=== PATIENT | female | born 1950 | race Caucasian/White ===

== ENCOUNTER → 2017-04-01 10:43 | Outpatient (CLI) | payer MEDICARE, OTHER ==
[2016-01-02 17:36] VITALS: BMI 26.1
[~2017-04-01 10:43] MED LIST: ASPIRIN325 MG PO; BUSPAR 15 MG TA15 MG PO; CARDIZEM CD240 MG PO; COLACE100 MG PO; DESERYL100 MG PO; ELIQUIS2.5 MG PO; HUMALOG INSULIN PUMP; INDOCIN25 MG PO; ISOSORBIDE MONO60 M1 PO; LEVOXYL100 MCG PO; MOBIC7.5 MG PO; MS CONTIN30 MG PO; NEURONTIN 300300 MG PO; NEXIUM40 MG PO; OXYCONTIN10 MG PO; PERCOCET 10/3251 TA1 PO; PHENERGAN25 M1 PO; PRAVACHOL40 MG PO; PROTONIX40 MG PO; REGLAN10 MG PO; SOMA350 MG PO; TYLENOL #4 W/CO1 TAB PO; VALIUM 2 MG TAB2 MG PO; VALIUM10 MG PO; ZOLOFT100 MG PO; [UNRECOGNIZED DRUG - OTHER]
== END | disposition home or self-care (01) ==
LOC: D.US 10:43 → D.NM 12:30
DX: R11.0 Nausea (principal); K59.00 Constipation, unspecified

== ENCOUNTER → 2017-09-29 13:17 | Outpatient (CLI) | payer MEDICARE, OTHER ==
[2016-01-02 17:36] VITALS: BMI 26.1
== END | disposition home or self-care (01) ==
LOC: D.US 09-24 11:30
DX: E10.42 Type 1 diabetes mellitus with diabetic polyneuropathy (principal); E78.5 Hyperlipidemia, unspecified

== ENCOUNTER → 2017-12-02 10:39 | Outpatient (CLI) | payer MEDICARE, OTHER ==
[2016-01-02 17:36] VITALS: BMI 26.1
[2017-12-02 11:16] LABS: BASOPHILS 0.6 % (0-2); EOSINOPHILS 2.5 % (0-7); HEMATOCRIT 34.9 % (36.0-48.0); HEMOGLOBIN 11.6 g/dL (12-16); IMMATURE GRANULOCYTES 0.1 % (0-5); LYMPHOCYTES 17.5 % (15-50); MCH 30.1 pg (26.0-34.0); MCHC 33.2 g/dL (31.0-37.0); MCV 90.6 fL (80.0-100.0); MEAN PLATELET VOLUME 8.8 fL (7.4-10.4); NEUTROPHILS 68.3 % (40-80); PLATELET COUNT 256 10x3/uL (130-400); RBC 3.85 10x6/uL (4.00-5.40); RDW 16.5 % (11.5-14.5); WBC 7.2 10x3/uL (4.8-10.8)
[2017-12-02 11:43] LABS: ALBUMIN 3.6 g/dL (3.4-5.0); ALKALINE PHOSPHATASE 111 U/L (46-116); ALT (SGPT) 15 U/L (10-68); CALC OSMOLALITY 261 mosm/kg (275-300); CALCIUM 8.5 mg/dL (8.5-10.1); CARBON DIOXIDE 27.4 mmol/L (21.0-32.0); CHLORIDE - SERUM 91 mmol/L (98-107); CREATININE - SERUM 0.8 mg/dL (0.6-1.3); GLUCOSE 201 mg/dL (74-106); POTASSIUM - SERUM 4.8 mmol/L (3.5-5.1); PROTEIN - SERUM 7.4 g/dL (6.4-8.2); SODIUM 128 mmol/L (136-145); UREA NITROGEN 11 mg/dL (7-18); eGFR NON AFRICAN AMERICAN 76 mL/min (90-120)
[2017-12-02 12:15] LABS: APPEARANCE CLEAR (CLEAR); BACTERIA MODERATE /hpf (NONE SEEN); BILIRUBIN NEGATIVE (NEGATIVE); COLOR YELLOW (YELLOW); EPITHELIAL CELLS 0-5 /hpf (0-5); GLUCOSE NEGATIVE (NEGATIVE); KETONE NEGATIVE (NEGATIVE); MUCUS <1+ /lpf (NONE SEEN); NITRITE NEGATIVE (NEGATIVE); PROTEIN NEGATIVE (NEGATIVE); RED CELLS - URINE 0-5 /hpf (0-5); SPECIFIC GRAVITY 1.015 (1.005-1.020); UROBILINOGEN NORMAL (NORMAL); WHITE CELLS - URINE 0-5 /hpf (0-5)
== END | disposition home or self-care (01) ==
LOC: D.LAB 10:39
PROVIDERS: Orthopaedic Surgery Sports Medicine
DX: I10 Essential (primary) hypertension (principal); Z01.812 Encounter for preprocedural laboratory examination; E11.9 Type 2 diabetes mellitus without complications

== ENCOUNTER → 2017-12-22 16:15 | Outpatient (CLI) | payer MEDICARE, OTHER ==
[2016-01-02 17:36] VITALS: BMI 26.1
[2017-12-22 17:14] LABS: CALC OSMOLALITY 254 mosm/kg (275-300); CALCIUM 7.9 mg/dL (8.5-10.1); CHLORIDE - SERUM 92 mmol/L (98-107); CREATININE - SERUM 0.8 mg/dL (0.6-1.3); GLUCOSE 174 mg/dL (74-106); POTASSIUM - SERUM 4.8 mmol/L (3.5-5.1); SODIUM 126 mmol/L (136-145); UREA NITROGEN 7 mg/dL (7-18); VANCOMYCIN - TROUGH 15.5 ug/mL (10.0-20.0); eGFR NON AFRICAN AMERICAN 76 mL/min (90-120)
== END | disposition home or self-care (01) ==
LOC: D.LABREF 16:15
PROVIDERS: Orthopaedic Surgery Sports Medicine
DX: M97.12XA Periprosthetic fracture around internal prosthetic left knee joint, initial encounter (principal); X58.XXXA Exposure to other specified factors, initial encounter

== ENCOUNTER → 2017-12-29 12:30 | Outpatient (CLI) | payer MEDICARE, OTHER ==
[2016-01-02 17:36] VITALS: BMI 26.1
[2017-12-29 14:20] LABS: CALC OSMOLALITY 265 mosm/kg (275-300); CALCIUM 8.5 mg/dL (8.5-10.1); CARBON DIOXIDE 27.9 mmol/L (21.0-32.0); CHLORIDE - SERUM 96 mmol/L (98-107); CREATININE - SERUM 0.8 mg/dL (0.6-1.3); GLUCOSE 173 mg/dL (74-106); POTASSIUM - SERUM 5.1 mmol/L (3.5-5.1); SODIUM 131 mmol/L (136-145); UREA NITROGEN 9 mg/dL (7-18); VANCOMYCIN - TROUGH 19.4 ug/mL (10.0-20.0); eGFR NON AFRICAN AMERICAN 76 mL/min (90-120)
== END | disposition home or self-care (01) ==
LOC: D.LABREF 12:30
PROVIDERS: Orthopaedic Surgery Sports Medicine
DX: M97.12XD Periprosthetic fracture around internal prosthetic left knee joint, subsequent encounter (principal); X58.XXXA Exposure to other specified factors, initial encounter

== ENCOUNTER → 2018-01-05 21:23 | Outpatient (CLI) | payer MEDICARE, OTHER ==
[2016-01-02 17:36] VITALS: BMI 26.1
[2018-01-05 21:38] LABS: VANCOMYCIN - TROUGH 28.1 ug/mL (10.0-20.0)
[2018-01-07 13:06] LABS: ANION GAP 13.7 mmol/L (8-16); CALCIUM 8.1 mg/dL (8.5-10.1); CARBON DIOXIDE 28.8 mmol/L (21.0-32.0); POTASSIUM - SERUM 4.5 mmol/L (3.5-5.1)
== END | disposition home or self-care (01) ==
LOC: D.LABREF 21:23
PROVIDERS: Orthopaedic Surgery Sports Medicine
DX: M97.12XA Periprosthetic fracture around internal prosthetic left knee joint, initial encounter (principal)

== ENCOUNTER → 2018-01-07 13:20 | Outpatient (CLI) | payer MEDICARE, OTHER ==
[2016-01-02 17:36] VITALS: BMI 26.1
[2018-01-07 14:43] LABS: ANION GAP 8.9 mmol/L (8-16); CALCIUM 8.5 mg/dL (8.5-10.1); CARBON DIOXIDE 31.6 mmol/L (21.0-32.0)
[2018-01-07 14:53] LABS: POTASSIUM - SERUM 5.5 mmol/L (3.5-5.1)
== END | disposition home or self-care (01) ==
LOC: D.LABREF 13:20
PROVIDERS: Student in an Organized Health Care Education/Training Program
DX: R60.0 Localized edema (principal)

== ENCOUNTER → 2018-01-13 14:12 | Outpatient (CLI) | payer MEDICARE, OTHER ==
[2016-01-02 17:36] VITALS: BMI 26.1
== END | disposition home or self-care (01) ==
LOC: D.US 13:30
DX: R60.0 Localized edema (principal)

== ENCOUNTER 2018-01-21 17:33 | Inpatient (IN) | payer MEDICARE, OTHER ==
[2018-01-21 18:53] LABS: BASOPHILS 0.4 % (0-2); EOSINOPHILS 3.5 % (0-7); HEMATOCRIT 25.4 % (36.0-48.0); IMMATURE GRANULOCYTES 0.3 % (0-5); LYMPHOCYTES 22.9 % (15-50); MCHC 31.5 g/dL (31.0-37.0); MCV 88.8 fL (80.0-100.0); MEAN PLATELET VOLUME 8.7 fL (7.4-10.4); MONOCYTES 12.7 % (2-11); NEUTROPHILS 60.2 % (40-80); RBC 2.86 10x6/uL (4.00-5.40); RDW 16.6 % (11.5-14.5); WBC 6.9 10x3/uL (4.8-10.8)
[2018-01-21 19:00] LABS: PLATELET COUNT 309 10x3/uL (130-400)
[2018-01-21 19:12] LABS: ANION GAP 12.2 mmol/L (8-16); CALCIUM 8.2 mg/dL (8.5-10.1); CREATININE - SERUM 1.1 mg/dL (0.6-1.3); POTASSIUM - SERUM 4.2 mmol/L (3.5-5.1)
[2018-01-22 05:56] LABS: BASOPHILS 0.1 % (0-2); EOSINOPHILS 0.3 % (0-7); HEMATOCRIT 26.6 % (36.0-48.0); HEMOGLOBIN 8.5 g/dL (12-16); IMMATURE GRANULOCYTES 0.3 % (0-5); LYMPHOCYTES 6.8 % (15-50); MCH 27.9 pg (26.0-34.0); MCV 87.2 fL (80.0-100.0); MEAN PLATELET VOLUME 9.5 fL (7.4-10.4); MONOCYTES 3.2 % (2-11); NEUTROPHILS 89.3 % (40-80); PLATELET COUNT 367 10x3/uL (130-400); RBC 3.05 10x6/uL (4.00-5.40); RDW 16.8 % (11.5-14.5); WBC 6.8 10x3/uL (4.8-10.8)
[2018-01-22 06:16] LABS: ALBUMIN 3.1 g/dL (3.4-5.0); ALKALINE PHOSPHATASE 144 U/L (46-116); ALT (SGPT) 18 U/L (10-68); BILIRUBIN - TOTAL 0.19 mg/dL (0.2-1.3); CALCIUM 8.6 mg/dL (8.5-10.1); CARBON DIOXIDE 24.2 mmol/L (21.0-32.0); CHLORIDE - SERUM 90 mmol/L (98-107); MAGNESIUM - SERUM 1.7 mg/dL (1.8-2.4); PHOSPHOROUS 3.2 mg/dL (2.5-4.9); PROTEIN - SERUM 7.5 g/dL (6.4-8.2); SODIUM 123 mmol/L (136-145); UREA NITROGEN 13 mg/dL (7-18)
[2018-01-22 06:19] LABS: CALC OSMOLALITY 258 mosm/kg (275-300); CREATININE - SERUM 0.7 mg/dL (0.6-1.3); GLUCOSE 290 mg/dL (74-106); POTASSIUM - SERUM 5.1 mmol/L (3.5-5.1); eGFR NON AFRICAN AMERICAN 89 mL/min (90-120)
[2018-01-22 12:43] LABS: % SATURATION 6 % (15-55); IRON 19 ug/dl (35-150); TOTAL IRON BIND CAPACITY 313 ug/dl (260-445); UNSAT IRON BIND CAPACITY 294 ug/dl (150-375)
[2018-01-22 12:59] LABS: FERRITIN 69 ng/mL (3-244); PRO BNP 895 pg/mL (0-125)
[2018-01-23 06:58] LABS: BASOPHILS 0.3 % (0-2); EOSINOPHILS 0.8 % (0-7); HEMATOCRIT 25.9 % (36.0-48.0); HEMOGLOBIN 8.2 g/dL (12-16); IMMATURE GRANULOCYTES 0.4 % (0-5); LYMPHOCYTES 18.6 % (15-50); MCH 27.9 pg (26.0-34.0); MCHC 31.7 g/dL (31.0-37.0); MCV 88.1 fL (80.0-100.0); MONOCYTES 10.1 % (2-11); NEUTROPHILS 69.8 % (40-80); PLATELET COUNT 364 10x3/uL (130-400); RBC 2.94 10x6/uL (4.00-5.40); RDW 16.9 % (11.5-14.5)
[2018-01-23 07:11] LABS: ANION GAP 13.8 mmol/L (8-16); CALCIUM 8.3 mg/dL (8.5-10.1); POTASSIUM - SERUM 4.8 mmol/L (3.5-5.1)
[2018-01-23 08:21] LABS: FOLATE (FOLIC ACID) - SERUM 17.5 ng/mL (>3.0)
[2018-01-23 16:14] LABS: ANA REFLEX - DIRECT Negative (Negative)
[2018-01-23 17:03] LABS: APPEARANCE CLEAR (CLEAR); BILIRUBIN NEGATIVE (NEGATIVE); COLOR YELLOW (YELLOW); GLUCOSE 100 mg/dL (NEGATIVE); KETONE NEGATIVE (NEGATIVE); NITRITE NEGATIVE (NEGATIVE); PROTEIN NEGATIVE (NEGATIVE); UROBILINOGEN NORMAL (NORMAL)
[2018-01-24 05:26] LABS: BASOPHILS 0.4 % (0-2); EOSINOPHILS 2.3 % (0-7); HEMATOCRIT 26.3 % (36.0-48.0); HEMOGLOBIN 8.4 g/dL (12-16); IMMATURE GRANULOCYTES 0.4 % (0-5); LYMPHOCYTES 26.7 % (15-50); MCH 27.7 pg (26.0-34.0); MCHC 31.9 g/dL (31.0-37.0); MCV 86.8 fL (80.0-100.0); MEAN PLATELET VOLUME 8.1 fL (7.4-10.4); MONOCYTES 10.5 % (2-11); NEUTROPHILS 59.7 % (40-80); PLATELET COUNT 317 10x3/uL (130-400); RBC 3.03 10x6/uL (4.00-5.40); RDW 16.9 % (11.5-14.5); WBC 9.9 10x3/uL (4.8-10.8)
[2018-01-24 05:56] LABS: CALCIUM 8.3 mg/dL (8.5-10.1); CHLORIDE - SERUM 94 mmol/L (98-107); POTASSIUM - SERUM 4.5 mmol/L (3.5-5.1); SODIUM 128 mmol/L (136-145); THYROID STIMULATING HORMONE 1.62 uIU/mL (0.36-3.74); UREA NITROGEN 14 mg/dL (7-18); eGFR NON AFRICAN AMERICAN 89 mL/min (90-120)
[2018-01-24 06:02] LABS: CALC OSMOLALITY 258 mosm/kg (275-300); CREATININE - SERUM 0.7 mg/dL (0.6-1.3); GLUCOSE 111 mg/dL (74-106)
[2018-01-25 05:40] LABS: IMMUNOGLOBULIN E 28 IU/mL (0-100)
[2018-01-26 05:38] LABS: BASOPHILS 0.7 % (0-2); EOSINOPHILS 3.1 % (0-7); HEMATOCRIT 27.5 % (36.0-48.0); HEMOGLOBIN 8.8 g/dL (12-16); IMMATURE GRANULOCYTES 0.6 % (0-5); LYMPHOCYTES 19.5 % (15-50); MCH 27.7 pg (26.0-34.0); MCV 86.5 fL (80.0-100.0); MEAN PLATELET VOLUME 8.9 fL (7.4-10.4); MONOCYTES 11.5 % (2-11); NEUTROPHILS 64.6 % (40-80); PLATELET COUNT 364 10x3/uL (130-400); RBC 3.18 10x6/uL (4.00-5.40); RDW 16.9 % (11.5-14.5); WBC 9.8 10x3/uL (4.8-10.8)
[2018-01-26 06:07] LABS: ANION GAP 11.2 mmol/L (8-16); CALCIUM 7.8 mg/dL (8.5-10.1); CARBON DIOXIDE 27.5 mmol/L (21.0-32.0); CREATININE - SERUM 1.1 mg/dL (0.6-1.3); POTASSIUM - SERUM 4.7 mmol/L (3.5-5.1)
[2018-01-27 05:52] LABS: BASOPHILS 0.6 % (0-2); HEMATOCRIT 27.4 % (36.0-48.0); HEMOGLOBIN 8.8 g/dL (12-16); IMMATURE GRANULOCYTES 0.6 % (0-5); LYMPHOCYTES 21.3 % (15-50); MCH 27.7 pg (26.0-34.0); MCHC 32.1 g/dL (31.0-37.0); MCV 86.2 fL (80.0-100.0); MEAN PLATELET VOLUME 9.4 fL (7.4-10.4); MONOCYTES 11.8 % (2-11); NEUTROPHILS 62.7 % (40-80); PLATELET COUNT 379 10x3/uL (130-400); RBC 3.18 10x6/uL (4.00-5.40); RDW 16.8 % (11.5-14.5); WBC 9.7 10x3/uL (4.8-10.8)
[2018-01-27 06:09] LABS: ANION GAP 10.7 mmol/L (8-16); CALCIUM 7.7 mg/dL (8.5-10.1); CARBON DIOXIDE 27.8 mmol/L (21.0-32.0); CREATININE - SERUM 0.9 mg/dL (0.6-1.3); POTASSIUM - SERUM 4.5 mmol/L (3.5-5.1)
== END 2018-01-27 15:45 | disposition home health service (06) | DRG 981 ==
LOC: D.M2 17:33
PROVIDERS: Emergency Medicine; Internal Medicine Nephrology; Internal Medicine Pulmonary Disease
PROC: 02703DZ Dilation of Coronary Artery, One Artery with Intraluminal Device, Percutaneous Approach (ICD-10-PCS; principal; 2018-01-27)
PROC: 4A023N7 Measurement of Cardiac Sampling and Pressure, Left Heart, Percutaneous Approach (ICD-10-PCS; 2018-01-27)
PROC: B2111ZZ Fluoroscopy of Multiple Coronary Arteries using Low Osmolar Contrast (ICD-10-PCS; 2018-01-27)
PROC: B2151ZZ Fluoroscopy of Left Heart using Low Osmolar Contrast (ICD-10-PCS; 2018-01-27)
PROC: B240ZZ3 Ultrasonography of Single Coronary Artery, Intravascular (ICD-10-PCS; 2018-01-27)
DX: J44.0 Chronic obstructive pulmonary disease with (acute) lower respiratory infection (principal); J15.6 Pneumonia due to other Gram-negative bacteria; J13 Pneumonia due to Streptococcus pneumoniae; J98.11 Atelectasis; E87.1 Hypo-osmolality and hyponatremia; I25.119 Atherosclerotic heart disease of native coronary artery with unspecified angina pectoris; J44.1 Chronic obstructive pulmonary disease with (acute) exacerbation; E78.5 Hyperlipidemia, unspecified; I10 Essential (primary) hypertension; D64.9 Anemia, unspecified; K21.9 Gastro-esophageal reflux disease without esophagitis; E11.43 Type 2 diabetes mellitus with diabetic autonomic (poly)neuropathy; K31.84 Gastroparesis; E11.51 Type 2 diabetes mellitus with diabetic peripheral angiopathy without gangrene; E03.9 Hypothyroidism, unspecified; F32.9 Major depressive disorder, single episode, unspecified; F41.9 Anxiety disorder, unspecified; Z79.4 Long term (current) use of insulin; I48.91 Unspecified atrial fibrillation; R94.31 Abnormal electrocardiogram [ECG] [EKG]; I95.9 Hypotension, unspecified; Z87.891 Personal history of nicotine dependence

== ENCOUNTER → 2018-03-12 17:06 | Outpatient (CLI) | payer MEDICARE, OTHER ==
[2018-01-22 14:29] VITALS: BMI 25.2
[~2018-03-12 17:06] MED LIST changes: +BETAPACE 80 MG80 MG PO; +DOXYCYCLINE HY100 M2 PO; +FLORAJEN3 CAPS460 MG PO; +HUMALOG INSULIN; +KEFLEX500 MG PO; +PLAQUENIL 200200 MG PO; +PLAQUENIL PO; +PLAVIX75 MG PO; -[UNRECOGNIZED DRUG - OTHER]
== END | disposition home or self-care (01) ==
LOC: D.CT 17:06
DX: R09.02 Hypoxemia (principal)

== ENCOUNTER → 2018-04-06 09:52 | Outpatient (CLI) | payer MEDICARE, OTHER ==
[2018-01-22 14:29] VITALS: BMI 25.2
== END | disposition home or self-care (01) ==
LOC: D.US 09:52
DX: M25.561 Pain in right knee (principal)

== ENCOUNTER 2018-04-07 21:11 | Inpatient (IN) | payer MEDICARE, OTHER ==
[~2018-04-07] VITALS: Ht 157.5 cm; Wt 74.1 kg
--- NOTE | ~2018-04-07 | HEMODYNAMI ---
PATIENT:SCARLETT MOODY MEDICAL RECORD: [id number] : 54 [id number] ADMISSION DATE: 04/07/18 Generatedon:04/20/201817:04 Patient name: SCARLETT MOODY Patient #: [id number] SSN: : 1950 Date of study: 04/20/2018 Page: Of Hemodynamic Procedure Report Patient Data Patient Demographics Procedure consent was obtained First Name: SCARLETT Gender: Female Last Name: HEIDY : 1950 [facility] Initial: JERRY Age: 68 year(s) Patient #: [id number] Race: Unknown Additional ID: [id number] Contact details Address: [facility] NOEL ALMARAZ State: [facility] Zip code: [address] Past Medical History Allergies Allergen Reaction Date Comments Reported Other allergy 01/27/2018 BACITRACIN ZINC, ADHESIVE, CYCLOBENAZPRINE, HYRDOCODONE BIT ,LIDOCAINE, METHOCARBAMOL, METOPROLOL Admission Admission Data Admission Date: 04/07/2018 Admission Time: 23:57 Room #: D.2316 Procedure Procedure Types Cath Procedure Diagnostic Procedure [facility] w/Coronaries FFR/IVUS Intra-Coronary IVUS Initial Intra-Coronary IVUS Additional Sedation Charges PCI Procedure Coronary Stent Coronary Stent Initial x2 Procedure Description Procedure Date Procedure Date: 04/20/2018 Procedure Start Time: 16:30 Procedure End Time: 16:57 Procedure Staff Name Function Cristela Landry RT Scrub Be Keane RT Fiberglass Quality Technician Luisa Garcia RT Monitor Yovanny Kelley MD Performing Physician Alexei Watson RT Monitor Betty Moody RN Fiberglass Quality Technician Procedure Data Cath Procedure Fluoroscopy Diagnostic fluoroscopy Total fluoroscopy Time: 7.6 time: 7.6 min min Diagnostic fluoroscopy Total fluoroscopy dose: 403 dose: 403 mGy mGy Contrast Material Contrast Material Type Amount (ml) Isovue 300 123 Entry Location Entry Primary Successful Side Size Upsize Upsize Entry Closure Succes sful Closure Location (Fr) 1 (Fr) 2 (Fr) Remarks Device Remarks Femoral Right 5 Fr 6 Fr Exoseal artery Short Estimated blood loss: 10 ml Diagnostic catheters Device Type Used For End Catheter Placement MULTIPACK Pigtail 5 Fr Multi-vessel catheter Angiography MULTIPACK JL 4.0 5Fr Left Coronary catheter Angiography MULTIPACK 3DRC 5Fr Right Coronary catheter Angiography Procedure Complications No complications Procedure Medications Medication Administration Route Dosage 0.9% NaCl I.V. 100 ml/hr Oxygen 100 Bupivacaine 0.5% added to field 10 ml Heparin Flush Bag added to field 2 bags (1000units/500ml NS) Diprivan 1% 50 mcg/kg/min (Propofol) Fentanyl 200 mcg/hr Heparin Bolus I.V. 4000 units Integrilin (Bolus I.V. 6.8 ml 2mg/ml) Plavix 600 mg Hemodynamics Rest Heart Rate: 75 (bpm) Pressure Samples Time Site Value (mmHg) Purpose Heart Use Rate(bpm) 16:32 LV 159/95,26 Snapshot 96 Snapshots Pre Cath Intra NCS Post Cath Vital Signs Time Heart Resp SPO2 etCO2 NIBP (mmHg) Rhythm Pain Sedation Rate (ipm) (%) (mmHg) Status Level (bpm) 16:18:58 73 14 100 0 184/82(141) Paced 0 (11) 5(A) , No pain 16:23:18 72 14 100 0 187/85(147) Paced 0 (11) 5(A) , No pain 16:27:40 72 14 100 0 191/84(143) Paced 0 (11) 5(A) , No pain 16:32:08 78 14 100 0 189/70(139) Paced 0 (11) 5(A) , No pain 16:36:28 60 14 100 0 199/89(149) Paced 0 (11) 5(A) , No pain 16:40:59 62 14 100 0 194/73(141) Paced 0 (11) 5(A) , No pain 16:45:21 69 14 100 0 202/90(138) Paced 0 (11) 5(A) , No pain 16:49:53 58 14 100 0 192/67(127) Paced 0 (11) 5(A) , No pain 16:54:13 57 14 100 0 205/93(151) Paced 0 (11) 5(A) , No pain Medications Time Medication Route Dose Verified Delivered Reason N otes Effectiveness by by 16:27:48 0.9% NaCl I.V. 100 ml/hr Yovanny Yodera used for Warren Moody elevator erector helper 16:28:11 Oxygen vent 100% FiO2 Yovanny Yodera used for Warren Moody elevator erector helper 16:28:54 Bupivacaine 0.5% added 10 ml Yovanny Yovanny for local to Warren Kelley MD anesthetic field 16:29:02 Heparin Flush added 2 bags Yovanny Hairston used for Bag to Warren Kelley MD procedure (1000units/500ml field NS) 16:29:29 Diprivan 1% cont. 50 Yovanny Betty for sedation (Propofol) IV mcg/kg/min Warren brewer RN 16:29:51 Fentanyl cont. 200 mcg/hr Yovanny Yodera for sedation IV Warren brewer RN 16:39:05 Integrilin I.V. 6.8 ml Yovanny Castilloyla for w asted (Bolus 2mg/ml) Warren Moody anticoagulation 3.2mL RN 16:39:24 Heparin Bolus I.V. 4000 units Yovanny Hernández for v erified Warren Moody anticoagulation with Dr. CROWLEY [facility] 16:42:36 Plavix NGT 600 mg Yovanny Yodera for Warren Moody antiplatelet RN therapy Procedure Log Time Note 15:56:36 Time tracking: Regular hours (M-F 7:00 - 5:00) 15:56:40 Plan of Care:Hemodynamics will remain stable., Cardiac rhythm will remain stable., Comfort level will be maintained., Respiratory function will remain adequate., Patient/ family verbilizes understanding of procedure., Procedure tolerated without complication., Recovers from procedure without complications.. 15:56:42 Be Keane RT(R) sent for patient. Start room use. 16:11:07 Patient received from ICU to CCL 2 Alert and oriented. Tansferred to table in Supine position. 16:11:08 Correct patient and procedure confirmed by team. 16:11:08 Warm blankets applied, and yariel hugger turned on for patient comfort. 16:11:10 ECG and BP/O2 sat monitors applied to patient. 16:11:10 Signed procedure consent form obtained from patient. 16:11:11 Full Disclosure recording started 16:16:43 Vital chart was started 16:17:57 Baseline sample Acquired. 16:18:03 Rhythm: paced 16:18:09 H&P Date Dictated: 04/20/2018 New H&P dictated by physician.. 16:18:10 Pre-procedure instructions explained to patient. 16:18:11 Pre-op teaching completed and patient verbalized understanding. 16:18:12 Family in waiting room. 16:18:14 Patient NPO since Midnight. 16:18:20 Is the patient allergic to Iodine/contrast media? No. 16:18:22 Was the patient premedicated? No 16:18:51 Is patient on blood thinner?No 16:18:53 Patient diabetic? Yes. 16:18:54 If diabetic: On Metformin? No 16:18:57 Previous problem with sedation/anesthesia? No ? 16:19:03 Snore? Yes 16:19:04 Sleep apnea? No 16:19:05 Deviated septum? No 16:19:06 Opens mouth fully? Yes 16:19:07 Sticks out tongue? Yes 16:19:11 Airway obstruction? Yes copd 16:19:16 Dentures? Yes out 16:19:50 Pre procedure: right dorsailis pedis pulse 1+ Palpable, but thready & weak; easily obliterated 16:19:54 Patient pain scale 0/10 ?. 16:20:03 IV patent on arrival in right forearm with 0.9% NaCl at [facility]. 16:20:05 Lab results completed and on chart. 16:20:10 Right groin area was prepped with chlora-prep and draped in sterile fashion 16:20:11 Sharps counted by scrub and verified by R.N. 16:20:11 Alarms reviewed by R. N. 16:20:13 --------ALL STOP TIME OUT------ 16:20:13 Physician arrived 16:20:14 Final Timeout: patient, procedure, and site verified with staff and physician. All members of the team are in agreement. 16:20:15 Right groin site verified by team. 16:20:19 Fire Safety Assessment: A--An alcohol-based skin anteseptic being used preoperatively., C--Open oxygen or nitrous oxide is being used., D--An ESU, laser, or fiber-optic light is being used. 16:20:23 Physical assessment completed. ASA score P 3 - A patient with severe systemic disease as per Yovanny Kelley MD. 16:20:26 Sedation plan: IV Moderate Sedation Medication:Versed, Fentanyl 16:20:47 Use device set Femoral Dx 16:20:48 Bag Decanter (2002S) opened to sterile field. 16:20:48 ACIST Syringe (46207) opened to sterile field. 16:20:49 DIAGNOSTIC WIRE .035 260cm J wire (202816) opened to sterile field. 16:20:49 Medline Cath Pack ([id number]) opened to sterile field. 16:20:50 ACIST Hand Control (02842) opened to sterile field. 16:20:51 DIAGNOSTIC Multipack 5Fr catheter set (RT7206) opened to sterile field. 16:20:51 ACIST Manifold (92473) opened to sterile field. 16:20:52 Tegaderm 4 x 4 (1626W) opened to sterile field. 16:20:53 SHEATH 5FR [place] (TKR871) opened to sterile field. 16:27:48 0.9% NaCl 100 ml/hr I.V. was administered by Betty Moody RN; used for procedure; 16:28:11 Oxygen 100% FiO2 vent was administered by Betty Moody RN; used for procedure; 16::54 Bupivacaine 0.5% 10 ml added to field was administered by Yovanny Kelley MD; for local anesthetic; 16:29:02 Heparin Flush Bag (1000units/500ml NS) 2 bags added to field was administered by Yovanny Kelley MD; used for procedure; 16:29:29 Diprivan 1% (Propofol) 50 mcg/kg/min cont. IV drip was administered by Betty Moody RN; for sedation; 16:29:38 Procedure started. 16:29:51 Fentanyl 200 mcg/hr cont. IV drip was administered by Betty Moody RN; for sedation; 16:30:52 Local anesthetic to right femoral artery with Lidocaine 2% by Yovanny Kelley MD.INITIAL ACCESS ONLY 16:31:01 Pt arrived to ventilated and sedated. No response to verbal or painful stimuli. Propofol and Fentanyl continuous IV drips infusing upon arrival from ICU. No moderate sedation to be given at this time. 16:31:54 A 5 Fr sheath was inserted into the Right Femoral artery 16:32:02 A MULTIPACK Pigtail 5 Fr catheter was advanced over the wire and used for Multi-vessel Angiography. 16:32:06 LV hemodynamics recorded. 16:32:07 LV gram done using MUNGUIA 16:32:09 Injector settings: Ml/sec: 5, Volume: 15, 16:32:18 EF : 50 % 16:32:21 Catheter removed. 16:32:26 A MULTIPACK JL 4.0 5Fr catheter was advanced over the wire and used for Left Coronary Angiography. 16:33:07 LCA angiography performed. 16:33:10 Injector settings: Ml/sec: 3, Volume: 6, 16:33:59 Catheter removed. 16:34:05 A MULTIPACK 3DRC 5Fr catheter was advanced over the wire and used for Right Coronary Angiography. 16:34:36 RCA angiography performed. 16:36:26 Injector settings: Ml/sec: 3, Volume: 6, 16:36:28 Catheter removed. 16:36:29 Proceeding to intervention. 16:36:50 SHEATH 6FR [place] (SLI682) opened to sterile field. 16:36:51 CHOICE PT Extra Support 182cm wire ([id number]) opened to sterile field. 16:36:51 INFLATOR Merit BasixCompak (MN4616) opened to sterile field. 16:36:52 [place] IVUS Catheter (62308W) opened to sterile field. 16:37:01 GUIDE 6FR XB 3.5 catheter ([id number]) opened to sterile field. 16:37:07 CHOICE PT Extra Support 182cm wire ([id number]) opened to sterile field. 16:37:17 Sheath upsized to a 6 Fr Short. 16:37:23 6 Fr xb 3.5 guide catheter was inserted over the wire 16:38:47 wire directed across LCX; second choice pt wire advanced across LAD 16:39:05 Integrilin (Bolus 2mg/ml) 6.8 ml I.V. was administered by Betty Moody RN; for anticoagulation; wasted 3.2mL 16:39:13 IVUS catheter advanced over wire. 16:39:24 Heparin Bolus 4000 units I.V. was administered by Betty Moody RN; for anticoagulation; verified with Dr. Kelley 16:41:25 IVUS pass to LAD lesion performed. 16:41:27 IVUS catheter removed over wire. 16:41:54 both wires removed; exchanging guide 16:42:06 GUIDE 6FR EBU 3.0 SH catheter ([id number]) opened to sterile field. 16:42:36 Plavix 600 mg NGT was administered by Betty Moody RN; for antiplatelet therapy; 16:42:55 6 Fr ebu 3.0 sh guide catheter was inserted over the wire 16:43:19 choice pt wire advanced 16:44:00 IVUS catheter advanced over wire. 16:44:48 IVUS pass to LAD lesion performed. 16:44:49 IVUS catheter removed over wire. 16:45:46 second choice pt wire advanced across LCX 16:48:38 Place stent Inflation Number: 1 A CHARLY RX 3.5 x 08 stent ([id number]) was prepped and advanced across the Prox CX. The stent was deployed at 15 MELISSA for 0:10 (min:sec). 16:48:43 Stent catheter was removed intact over wire. 16:48:45 Wire removed. 16:49:59 Inflation number: 1 The stent balloon was then re-inflated across the Prox LAD to 15 MELISSA for 0:10 (min:sec). 16:50:03 Inflation number: 2 The stent balloon was then re-inflated across the Prox LAD to 15 MELISSA for 0:10 (min:sec). 16:50:19 Stent catheter was removed intact over wire. 16:51:26 Place stent Inflation Number: 3 A CHARLY RX 3.5 x 12 stent ([id number]) was prepped and advanced across the Prox LAD. The stent was deployed at 15 MELISSA for 0:10 (min:sec). 16:51:50 Inflation number: 4 The stent balloon was then re-inflated across the Prox LAD to 13 MELISSA for 0:10 (min:sec). 16:52:29 Stent catheter was removed intact over wire. 16:52:30 Guide catheter removed. 16:52:30 Wire removed. 16:52:37 EXOSEAL 6Fr (EX600) opened to sterile field. 16:52:48 Sheath removed intact; hemostasis achieved with Exoseal to the Right Femoral artery. 16:52:50 Procedure ended.(Physican Out) 16:53:08 Fluoroscopy time 07.60 minutes. 16:53:24 Fluoroscopy dose: 403 mGy 16:53:24 Flurop Dose total: 403 16:53:31 Contrast amount:Isovue 300 123ml. 16:53:33 Sharps counted by scrub and verified by R.N. 16:53:59 Insertion/operative site no bleeding no hematoma. 16:54:02 Post-op/insertion site Right Femoral artery dressed using a 4 x 4 and Tegaderm. 16:54:06 Post right femoral artery:stable, soft, clean and dry 16:54:08 Post Procedure Pulses reassessed and unchanged 16:54:10 Post-procedure physical assessment completed. ASA score P 2 - A patient with mild systemic disease as per Yovanny Kelley MD. 16:54:13 Post procedure rhythm: unchanged. 16:54:17 Estimated blood loss: 10 ml 16:54:18 Post procedure instruction explained to patient.Patient verbalizes understanding. 16:54:19 Patient needs reinforcement of post procedure teaching. 16:55:17 Procedure type changed to Cath procedure, Diagnostic procedure, LHC, LHC w/Coronaries, FFR/IVUS, Intra-Coronary IVUS Initial, Intra-Coronary IVUS Additional, Sedation Charges, PCI procedure, Coronary Stent, Coronary Stent Initial x2 16:57:10 Procedure and supply charges have been captured, reviewed, submitted and are correct. 16:57:12 Procedure Complication : No complications 16:57:14 Vital chart was stopped 16:57:15 See physician's report for complete and final results. 16:57:17 Report given to ICU. 16:57:19 Patient transfered to ICU with Stretcher. 16:57:21 Full Disclosure recording stopped 16:57:21 Procedure ended. 16:57:25 End room use (Document Last) Intervention Summary Intervention Notes Time ActionType Lesion and Equipment Used Action# Pressure Duration Attributes 16:48:38 Place stent Prox CX CHARLY RX 3.5 x 1 15 00:10 08 stent ([id number]) 16:49:59 Reinflate Prox LAD CHARLY RX 3.5 x 1 15 00:10 stent 08 stent balloon ([id number]) 16:50:03 Reinflate Prox LAD CHARLY RX 3.5 x 2 15 00:10 stent 08 stent balloon ([id number]) 16:51:26 Place stent Prox LAD CHARLY RX 3.5 x 3 15 00:10 12 stent ([id number]) 16:51:50 Reinflate Prox LAD CHARLY RX 3.5 x 4 13 00:10 stent 12 stent balloon ([id number]) Device Usage Item Name Manufacture Quantity Catalog Number Hospital Part Current M inimal Lot# / Charge Number Stock Stock Serial# Code ACIST Syringe Acist 1 88046 701204 567139 191269 2 0 (71274) Medical Systems Inc Bag Decanter Microtek 1 219289 10130 694024 5 () Medical Inc. Medline Cath Medline 1 [id number] 053651 39673 650819 5 Pack ([id number]) DIAGNOSTIC St [place] 1 949002 829626 631329 413276 3 0 WIRE .035 260cm J wire (408085) ACIST Hand Acist 1 77964 061674 251776 061636 5 Control Medical (88269) Systems Inc ACIST Manifold Acist 1 70664 627065 205845 325509 5 (88315) Medical Systems Inc DIAGNOSTIC Cardinal 1 RT4215 681340 55851 753670 3 0 Multipack 5Fr Health catheter set (UW3152) Tegaderm 4 x 4 3M 1 1626W 079259 167145 135152 5 (1626W) SHEATH 5FR Terumo 1 ZAC014 688884 889510 488096 5 [place] (FFN444) MULTIPACK Cardinal 1 857697 5 Pigtail 5 Fr Health catheter MULTIPACK JL Cardinal 1 626639 5 4.0 5Fr Health catheter MULTIPACK 3DRC Cardinal 1 060462 5 5Fr catheter Health SHEATH 6FR Terumo 1 NCM875 691428 624852 816660 4 0 [place] (MMR804) INFLATOR Merit Merit 1 UP1270 592265 183501 191002 1 5 ZeroFOX (OD0959) CHOICE PT [place] 2 [id number] 709576 414894 600123 5 Extra Support Scientific 182cm wire ([id number]) [place] 1 64073M 677698 525581 119449 8 [place] IVUS Catheter (60213X) GUIDE 6FR XB Cardinal 1 [id number] 506223 635740 098507 2 3.5 catheter Method (09119276) GUIDE 6FR EBU Medtronic 1 [id number] 168794 95695 801898 0 3.0 SH catheter ([id number]) CHARLY RX 3.5 x Medtronic 1 [id number] 766210 7080549 158064 5 [id number] 08 stent ([id number]) CHARLY RX 3.5 x Medtronic 1 [id number] 604828 6243890 441798 5 [id number] 12 stent ([id number]) EXOSEAL 6Fr Cardinal 1 EX600 636932 004627 843514 1 0 (EX600) Health Signature Audit [place] Stage Time Signature Unsigned Intra-Procedure 04/20/2018 Alexei Watson 4:59:18 PM RT(R) Signatures Monitor : Luisa Garcia RT Signature : Date : Time : Monitor : Alexei Watson RT Signature : Date : Time : [address] [place] [address]
[2018-04-07 21:30] VITALS: BP 184/126
[2018-04-07 21:45] VITALS: BP 153/99
[2018-04-07 21:59] LABS: BASOPHILS 0.2 % (0-2); EOSINOPHILS 0.1 % (0-7); HEMATOCRIT 30.6 % (36.0-48.0); HEMOGLOBIN 9.4 g/dL (12-16); IMMATURE GRANULOCYTES 0.4 % (0-5); LYMPHOCYTES 14.3 % (15-50); MCH 25.9 pg (26.0-34.0); MCHC 30.7 g/dL (31.0-37.0); MCV 84.3 fL (80.0-100.0); MEAN PLATELET VOLUME 8.8 fL (7.4-10.4); MONOCYTES 3.5 % (2-11); NEUTROPHILS 81.5 % (40-80); RBC 3.63 10x6/uL (4.00-5.40); RDW 19.7 % (11.5-14.5)
[2018-04-07 22:00] VITALS: BP 139/79
[2018-04-07 22:04] LABS: APTT 28.1 SECONDS (22.8-39.4); INR 1.09 (0.85-1.17); PROTIME 13.6 SECONDS (11.6-15.0)
[2018-04-07 22:05] LABS: D-DIMER-QUANTITATIVE 2.15 ug/mLFEU (0.20-0.54)
[2018-04-07 22:13] LABS: APPEARANCE CLEAR (CLEAR); COLOR YELLOW (YELLOW)
[2018-04-07 22:14] LABS: BILIRUBIN NEGATIVE (NEGATIVE); GLUCOSE 1000 mg/dL (NEGATIVE); KETONE NEGATIVE (NEGATIVE); NITRITE NEGATIVE (NEGATIVE); PROTEIN 1+ mg/dL (NEGATIVE); SPECIFIC GRAVITY 1.015 (1.005-1.020); UROBILINOGEN NORMAL (NORMAL)
[2018-04-07 22:21] LABS: PLATELET COUNT 611 10x3/uL (130-400)
[2018-04-07 22:22] LABS: ALKALINE PHOSPHATASE 387 U/L (46-116); ALT (SGPT) 16 U/L (10-68); BILIRUBIN - TOTAL 0.25 mg/dL (0.2-1.3); CALCIUM 8.4 mg/dL (8.5-10.1); CARBON DIOXIDE 21.9 mmol/L (21.0-32.0); CHLORIDE - SERUM 90 mmol/L (98-107); CKMB 1.6 U/L (0.0-3.6); CREATINE KINASE 136 UL (21-215); MAGNESIUM - SERUM 1.6 mg/dL (1.8-2.4); POTASSIUM - SERUM 4.9 mmol/L (3.5-5.1); PRO BNP 3279 pg/mL (0-125); SODIUM 125 mmol/L (136-145); UREA NITROGEN 13 mg/dL (7-18); eGFR NON AFRICAN AMERICAN 59 mL/min (90-120)
[2018-04-07 22:26] LABS: CALC OSMOLALITY 275 mosm/kg (275-300); GLUCOSE 532 mg/dL (74-106); TROPONIN-I < 0.017 ng/mL (0.000-0.060)
[2018-04-07 23:11] VITALS: BP 185/74
[2018-04-07 23:45] VITALS: BP 165/72
[2018-04-08] VITALS (41 sets, daily range): BP systolic 89–146; BP diastolic 42–85; BMI 25.6
--- NOTE | 2018-04-08 00:37 | NUR ---
REPROT GIVEN TO KEO MAYA IN CV ICU
--- NOTE | 2018-04-08 01:20 | NUR ---
REC'D TO CV 02 VIA STRETCHER FROM ER. PT INTUBATED AND PLACED ON VENT PER R.T. ICU MONITORS ESTAB. PIV X 3 NOTED, SEE IV GTT SHEET. CM - UCAF. R NARE NGT TO LIWS. DELGADO CATH PATENT AND DRAINING CLEAR, YELLOW URINE. SEE ADMISSION ASSESSMENT AND HX. ALARMS ON. B/L SOFT WRIST RESTRAINTS ON PER MD ORDER.
--- NOTE | 2018-04-08 01:43 | NUR ---
CARDIZEM, NS AND PROPOFOL DRIPS STOPPED WHEN TRASFERED TO CV2 AT 0110.
--- NOTE | 2018-04-08 01:45 | NUR ---
NS BOLUS STOPPED AT 0030
--- NOTE | 2018-04-08 02:34 | NUR ---
DR. MILLER HERE TO SEE PT AND SPOKE WITH PTS DAUGHTER.
--- NOTE | 2018-04-08 04:05 | NUR ---
FSBS 236, IVF CHANGED TO D5NS PER MD ORDERS.
[2018-04-08 04:47] LABS: BASOPHILS 0 % (0-2); EOSINOPHILS 0 % (0-7); HEMATOCRIT 27.3 % (36.0-48.0); HEMOGLOBIN 8.4 g/dL (12-16); IMMATURE GRANULOCYTES 0.3 % (0-5); LYMPHOCYTES 8.3 % (15-50); MCH 25.7 pg (26.0-34.0); MCHC 30.8 g/dL (31.0-37.0); MCV 83.5 fL (80.0-100.0); MEAN PLATELET VOLUME 8.7 fL (7.4-10.4); MONOCYTES 4.1 % (2-11); NEUTROPHILS 87.3 % (40-80); RBC 3.27 10x6/uL (4.00-5.40); RDW 19.8 % (11.5-14.5); WBC 7.8 10x3/uL (4.8-10.8)
[2018-04-08 04:57] LABS: PLATELET COUNT 366 10x3/uL (130-400)
[2018-04-08 05:16] LABS: ALBUMIN 2.3 g/dL (3.4-5.0); ALKALINE PHOSPHATASE 308 U/L (46-116); ALT (SGPT) 13 U/L (10-68); BILIRUBIN - TOTAL 0.15 mg/dL (0.2-1.3); CALCIUM 7.9 mg/dL (8.5-10.1); CARBON DIOXIDE 25.2 mmol/L (21.0-32.0); CHLORIDE - SERUM 94 mmol/L (98-107); CKMB 4.3 U/L (0.0-3.6); CREATINE KINASE 125 UL (21-215); CREATININE - SERUM 0.8 mg/dL (0.6-1.3); MAGNESIUM - SERUM 1.5 mg/dL (1.8-2.4); PROTEIN - SERUM 6.4 g/dL (6.4-8.2); SODIUM 131 mmol/L (136-145); UREA NITROGEN 14 mg/dL (7-18); eGFR NON AFRICAN AMERICAN 76 mL/min (90-120)
[2018-04-08 05:18] LABS: CALC OSMOLALITY 270 mosm/kg (275-300); GLUCOSE 233 mg/dL (74-106); POTASSIUM - SERUM 3.8 mmol/L (3.5-5.1)
[2018-04-08 05:19] LABS: TROPONIN-I 3.092 ng/mL (0.000-0.060)
--- NOTE | 2018-04-08 07:15 | NUR ---
REPORT RECEIVED. PT ON VENT IN ASSIST MODE, SEDATED. NG TUBE TO RIGHT NARE ON LIS. 3 PERIPHERAL IVS. LEFT FOREARM, LEFT WRIST, AND RIGHT AC. SEE IV FLOWSHEET. PT IS IN AFIB. PT HAS DELGADO. ORAL CARE PERFORMED. PT REPOSITIONED. DAUGHTER AT BEDSIDE. SIDE RAILS UP X2. BED IN LOWEST POSITION. WILL CONTINUE TO MONITOR.
--- NOTE | 2018-04-08 09:06 | NUR ---
ORAL CARE DONE. AM MEDICATIONS GIVEN. 2ND BAG OF MAGNESIUM INFUSING. PT REPOSITIONED.
[2018-04-08 10:07] LABS: CALC OSMOLALITY 268 mosm/kg (275-300); CALCIUM 7.8 mg/dL (8.5-10.1); CHLORIDE - SERUM 98 mmol/L (98-107); CREATININE - SERUM 0.7 mg/dL (0.6-1.3); GLUCOSE 201 mg/dL (74-106); SODIUM 131 mmol/L (136-145); UREA NITROGEN 13 mg/dL (7-18); eGFR NON AFRICAN AMERICAN 89 mL/min (90-120)
[2018-04-08 10:08] LABS: MAGNESIUM - SERUM 2.2 mg/dL (1.8-2.4); POTASSIUM - SERUM 4.6 mmol/L (3.5-5.1)
--- NOTE | 2018-04-08 11:23 | NUR ---
DR MILLER IN UNIT, ORDERS TO CHANGE IVF TO NS, START HUMALOG S/S Q6 AND STOP INSULIN IV, RT AWARE OF ABG ORDER
--- NOTE | 2018-04-08 13:15 | NUR ---
ORAL CARE PERFORMED. PT REPOSITIONED. IV FLUID CHANGED TO NS @ 100ML/HR. TUBING ON PROPOFAL CHANGED. INSULIN DRIP D/C. BLOOD SUGAR CHECKS CHANGED TO Q6H. DR. RUSS UPDATED FAMILY.
--- NOTE | 2018-04-08 14:16 | NUR ---
PT GESTURING TO HEAD AND NODS YES WHEN ASKED IF IN PAIN, PER DR RUSS PRN PERCOCET (HOME MED) GIVEN AND DECREASING PROPOFOL TOLERATED
[2018-04-08 14:19] LABS: CALC OSMOLALITY 266 mosm/kg (275-300); CALCIUM 7.9 mg/dL (8.5-10.1); CHLORIDE - SERUM 98 mmol/L (98-107); CREATININE - SERUM 0.7 mg/dL (0.6-1.3); GLUCOSE 164 mg/dL (74-106); MAGNESIUM - SERUM 1.9 mg/dL (1.8-2.4); POTASSIUM - SERUM 4.5 mmol/L (3.5-5.1); SODIUM 131 mmol/L (136-145); UREA NITROGEN 12 mg/dL (7-18); eGFR NON AFRICAN AMERICAN 89 mL/min (90-120)
--- NOTE | 2018-04-08 16:38 | NUR ---
CALLED OFFICE FOR MACHINE FILLER SERVICER MD, MACHINE FILLER SERVICER MD KEENAN NOTIFIED, PAGED SHLOMO AND NOTIFIED OF HR CONTINUEING IN AFIB, WHILE RESTINGHR IN 120S BUT OFTEN ELEVATING TO 160, ORDERS TO TURN CORDARONE TO 1MG/MIN THROUGOUT NIGHT
--- NOTE | 2018-04-08 17:17 | NUR ---
SPOKE WITH DR RUSS ABOUT PT SEDATION HE HAD PREVIOUSLY REQUESTED LOWERING THE DOSE OF PROPOFOL BUT DUE TO AGITATION PT IS ON 50MCG AND STILL AWAKE AND AGITATED, ORDERS FOR 2 MG VERSED NOW AND Q4 HOURS PRN, VERIFIED AND READ BACK ORDER. FAMILY ALSO ASKED TO MINIMIZE STIMULATION OF PT THEY HAVE BEEN AT BEDSIDE TRYING TO TALK WITH PT.
--- NOTE | 2018-04-08 18:51 | NUR ---
SPOKE WITH DR RUSS AND UPDATED ON GTTS, VS, AND THAT CARDIOLOGY INCREASED AMIO TO 1MG THROUGHOUT NIGHT
--- NOTE | 2018-04-08 19:30 | NUR ---
PT INTUBATED AND SEDATED, OPENS EYES, FOLLOWS COMMANDS, AND SHAKES HEAD TO YES/NO QUESTIONS. ASSEMBLY OPERATOR EQUAL, MOVES EXTREMITIES X4 AGAINST GRAVITY. LUNG SOUNDS CRACKLES/DIMINISHED. ORAL CARE PROVIDED AT THIS TIME. HR IRREGULAR, UNCONTROLLED AFIB, RATE 130. CARDIZEM AND AMIODARONE GTT INFUSING PER ORDERS. BOWEL SOUNDS ACTIVE IN ALL QUADRANTS, ABD SOFT, NON-TENDER. NGT TO LIWS. LEFT LEG WITH SCARS PRESENT. DELGADO CATH INTACT WITH YELLOW URINE TO BEDSIDE DRAINAGE. PT FAMILY AT BEDSIDE. DENIES NEEDS AT THIS TIME. ROOM VISIBLE FROM NURSES STATION, BILATERAL WRIST RESTAINTS IN USE. CPOC.
--- NOTE | 2018-04-08 21:00 | NUR ---
PRN VERSED GIVEN PER ORDER FOR SEDATION, PT PULLING AGAINST RESTRAINTS, ATTEMPTING TO SIT UP, AND COUGHING FREQUENTLY. REMAINS IN AFIB ON MONITOR WITH HR TRENDING UP COUGHING CONTINUES, RATE 140-150.
--- NOTE | 2018-04-08 21:45 | NUR ---
PT CALM AND RESTING AT THIS TIME, NO S/S OF ANXIETY OR DISCOMFORT. FAMILY STATES THAT VERSED HAS "SEEMED TO HELP SETTLE HER". ORAL CARE PROVIDED. ROOM VISIBLE FROM NURSES STATION, WRIST RESTRAINTS IN USE. CPOC.
--- NOTE | 2018-04-08 23:30 | NUR ---
REASSESSMENT COMPLETE, SEE FLOWSHEET FOR ALL CHANGES. HR TRENDING DOWN INTO 110-120'S, AFIB. PT CALM AND RELAXED, RESTING AT THIS TIME. PT REPOSITIONED, PROMINENCES BRIDGED. ORAL CARE PROVIDED. ROOM VISIBLE FROM NURSES STATION, BILATERAL WRIST RESTRAINTS IN USE. CPOC.
[2018-04-09] VITALS (24 sets, daily range): BP systolic 106–193; BP diastolic 50–93
--- NOTE | 2018-04-09 01:29 | NUR ---
PT REMAINS CALM, RESTING WITH NO S/S OF DISCOMFORT. UCAF, RATE 108. PT REPOSITIONED, PROMINENCES BRIDGED. ORAL CARE PROVIDED. ROOM VISIBLE FROM NURSES STATION, WRIST RESTRAINTS IN USE. CPOC.
--- NOTE | 2018-04-09 03:30 | NUR ---
REASSESSMENT COMPLETE, NO NEW CHANGES AT THIS TIME. PT REPOSITIONED WITH PROMINENCES BRIDGED. ORAL CARE PROVIDED. ROOM VISIBLE FROM NURSES STATION. CPOC.
[2018-04-09 05:18] LABS: BASOPHILS 0.3 % (0-2); EOSINOPHILS 0.2 % (0-7); HEMATOCRIT 27.7 % (36.0-48.0); HEMOGLOBIN 8.7 g/dL (12-16); IMMATURE GRANULOCYTES 0.3 % (0-5); LYMPHOCYTES 18.2 % (15-50); MCHC 31.4 g/dL (31.0-37.0); MCV 82.7 fL (80.0-100.0); MEAN PLATELET VOLUME 8.9 fL (7.4-10.4); MONOCYTES 4.6 % (2-11); NEUTROPHILS 76.4 % (40-80); PLATELET COUNT 319 10x3/uL (130-400); RBC 3.35 10x6/uL (4.00-5.40); RDW 20.6 % (11.5-14.5)
--- NOTE | 2018-04-09 05:30 | NUR ---
UP TO CHAIR, MINIMAL ASSISTANCE. VSS, NO S/S OF DISTRESS. COMPLETE LINEN CHANGE PROVIDED. FRESH WATER TO BEDSIDE. DENIES FURTHER NEEDS AT THIS TIME. CALL LIGHT WITHIN PT REACH. CPOC.
[2018-04-09 05:45] LABS: ALBUMIN 2.3 g/dL (3.4-5.0); ALKALINE PHOSPHATASE 288 U/L (46-116); ALT (SGPT) 16 U/L (10-68); BILIRUBIN - TOTAL 0.15 mg/dL (0.2-1.3); CALC OSMOLALITY 266 mosm/kg (275-300); CARBON DIOXIDE 20.5 mmol/L (21.0-32.0); CHLORIDE - SERUM 98 mmol/L (98-107); CREATININE - SERUM 0.8 mg/dL (0.6-1.3); GLUCOSE 137 mg/dL (74-106); POTASSIUM - SERUM 4.4 mmol/L (3.5-5.1); SODIUM 132 mmol/L (136-145); UREA NITROGEN 12 mg/dL (7-18); eGFR NON AFRICAN AMERICAN 76 mL/min (90-120)
--- NOTE | 2018-04-09 07:15 | NUR ---
REPORT RECEIVED. PT SEDATED AND ON VENT. PROPOFAL, CARDIZEM, CORDORONE, AND NS INFUSING. SHE HAS 3 PERIPHERAL IVS IN L WRIST, L FOREARM, AND R AC. DANNY IN PLACE. SOFT WRIST RESTRAINTS ON. RESP JUST IN FOR BREATHING TX AND SUCTION. PT REPOSITIONED. SIDE RAILS UP X2. WILL MONITOR.
--- NOTE | 2018-04-09 08:43 | NUR ---
DR RUSS IN UNIT AND ORDERED BMP AND ONE TIME DOSE OF LANTUS 10 UNITS AND REQUESTED CALL TO DR JAFFE FOR BETA JARET. PAGED DR JAFFE. SPOKE TO PAMELA IN DIVISION TRAFFIC SUPERINTENDENT WHO RELAYED MESSAGE. NO NEW ORDERS AT THIS TIME.
--- NOTE | 2018-04-09 09:18 | NUR ---
CALLED PHARMACY FOR LANTUS. CALLED DAUGHTER FOR CONSENT FOR CARDIOVERSION. LEFT MESSAGE.
--- NOTE | 2018-04-09 11:08 | NUR ---
CONSENTS FRO CARDIOVERSION RECEIVED FROM DAUGHTER. PT REPOSITIONED. WILL CONTINUE TO MONITOR.
--- NOTE | 2018-04-09 12:29 | NUR ---
1210 DR JAFFE IN ROOM ORDERS FOR 2 VERSED FOR SEDATION FOR CARIOVERSION, 1214 275 JOULES X1 SHOCK AND PT CONVERTED TO NSR 60-70S, DR JAFFE GAVE VERBAL ORDERRS FOR AMIODARONE PO AND TO STOP AMIODARONE AND DILTIAZEM IV IN 1 HOUR. PT THEN BEGAN TO BRODERICK WITH HR IN 30S, IV AMIO AND DILTIAZEM TURNED OFF AND DR JAFFE PAGED AND NOTIFIED OF HR DOWN TO 30S BUT IRREGULAR SINUS 30-60S, NO NEW ORDERS OTHER THAN TO DC IV AMIO AND DILTIAZEM, ALANNAH RETURNED TO UNIT AND VERIFIED NO NEW ORDERS, FAMILY UPDATED AND AT BEDSIDE
--- NOTE | 2018-04-09 14:00 | NUR ---
PT RESTING COMFORTABLY. HEART RATE CONTINUING TO FLUCTUATE FROMS 30S TO 60S. DR JAFFE AWARE. DAUGHTER AT BEDSIDE. NO NEEDS AT THIS TIME. WILL CONTINUE TO MONITOR.
[2018-04-09 14:54] LABS: CALC OSMOLALITY 268 mosm/kg (275-300); CALCIUM 7.7 mg/dL (8.5-10.1); CARBON DIOXIDE 23.4 mmol/L (21.0-32.0); CHLORIDE - SERUM 100 mmol/L (98-107); CREATININE - SERUM 0.8 mg/dL (0.6-1.3); SODIUM 135 mmol/L (136-145); UREA NITROGEN 13 mg/dL (7-18); eGFR NON AFRICAN AMERICAN 76 mL/min (90-120)
[2018-04-09 14:56] LABS: GLUCOSE 73 mg/dL (74-106)
--- NOTE | 2018-04-09 15:48 | NUR ---
SWITCHED TO CPAP BY RT. DR RUSS UPDATED FAMILY. SEDATION TURNED OFF. WILL CONTINUE TO MONITOR. SPOKE WITH DR JAFFE REGARDING HEART RATE FLUCTUATING BETWEEN 30S-70S. SAID TO HOLD THE 1ST DOSE OF CORDORONE AND TO START WITH THE NIGHT DOSE.
--- NOTE | 2018-04-09 16:33 | NUR ---
PT EXTUBATED BY RT. NG TUBE REMOVED. PT IS WEARING O2 VIA NC AT 4L. PT SATTING AT 96%. RESTRAINTS RELEASED 1615. PT DEMONSTRATED USING SUCTION TO REMOVE SALIVA FROM MOUTH. LEFT WRIST IV D/CD. BLOOD SUGAR 58. PT/FAMILY STATED D50 MAKES PT SICK. GAVE INSTAGLUC GEL INSTEAD REQUESTED.
--- NOTE | 2018-04-09 17:54 | NUR ---
NOTIFIED DR JAFFE OF BP IN 160S, NEW ORDERS FOR [id number] DOSE
--- NOTE | 2018-04-09 21:00 | NUR ---
PT B/P ELEVATED PROCARDIAXL GIVEN PER ORDERS.
[2018-04-10] VITALS (24 sets, daily range): BP systolic 83–178; BP diastolic 42–95
--- NOTE | 2018-04-10 | NUR ---
PT REPORTS INCREASED ANXIETY. HR INCREASED. PT WENT INTO UNCONTROLLED A FIB BRIEFLY BEFORE CALMING DOWN. DR RSUS CONTACTED ORDER RECEIVED FOR XANAX 0.25 PO. WILL MONITOR
[2018-04-10 00:11] LABS: BASOPHILS 0.2 % (0-2); EOSINOPHILS 0.2 % (0-7); HEMOGLOBIN 10.4 g/dL (12-16); IMMATURE GRANULOCYTES 0.2 % (0-5); LYMPHOCYTES 13.4 % (15-50); MCH 26.1 pg (26.0-34.0); MCHC 31.5 g/dL (31.0-37.0); MCV 82.9 fL (80.0-100.0); MEAN PLATELET VOLUME 8.7 fL (7.4-10.4); PLATELET COUNT 521 10x3/uL (130-400); RBC 3.98 10x6/uL (4.00-5.40); RDW 20.6 % (11.5-14.5); WBC 12.2 10x3/uL (4.8-10.8)
[2018-04-10 00:18] LABS: ALBUMIN 2.8 g/dL (3.4-5.0); ALKALINE PHOSPHATASE 325 U/L (46-116); ALT (SGPT) 20 U/L (10-68); BILIRUBIN - TOTAL 0.31 mg/dL (0.2-1.3); CALCIUM 8.5 mg/dL (8.5-10.1); CARBON DIOXIDE 21.8 mmol/L (21.0-32.0); CHLORIDE - SERUM 97 mmol/L (98-107); CREATININE - SERUM 0.8 mg/dL (0.6-1.3); POTASSIUM - SERUM 4.1 mmol/L (3.5-5.1); SODIUM 132 mmol/L (136-145); UREA NITROGEN 10 mg/dL (7-18); eGFR NON AFRICAN AMERICAN 76 mL/min (90-120)
[2018-04-10 00:19] LABS: CALC OSMOLALITY 271 mosm/kg (275-300); GLUCOSE 246 mg/dL (74-106); PROTEIN - SERUM 7.9 g/dL (6.4-8.2)
--- NOTE | 2018-04-10 00:38 | NUR ---
PT CONTINUES TO HAVE ANXIETY ISSUES AND RESPIRATORY ISSUES. RT IN ROOM. PLACED ON VAPOTHERM BY RT. BIPAP WAS INCREASED TO 70% WITH LITTLE IMPROVEMENT. PT HAS WHEEZE. PRN BREATHING TREATMENT PROVIDED. WILL MONITOR FOR IMPROVEMENT. IF NO IMPROVEMENT, WILL CONTACT
--- NOTE | 2018-04-10 01:24 | NUR ---
AT THIS TIME, PT IS ON VAPOTHERM AT 90%. RR HAS DECREASED. SAT ABOVE 92% AND HOLDING HR HAS DECREASED TO LOW 100'S AT THIS TIME. WILL CONTINUE TO MOITOR CLOSELY FOR SIGNS OF DISTRESS.
--- NOTE | 2018-04-10 05:24 | NUR ---
PT REMAINED IN DESTRESS. ABG DRAWN MD CONTACTED. ORDERS TO REINTUBATE OBTAINED. INTUBATED AT 0323. PT WAS VERY RESISTANT TO PROPOFOL. ORDERS RECEIVED FOR FENTANYL GTT, AND 2MG IV VERSED X1. FAMILY AT BEDSIDE AWARE OF PT CONDITION. VSS WILL CONTINUE TO MONITOR THROUGHOUT SHIFT.
[2018-04-10 08:40] LABS: ALBUMIN 2.1 g/dL (3.4-5.0); ALKALINE PHOSPHATASE 233 U/L (46-116); ALT (SGPT) 16 U/L (10-68); BILIRUBIN - TOTAL 0.19 mg/dL (0.2-1.3); CALC OSMOLALITY 270 mosm/kg (275-300); CARBON DIOXIDE 25.2 mmol/L (21.0-32.0); CHLORIDE - SERUM 102 mmol/L (98-107); CREATININE - SERUM 0.7 mg/dL (0.6-1.3); GLUCOSE 74 mg/dL (74-106); POTASSIUM - SERUM 3.5 mmol/L (3.5-5.1); SODIUM 136 mmol/L (136-145); UREA NITROGEN 13 mg/dL (7-18); eGFR NON AFRICAN AMERICAN 89 mL/min (90-120)
[2018-04-10 08:41] LABS: BASOPHILS 0.2 % (0-2); EOSINOPHILS 0 % (0-7); IMMATURE GRANULOCYTES 0.2 % (0-5); MCH 25.8 pg (26.0-34.0); MCHC 31.3 g/dL (31.0-37.0); MCV 82.5 fL (80.0-100.0); MEAN PLATELET VOLUME 8.6 fL (7.4-10.4); MONOCYTES 6.2 % (2-11); NEUTROPHILS 81.4 % (40-80); RDW 20.1 % (11.5-14.5)
[2018-04-10 08:48] LABS: HEMATOCRIT 24.9 % (36.0-48.0); HEMOGLOBIN 7.8 g/dL (12-16); PLATELET COUNT 304 10x3/uL (130-400); RBC 3.02 10x6/uL (4.00-5.40); WBC 6.6 10x3/uL (4.8-10.8)
--- NOTE | 2018-04-10 10:53 | NUR ---
Nutrition Follow Up: Chart reviewed; spoke with nursing. Pt is intubated at this time. Per TF to possibly start tomorrow. No BM since admit I>O Labs reviewed Meds noted including Fentanyl If pt unable to extubate within the next 24 hours rec: Start Pulmocare @ 20 ml/hr. Advance 10 ml every 6-8 hours as tolerated to goal rate of 40 ml/hr. Water flushes 30 ml/hr. RD following.
--- NOTE | 2018-04-10 14:58 | NUR ---
0715-RECIEVED PER FLOW SHEET-AWAKE AND RESTLESS-FAMILY AT BEDSIDE-ET TUBE IN PLACE TO VENT-SOFT WRIST RESTRAINTS IN PLACE- 0750-DR RUSS AT BEDSIDE AND SPOKE WITH FAMILY ADN PT REGARDING FINDINGS/AND EVENTS FROM OVERNIGHT-AND COURSE OF PLANNED TREATMENT-ABG AND CXR DONE ORDERED. 14FR OGT PLACED PRIOR TO CXR -CONFIRMED WITH GASTRIC CONTENT AND CXR FILM-PLACED TO LOW INTER WALL SUCTION 0815-HOME MEDS NOT RESTARTED AND DR RUSS MADE AWARE 1000-DR CASILLAS AT BEDSIDE AND EVENTS REVIEWED WITH SAME 1230-DR RUSS CALLED WITH UPDATE-PRIMARY CONCERN POORT U/O-ALL VITALS GIVEN 1330-DR RUSS CALLED UNIT AND REQUESTED PT BE TRANSFERED TO MEDICAL ICU-OUT OF CVICU 1500PT TRANSPORTED WITH RN AND RT-BAGGED 100%-PLACED TO MONITOR/VENTILATOR-AIROVERLAY REINFLATED-FAMILY BROUGHT TO [id number] GIVEN TO DEO JOHNSON RN
--- NOTE | 2018-04-10 16:28 | MORECARE ---
CASE MANAGEMENT DISCHARGE SUMMARY PATIENT: SCARLETT MOODY UNIT: [id number] ADM DATE: 04/07/18 AGE: 68 : 52 SEX: F ROOM/BED: D.[facility]6 AUTHOR: MARIBETH HURLEY PHYSICIAN: REFERRING PHYSICIAN: DEB MILLER MD DATE OF SERVICE: 04/10/18 Discharge Plan Patient Name: SCARLETT MOODY [facility] [facility] 1950 Planned Disposition: Home Anticipated Discharge Date: Discharge Date: Expected LOS: Initial Reviewer: [email or web address] Initial Review Date: 04/08/2018 Generated: 04/10/18 5:28 pm Patient Name: SCARLETT MOODY Page 38713 at 1628 All edits/amendments must be made on the electronic document DICTATION DATE: 04/10/181626 WEB SERVICES MANAGER: DAVID 04/10/181626 RPT#: [id number] DC DATE: STATUS: ADM IN [facility] [address] [place] [address] END OF REPORT
--- NOTE | 2018-04-10 16:37 | MORECARE ---
CASE MANAGEMENT DISCHARGE SUMMARY PATIENT: SCARLETT MOODY UNIT: [id number] ADM DATE: 04/07/18 AGE: 68 : 52 SEX: F ROOM/BED: D.2316 AUTHOR: MARIBETH HURLEY PHYSICIAN: REFERRING PHYSICIAN: DEB MILLER MD DATE OF SERVICE: 04/10/18 Discharge Plan Patient Name: SCARLETT MOODY [facility] : 1950 Planned Disposition: Home Anticipated Discharge Date: Discharge Date: Expected LOS: Initial Reviewer: [email or web address] Initial Review Date: 04/08/2018 Generated: 04/10/18 5:36 pm DCPIA - Discharge Planning Initial Assessment Updated by [email or web address]: Anjali Yi on 04/10/18 4:29 pm * Is the patient Alert and Oriented? No * How many steps to enter\exit or inside your home? ramp * PCP Liusa Phillips * Pharmacy [facility] * Preadmission Environment Home with Family * ADLs Independent * Other Equipment WALKER, BSC, SHOWER CHAIR, INSULIN PUMP, GLUCOMETER * List name and contact numbers for known caregivers / representatives who currently or will assist patient after discharge: CINTHIA ENGLE, DTR, ROSALVA ORNELAS, BROTHER, * Verbal permission to speak to the caregivers and representatives has been obtained from the patient. Yes * Community resources currently utilized Home Health * Please name any agencies selected above. [facility] * Additional services required to return to the preadmission environment? No * Can the patient safely return to the preadmission environment? Yes * Has this patient been hospitalized within the prior 30 days at any hospital? No Last DP export: 04/10/18 3:28 p Patient Name: SCARLETT MOODY Page [id number] at 1637 All edits/amendments must be made on the electronic document DICTATION DATE: 04/10/18 1636 BRAZING MACHINE TENDER: DAVID 04/10/18 163 RPT#: [id number] DC DATE: STATUS: ADM IN [facility] [address] [facility] [place] [address] END OF REPORT
[2018-04-11] VITALS (24 sets, daily range): BP systolic 99–153; BP diastolic 44–74
[2018-04-11 04:28] LABS: BASOPHILS 0.4 % (0-2); EOSINOPHILS 0.4 % (0-7); HEMATOCRIT 24.7 % (36.0-48.0); HEMOGLOBIN 7.8 g/dL (12-16); IMMATURE GRANULOCYTES 0.2 % (0-5); LYMPHOCYTES 25.4 % (15-50); MCHC 31.6 g/dL (31.0-37.0); MCV 82.3 fL (80.0-100.0); MEAN PLATELET VOLUME 8.5 fL (7.4-10.4); MONOCYTES 9.9 % (2-11); NEUTROPHILS 63.7 % (40-80); PLATELET COUNT 267 10x3/uL (130-400); RDW 20.5 % (11.5-14.5)
[2018-04-11 04:35] LABS: WBC 4.7 10x3/uL (4.8-10.8)
[2018-04-11 04:58] LABS: ALBUMIN 2.1 g/dL (3.4-5.0); ALKALINE PHOSPHATASE 227 U/L (46-116); ALT (SGPT) 14 U/L (10-68); BILIRUBIN - TOTAL 0.17 mg/dL (0.2-1.3); CALC OSMOLALITY 269 mosm/kg (275-300); CALCIUM 7.8 mg/dL (8.5-10.1); CARBON DIOXIDE 19.5 mmol/L (21.0-32.0); CHLORIDE - SERUM 102 mmol/L (98-107); CREATININE - SERUM 0.7 mg/dL (0.6-1.3); POTASSIUM - SERUM 3.7 mmol/L (3.5-5.1); PROTEIN - SERUM 5.6 g/dL (6.4-8.2); SODIUM 136 mmol/L (136-145); UREA NITROGEN 13 mg/dL (7-18); eGFR NON AFRICAN AMERICAN 89 mL/min (90-120)
[2018-04-11 05:00] LABS: GLUCOSE 59 mg/dL (74-106)
--- NOTE | 2018-04-11 07:00 | NUR ---
REC'D CARE OF PT. SEDATED ON VENT. FOLLOWS COMMANDS WHEN DIPRIVAN IS PAUSED.
--- NOTE | 2018-04-11 08:30 | NUR ---
MIN ENGLE, DAUGHTER AT BEDSIDE.
--- NOTE | 2018-04-11 09:09 | NUR ---
DR. RUSS HERE IN ICU.
--- NOTE | 2018-04-11 09:26 | NUR ---
FSBS 237. ARNULFO ENGLE RN AT BEDSIDE, DAUGHTER. SAID TO GIVE HER 4 UNITS NOT 8 UNITS OF INSULIN.
--- NOTE | 2018-04-11 09:30 | NUR ---
PLACED ON CPAP BY RES THERAPIST.
--- NOTE | 2018-04-11 11:00 | NUR ---
REASSESSMENT COMPLETED PER FLOW SHEET. NO ACUTE CHANGES .
--- NOTE | 2018-04-11 11:30 | NUR ---
PLACED BACK ON RATE BY RT.
--- NOTE | 2018-04-11 12:06 | NUR ---
DEE DEE ENGLE RN, DAUGHTER SAID TO GIVE 2 UNITS OF HUMALOG FOR FSBS 160.
--- NOTE | 2018-04-11 13:30 | NUR ---
RESPONSE TO VERBAL STIMULI. ANSERS QUESTIONS WITH HEAD NODS.
--- NOTE | 2018-04-11 15:01 | NUR ---
REASSESSMENT COMPLETED PER FLOW SHEET. NO ACUTE CHANGES.
--- NOTE | 2018-04-11 16:00 | NUR ---
SPOKE WITH MIN. DENIES NEEDS.
[2018-04-11 16:11] LABS: CALCIUM 7.8 mg/dL (8.5-10.1); CARBON DIOXIDE 18.8 mmol/L (21.0-32.0); POTASSIUM - SERUM 3.8 mmol/L (3.5-5.1)
[2018-04-11 16:12] LABS: CREATININE - SERUM 0.9 mg/dL (0.6-1.3)
--- NOTE | 2018-04-11 17:43 | NUR ---
FSBS 245. USE INTERMEDIATE INSULIN SS PER ARNULFO ENGLE RN DAUGHTER.
--- NOTE | 2018-04-11 19:45 | NUR ---
ASSESSMENT COMPLETE PER FLOW SHEET, PT ON VENT WITH SEDATION PER MAR/ORDERS, OGT TO LIS, INFUSING MEDS PER RIGHT AC PIV, DELGADO TO GRAVITY, SCD'S BILAT, HOB ELEVATED, MONITORS ON AND WORKING PROPERLY, NO ACUTE S/S OF DISTRESS, REPOSITIONED FOR COMFORT, ORAL AND ETT SUCTIONED, WILL CONTINUE TO ASSESS
--- NOTE | 2018-04-11 23:00 | NUR ---
REASSESSMENT COPMPLETE PER FLOW SHEET, NO ACUTE CHANGES OR DISTRESS NOTED, REPOSITIONED FOR COMFORT, SUCTIONING AND ORAL CARE COMPLETED, VSS, WILL CONTINUE TO ASSESS
[2018-04-12] VITALS (25 sets, daily range): BP systolic 83–136; BP diastolic 42–61
[2018-04-12 02:58] LABS: BASOPHILS 0.4 % (0-2); EOSINOPHILS 1.2 % (0-7); HEMATOCRIT 24.6 % (36.0-48.0); HEMOGLOBIN 7.7 g/dL (12-16); IMMATURE GRANULOCYTES 0.4 % (0-5); LYMPHOCYTES 20.8 % (15-50); MCHC 31.3 g/dL (31.0-37.0); MCV 83.1 fL (80.0-100.0); MEAN PLATELET VOLUME 8.8 fL (7.4-10.4); NEUTROPHILS 67.2 % (40-80); PLATELET COUNT 266 10x3/uL (130-400); RBC 2.96 10x6/uL (4.00-5.40); RDW 20.9 % (11.5-14.5); WBC 5.1 10x3/uL (4.8-10.8)
--- NOTE | 2018-04-12 03:00 | NUR ---
REASSESSMENT COMPLETE PER FLOW SHEET, NO ACUTE S/S OF DISTRESS, PERIODIC BRADICARDIA NOTED ON CM, PT RETURNS TO NSR, OTHER VSS, REPOSITIONED FOR COMFORT, WILL CONTINUE TO MONITOR
[2018-04-12 03:26] LABS: ALBUMIN 1.9 g/dL (3.4-5.0); BILIRUBIN - TOTAL 0.3 mg/dL (0.2-1.3); CALCIUM 7.8 mg/dL (8.5-10.1); CARBON DIOXIDE 17.3 mmol/L (21.0-32.0); CREATININE - SERUM 0.9 mg/dL (0.6-1.3); MAGNESIUM - SERUM 1.6 mg/dL (1.8-2.4); PHOSPHOROUS 4.2 mg/dL (2.5-4.9); PROTEIN - SERUM 5.6 g/dL (6.4-8.2)
[2018-04-12 03:27] LABS: ANION GAP 18.8 mmol/L (8-16); POTASSIUM - SERUM 3.1 mmol/L (3.5-5.1)
--- NOTE | 2018-04-12 05:00 | NUR ---
MEDS GIVEN PER MAR/ORDERS, PT REPOSITIONED IN BED, ELEVATED ARMS AND LEGS, HEELS FLOATED, SCD'S IN PLACE, NO S/S OF ACUTE DISTRESS, VSS, PT OPENS EYES TO VERBAL STEMULI, WILL CONTINUE TO MONITOR
--- NOTE | 2018-04-12 07:00 | NUR ---
REC'D CARE OF PT. SEDATED ON VENT.
--- NOTE | 2018-04-12 08:17 | NUR ---
GLUCERNA TF STARTED AT 10 CC PER HOUR.
--- NOTE | 2018-04-12 08:36 | NUR ---
FENTANYL DECREASED TO 100 MCG. DIPTIVAN DECREASED TO 25 MCG. BOTH INFUSIONS WERE CUT IN HALF PER DR. RUSS.
--- NOTE | 2018-04-12 10:02 | NUR ---
PLaced ON CPAP BY HILDA ROSAS
--- NOTE | 2018-04-12 11:30 | NUR ---
CHANGED BACK TO RATE ON VENT BY HILDA KELLY.
--- NOTE | 2018-04-12 14:58 | NUR ---
MIN ENGLE AT BEDSIDE. DISCUSSED CTA WITH HER. SHE DOESNT WANT PT. TO GO THRU PROCEDURE. PT. ALREADY ON LOVENOX.
--- NOTE | 2018-04-12 15:20 | NUR ---
REASSESSMENT COMPLETED PER FLOW SHEET. NO ACUTE CHANGES.
--- NOTE | 2018-04-12 16:45 | NUR ---
PLACED BACK ON CPAP BY FREDY ROSAS
--- NOTE | 2018-04-12 17:33 | NUR ---
REMAINS ON CPAP. NO DISTRESS.
--- NOTE | 2018-04-12 18:19 | NUR ---
PUT BACK ON RATE AND INCREASE SEDATION PER DR. RUSS.
--- NOTE | 2018-04-12 19:30 | NUR ---
ASSESSMENT COMPLETE PER FLOW SHEET, PT RESTING WITH EYES CLOSED, SEDATION WITH VENT PER ORDERS, OGT WITH TF, RT AC 20G PIV INFUSING MEDS PER MAR/ORDERS, NO ACUTE S/S OF DISTRESS NOTED, VSS ON CM, SCD'S IN PLACE, HEELS BRIDGED, RESTRAINTS BILAT WRISTS, REMOVED AND SKIN ASSESSED SMC'S INTACT, FAMILY AT BEDSIDE, UPDATED AND INVOLVED IN PT CARE, RT AT BEDSIDE, NO FURTHER NEEDS AT THIS TIME, WILL CONTINUE TO MONITOR
--- NOTE | 2018-04-12 21:00 | NUR ---
20g SALINE LOCKED PIV PLACED IN LEFT WRIST, FLUSHED WITH 10ML NS TO CONFIRM PLACEMENT, DRSG C/D/I, DATE AND INITIALED DRSG, SWAB CAP PLACED ON PORT, PT TOLLERATED PROCEDURE WITH NO S/S OF DISTRESS, FAMILY AT BEDSIDE, VSS
--- NOTE | 2018-04-12 22:00 | NUR ---
PT SINUS BRODERICK LOW 50'S BPM ON CM, RECHECKING LABS, CHARGE NURSE AND FAMILY AWARE AND AGREE WITH RECHECK, FAMILY AT BEDSIDE. WILL CONTINUE TO MONITOR
--- NOTE | 2018-04-12 23:00 | NUR ---
REASSESSMENT COMPLETE PER FLOW SHEET, SINUS BRODERICK ON CM, OTHER VSS, REPOSITIONED FOR COMFORT, WILL CONTINUE TO ASSESS
[2018-04-12 23:53] LABS: BASOPHILS 0.4 % (0-2); EOSINOPHILS 0.6 % (0-7); HEMATOCRIT 24.3 % (36.0-48.0); HEMOGLOBIN 7.7 g/dL (12-16); IMMATURE GRANULOCYTES 0.4 % (0-5); LYMPHOCYTES 24.1 % (15-50); MCH 26.7 pg (26.0-34.0); MCHC 31.7 g/dL (31.0-37.0); MCV 84.4 fL (80.0-100.0); MEAN PLATELET VOLUME 8.7 fL (7.4-10.4); MONOCYTES 13.7 % (2-11); NEUTROPHILS 60.8 % (40-80); PLATELET COUNT 252 10x3/uL (130-400); RBC 2.88 10x6/uL (4.00-5.40); RDW 21.4 % (11.5-14.5)
[2018-04-13] VITALS (24 sets, daily range): BP systolic 96–186; BP diastolic 46–76
[2018-04-13 00:32] LABS: ALBUMIN 1.9 g/dL (3.4-5.0); BILIRUBIN - TOTAL 0.25 mg/dL (0.2-1.3); CARBON DIOXIDE 20.4 mmol/L (21.0-32.0); MAGNESIUM - SERUM 1.9 mg/dL (1.8-2.4); PROTEIN - SERUM 5.8 g/dL (6.4-8.2)
[2018-04-13 00:33] LABS: ANION GAP 17.2 mmol/L (8-16); POTASSIUM - SERUM 3.6 mmol/L (3.5-5.1)
--- NOTE | 2018-04-13 03:00 | NUR ---
REASSESSMENT COMPLETE PER FLOW SHEET, NO S/S OF ACUTE CHANGES OR DISTRESS, CONTINUES TO BE SINUS BRODERICK ON CM, ALL OTHER VSS, REPOSITIONED IN BED, ELEVATED ARMS AND LEGS WITH PILLOWS, SUCTIONING COMPLETE, WILL CONTINUE TO ASSESS
--- NOTE | 2018-04-13 05:00 | NUR ---
RT AT BEDSIDE TO CHANGE VENT FIO2 TO 30% PER ABG'S,
[2018-04-13 06:31] LABS: BASOPHILS 0.4 % (0-2); EOSINOPHILS 1.2 % (0-7); HEMATOCRIT 24.9 % (36.0-48.0); HEMOGLOBIN 7.8 g/dL (12-16); IMMATURE GRANULOCYTES 0.4 % (0-5); LYMPHOCYTES 20.5 % (15-50); MCH 26.4 pg (26.0-34.0); MCHC 31.3 g/dL (31.0-37.0); MCV 84.4 fL (80.0-100.0); MEAN PLATELET VOLUME 8.8 fL (7.4-10.4); MONOCYTES 9.9 % (2-11); NEUTROPHILS 67.6 % (40-80); PLATELET COUNT 268 10x3/uL (130-400); RBC 2.95 10x6/uL (4.00-5.40); RDW 21.6 % (11.5-14.5); WBC 5.2 10x3/uL (4.8-10.8)
[2018-04-13 06:37] LABS: MAGNESIUM - SERUM 1.9 mg/dL (1.8-2.4); PHOSPHOROUS 4.6 mg/dL (2.5-4.9)
--- NOTE | 2018-04-13 14:28 | NUR ---
HR 53, BP 97/39. FREQUENT PAC'S NOTICED. CALLED AND SPOKE TO CARDIOLOGY. REC'D ORDERS TO DO EKG AND TO CONTINUE CORDARONE ORDERED.
[2018-04-13 16:18] LABS: ALBUMIN 2.2 g/dL (3.4-5.0); ANION GAP 23.7 mmol/L (8-16); BILIRUBIN - TOTAL 0.33 mg/dL (0.2-1.3); CALCIUM 7.7 mg/dL (8.5-10.1); CREATININE - SERUM 1.2 mg/dL (0.6-1.3); POTASSIUM - SERUM 3.8 mmol/L (3.5-5.1); PROTEIN - SERUM 5.4 g/dL (6.4-8.2)
[2018-04-13 16:21] LABS: CARBON DIOXIDE 15.1 mmol/L (21.0-32.0)
--- NOTE | 2018-04-13 19:10 | NUR ---
HR 20. ATROPINE GIVEN. DR BERMAN AT BS. DR KEENAN CALLED AND REC'D CALL BACK. HR AFTER ATROPINE 68, BP 112/60. FAMILY AT BS.
--- NOTE | 2018-04-13 19:15 | NUR ---
Shift assessment complete. Pt's HR 20-29, sinus karuna with bigeminal PACs noted. 1 mg Atropine administered, HR back to NSR. Dr. Mello at bedside. ABG and EKG ordered. RT at bedside now. Cardiology paged, Dr. Mello now speaking with Dr. Danielson. Dopamine ordered, 5 mcg/kg/min, set rate. Dopamine initiated. Pt opens eyes to speech and is able to follow commands, PERRLA 3 mm, brisk reaction to light. ETT/OGT secured. ETT size 7.5, 23 cm lip midline. Vent settings: A/C rate of 15, tidal volume 500, FiO2 30%, peep 5.0, O2 sat 94%. Suctioned via inline and oral, clear/green secretions noted. S1S2 audible. Clear lung sounds heard bilat throughout all lobes. B/L mastectomy noted. ABD soft and round, BS active x4. OGT placement checked with auscultation. 10 mL residual noted, light green in color. Cruz cath intact draining clear yellow urine. Radial and pedal pulses palp. R AC PIV infusing Propofol @ 30 mcg/kg/min, NS @ 30 mL/hr, and Fentanyl TOBACCO SCRAP SIFTER. L wrist PIV infusing Dopamine @ 5 mcg/kg/min. SCDs and restrants removed and skin assessed, WNL. Family at bedside, Dr. Mello updated them and answered all questions. Will cont close monitoring in ICU.
--- NOTE | 2018-04-13 19:45 | NUR ---
Pt's HR 110-[address] Mello at bedside, verbal order to decrease Dopamine to 2.5 mcg/kg/min. Will cont with POC.
--- NOTE | 2018-04-13 20:00 | NUR ---
ABG results read back to Dr. Mello. No new orders at this time.
--- NOTE | 2018-04-13 20:20 | NUR ---
Dr. Danielson at bedside assessing patient. Family updated on current POC. Verbal order to turn off Dopamine if HR remains in the 110's. No further orders at this time. All questions answered. Will cont to monitor closely.
--- NOTE | 2018-04-13 21:00 | NUR ---
FSBS 245, 8 un insulin administered. Repositioned for comfort. Oral care provided. HR decreased to 60-66, NSR. Dopamine remains on at 2.5 mcg/kg/min. Will cont to monitor closely. Family at bedside.
--- NOTE | 2018-04-13 22:00 | NUR ---
20G PIV inserted to L forearm x1 attempt. Ferrlecit infusing @ 125 mL/hr.
--- NOTE | 2018-04-13 23:00 | NUR ---
Pt remains sedated on vent. HR 66 bpm, NSR showing on monitor. Clear lung sounds heard bilat throughout all lobes. 144 mL residual, Glucerna 1.0 infusing @ 10 mL/hr. Did not increase TF at this time, will cont to reassess residuals. Repositioned for comfort. VSS. Oral care provided. Family at bedside.
[2018-04-14] VITALS (63 sets, daily range): BP systolic 96–180; BP diastolic 39–82
--- NOTE | 2018-04-14 01:00 | NUR ---
Repositioned for comfort. Pt is able to follow some commands at this time. RT at bedside providing oral care. VSS. Will cont to monitor closely.
--- NOTE | 2018-04-14 03:00 | NUR ---
Reassessment complete. Residual 210 mL, light green bile. Held TF at this time due to increased residuals. HR 65 bpm, NSR with PACs noted. Clear lung sounds heard bilat throughout all lobes. Repositioned for comfort. Oral care provided. Will cont with POC.
[2018-04-14 04:57] LABS: BASOPHILS 0.4 % (0-2); EOSINOPHILS 1.3 % (0-7); HEMATOCRIT 29.6 % (36.0-48.0); HEMOGLOBIN 9.3 g/dL (12-16); IMMATURE GRANULOCYTES 0.8 % (0-5); LYMPHOCYTES 13.6 % (15-50); MCH 26.3 pg (26.0-34.0); MCHC 31.4 g/dL (31.0-37.0); MCV 83.9 fL (80.0-100.0); MEAN PLATELET VOLUME 9.2 fL (7.4-10.4); MONOCYTES 11.7 % (2-11); NEUTROPHILS 72.2 % (40-80); RBC 3.53 10x6/uL (4.00-5.40)
--- NOTE | 2018-04-14 05:00 | NUR ---
Complete bed bath and linen change provided. Oral care provided. Pt tolerated well. Lotion massage given to extremities. Repositioned for comfort. VSS. Will cont close monitoring in ICU.
[2018-04-14 05:03] LABS: PLATELET COUNT 349 10x3/uL (130-400); WBC 7.2 10x3/uL (4.8-10.8)
[2018-04-14 05:27] LABS: ALBUMIN 2.4 g/dL (3.4-5.0); ANION GAP 22.4 mmol/L (8-16); BILIRUBIN - TOTAL 0.32 mg/dL (0.2-1.3); CALCIUM 8.1 mg/dL (8.5-10.1); CARBON DIOXIDE 17.2 mmol/L (21.0-32.0); CREATININE - SERUM 1.1 mg/dL (0.6-1.3); MAGNESIUM - SERUM 1.9 mg/dL (1.8-2.4); PHOSPHOROUS 4.4 mg/dL (2.5-4.9); POTASSIUM - SERUM 3.6 mmol/L (3.5-5.1); PROTEIN - SERUM 6.5 g/dL (6.4-8.2)
[2018-04-14 05:39] LABS: TROPONIN-I 0.175 ng/mL (0.000-0.060)
--- NOTE | 2018-04-14 06:30 | NUR ---
NS primary and secondary tubing changed. ABX infusing at this time, swab capped, labeled.
--- NOTE | 2018-04-14 09:33 | NUR ---
PT TURNED AND MOUTH CARE COMPLETED PER VAP ORDERS. RESIDULE 200ML THIN GREEN LIQUID.
--- NOTE | 2018-04-14 09:59 | NUR ---
NUTRITION F/U NURSING REPORTS PT WITH GASTRIC RESIDUALS > 200 WITH TUBE FEEDS OFF. MAY BENEFIT FROM STARTING REGLAN IF MEDICALLY FEASIBLE. RD FOLLOWING
--- NOTE | 2018-04-14 11:18 | EC ---
PATIENT:SCARLETT MOODY DATE OF SERVICE: 04/07/18 SEX: F MEDICAL RECORD: [id number] DATE OF : 54 LOCATION:[facility] D.231 AGE OF PATIENT: 68 ADMISSION DATE: 04/07/18 REFERRING PHYSICIAN: INTERPRETING PHYSICIAN: JOHN KELLEY MD ECHOCARDIOGRAM REPORT ECHO CHARGES 5 ECHO LIMITED Date: 04/08/18 1 DOPPLER ECHO COLOR FLOW 2 DOPPLER ECHO PULSE CLINICAL DIAGNOSIS: A-FIB ECHOCARDIOGRAPHIC MEASUREMENTS (adult normal given) AC root (d.<3.7cm) 0 cm LV Septum d (<1.2 cm> 0 cm Valve Excursion 0 cm LV Septum (systole) 0 cm Left Atria (s.<4.0cm> 0 cm LVPW d(<1.2cm) 0 cm RV (d.<2.3cm) 0 cm LVPW (sytole) 0 cm LV diastole(<5.6CM) 0 cm MV E-F(>70mm/sec) 0 cm LV systole 0 cm LVOT Diameter 1.4 cm MV exc.(>10mm) 0 cm Est.ejection fraction (50-75%) % DOPPLER: LVIT cm/sec A 0 cm/sec E 0 cm/sec LA 0 cm/sec RVSP 51.0 mmHg LVOT 86.0 cm/sec AOP1/2T 0 m/s Asc. Ao 166.0cm/sec RVOT 0 cm/sec RA 0 cm/sec PA 0 cm/sec AV Gradient Peak 11.0 mmHg AV Mean 6.1 mmHg AV Area 0.8 cm MV Gradient Peak 0 mmHg MV Mean 0 mmHg MV Area 0 cm COMMENTS: LIMITED STUDY (2-D,COLOR,DOPPLER) COMPLETE ECHO DONE ON 01/24/18 [employer] Computer Science Teacher: Colt HEDRICK Forestry Scientist: 1 Dr. Kelley TAPE# PACS Pericardial Effusion N DATE OF SERVICE: 04/08/2018 PROCEDURE: Echocardiogram. FINDINGS: 1. Left ventricular chamber size is within normal limits. Left ventricular systolic function is normal. Overall ejection fraction estimated at 55%. 2. Left atrium, right atrium, and right ventricle chamber sizes are within normal limits. 3. Valvular structures: Aortic valve demonstrates aortic sclerosis, but there ECHOCARDIOGRAM REPORT [id number] SCARLETT MOODY is no significant aortic stenosis or gradient across the valve. The remaining valvular structures have normal structure and motion. 4. Doppler interrogation reveals aniz-xt-yvlbsjau mitral regurgitation, moderate tricuspid regurgitation, no other valvular insufficiency or stenosis. Pulmonary systolic pressure is estimated at 51 mmHg. 5. No evidence of pericardial effusion or left ventricular thrombus. TRANSINT:[id number] Voice Confirmation ID: [id number] DOCUMENT ID: [id number] JOHN KELLEY MD at 1118 CC: [id number] DICTATION DATE: 04/09/18 0856 ANCIENT ART CURATOR: 04/09/18 0911 ADM IN [facility] [address] [place] [id number]
--- NOTE | 2018-04-14 11:18 | OP ---
PATIENT NAME: SCARLETT MOODY MEDICAL RECORD: [id number] :54 LOCATION:[facility] D.2316 ADMISSION DATE:04/07/18 SURGEON: JOHN JAFFE MD DATE OF OPERATION: 04/09/2018 PROCEDURE: DC cardioversion. INDICATION: Atrial fibrillation. Continuous O2 saturation and blood pressure monitoring, all undertaken, all of which remained stable. She received one shock, restoring sinus rhythm. OVERALL IMPRESSION: Successful DC cardioversion from atrial fibrillation to sinus rhythm. TRANSINT:[id number] Voice Confirmation ID: [id number] DOCUMENT ID: [id number] JOHN JAFFE MD at 1118 CC: [id number] DICTATION DATE: 04/09/18 1221 WELL PULLER HEAD: 04/09/18 1241 ADM IN [place] [id number]
--- NOTE | 2018-04-14 20:00 | NUR ---
PT SEDATED AND INTUBATED, OPENS EYES AND FOLLOWS SOME COMMANDS. LUNG SOUNDS CLEAR, ORAL CARE PROVIDED. PERIPHERAL PULSES PRESENT, NSR WITH PAC PRESENT. BOWEL SOUNDS ACTIVE, OGT WITH GLUCERNA @ 20ML/H, RESIDUAL 15ML. DELGADO CATH INTACT WITH YELLOW URINE TO BEDSIDE DRAINAGE. VSS, NO S/S OF PAIN OR ACUTE DISTRESS. PT REPOSITIONED WITH PROMINENCES BRIDGED. ROOM VISIBLE FROM NURSES STATION. CPOC.
--- NOTE | 2018-04-14 21:41 | NUR ---
PT REPOSITIONED WITH PROMINENCES BRIDGED, PARTIAL LINEN CHANGE. VSS, NO S/S OF DISTRESS OR PAIN. ORAL CARE PROVIDED. DAUGHTER AT BEDSIDE, QUESTIONS ANSWERED. ROOM VISIBLE FROM NURSES STATION. CPOC.
--- NOTE | 2018-04-14 23:30 | NUR ---
REASSESSMENT COMPLETE, SEE FLOWSHEET FOR ALL FINDINGS. PT REPOSITIONED WITH PROMINENCES BRIDGED. ORAL CARE PROVIDED. VSS, ROOM VISIBLE FROM NURSES STATION, CPOC.
[2018-04-15] VITALS (23 sets, daily range): BP systolic 84–148; BP diastolic 36–104
--- NOTE | 2018-04-15 01:04 | NUR ---
PT NOW IN UCAFIB RATE 130-150S, ALANNAH NAVA.
--- NOTE | 2018-04-15 01:10 | NUR ---
REC'D CALLBACK FROM THE [facility], NEW ORDER GIVEN FOR DIGOXIN 0.5ML IV X1.
--- NOTE | 2018-04-15 03:30 | NUR ---
NO CHANGES AT THIS TIME. PT REMAINS IN UCAFIB 100-120'S. PT REPOSIITONED WITH PROMINENCES BRIDGED, PARTIAL LINEN CHANGE PROVIDED. ORAL CARE PROVIDED. VSS, ROOM VISIBLE FROM NURSES STATION. CPOC.
[2018-04-15 05:28] LABS: ALBUMIN 2.1 g/dL (3.4-5.0); ALKALINE PHOSPHATASE 192 U/L (46-116); ALT (SGPT) 16 U/L (10-68); BILIRUBIN - TOTAL 0.23 mg/dL (0.2-1.3); CALCIUM 7.7 mg/dL (8.5-10.1); CARBON DIOXIDE 21.1 mmol/L (21.0-32.0); CHLORIDE - SERUM 106 mmol/L (98-107); GLUCOSE 115 mg/dL (74-106); MAGNESIUM - SERUM 1.6 mg/dL (1.8-2.4); POTASSIUM - SERUM 3.6 mmol/L (3.5-5.1); PROTEIN - SERUM 5.5 g/dL (6.4-8.2); SODIUM 142 mmol/L (136-145)
--- NOTE | 2018-04-15 05:29 | NUR ---
PT REPOSITIONED WITH PROMINENCES BRIDGED. ORAL CARE PROVIDED. UCAFIB ON MONITOR, RATE 110. SBP 101. OPENS EYES AND FOLLOWS SOME COMMANDS. NO S/S OF PAIN AT THIS TIME. ROOM VISIBLE FROM NURSES STATION. CPOC.
[2018-04-15 05:30] LABS: BASOPHILS 0.2 % (0-2); EOSINOPHILS 1.5 % (0-7); HEMATOCRIT 26.5 % (36.0-48.0); HEMOGLOBIN 8.3 g/dL (12-16); IMMATURE GRANULOCYTES 0.7 % (0-5); LYMPHOCYTES 14.8 % (15-50); MCH 26.4 pg (26.0-34.0); MCHC 31.3 g/dL (31.0-37.0); MCV 84.4 fL (80.0-100.0); MEAN PLATELET VOLUME 9.9 fL (7.4-10.4); MONOCYTES 15.4 % (2-11); NEUTROPHILS 67.4 % (40-80); PLATELET COUNT 275 10x3/uL (130-400); RBC 3.14 10x6/uL (4.00-5.40); RDW 22.7 % (11.5-14.5); WBC 5.4 10x3/uL (4.8-10.8)
[2018-04-15 05:37] LABS: CALC OSMOLALITY 284 mosm/kg (275-300); CREATININE - SERUM 0.7 mg/dL (0.6-1.3); PHOSPHOROUS 3.2 mg/dL (2.5-4.9); UREA NITROGEN 14 mg/dL (7-18); eGFR NON AFRICAN AMERICAN 89 mL/min (90-120)
--- NOTE | 2018-04-15 09:27 | NUR ---
PC TO DR JAFFE, NEW ORDER FOR CONSULT TO DR PEREZ, FOR PACEMAKER PLACEMENT
--- NOTE | 2018-04-15 10:00 | NUR ---
FSBS 283, NO INTERVENTION AT THIS TIME, TF OFF, BRITTLE DIABETIC WITH PENDING PM PLACEMENT
--- NOTE | 2018-04-15 10:24 | NUR ---
NUTRITION F/U NURSING REPORTS PT STARTED ON REGLAN. TOLERATING GLUCERNA 1.0 @ 20 CC/HR. CURRENTLY OFF FOR PACEMAKER PLACEMENT. RD FOLLOWING
[2018-04-15 10:46] LABS: APTT 39.5 SECONDS (22.8-39.4); INR 1.14 (0.85-1.17); PROTIME 14.1 SECONDS (11.6-15.0)
--- NOTE | 2018-04-15 11:11 | NUR ---
PICC LINE INSERTION COMPLETED BY VASCULAR ACCESS NURSE, PILO BALDWIN
--- NOTE | 2018-04-15 11:18 | NUR ---
FSBS 221, NO INTERVENTION GIVEN, BRITTLE DIABETIC, TF OFF, PENDING PM PLACEMENT SCHEDULED FOR TODAY
--- NOTE | 2018-04-15 12:00 | NUR ---
CXR COMPLETED, REPOSITIONED UP AND TO RIGHT SIDE WITH PILLOW PROPPED TO BACK AND HEELS FLOATED
--- NOTE | 2018-04-15 14:32 | NUR ---
MONITOR ALARMING, HR 31, TO BEDSIDE, RECHECKED PULS MANUALLY, 46, BACK UP TO 46, RHYTHM BIJEMINAL WITH PAC'S, WITHIN 4MIN BACK TO 55 BPM, FAMILY AT BEDSIDE, AWARE OF HR, AWAITNG PM PLACEMENT
--- NOTE | 2018-04-15 17:30 | NUR ---
RESTING WITH FAMILY AT BEDSIDE, CONTINUE ON VENT WITH PROPOFAL AND FENTANYL IN USE, HR 61, RHYTHM DR GABRIELA ROBLES AT BEDSIDE, DISCUSSED WITH FAMILY PENDING PACEMAKER PLACEMENT
--- NOTE | 2018-04-15 19:30 | NUR ---
PT SEDATED AND INTUBATED, WILL OPEN EYES TO VOICE, DOES NOT FOLLOW COMMANDS AT THIS TIME. LUNG SOUNDS CLEAR/DIMINISHED, SPO2 98, 30% FIO2. S1S2 HEARD, PERIPHERAL PULSES PRESENT. BOWEL SOUNDS ACTIVE, ABD SOFT. DELGADO CATH INTACT WITH GREEN URINE TO BEDSIDE DRAINAGE. NO S/S OF PAIN, VSS. PT REPOSITIONED WITH PROMINENCES BRIDGED. ORAL CARE PROVIDED. ROOM VISIBLE FROM NURSES STATION, BILATERAL WRIST RESTRAINTS IN USE. CPOC.
--- NOTE | 2018-04-15 20:40 | NUR ---
FAMILY AT BEDSIDE, UPDATE PROVIDED. CONSENT SIGNED FOR PROCEDURE ON 04/16, WITNESS X2 RN, PLACED IN CHART. PT REPOSITIONED WITH PROMINENCES BRIDGED. ORAL CARE PROVIDED. VSS, NO S/S OF PAIN AT THIS TIME. ROOM VISIBLE FROM NURSES STATION. CPOC.
--- NOTE | 2018-04-15 21:48 | NUR ---
PT REPOSITIONED WITH PROMINENCES BRIDGED. FAMILY AT BEDSIDE. VSS, NO S/S OF PAIN AT THIS TIME. CPOC.
--- NOTE | 2018-04-15 23:30 | NUR ---
REASSESSMENT COMPLETE, NO NEW CHANGES AT THIS TIME. PT REPOSITIONED WITH PROMINENCES BRIDGED. ORAL CARE PROVIDED. NO S/S OF PAIN AT THIS TIME. VSS. ROOM VISIBLE FROM NURSES STATION. CPOC.
[2018-04-16] VITALS (23 sets, daily range): BP systolic 114–152; BP diastolic 47–79
--- NOTE | 2018-04-16 01:30 | NUR ---
PT REPOSITIONED WITH PROMINENCES BRIDGED. ORAL CARE PROVIDED. VSS, NO S/S OF PAIN AT THIS TIME. ROOM VISIBLE FROM NURSES STATION. CPOC.
--- NOTE | 2018-04-16 03:30 | NUR ---
PT REASSESSMENT COMPLETE, NO NEW CHANGES AT THIS TIME. PT REPOSITIONED WITH PROMINENCES BRIDGED. ORAL CARE PROVIDED. NO S/S OF PAIN OR DISTRESS AT THIS TIME. VSS, CPOC.
[2018-04-16 04:26] LABS: BASOPHILS 0.6 % (0-2); EOSINOPHILS 1.9 % (0-7); HEMATOCRIT 25.4 % (36.0-48.0); HEMOGLOBIN 7.8 g/dL (12-16); IMMATURE GRANULOCYTES 0.6 % (0-5); LYMPHOCYTES 21.7 % (15-50); MCH 26.4 pg (26.0-34.0); MCHC 30.7 g/dL (31.0-37.0); MCV 86.1 fL (80.0-100.0); MEAN PLATELET VOLUME 9.4 fL (7.4-10.4); MONOCYTES 13.9 % (2-11); NEUTROPHILS 61.3 % (40-80); PLATELET COUNT 289 10x3/uL (130-400); RBC 2.95 10x6/uL (4.00-5.40); WBC 5.2 10x3/uL (4.8-10.8)
--- NOTE | 2018-04-16 04:30 | NUR ---
COMPLETE HIBICLENS BATH GIVEN, COMPLETE LINEN CHANGE PROVIDED. PROMINENCES BRIDGED. ORAL CARE PROVIDED. VSS, NO S/S OF PAIN AT THIS TIME. ROOM VISIBLE FROM NURSES STATION. CPOC.
[2018-04-16 04:35] LABS: INR 1.13 (0.85-1.17)
[2018-04-16 04:36] LABS: APTT 36.1 SECONDS (22.8-39.4)
[2018-04-16 04:50] LABS: ALBUMIN 1.9 g/dL (3.4-5.0); ANION GAP 15.8 mmol/L (8-16); BILIRUBIN - TOTAL 0.31 mg/dL (0.2-1.3); CALCIUM 7.4 mg/dL (8.5-10.1); CARBON DIOXIDE 20.8 mmol/L (21.0-32.0); MAGNESIUM - SERUM 1.7 mg/dL (1.8-2.4); PHOSPHOROUS 3.7 mg/dL (2.5-4.9); POTASSIUM - SERUM 3.6 mmol/L (3.5-5.1); PROTEIN - SERUM 5.5 g/dL (6.4-8.2)
[2018-04-16 04:58] LABS: CREATININE - SERUM 0.9 mg/dL (0.6-1.3)
--- NOTE | 2018-04-16 07:30 | NUR ---
TO OR VIA BED FOR PPM.
--- NOTE | 2018-04-16 10:20 | MORECARE ---
CASE MANAGEMENT DISCHARGE SUMMARY PATIENT: SCARLETT MOODY UNIT: [id number] ADM DATE: 04/07/18 AGE: 68 : [birth year] SEX: F ROOM/BED: D.2316 AUTHOR: XAVI,DOC PHYSICIAN: REFERRING PHYSICIAN: DEB MILLER MD DATE OF SERVICE: 04/16/18 Discharge Plan Patient Name: SCARLETT MOODY Facility: [facility]:[place] : 1950 Planned Disposition: Home Anticipated Discharge Date: Discharge Date: Expected LOS: Initial Reviewer: [email or web address] Initial Review Date: 04/08/2018 Generated: 04/16/18 11:19 am Comments DCP- Discharge Planning Updated by [email or web address]: Anjali Yi on 04/10/18 3:[address] Patient Name: SCARLETT MOODY Admission Status: ER Accout number: [id number] Admission Date: 04-07-2018 : 1950 Admission Diagnosis:UNSPECIFIED ATRIAL FIBRILLATION Attending: DEB CASILLAS Current LOS: 3 Anticipated DC Date: Planned Disposition: Home Primary Insurance: MEDICARE A & B Discharge Planning Comments: CM met with patient's brother and [id number] (Rosalva and Cecilia Carty) patient is currently on vent and sedated. Family states that patient has been living with her daughter since November. Family uncertain at this time what discharge disposition will be. Family stated that patient was being seen by [facility] but currently uncertain if they are still seeing patient. CM will check with patients daughter Cinthia when she arrives. CM will continue to follow and assist as needed with discharge planning / needs. Asphalt Roller Operator: Anjali Yi DCPIA - Discharge Planning Initial Assessment Updated by [email or web address]: Anjali Yi on 04/10/18 4:29 pm * Is the patient Alert and Oriented? No * How many steps to enter\exit or inside your home? ramp * PCP Luisa Phillips * Pharmacy [facility] * Preadmission Environment Home with Family * ADLs Independent * Other Equipment WALKER, BSC, SHOWER CHAIR, INSULIN PUMP, GLUCOMETER * List name and contact numbers for known caregivers / representatives who currently or will assist patient after discharge: CINTHIA ENGLE DTR, ROSALVA ORNELAS, BROTHER, * Verbal permission to speak to the caregivers and representatives has been obtained from the patient. Yes * Community resources currently utilized Home Health * Please name any agencies selected above. [facility] * Additional services required to return to the preadmission environment? No * Can the patient safely return to the preadmission environment? Yes * Has this patient been hospitalized within the prior 30 days at any hospital? No Last DP export: 04/10/18 3:36 p Patient Name: SCARLETT MOODY Page [id number] at 1020 All edits/amendments must be made on the electronic document DICTATION DATE: 04/16/18 1019 STROBOSCOPE OPERATOR: DAVID 04/16/18 1019 RPT#: [id number] DC DATE: STATUS: ADM IN [facility] [address] [place] [address] END OF REPORT
--- NOTE | 2018-04-16 13:00 | NUR ---
REPOSTIONED. BROTHER AT BEDSIDE.
--- NOTE | 2018-04-16 18:30 | NUR ---
PT IN AFIB HR [address] JAFFE CALLED. NEW ORDERS OBTAINED.
--- NOTE | 2018-04-16 19:30 | NUR ---
ASSESSMENT COMPLETED. SEE FLOWSHEETS FOR ALL FINDINGS. PT SEDATED ON VENT, OPENS EYES WITH VOICES. UNCONT A-FIB ON MONITOR. DR JAFFE AWARE, WILL CONT TO MONITOR.
--- NOTE | 2018-04-16 21:00 | NUR ---
FAMILY AT BEDSIDE. UPDATED.
--- NOTE | 2018-04-16 23:00 | NUR ---
REASSESSMENT COMPLETED. NO ACUTE CHANGES IN PT'S STATUS NOTED. VSS. CPOC.
[2018-04-17] VITALS (24 sets, daily range): BP systolic 101–152; BP diastolic 45–67
--- NOTE | 2018-04-17 01:00 | NUR ---
PT RESTING QUIETLY WITHOUT DISTRESS AT THIS TIME. VSS.
[2018-04-17 05:57] LABS: ALBUMIN 2.1 g/dL (3.4-5.0); ANION GAP 18.4 mmol/L (8-16); BILIRUBIN - TOTAL 0.22 mg/dL (0.2-1.3); CARBON DIOXIDE 21.4 mmol/L (21.0-32.0); CREATININE - SERUM 0.9 mg/dL (0.6-1.3); MAGNESIUM - SERUM 1.9 mg/dL (1.8-2.4); PHOSPHOROUS 4.1 mg/dL (2.5-4.9); POTASSIUM - SERUM 3.8 mmol/L (3.5-5.1); PROTEIN - SERUM 6.1 g/dL (6.4-8.2)
--- NOTE | 2018-04-17 06:48 | NUR ---
COMPLETED FULL BATH. SKIN CARE PROVIDED. MOUTH CARE PROVIDED PER VAP. LINEN AND GOWN CHANGED. PT ALEX WELL. REPOSITIONED FOR COMFORT. PILLOWS IN USE FOR SUPPORT. HOB UP, CPOC.
[2018-04-17 07:23] LABS: BASOPHILS 0.6 % (0-2); EOSINOPHILS 2.7 % (0-7); HEMATOCRIT 27.3 % (36.0-48.0); HEMOGLOBIN 8.3 g/dL (12-16); IMMATURE GRANULOCYTES 0.5 % (0-5); LYMPHOCYTES 18.5 % (15-50); MCH 26.8 pg (26.0-34.0); MCHC 30.4 g/dL (31.0-37.0); MEAN PLATELET VOLUME 9.5 fL (7.4-10.4); MONOCYTES 11.6 % (2-11); NEUTROPHILS 66.1 % (40-80); PLATELET COUNT 271 10x3/uL (130-400); RDW 24.1 % (11.5-14.5); WBC 6.2 10x3/uL (4.8-10.8)
[2018-04-17 07:26] LABS: MCV 88.1 fL (80.0-100.0)
--- NOTE | 2018-04-17 09:48 | NUR ---
NUTRITION F/U NURSING REPORTS PT TOLERATING GLUCERNA 1.0 LIYA TUBE FEEDS AT 30 CC/HR. TO BE HELD FOR POSSIBLE EXTUBATION TODAY. RD FOLLOWING
--- NOTE | 2018-04-17 15:45 | OP ---
PATIENT NAME: SCARLETT MOODY MEDICAL RECORD: [id number] :54 LOCATION:[facility] D.2316 ADMISSION DATE:04/07/18 SURGEON: CHAPARRO PEREZ MD DATE OF OPERATION: 04/16/2018 SURGEON: Chaparro Perez MD MACHINE HOOP MAKER: Sonny Klein PROCEDURE PERFORMED: Insertion of dual chamber permanent pacemaker, atrial and ventricular leads. PREOPERATIVE DIAGNOSES: Sick sinus syndrome, bradycardia. POSTOPERATIVE DIAGNOSES: Sick sinus syndrome, bradycardia. ANESTHESIA: General endotracheal anesthesia. ESTIMATED BLOOD LOSS: Minimal. COMPLICATIONS: None. SPECIMENS: None. CONDITION: Stable. DISPOSITION: ICU. OPERATIVE FINDINGS: Good pacing and sensing thresholds obtained. No apparent pneumothorax or other complication. OPERATIVE INDICATION: Significant bradycardia and ventilated. OPERATIVE PROCEDURE IN DETAIL: The patient was brought to the operating suite already intubated and general anesthesia was begun. The chest was prepped and draped. The area below the left clavicle was used to make a subcutaneous pocket and the left subclavian vein was cannulated twice. The dilator and introducer system were used. The 2 leads were placed and then first the ventricular lead was placed across the tricuspid valve and directed near the apex, where it was screwed into place and checked with appropriate pacing and sensing thresholds. The J-wire was then used for the atrial lead, which was placed into the right atrial appendage and screwed into place. J-wire was removed and good pacing and sensing thresholds were noted. The pocket was irrigated and made hemostatic and then the leads were connected to the pacemaker generator, coiled carefully below the pacemaker generator placed within the pocket, and the pacemaker generator was sutured into place. Fluoroscopy confirmed good position with no apparent complications. The wound was irrigated and closed in 2 layers including Dermabond on the skin. The patient was stable to ICU. TRANSINT:[id number] Voice Confirmation ID: [id number] DOCUMENT ID: [id number] OPERATIVE REPORT [id number] SCARLETT MOODY CHAPARRO PEREZ MD at 1545 CC: MARIE BERMAN MD, DEB MILLER MD and JOHN JAFFE [phone] DICTATION DATE: 04/16/18 1004 MEAT PACKER: 04/16/18 1129 ADM IN [place] [id number] [place] [address]
--- NOTE | 2018-04-17 19:40 | NUR ---
RECEIVED CARE OF PT, ASSESSMENT PER FLOWSHEET. PT SEDATED ON VENT WITH DIPRIVAN AND FENTANYL, OPENS EYES BUT DOES NOT FOLLOW COMMANDS, PPP, HR SR WITH PACED BEATS AND FREQUENT PVC'S NOTED, BP STABLE, DELGADO CATH PATENT WITH GREENISH URINE IN TUBING, GLUCERNA INFUSING AT 30 CC/HR TO OGT-PLACEMENT VERIFIED WITH AUSC OF SMALL AIR BOLUS-RESIDUAL 11CC, TF INCREASED TO 40 CC/HR PER MD ORDER. POSITIONED FOR COMFORT SUPPORTED WITH PILLOWS, ORAL CARE AND SUCTIONING PROVIDED BY RT, WILL MONITOR.
--- NOTE | 2018-04-17 21:44 | NUR ---
NO VISITORS PRESENT AT THIS TIME, VSS, CONT POC.
--- NOTE | 2018-04-17 23:30 | NUR ---
PT REPOSITIONED FOR COMFORT SUPPORTED WITH PILLOWS, ORAL CARE AND SUCTIONING PROVIDED, WILL MONITOR.
[2018-04-18] VITALS (24 sets, daily range): BP systolic 103–195; BP diastolic 47–90
--- NOTE | 2018-04-18 01:30 | NUR ---
PT REPOSITIONED FOR COMFORT, EXTREMITIES SUPPORTED ON PILLOWS, ORAL CARE AND SUCTIONING PROVIDED, VSS, CONT POC.
--- NOTE | 2018-04-18 03:30 | NUR ---
REASSESSMENT PER FLOWSHEET, TF RESIDUAL NOTED TO BE 90CC. NO BM NOTED SINCE 04/07, BS HYPOACTIVE, TF DECREASED BACK TO 30 CC/HR. WILL MONITOR.
[2018-04-18 04:29] LABS: BASOPHILS 0.4 % (0-2); EOSINOPHILS 2.7 % (0-7); HEMATOCRIT 27.8 % (36.0-48.0); HEMOGLOBIN 8.4 g/dL (12-16); IMMATURE GRANULOCYTES 0.2 % (0-5); LYMPHOCYTES 23.8 % (15-50); MCH 26.3 pg (26.0-34.0); MCHC 30.2 g/dL (31.0-37.0); MCV 87.1 fL (80.0-100.0); MEAN PLATELET VOLUME 9.4 fL (7.4-10.4); MONOCYTES 16.8 % (2-11); NEUTROPHILS 56.1 % (40-80); PLATELET COUNT 253 10x3/uL (130-400); RBC 3.19 10x6/uL (4.00-5.40); RDW 24.2 % (11.5-14.5); WBC 5.3 10x3/uL (4.8-10.8)
[2018-04-18 04:59] LABS: ALBUMIN 1.9 g/dL (3.4-5.0); ALKALINE PHOSPHATASE 156 U/L (46-116); BILIRUBIN - TOTAL 0.16 mg/dL (0.2-1.3); CALCIUM 7.9 mg/dL (8.5-10.1); CARBON DIOXIDE 24.1 mmol/L (21.0-32.0); CHLORIDE - SERUM 107 mmol/L (98-107); CREATININE - SERUM 0.7 mg/dL (0.6-1.3); MAGNESIUM - SERUM 1.9 mg/dL (1.8-2.4); PHOSPHOROUS 3.3 mg/dL (2.5-4.9); POTASSIUM - SERUM 3.3 mmol/L (3.5-5.1); PROTEIN - SERUM 5.9 g/dL (6.4-8.2); SODIUM 141 mmol/L (136-145); UREA NITROGEN 13 mg/dL (7-18); eGFR NON AFRICAN AMERICAN 89 mL/min (90-120)
[2018-04-18 05:13] LABS: ALT (SGPT) 10 U/L (10-68); CALC OSMOLALITY 280 mosm/kg (275-300); GLUCOSE 100 mg/dL (74-106)
--- NOTE | 2018-04-18 07:00 | NUR ---
REC'D CARE OF PT. SEDATED ON VENT. FOLLOWS COMMANDS.
--- NOTE | 2018-04-18 07:49 | NUR ---
1/2 20 MEQ KCL RIDERS INITIATED PER ELECTROLYTE PROTOCOL TO TREAT K+ OF 3.3
--- NOTE | 2018-04-18 09:00 | NUR ---
ARNULFO ENGLE, DAUGHTER AT BEDSIDE.
--- NOTE | 2018-04-18 10:15 | NUR ---
DIPRIVAN OFF FOR CPAP TRIAL.
--- NOTE | 2018-04-18 10:28 | NUR ---
CPAP TRIAL BEGINS.
--- NOTE | 2018-04-18 11:02 | NUR ---
REASSESSMENT COMPLETED PER FLOW SHEET.
--- NOTE | 2018-04-18 11:19 | NUR ---
PLACED BACK ON RATE FOR BRONCHOSCOPY.
--- NOTE | 2018-04-18 11:21 | NUR ---
TF TURNED OFF FOR BRONCHOSCOPY.
--- NOTE | 2018-04-18 11:30 | NUR ---
PADMINI TURNED BACK ON FOR BRONCHOSCOPY.
--- NOTE | 2018-04-18 12:05 | NUR ---
BRONCHOSCOPY COMPLETED BY DR. BERMAN WITHOUT DIFFICULTY. TF STARTED BACK AT 10 CC PER HOUR.
--- NOTE | 2018-04-18 13:35 | NUR ---
DIPRIVAN OFF FOR CPAP TRIAL.
--- NOTE | 2018-04-18 13:45 | NUR ---
CPAP TRIAL BEGAN.
--- NOTE | 2018-04-18 13:51 | NUR ---
REPOSITIONED FOR COMFORT AND TO PRESERVE SKIN INTEGRITY.
--- NOTE | 2018-04-18 14:11 | NUR ---
FENTANYL DECREASED FROM 200 MCG TO 100 MCG FOR CPAP TRIAL.
--- NOTE | 2018-04-18 14:23 | NUR ---
REASSESSMENT COMPLETED PER FLOW SHEET. NO ACUTE CHANGES.
--- NOTE | 2018-04-18 14:23 | NUR ---
REASSESSMENT COMPLETED PER FLOW SHEET. NO ACUTE CHANGES.
--- NOTE | 2018-04-18 15:05 | NUR ---
REMADINS ON CPAP. TOLERATING WELL.
--- NOTE | 2018-04-18 15:35 | NUR ---
DYAPHORETIC. FSBS 69. GAVE APPLE JUICE DOWN OGT PER ARNULFO ENGLE'S REQUEST.
--- NOTE | 2018-04-18 16:04 | NUR ---
DR. BERMAN AT BEDSIDE. FENTANYL IS TURNED OFF NOW.
--- NOTE | 2018-04-18 16:05 | NUR ---
FOLLOWS COMMANDS. WIGGLES TOES.
--- NOTE | 2018-04-18 16:15 | NUR ---
EXTUBATED BY AMAIRANI RT TO 5L PER NC.
--- NOTE | 2018-04-18 16:24 | NUR ---
SATTING 97% ON 5L VIA NC. NO DISTRESS.
--- NOTE | 2018-04-18 16:48 | NUR ---
FAMILY AT BEDSIDE. NO DISTRESS. SATTING 98% ON 5L VIA NC.
--- NOTE | 2018-04-18 17:12 | NUR ---
PLACED LEFT ARM IN SLING. POST PPM PLACEMENT.
--- NOTE | 2018-04-18 20:40 | NUR ---
PT TACHYPNEIC AND CRACKLES AUSCULTATED BILATERALLY WITH DIM BASES, DECREASED O2 SAT NOTED DESPITE RACEMIC EPI UPDRAFT, ABG'S DRAWN AND CALLED TO DR BERMAN, ORDERS RECEIVED.
--- NOTE | 2018-04-18 20:54 | NUR ---
PT RESPIRATORY STATUS DECLINING, O2 SAT REMAINS DECREASED, RESPIRATIONS LABORED PROGRESSING INTO AGONAL, CODE BLUE CALLED, SEE SHEET FOR DETAILS.
--- NOTE | 2018-04-18 20:54 | NUR ---
PT INTUBATED PER DR LAMB WITH 7.5 ETT, POSITIVE COLOR CHANGE NOTED, RADIOLOGY AT BEDSIDE.
--- NOTE | 2018-04-18 21:59 | NUR ---
DR LAMB CALLED REGARDING HEAD CT RESULTS-NO BLEED NOTED, WILL MONITOR PT. PT DAUGHTER NOTIFIED PER MD REQUEST.
--- NOTE | 2018-04-18 22:26 | NUR ---
DR BERMAN NOTIFIED OF ABG RESULTS, HEAD CT RESULTS, NO FURTHER ORDERS AT THIS TIME.
[2018-04-19] VITALS (23 sets, daily range): BP systolic 104–153; BP diastolic 48–70
--- NOTE | 2018-04-19 01:15 | NUR ---
PT SEDATED ON VENT, SR ON MONITOR, RR 16, PT DAUGHTER AT BEDSIDE.
--- NOTE | 2018-04-19 02:23 | NUR ---
RECHECK FSBS 369, 10 UNITS HUMALOG ADMINISTERED PER S/S
--- NOTE | 2018-04-19 04:13 | NUR ---
AM ABG'S REVIEWED, FIO2 DECREASED TO 40% PER RT
--- NOTE | 2018-04-19 05:27 | NUR ---
PT POSITIONED FOR COMFORT SUPPORTED WITH PILLOWS, AIR OVERLAY ON, PT RESTING WITH EYES CLOSED, VSS.
[2018-04-19 05:41] LABS: BASOPHILS 0.1 % (0-2); EOSINOPHILS 0 % (0-7); HEMATOCRIT 27.4 % (36.0-48.0); HEMOGLOBIN 8.3 g/dL (12-16); IMMATURE GRANULOCYTES 0.3 % (0-5); LYMPHOCYTES 5.8 % (15-50); MCH 26.9 pg (26.0-34.0); MCHC 30.3 g/dL (31.0-37.0); MONOCYTES 6.1 % (2-11); NEUTROPHILS 87.7 % (40-80); PLATELET COUNT 255 10x3/uL (130-400); RBC 3.08 10x6/uL (4.00-5.40); RDW 24.4 % (11.5-14.5)
[2018-04-19 05:43] LABS: WBC 9.6 10x3/uL (4.8-10.8)
[2018-04-19 06:02] LABS: ALBUMIN 2.1 g/dL (3.4-5.0); BILIRUBIN - TOTAL 0.22 mg/dL (0.2-1.3); CALCIUM 8.4 mg/dL (8.5-10.1); CARBON DIOXIDE 24.6 mmol/L (21.0-32.0); POTASSIUM - SERUM 3.6 mmol/L (3.5-5.1); PROTEIN - SERUM 5.9 g/dL (6.4-8.2)
[2018-04-19 06:05] LABS: CREATININE - SERUM 0.9 mg/dL (0.6-1.3)
--- NOTE | 2018-04-19 07:00 | NUR ---
REC'D CARE OF PT. SEDATED ON VENT.
--- NOTE | 2018-04-19 08:30 | NUR ---
FAMILY AT BEDSIDE. UPDATED BY DR. BERMAN.
--- NOTE | 2018-04-19 09:56 | NUR ---
I PAGED DR. BRUNER TO NOTIFY OF CONSULT. HE IS IN THE [facility]BULANCE [facility]. HELLEN CROWLEY CALLED ME AND SAID SHE WOULD LET HIM KNOW ABOUT CONSULT.
--- NOTE | 2018-04-19 10:51 | NUR ---
REASSESSMENT COMPLETED PER FLOW SHEET. NO ACUTE CHANGES.
--- NOTE | 2018-04-19 11:18 | NUR ---
GLUCERNA TF STARTED AT 10CC PER HOUR WITH A Q2H 30CC H20 FLUSH.
--- NOTE | 2018-04-19 11:43 | NUR ---
PAGED DR. ZAZUETA AGAIN.
--- NOTE | 2018-04-19 12:00 | NUR ---
DR. ZAZUETA RETURNED PAGE AND I UPDATED HIM ABOUT CONSULT.
--- NOTE | 2018-04-19 12:56 | NUR ---
NO ACUTE CHANGES. REMAINS SEDATED ON VENT.
--- NOTE | 2018-04-19 14:07 | NUR ---
IVF DECREASED TO KVO.
--- NOTE | 2018-04-19 14:51 | NUR ---
REASSESSMENT COMPLETED PER FLOW SHEET. NO ACUTE CHANGES.
--- NOTE | 2018-04-19 15:31 | NUR ---
RESTING. NO DISTRESS. SEDATED ON VENT. CM=NS WITH PAC'S.
--- NOTE | 2018-04-19 16:42 | NUR ---
FAMILY REMAINS AT BEDSIDE. NO ACUTE CHANGES.
--- NOTE | 2018-04-19 18:09 | NUR ---
DIPRIVAN BEING TITRATED TO EFFECT. NO PRESSORS. VSS. REMIANS SEDATED ON VENT.
--- NOTE | 2018-04-19 19:15 | NUR ---
RESUMED CARE OF PT, ASSESSMENT PER FLOWSHEET. PT INTUBATED AND SEDATED ON VENT, GRIMACES TO STIMULI, LT PUPIL 2 AND BRISK, RT PUPIL 4 AND BRISK, HR SR WITH PACED BEATS AND OCC PVC'S NOTED, PPP, DELGADO CATH PATENT, OGT WITH GLUCERNA INFUSING AT 10 CC/HR-PLACEMENT VERIFIED WITH AUSC OF SMALL AIR BOLUS, RESIDUAL OF 50CC NOTED. PT POSITIONED FOR COMFORT, ORAL CARE AND SUCTIONING PROVIDED, PT DAUGHTER AT BEDSIDE.
--- NOTE | 2018-04-19 23:15 | NUR ---
REASSESSMENT PER FLOWSHEET, NO ACUTE CHANGES NOTED AT THIS TIME. PT REPOSITIONED FOR COMFORT SUPPORTED WITH PILLOWS, ORAL CARE AND SUCTIONING PROVIDED, VSS.
[2018-04-20] VITALS (22 sets, daily range): BP systolic 104–180; BP diastolic 46–92
--- NOTE | 2018-04-20 00:28 | NUR ---
TF RESIDUAL 11CC, INCREASED TO 20 CC PER MD ORDER. VSS
--- NOTE | 2018-04-20 01:10 | NUR ---
PT REPOSITIONED FOR COMFORT SUPPORTED WITH PILLOWS, ORAL CARE AND SUCTIONING PROVIDED, VSS, CONT TO MONITOR.
--- NOTE | 2018-04-20 05:30 | NUR ---
PT REPOSITIONED FOR COMFORT, NO VISITORS PRESENT AT THIS TIME, ORAL CARE AND SUCTIONING PROVIDED, VSS.
[2018-04-20 05:59] LABS: BASOPHILS 0.5 % (0-2); EOSINOPHILS 0.8 % (0-7); HEMATOCRIT 28.8 % (36.0-48.0); HEMOGLOBIN 8.9 g/dL (12-16); IMMATURE GRANULOCYTES 0.3 % (0-5); LYMPHOCYTES 17.1 % (15-50); MCH 27.1 pg (26.0-34.0); MCHC 30.9 g/dL (31.0-37.0); MCV 87.5 fL (80.0-100.0); MEAN PLATELET VOLUME 10.5 fL (7.4-10.4); MONOCYTES 8.4 % (2-11); NEUTROPHILS 72.9 % (40-80); PLATELET COUNT 269 10x3/uL (130-400); RBC 3.29 10x6/uL (4.00-5.40); RDW 25.2 % (11.5-14.5); WBC 8.8 10x3/uL (4.8-10.8)
[2018-04-20 06:40] LABS: ALKALINE PHOSPHATASE 145 U/L (46-116); CALCIUM 8.3 mg/dL (8.5-10.1); CARBON DIOXIDE 23.9 mmol/L (21.0-32.0); CHLORIDE - SERUM 106 mmol/L (98-107); CREATININE - SERUM 0.7 mg/dL (0.6-1.3); MAGNESIUM - SERUM 1.5 mg/dL (1.8-2.4); PHOSPHOROUS 2.8 mg/dL (2.5-4.9); POTASSIUM - SERUM 3.6 mmol/L (3.5-5.1); PROTEIN - SERUM 5.9 g/dL (6.4-8.2); SODIUM 142 mmol/L (136-145); UREA NITROGEN 17 mg/dL (7-18); eGFR NON AFRICAN AMERICAN 89 mL/min (90-120)
[2018-04-20 06:41] LABS: ALT (SGPT) 9 U/L (10-68); CALC OSMOLALITY 291 mosm/kg (275-300); GLUCOSE 222 mg/dL (74-106)
--- NOTE | 2018-04-20 10:18 | NUR ---
NUTRITION F/U PT REMAINS SEDATED ON VENT. TUBE FEEDS CURRENTLY OFF FOR PROCEDURE. WILL CONTINUE TO MONITOR PT PROGRESS. RD FOLLOWING
--- NOTE | 2018-04-20 11:42 | NUR ---
PT TO CT FOR CT HEAD. PT ALEX WELL. CONCENTS TO CHART AFTER DR ALANNAH TINSLEY. FAMILY AT BS.
--- NOTE | 2018-04-20 13:33 | NUR ---
PT TURNED AND MOUTH CARE COMPLETE. VSS. FAMILY AT .
--- NOTE | 2018-04-20 14:45 | NUR ---
CHLORHEXIDINE BATH AND LINEN CHANGE DONE.
--- NOTE | 2018-04-20 16:29 | NUR ---
PT TO ANTIQUE REPAIRER. CONCENTS ON CHART. PRE OP MEDS GIVEN ORDERED.
--- NOTE | 2018-04-20 19:00 | NUR ---
Shift assessment complete. Pt is sedated on vent. ETT/OGT secured. ETT size 7.5 measuring 23 cm at the lip. Vent settings: A/C rate of 15, tidal volume 500, FIO2 @ 40%, Peep 5.0. S1S2 audible, HR 69 NSR, paced. Clear lung sounds heard bilat throughout all lobes. L upper chest PPM incision site, dressing CDI. ABD flat, hypo bowel sounds x4. L upper PICC infusing Diprivan @ 50 mcg/kg/min (19.8 mL/hr), Fentanyl @ 200 mcg/hr (4 mL/hr), NS @ KVO. Cruz cath intact draining clear yellow urine. R groin cath insertion site, CDI. Pt lying flat at this time, post-cath. Radial and pedal pulses palp. Dependent edema noted in upper ext, generalized edema in lower ext. OGT clamped at this time. Daughter at bedside, update given. PERRLA, 2 mm, brisk reaction to light, she is unable to follow commands at this time, but she does localize pain. RT at bedside providing oral care. ICU monitors on and functioning, tight parameters set. Will cont close monitoring in ICU.
--- NOTE | 2018-04-20 21:30 | NUR ---
HOB raised 30 degrees per VAT protocol. OGT placement checked via auscultation. 20 mL residual, brown bile noted, flushed line. TF initiated, Glucerna 1.0 @ 10 mL/hr with 30 mL flush Q2H. Oral care provided, repositioned for comfort. R groin cath site soft to touch, no S/S of hematoma formation. Pedal pulses palp. Will cont with POC.
--- NOTE | 2018-04-20 23:00 | NUR ---
Reassessment complete. No changes in pt condition. R cath site, CDI, no hematoma formation seen. Repositioned for comfort, oral care provided. Pt unable to follow commands, PERRLA 2 mm, brisk reaction to light. She does localize pain. Extremities elevated on pillows. VSS. Will cont to monitor.
[2018-04-21] VITALS (24 sets, daily range): BP systolic 98–161; BP diastolic 46–75; Ht 157.5 cm; Wt 74.1 kg
--- NOTE | 2018-04-21 | NUR ---
FSBS 215, [facility] admin per sliding scale.
--- NOTE | 2018-04-21 01:00 | NUR ---
VSS. RT at bedside providing oral care, repositioned for comfort. No changes in pt condition, pedal pulses palp. Will cont close monitoring in ICU.
--- NOTE | 2018-04-21 03:00 | NUR ---
Reassessment complete. No changes from previous assessment. See flowsheet for further detials. R groin cath site, CDI, no signs of hematoma formation. VSS. Oral care provided, repositioned for comfort. Will cont with POC.
--- NOTE | 2018-04-21 05:00 | NUR ---
Complete bed bath and linen change provided, oral and singleton care provided. VSS. Repositioned for comfort. Will cont with POC.
[2018-04-21 06:07] LABS: BASOPHILS 0.6 % (0-2); EOSINOPHILS 1.6 % (0-7); HEMATOCRIT 30.6 % (36.0-48.0); HEMOGLOBIN 9.5 g/dL (12-16); IMMATURE GRANULOCYTES 0.3 % (0-5); LYMPHOCYTES 17.5 % (15-50); MCH 27.2 pg (26.0-34.0); MCV 87.7 fL (80.0-100.0); MEAN PLATELET VOLUME 9.9 fL (7.4-10.4); PLATELET COUNT 256 10x3/uL (130-400); RBC 3.49 10x6/uL (4.00-5.40); RDW 25.7 % (11.5-14.5); WBC 6.9 10x3/uL (4.8-10.8)
[2018-04-21 06:32] LABS: ALBUMIN 1.9 g/dL (3.4-5.0); ALKALINE PHOSPHATASE 151 U/L (46-116); BILIRUBIN - TOTAL 0.19 mg/dL (0.2-1.3); CARBON DIOXIDE 22.9 mmol/L (21.0-32.0); CHLORIDE - SERUM 105 mmol/L (98-107); CREATININE - SERUM 0.6 mg/dL (0.6-1.3); POTASSIUM - SERUM 3.1 mmol/L (3.5-5.1); PROTEIN - SERUM 5.9 g/dL (6.4-8.2); SODIUM 140 mmol/L (136-145); UREA NITROGEN 13 mg/dL (7-18); eGFR NON AFRICAN AMERICAN > 90 mL/min (90-120)
[2018-04-21 06:34] LABS: CALC OSMOLALITY 282 mosm/kg (275-300); GLUCOSE 164 mg/dL (74-106)
[2018-04-21 06:35] LABS: ALT (SGPT) < 6 U/L (10-68)
--- NOTE | 2018-04-21 09:02 | NUR ---
NUTRITION F/U PT REMAINS SEDATED ON VENT. GLUCERNA 1.0 @ 20 CC/HR WITH GOAL RATE 60 CC/HR. WILL CONTINUE TO PROVIDE GLUCERNA, MONITOR PT PROGRESS. RD FOLLOWING
[2018-04-21 11:25] LABS: BILIRUBIN - DIRECT 0.1 mg/dL (0.00-0.30); BILIRUBIN - INDIRECT 0.07 mg/dL (0.00-1.00); BILIRUBIN - TOTAL 0.17 mg/dL (0.2-1.3)
--- NOTE | 2018-04-21 12:34 | NUR ---
1130 CPAP TRIALS STARTED. JUSTIN OFF. DR RUSS HERE.
--- NOTE | 2018-04-21 16:04 | NUR ---
PT CONTINUES WITH CPAP TRIALS. PT ALEX WELL. RESP 10BPM. VSS. FAMILY AT BS.
--- NOTE | 2018-04-21 19:00 | NUR ---
Shift assessment complete. Pt is on sedated on vent, CPAP trial now. She is tolerating it well. Dr. Silva at bedside, he stated to switch her back to A/C rate of 15, tidal volume 500, FIO2 @ 40%, and peep of 5.0. Will notify RT. S1S2 audible, paced rhythm showing on monitor. L upper chest PPM site CDI. Crackles heard bilat throughout all lobes, suctioned via inline, clear secretions noted. ABD flat, hypoactive BS x4. OGT secured to ETT, TF off during CPAP trial. 7.5 ETT measuring 23 cm at the lip. Cruz cath intact draining clear yellow urine. R groin cath site, CDI no signs of hematoma formation noted. Radial and pedal pulses palp. L upper arm PICC infusing Fentanyl @ 150 mcg/hr cont and NS @ KVO. Daughter at bedside, update given. Oral care provided via RT. Tight parameters set on ICU monitors. All needs met, will cont with POC.
--- NOTE | 2018-04-21 21:00 | NUR ---
RT at bedside, pt is now on A/C rate of 15, tidal volume 500, FiO2 @ 40%, and peep of 5.0. Pt is shaking head back and forth and kicking legs off the bed. Propofol initiated will titrate per orders to keep light sedation. Repositioned for comfort. Nathan's butt paste applied to coccyx, reddened area noted. Oral care provided. Will cont with POC.
--- NOTE | 2018-04-21 21:20 | NUR ---
OGT placement checked via auscultation. Residual of 63, flushed line. TF started back at 20 mL/hr with 30 mL flush Q2H.
--- NOTE | 2018-04-21 23:00 | NUR ---
Reassessment complete. Suctioned via inline d/t frequent coughing, clear secretions noted. Clear breath sounds auscultated bilat throughout all lobes. Residual checked, 20 mL noted. Increased TF to 30 mL/hr. Will cont to monitor residuals closely, hypoactive BS x4. Repositioned for comfort, oral care provided. No further needs at this time. Will cont close observation in ICU.
[2018-04-22] VITALS (37 sets, daily range): BP systolic 117–213; BP diastolic 51–105
--- NOTE | 2018-04-22 | NUR ---
Pt's HR rhythm is now showing bigeminy with a rate of 39 on the monitor. Palp radial pulse is 70 bpm. Cardiac tracings recorded and placed in chart. Pt's asymptomatic, BP WNL. Will cont to monitor closely.
--- NOTE | 2018-04-22 00:05 | NUR ---
Mg low, replacing per protocol.
[2018-04-22 00:25] LABS: MAGNESIUM - SERUM 1.2 mg/dL (1.8-2.4)
--- NOTE | 2018-04-22 01:00 | NUR ---
Repositioned for comfort. VSS. HR 69 bpm, NSR, paced rhythm reading on monitor at this time. Palp radial pulse 69 bpm. Will cont to monitor closely.
--- NOTE | 2018-04-22 03:00 | NUR ---
Repositioned for comfort. Oral care provided. Copious clear secretions suctioned orally. Clear secretions noted via inline. Temp 99.4, fan on, pt feels warm to touch. All other VSS. Will cont with POC.
--- NOTE | 2018-04-22 05:00 | NUR ---
Complete bed bath and linen change provided. Oral care provided. Pt tolerated well. L upper arm PICC dressing changed senior technical editor per protocol. All needs met. Will cont with POC. VSS.
[2018-04-22 06:37] LABS: BASOPHILS 0.2 % (0-2); HEMATOCRIT 30.1 % (36.0-48.0); HEMOGLOBIN 9.3 g/dL (12-16); IMMATURE GRANULOCYTES 0.2 % (0-5); LYMPHOCYTES 10.4 % (15-50); MCH 27.4 pg (26.0-34.0); MCHC 30.9 g/dL (31.0-37.0); MCV 88.8 fL (80.0-100.0); MEAN PLATELET VOLUME 10.1 fL (7.4-10.4); MONOCYTES 10.5 % (2-11); NEUTROPHILS 77.7 % (40-80); PLATELET COUNT 261 10x3/uL (130-400); RBC 3.39 10x6/uL (4.00-5.40); RDW 25.5 % (11.5-14.5)
[2018-04-22 06:38] LABS: WBC 8.8 10x3/uL (4.8-10.8)
[2018-04-22 06:51] LABS: ALBUMIN 2.1 g/dL (3.4-5.0); ALKALINE PHOSPHATASE 160 U/L (46-116); ALT (SGPT) 9 U/L (10-68); BILIRUBIN - TOTAL 0.46 mg/dL (0.2-1.3); CALCIUM 7.9 mg/dL (8.5-10.1); CARBON DIOXIDE 23.3 mmol/L (21.0-32.0); CHLORIDE - SERUM 103 mmol/L (98-107); CREATININE - SERUM 0.6 mg/dL (0.6-1.3); POTASSIUM - SERUM 3.7 mmol/L (3.5-5.1); PROTEIN - SERUM 6.3 g/dL (6.4-8.2); SODIUM 139 mmol/L (136-145); UREA NITROGEN 10 mg/dL (7-18); eGFR NON AFRICAN AMERICAN > 90 mL/min (90-120)
[2018-04-22 06:53] LABS: CALC OSMOLALITY 284 mosm/kg (275-300); GLUCOSE 235 mg/dL (74-106)
--- NOTE | 2018-04-22 07:00 | NUR ---
AWAKES EASILY TO VERBAL STIMULI SKIN WARM AND DRY. BILATERAL LUNG SOUNDS EQUAL AND CLEAR. ETT SECURE TO VENT. ABD SOFT. DELGADO CATH PATENT. LEFT UPPER ARM PICC LINE DRESSING DRY AND INTACT. DIPRIVAN AT 30 MCG/KG/MIN. FENTANYL AT 150 MCG/HR. NS AT KVO. HEAD OF BED ELEVATED AT 30 DEGREES. OPENS EYES AND SHAKES HEAD NO.
[2018-04-22 07:56] LABS: PHOSPHOROUS 3.1 mg/dL (2.5-4.9)
[2018-04-22 08:00] LABS: MAGNESIUM - SERUM 2.2 mg/dL (1.8-2.4)
--- NOTE | 2018-04-22 09:00 | NUR ---
DR. RUSS HERE ORDERS TO STOP DIPIRVAN AND PLACE ON CPAP. RESP THERAPY NOTIFIED. FENTANYLN DECRESED TO 75 MCG/HR PER DR. RUSS ORDERS. PATENT PLACED ON CPAP 09/21.
--- NOTE | 2018-04-22 10:10 | NUR ---
DAUGHTER HERE, PS DOWN TO 5. PER DR. RUSS
--- NOTE | 2018-04-22 11:00 | NUR ---
TOLERATING CPAP WELL NO RESP DISTRESS. RESP DEEP AND REGULAR TV GREATER THAN 300. ALERT NODING HEAD TO YES AND NO QUESTIONS
--- NOTE | 2018-04-22 11:20 | NUR ---
DR. RUSS HERE PATIENT EXTUBATED PLACED ON 3 LITERS NC. ALL SEDATION TURNED OFF. NTG PATCH PLACED ON CHEST FOR ELEVATED BLOOD PRESSURE PER DR. RUSS ORDERS.
--- NOTE | 2018-04-22 11:45 | NUR ---
RESP RATE INCREASING AND RESP ARE BECOMING LOUDER. PATIENT WARM AND SWEATING. LESS RESPONSIVE. RESP THERAPY PAGED
--- NOTE | 2018-04-22 12:00 | NUR ---
PLACED ON BIPAP FOR RESP DISTRESS. PULSE FLUCUATION DOWN INTO THE 80'S. DR. RUSS NOTIFIED.
--- NOTE | 2018-04-22 12:20 | NUR ---
JANIEENE GTT STARTED FOR CONTINUED ELEVATED BLOOD PRESSURE PER DR. RUSS ORDERS.
--- NOTE | 2018-04-22 12:30 | NUR ---
FENTANYL GTT STARTED ORDERED FOR SEDATION WITH INTUBATION STARTED AT 200 MCG/HOUR.
--- NOTE | 2018-04-22 13:00 | NUR ---
LARGE SOFT BROWN BM, BATH GIVEN PERICARE CARE WITH MOISTURE BARRIER AND DELGADO CATH CARE DONE. FENTANYL INCREASED TO 250 MCG/HOUR TO ALLOW PATIENT TO REST
--- NOTE | 2018-04-22 13:00 | NUR ---
REINTUBATED PER DR. RUSS. VERSED 2 MG IV GIVEN ORDERED. OG TUBE PLACED. CHEST X-RAY DONE TO CONFIRM PLACEMENT. BILATERAL LUNGS EQUAL AND CONGESTED
--- NOTE | 2018-04-22 13:30 | NUR ---
CARDENE GTT TURNED OFF. LARGE SOFT BROWN STOOL. PERICARE DONE MOISTURE BARRIER APPLIED TO COCCYX AREA, DELGADO CATH CARE DONE. CLEAN LINEN AND BATH GIVEN. PATIENT TOLERATED FAIR. FENTANYL CONTINOUS GTT STARTED AT 200 MCG/HOUR FOR SEDATION
--- NOTE | 2018-04-22 14:00 | NUR ---
STILL SHAKING HEAD. FANTANYL INCREASED TO 300 MCG/HOUR. OBEYING COMMANDS. TUBE FEEDING RESTARTED AT 30 ML HOUR GLUCERNA. FLUSH 30 ML Q 2 HOURS PER OG. AFTER X-RAY CONFIRMED PLACEMENT
--- NOTE | 2018-04-22 14:30 | NUR ---
STILL SHAKING HEAD BACK AND FORTH. FENTANYL INCREASED TO 250 MCG/HOUR. AWAKE AND ALERT OBEYING COMMANDS, NODES HEAD TO YES AND NO QUESTIONS. TUBE FEEDING GLUCERNA RESTARTED AT 30 ML HOUR WITH FLUSH 30 ML Q 2 HOURS PER OG TUBE. OG TUBE PLACEMENT CONFIRMED WITH CXR. AUDIBLE AIR BOLUS IN ABD. MONITOR SR. GOOD URINE OUTPUT.
--- NOTE | 2018-04-22 14:53 | NUR ---
1120-PER DR. RUSS PATIENT EXTUBATED TO 3L/NC
--- NOTE | 2018-04-22 14:54 | NUR ---
1200-PER DR. RUSS AND DUE TO INCREASED WORK OF BREATHING AND DECREASED 02 SAT PATIENT PLACED ON 30/08 75% BIPAP.
--- NOTE | 2018-04-22 14:55 | NUR ---
1300-PATIENT REINTUBATED RT MARCIAL ASSISTED WITH INTUBATION
--- NOTE | 2018-04-22 15:00 | NUR ---
REPOSITIONED IN BED. STILL SHAKING HEAD FENTANYL INCREASED TO 350 MCG/HR. GOOD URINE OUTPUT. MONITOR SR. ECHOLS STILL OFF
--- NOTE | 2018-04-22 15:30 | NUR ---
REPOSTIONED. FENTANYL INCREASED TO 300 MCG/HOUR FOR SHAKING HEAD BACK AND FORTH. ALERT. DAUGHTER AND FAMILY AT BEDSIDE. HEAD OF BED ELEVATED 30 DEGREES. HEELS BRIDGED WITH PILLOW. SCD ON LOWER LEGS.
--- NOTE | 2018-04-22 16:30 | NUR ---
STILL SHAKING HEAD BACK AND FORTH FENTANYL INCREASED TO 350 MCG/HOUR. TRIED TO WRITE NOTES, UNABLE. TUBE FEEDING CONTINUES AT 30 ML HOUR. GLUCERNA.
--- NOTE | 2018-04-22 17:30 | NUR ---
RESTING MORE CONFORTABLE. STILL WAKES UP AND NODES HEAD TO YES AND NO QUESTIONS. DAUGHTER AT BEDSIDE. FENTANYL AT 350 MCG/HOUR.
--- NOTE | 2018-04-22 19:01 | NUR ---
REPORT RECEIVED, SHIFT ASSESSMENT COMPLETED PER FLOW SHEET. INTUBATED ON VENT VIA ETT. OGT PATENT, PLACEMENT VERIFIED VIA AUSCULTATION. PPP. SCD'S ON. DELGADO CATHETER TO GRAVITY SECURED. SEE FLOW SHEET FOR COMPLETE ASSESSMENT. WILL CONTINUE TO MONITOR.
--- NOTE | 2018-04-22 21:00 | NUR ---
ORAL CARE PROVIDED, REPOSITIONED IN BED. WILL CONTINUE TO MONITOR.
--- NOTE | 2018-04-22 23:01 | NUR ---
REASSESSMENT COMPLETED PER FLOW SHEET, SEE FOR DETAILS. CALM AND COOPERATIVE. FOLLOWING COMMANDS. REPOSITIONED IN BED. ORAL CARE PROVIDED. WILL CONTINUE TO MONITOR.
[2018-04-23] VITALS (25 sets, daily range): BP systolic 107–169; BP diastolic 49–83
--- NOTE | 2018-04-23 01:36 | NUR ---
COMPLETE BED BATH GIVEN WITH SOAP AND WATER. COMPLETE BED LINEN CHANGE PROVIDED. [place] CARE PROVIDED. NEW HOSP[facility] GOWN PROVIDED. REPOSITIONED IN BED. TOLERATED ALL WELL. WILL CONTINUE TO MONITOR.
--- NOTE | 2018-04-23 03:11 | NUR ---
REASSESSMENT COMPLETED PER FLOW SHEET, SEE FOR DETAILS. CALM AND COOPERATIVE. WILL CONTINUE TO MONITOR.
--- NOTE | 2018-04-23 05:00 | NUR ---
REPOSITIONED IN BED. ORAL CARE PROVIDED. WILL CONTINUE TO MONITOR.
[2018-04-23 05:15] LABS: BASOPHILS 0.1 % (0-2); EOSINOPHILS 0 % (0-7); HEMATOCRIT 27.8 % (36.0-48.0); HEMOGLOBIN 8.5 g/dL (12-16); IMMATURE GRANULOCYTES 0.4 % (0-5); LYMPHOCYTES 6.4 % (15-50); MCHC 30.6 g/dL (31.0-37.0); MCV 88.3 fL (80.0-100.0); MEAN PLATELET VOLUME 10.6 fL (7.4-10.4); MONOCYTES 7.5 % (2-11); NEUTROPHILS 85.6 % (40-80); PLATELET COUNT 238 10x3/uL (130-400); RBC 3.15 10x6/uL (4.00-5.40); RDW 25.1 % (11.5-14.5); WBC 7.3 10x3/uL (4.8-10.8)
[2018-04-23 05:56] LABS: ALBUMIN 2.2 g/dL (3.4-5.0); ALKALINE PHOSPHATASE 146 U/L (46-116); ALT (SGPT) 8 U/L (10-68); BILIRUBIN - TOTAL 0.32 mg/dL (0.2-1.3); CALC OSMOLALITY 289 mosm/kg (275-300); CALCIUM 8.2 mg/dL (8.5-10.1); CARBON DIOXIDE 27.1 mmol/L (21.0-32.0); CHLORIDE - SERUM 104 mmol/L (98-107); CREATININE - SERUM 0.6 mg/dL (0.6-1.3); GLUCOSE 282 mg/dL (74-106); POTASSIUM - SERUM 3.8 mmol/L (3.5-5.1); PROTEIN - SERUM 6.5 g/dL (6.4-8.2); SODIUM 141 mmol/L (136-145); UREA NITROGEN 11 mg/dL (7-18); eGFR NON AFRICAN AMERICAN > 90 mL/min (90-120)
--- NOTE | 2018-04-23 09:50 | NUR ---
NUTRITION F/U PT REMAINS ON VENT. TUBE FEEDS OFF FOR TRACH AND PEG TODAY. WILL PROVIDE GLUCERNA 1.[address] FEEDS RESUMED. RD FOLLOWING
--- NOTE | 2018-04-23 11:54 | OP ---
PATIENT NAME: SCARLETT MOODY MEDICAL RECORD: [id number] :54 LOCATION:D.[facility] D.[id number] ADMISSION DATE:04/07/18 SURGEON: JOHN JAFFE MD DATE OF OPERATION: 04/20/2018 PROCEDURES: 1. PTCA and stent, LAD. 2. PTCA and stent, left circumflex. 3. Intravascular ultrasound of LAD. 4. Left ventriculogram. 5. Left heart catheterization. 6. Selective coronary angiography. INDICATION: Angina and coronary artery disease. PROCEDURE IN DETAIL: After informed consent was obtained with detailed description of risks and benefits as well as alternative therapies, the patient elected to proceed with angiogram and angioplasty. The right femoral area was prepped and draped in normal sterile fashion. The right femoral artery was cannulated via modified Seldinger technique with placement of 6-Maori sheath. All catheters were exchanged through this sheath. FINDINGS: Left ventriculogram performed in standard 30-degree MUNGUIA view reveals preserved cardiac wall motion. Ejection fraction 50%. SELECTIVE CORONARY ANGIOGRAPHY: 1. Left main is with no significant angiographic disease. 2. Left anterior descending has greater than 80% stenosis at ostium to proximal vessel, confirmed by intravascular ultrasound. 3. Left circumflex has 90% stenosis proximally. 4. Right coronary is small and nondominant. PTCA AND STENT OF THE LAD AND CIRCUMFLEX: The LAD was addressed with a 3.5 x 12 mm [place] and the circumflex with a 3.5 x 9 mm [place]. Result was 0% residual stenosis. OVERALL IMPRESSION: Successful PTCA and stents of LAD and circumflex, both going from 80% to 90% initial stenosis to 0% residual. TRANSINT:[id number] Voice Confirmation ID: [id number] DOCUMENT ID: [id number] JOHN JAFFE MD at 1154 CC: [id number] DICTATION DATE: 04/20/181658 BUSINESS SOLUTIONS CONSULTANT: 04/20/18 2[address] [place] [address]
--- NOTE | 2018-04-23 12:00 | NUR ---
DR HUTTON AT BEDSIDE. TRACH PLACED.
--- NOTE | 2018-04-23 13:10 | EC ---
PATIENT:SCARLETT MOODY DATE OF SERVICE: 04/07/18 SEX: F MEDICAL RECORD: [id number] DATE OF : 54 LOCATION:[facility] D231 AGE OF PATIENT: 68 ADMISSION DATE: 04/07/18 REFERRING PHYSICIAN: INTERPRETING PHYSICIAN: CHEVY BRUNER MD ECHOCARDIOGRAM REPORT ECHO CHARGES 5 ECHO LIMITED Date: 04/19/18 CLINICAL DIAGNOSIS: RESPIRATORY FAILURE ECHOCARDIOGRAPHIC MEASUREMENTS (adult normal given) AC root (d.<3.7cm) 0 cm LV Septum d (<1.2 cm> 0 cm Valve Excursion 0 cm LV Septum (systole) 0 cm Left Atria (s.<4.0cm> 0 cm LVPW d(<1.2cm) 0 cm RV (d.<2.3cm) 0 cm LVPW (sytole) 0 cm LV diastole(<5.6CM) 0 cm MV E-F(>70mm/sec) 0 cm LV systole 0 cm LVOT Diameter 0 cm MV exc.(>10mm) 0 cm Est.ejection fraction (50-75%) % DOPPLER: LVIT cm/sec A 0 cm/sec E 0 cm/sec LA 0 cm/sec RVSP 19.5 mmHg LVOT 0 cm/sec AOP1/2T 0 m/s Asc. Ao 0 cm/sec RVOT 0 cm/sec RA 0 cm/sec PA 0 cm/sec AV Gradient Peak 0 mmHg AV Mean 0 mmHg AV Area 0 cm MV Gradient Peak 0 mmHg MV Mean 0 mmHg MV Area 0 cm COMMENTS: LIMITED STUDY (2-D,COLOR,DOPPLER) COMPLETE ECHO DONE ON 01/24/18 Administrative Services Director: Alberto OLSON Fiberglass Model Maker: 3 Dr. Gaxiola TAPE# PACS Pericardial Effusion N DATE OF SERVICE: Limited 2-D, color-flow and spectral Doppler, and M-mode. No LVH. LV internal dimensions are normals. Wall motion is normal. EF is 55%. Aortic valve is tricuspid. No evidence of stenosis by Doppler interrogation. Left atrium is normal. Mitral valve shows no prolapse. Trace MR. Right-sided chambers are normal. Trace TR. TRANSINT:[id number] Voice Confirmation ID: [id number] DOCUMENT ID: [id number] ECHOCARDIOGRAM REPORT [id number] SCARLETT MOODY CHEVY BRUNER MD at 1310 CC: [id number] DICTATION DATE: 04/20/18 1015 HAND SPLITTER: 04/20/18 1201 ADM IN [place] [id number] [place] [id number]
--- NOTE | 2018-04-23 17:56 | NUR ---
CONSENT SIGNED FOR PEG.
--- NOTE | 2018-04-23 19:30 | NUR ---
Received patient sedated in bed with eyes closed on vent, assessment completed per flowsheet. Eyes PERRLA @ 3mm with brisk response, sclera clear/white. Trach 7.0 secured, large clot noted around Trach site with fresh trach protocol in place. S1/S2 noted NSR with regular PVC on telemetry and HR 64, 100% atrial pacing noted. Vent settings SIMV R-15 V-500 40% P-5 PS-10 with O2 sat 92%, lung sounds clear bilateral upper and mid with diminished lower. Abdomen is round/soft with bowel sounds active x4, non-tender. Cruz secured with clear/yellow urine noted. Moderate weakness noted all extremities with all pulses palpable, skin warm/dry with cap refill < 3 sec. No repositioning until 0000 per protocol, no further needs at this time. See flowsheet for details, all VSS and will continue to monitor.
--- NOTE | 2018-04-23 21:00 | NUR ---
Patient sedated in bed on vent with eyes closed, no s/s of distress at this time. Trach 7.0 secured, old blood with clot noted on dressing. Fresh trach protocol in place, no further needs and will continue to monitor.
--- NOTE | 2018-04-23 23:10 | NUR ---
Reassessment completed per flowsheet, no changes noted from previous assessment. S1/S2 noted NSR with 100% atrial pacing noted on telemetry, regular PVC noted. Vent settings unchanged with O2 sat 96%, lung sounds clear bilateral upper and mid with diminished lower. 7.0 Trach secured, old blood with large clot noted around dressing. All pulses palpable with cap refill < 3 sec, skin warm/dry. No further needs at this time, see flowsheet for details. All VSS and will continue to monitor.
[2018-04-24] VITALS (25 sets, daily range): BP systolic 85–166; BP diastolic 44–76
--- NOTE | 2018-04-24 01:00 | NUR ---
Patient sedated in bed on vent with eyes closed, no s/s of distress at this time. Patient off Fresh trach protocol as of 0000, repositioned for comfort. No further needs and will continue to monitor.
--- NOTE | 2018-04-24 03:20 | NUR ---
Reassessment completed per flowsheet, no changes from previous assessment. Trach 7.0 secured, old blood with clot noted on dressing. S1/S2 noted NSR with 100% atrial pacing noted on telemetry, regular PVC. Vent settings unchanged from previous assessment with O2 sat 97%, lung sounds clear bilateral upper and mid with diminished lower. All pulses palpable with cap refill < 3 sec, skin warm/dry. Oral care provided, repositioned for comfort. No further needs at this time, see flowsheet for details. All VSS and will continue to monitor.
[2018-04-24 06:21] LABS: BASOPHILS 0.4 % (0-2); EOSINOPHILS 1.5 % (0-7); HEMATOCRIT 27.4 % (36.0-48.0); HEMOGLOBIN 8.5 g/dL (12-16); IMMATURE GRANULOCYTES 0.4 % (0-5); LYMPHOCYTES 20.7 % (15-50); MCH 27.2 pg (26.0-34.0); MCV 87.5 fL (80.0-100.0); MEAN PLATELET VOLUME 10.1 fL (7.4-10.4); MONOCYTES 12.5 % (2-11); NEUTROPHILS 64.5 % (40-80); PLATELET COUNT 227 10x3/uL (130-400); RBC 3.13 10x6/uL (4.00-5.40); RDW 24.7 % (11.5-14.5); WBC 6.7 10x3/uL (4.8-10.8)
[2018-04-24 06:38] LABS: ALBUMIN 1.8 g/dL (3.4-5.0); ALKALINE PHOSPHATASE 117 U/L (46-116); ALT (SGPT) 7 U/L (10-68); CALCIUM 7.7 mg/dL (8.5-10.1); CARBON DIOXIDE 22.2 mmol/L (21.0-32.0); CHLORIDE - SERUM 103 mmol/L (98-107); CREATININE - SERUM 0.7 mg/dL (0.6-1.3); GLUCOSE 285 mg/dL (74-106); POTASSIUM - SERUM 3.3 mmol/L (3.5-5.1); PROTEIN - SERUM 5.5 g/dL (6.4-8.2); SODIUM 142 mmol/L (136-145); eGFR NON AFRICAN AMERICAN 89 mL/min (90-120)
[2018-04-24 06:42] LABS: CALC OSMOLALITY 293 mosm/kg (275-300); UREA NITROGEN 14 mg/dL (7-18)
--- NOTE | 2018-04-24 10:34 | NUR ---
Nutrition follow-up: Pt s/p trach, PEG placement today Labs reviewed Wt: 162# RDN will order Glucerna 1.0 renetta to start in 24 hours via new PEG. Start @ 25 ml/hr with graudal increase to goal rate of 60 ml/hr with 25 ml q hour. RDN will place order to begin TF 04/25/18 @ 1000. Following
--- NOTE | 2018-04-24 15:00 | NUR ---
0800 REPORT RECIEVED AND CARE ASSUMED OF PT.. SEE FLOW SHEET FOR FINDINGS.. 0815GI LAB IN ROOM WITH PT.. DR REN HERE.. PEG PLACEMENT AT BEDSIDE BY DR HUTTON. TRACH DRESSING CHANGE DONE BY DR HUTTON.. AND FRESH TUBE TAMER PLACED ON PT..2ND BAG OF KCL HUNG FOR TOTAL OF 40MEQ PER PROTOCOL 0900 MEDS GIVEN .. PEG SITE OOZING.. 1030 DR RUSS IN TO SEE PT.. UPDATE GIVEN .. DR SPOKE WITH FAMILY.. SPOKE WITH DIETARY RE TUBE FEEDINGS.. 1200 FAMILY REMAINS AT THE BEDSIDE.. SOTALOL GIVEN PER PEG TUBE ORDERED.. 1330 COMPLETE BATH AND LINEN CHANGE DONE .. RT ASSIST WITH TRACH DURING THE LINEN CHANGE PT APPEARS TO TOLERATE WELL .. BEGINNING TO DECREASE SEDATION RATES 1500 BP HAS DROPPED TO 76 SYSTOLIC.. CUFF REPOSITIONED AND CONTINUE TO TITRATE SEDATION DOWN .. 1505 DR JAFFE CALLED AND UPDATED RE BP.. ORDER TO GIVEN A 250CC NS BOLUS AT THIS TIME AND CALL HIM BACK IF THE PRESSURE REMAINS LOW.. NS BOLUS INITIATED AT THIS TIME.. 1520 MAP 68 SYS BP IS NOW 87 .. FAMILY REMAINS AT THE BEDSIDE..
--- NOTE | 2018-04-24 17:26 | NUR ---
1630 PT IS WITH FAMILY AT THE BEDSIDE.. BP HAS STABILIZED.. PT IS EASILY ROUSED SEDATION CONTINUES ON.. 1730 REMAINS UNCHANGED..
--- NOTE | 2018-04-24 19:30 | NUR ---
ASSESSMENT COMPLETE, PER NURSING FLOWSHEET, PATIENT REPOSITIONED, ORAL CARE PROVIDED, CONTINUE POC
--- NOTE | 2018-04-24 21:00 | NUR ---
PATIENT REPOSITIONED, DAUGHTER AT BEDSIDE, PLAN OF CARE DISCUSSED
--- NOTE | 2018-04-24 23:00 | NUR ---
RE-ASSESSMENT COMPLETE, PER NURSING FLOWSHEET, PATIENT REPOSITIONED, ORAL CARE PROVIDED. DR. RUSS PAGED REGARDING INTERMITTENT PATIENT HYPOTENSION, NEW ORDERS RECEIVED
[2018-04-25] VITALS (25 sets, daily range): BP systolic 90–184; BP diastolic 43–119
[2018-04-25 00:33] LABS: MAGNESIUM - SERUM 1.2 mg/dL (1.8-2.4); PHOSPHOROUS 4.5 mg/dL (2.5-4.9)
--- NOTE | 2018-04-25 01:00 | NUR ---
PATIENT REPOSITIONED, MAG REPLACEMENT HUNG FOR LOW MAGNESIUM LEVEL
--- NOTE | 2018-04-25 03:00 | NUR ---
PATIENT RE-ASSESSMENT COMPLETE, PER NURSING FLOWSHEET, PATIENT REPOSITIONED, ORAL CARE PROVIDED, CONTINUOUSLY MONITORING VSS, CONTINUE POC
--- NOTE | 2018-04-25 05:00 | NUR ---
PATIENT REPOSITIONED, CONTINUOUSLY MONITORING VS, CONTINUE POC
[2018-04-25 06:30] LABS: BASOPHILS 0.5 % (0-2); EOSINOPHILS 1.1 % (0-7); HEMATOCRIT 29.2 % (36.0-48.0); HEMOGLOBIN 8.9 g/dL (12-16); IMMATURE GRANULOCYTES 0.4 % (0-5); LYMPHOCYTES 17.1 % (15-50); MCH 26.9 pg (26.0-34.0); MCHC 30.5 g/dL (31.0-37.0); MCV 88.2 fL (80.0-100.0); MEAN PLATELET VOLUME 10.8 fL (7.4-10.4); MONOCYTES 11.8 % (2-11); NEUTROPHILS 69.1 % (40-80); RBC 3.31 10x6/uL (4.00-5.40); RDW 25.6 % (11.5-14.5); WBC 7.6 10x3/uL (4.8-10.8)
[2018-04-25 06:31] LABS: PLATELET COUNT 303 10x3/uL (130-400)
[2018-04-25 06:59] LABS: ALBUMIN 1.8 g/dL (3.4-5.0); ANION GAP 16.9 mmol/L (8-16); BILIRUBIN - TOTAL 0.24 mg/dL (0.2-1.3); CARBON DIOXIDE 23.6 mmol/L (21.0-32.0); POTASSIUM - SERUM 3.5 mmol/L (3.5-5.1); PROTEIN - SERUM 5.9 g/dL (6.4-8.2)
--- NOTE | 2018-04-25 07:00 | NUR ---
REC'D SUPINE, SEDATED WITH PROPOFOL AND FENT ON VENT, VSS
[2018-04-25 07:01] LABS: CREATININE - SERUM 1.3 mg/dL (0.6-1.3)
--- NOTE | 2018-04-25 07:30 | NUR ---
ASSESSED, OPENS EYES TO VERBAL, SEE FLOW SHEET FOR DETAILS, WILL TITRATE DIPRIVAN TOLERATED.
[2018-04-25 08:28] LABS: PHOSPHOROUS 4.2 mg/dL (2.5-4.9)
[2018-04-25 08:29] LABS: MAGNESIUM - SERUM 2.6 mg/dL (1.8-2.4)
--- NOTE | 2018-04-25 09:20 | NUR ---
DR RUSS AT BEDSIDE & UPDATED, ORDERS REC'D
--- NOTE | 2018-04-25 09:45 | NUR ---
FENTANYL TO 100MCG ORDERED
--- NOTE | 2018-04-25 11:00 | NUR ---
PROPOFOL TITRATED AND IS OFF.
--- NOTE | 2018-04-25 11:15 | NUR ---
GLUCERNA TF STARTED ORDERED.
--- NOTE | 2018-04-25 12:00 | NUR ---
REASSESSED. AWAKE, SMILES READILY. DTR AT BEDSIDE.
[2018-04-25 12:26] LABS: ANION GAP 17.5 mmol/L (8-16); CALCIUM 7.7 mg/dL (8.5-10.1); CARBON DIOXIDE 21.5 mmol/L (21.0-32.0); CREATININE - SERUM 1.4 mg/dL (0.6-1.3)
--- NOTE | 2018-04-25 15:45 | NUR ---
COMPLETE BATH, SHAMPOO. BUTTPASTE TO COCCYX
--- NOTE | 2018-04-25 16:30 | NUR ---
FENTANYL TO 75 MCG/HR
--- NOTE | 2018-04-25 18:15 | NUR ---
TEARFUL/ EMOTIONAL, BP ELEVATED, VERSED FOR ANXIETY
--- NOTE | 2018-04-25 18:57 | NUR ---
EYES CLOSED/ RESP EVEN UNLABORED
--- NOTE | 2018-04-25 19:30 | NUR ---
SHIFT ASSESSMENT COMPLETE, PER NURSING FLOWSHEET, PATIENT REPOSITIONED, ORAL CARE PROVIDED, NO OTHER NEEDS COMMUNICATED OR NOTED AT THIS TIME
--- NOTE | 2018-04-25 21:00 | NUR ---
PATIENT REPOSITIONED, DAUGHTER AT BEDSIDE, UPDATE GIVEN, QUESTIONS ANSWERED. CONTINUE POC
--- NOTE | 2018-04-25 23:00 | NUR ---
RE-ASSESSMENT COMPLETE, PER NURSING FLOWSHEET, PATIENT REPOSITIONED, ORAL CARE PROVIDED, CONTINUE POC
[2018-04-26] VITALS (24 sets, daily range): BP systolic 115–183; BP diastolic 46–76
--- NOTE | 2018-04-26 01:00 | NUR ---
PATIENT REPOSITIONED, DELGADO CARE PROVIDED, VSS, CONTINUOUSLY MONITORING
--- NOTE | 2018-04-26 05:00 | NUR ---
PATIENT REPOSITIONED, INCONTINENCE CHECK, PATIENT C/D, TRACH WITH NO BLEEDING, PEG TUBE INSERT SITE WITH NO NEW BLEEDING, WILL CONTINUE TO MONITOR
[2018-04-26 06:47] LABS: BASOPHILS 0.2 % (0-2); EOSINOPHILS 0.3 % (0-7); IMMATURE GRANULOCYTES 0.3 % (0-5); LYMPHOCYTES 10.8 % (15-50); MCH 27.2 pg (26.0-34.0); MEAN PLATELET VOLUME 10.3 fL (7.4-10.4); MONOCYTES 11.9 % (2-11); NEUTROPHILS 76.5 % (40-80); RBC 2.76 10x6/uL (4.00-5.40); RDW 25.3 % (11.5-14.5); WBC 6.3 10x3/uL (4.8-10.8)
[2018-04-26 06:48] LABS: MCV 90.6 fL (80.0-100.0); PLATELET COUNT 229 10x3/uL (130-400)
[2018-04-26 06:49] LABS: HEMOGLOBIN 7.5 g/dL (12-16)
--- NOTE | 2018-04-26 07:00 | NUR ---
REC'D RT SIDE, EYES CLOSED/RESP UNLABORED.
[2018-04-26 07:20] LABS: ANION GAP 21.8 mmol/L (8-16); CALCIUM 7.8 mg/dL (8.5-10.1); CARBON DIOXIDE 18.2 mmol/L (21.0-32.0); CREATININE - SERUM 1.1 mg/dL (0.6-1.3)
--- NOTE | 2018-04-26 08:05 | NUR ---
ASSESSED, COPIOUS ORAL/TRACH SECRETIONS SX'D, HR INCREASES TO 130-150'S BUT NAD, SOTOLOL GIVEN PER PEG.
--- NOTE | 2018-04-26 09:00 | NUR ---
DR RUSS NOTIFIED OF EVENTS LAST HOUR INCL HR 130-150s W/ PVCs, TEMP 100.7, INCREASED SECRETIONS WITH NAD DURING EVENT. CURRENTLY HR PACED AT 69 & NAD. XOPENEX PER RT/ CHEST XRAY OBTAINED.
--- NOTE | 2018-04-26 11:30 | NUR ---
REASSESSED, VSS, DTR @ BEDSIDE & UPDATED
--- NOTE | 2018-04-26 15:00 | NUR ---
ONTO BEDPAN- FLATUS ONLY. VSS.
--- NOTE | 2018-04-26 15:29 | NUR ---
1205-PER DOCTOR PETRONA PATIENT ON CPAP 11/21 40%
--- NOTE | 2018-04-26 15:30 | NUR ---
REASSESSED, DTR AT BEDSIDE
--- NOTE | 2018-04-26 18:14 | NUR ---
DR. IZQUIERDO NOTIFIED OF ACCUCHECK 490. STATES TO GIVEN SLIDING SCALE INSULIN AND RECHECK IN AN HOUR
--- NOTE | 2018-04-26 18:30 | NUR ---
EVENTS 1545- 1815 PT BEGAN COUGHING CAUSING TRACH TUBING TO POP OFF THEN BECAME RESTLESS/ AGITATED, SHAKES HEAD SIDE TO SIDE CAUSING TRACH TUBING TO REPEATEDLY POP OFF. VERSED 2MG FOR ANXIETY. TEMP UP TO 101.6 AX- DR RUSS NOTIFIED- GIVEN TYLENOL. SOME BLOOD AROUND TRACH- REINFORCED WITH 4X4s. FINALLY CALMS WITH DTR IN ROOM. TEMP DOWN TO 99.2 ORALLY.
--- NOTE | 2018-04-26 19:16 | NUR ---
REPORT RECEIVED, CARE ASSUMED. PT IS RESTING IN BED AT THIS TIME WITH DAUGHTER AT BEDSIDE. INITIAL ASSESSMENT COMPLETED, SEE FLOWSHEET. NO SIGNS OF ACUTE DISTRESS. WILL CONTINUE TO MONITOR.
--- NOTE | 2018-04-26 21:16 | NUR ---
PT IS RESTING IN BED WITH EYES CLOSED. DAUGHTER IS AT BEDSIDE. NO ACUTE CHANGES NOTED. PT REPOSITIONED FOR COMFORT. WILL CONTINUE TO MONITOR.
--- NOTE | 2018-04-26 23:15 | NUR ---
REASSESSMENT COMPLETED, SEE FLOWSHEET FOR DETAILS. DR ANDARDE ADDRESSED EXCESS BLEEDING AROUND TRACH AND CHANGED OUT DRESSING. WILL CONTINUE TO MONITOR FOR MORE BLEEDING. NO SIGNS OF ACUTE DISTRESS. WILL CONTINUE TO MONITOR.
[2018-04-27] VITALS (24 sets, daily range): BP systolic 108–179; BP diastolic 57–87
--- NOTE | 2018-04-27 01:15 | NUR ---
PT IS RESTING IN BED AT THIS TIME WITH EYES CLOSED. PT REPOSITIONED FOR COMFORT. NO SIGNS OF ACUTE DISTRESS. WILL CONTINUE TO MONITOR.
--- NOTE | 2018-04-27 03:00 | NUR ---
RE-ASSESSMENT COMPLETE, PER NURSING FLOWSHEET, PATIENT REPOSITIONED, ORAL CARE PROVIDED, VSS
--- NOTE | 2018-04-27 05:07 | NUR ---
PT IS RESTING IN BED AT THIS TIME WITH EYES CLOSED. PT REPOSITIONED FOR COMFORT. ORAL CARE PERFORMED. NO SIGNS OF ACUTE DISTRESS. WILL CONTINUE TO MONITOR.
[2018-04-27 05:25] LABS: BASOPHILS 0.4 % (0-2); EOSINOPHILS 0.5 % (0-7); HEMATOCRIT 24.2 % (36.0-48.0); IMMATURE GRANULOCYTES 0.4 % (0-5); LYMPHOCYTES 16.3 % (15-50); MCH 27.2 pg (26.0-34.0); MCHC 30.2 g/dL (31.0-37.0); MCV 90.3 fL (80.0-100.0); MEAN PLATELET VOLUME 10.5 fL (7.4-10.4); MONOCYTES 14.6 % (2-11); NEUTROPHILS 67.8 % (40-80); PLATELET COUNT 225 10x3/uL (130-400); RBC 2.68 10x6/uL (4.00-5.40); RDW 24.8 % (11.5-14.5); WBC 7.5 10x3/uL (4.8-10.8)
[2018-04-27 05:26] LABS: HEMOGLOBIN 7.3 g/dL (12-16)
[2018-04-27 05:37] LABS: ANION GAP 15.5 mmol/L (8-16); CALCIUM 7.7 mg/dL (8.5-10.1); CREATININE - SERUM 0.9 mg/dL (0.6-1.3); POTASSIUM - SERUM 4.3 mmol/L (3.5-5.1)
[2018-04-27 05:38] LABS: CARBON DIOXIDE 25.8 mmol/L (21.0-32.0)
--- NOTE | 2018-04-27 07:00 | NUR ---
REC'D REPORT AND RESUMED CARE, EET TO TRACH, VENTILATION, AND SECURED, IN AC MODE, WITH 40% FIO2, SAT 98%, OTHER VSS, LEFT UPPER ARM PICC WITH FENT INFUSING AT 200 MCG, NS AT KVS, LT UPPER ABDOMEN WITH PEG IN PLACE, GLUCERNA TF INFUSING AT 50 CC/HR, DELGADO TO GRAVITY WITH YELLOW DRAINAGE TO BAG, AIR OVERLAY MATTRESS IN USE, FOLLOWS COMMANDS, UNCLE AT BEDSIDE, CALL LIGHT IN REACH, VOICES NO NEEDS AT THIS TIME
--- NOTE | 2018-04-27 07:15 | NUR ---
VENT ALARMING, DISCONNECTED, REPLACED AND ORAL CARE AND SUCTION COMPLETED, SECRETIONS BLOODY, RE CHECK OF BREATH SOUNDS RALES, HEARD IN ABDOMEN
--- NOTE | 2018-04-27 08:30 | NUR ---
MORNING MEDS GIVEN PER MAR AND FLOWSHEET, VSS
--- NOTE | 2018-04-27 09:08 | NUR ---
MORNING MEDS GIVEN PER APR FLOWSHEET
[2018-04-27 09:46] LABS: APTT 41.3 SECONDS (22.8-39.4); INR 1.19 (0.85-1.17); PROTIME 14.6 SECONDS (11.6-15.0)
[2018-04-27 09:47] LABS: D-DIMER-QUANTITATIVE 2.34 ug/mLFEU (0.20-0.54)
--- NOTE | 2018-04-27 10:15 | NUR ---
DAUGHTER AT BEDSIDE, BRUSHING DENTURES, PLACE IN MOUTH PER REQEST
--- NOTE | 2018-04-27 10:30 | NUR ---
VENT ALARMING, RT AT BEDSIDE, SUCTIONED BLOODY SECRETIONS, PATIENT LET DAUGHTER KNOW SHE COULD NO BREATH, BECAME PALE IN COLOR, NO TREMORS NOTED, EYES WITH FOCAL GLARE, ONLY MOVING LIPS, DOES NOT RESPOND TO VERBALL STIMULI, VSS, PAGED DR HUTTON, WILL COME TO UNIT FOR EVAL
--- NOTE | 2018-04-27 11:00 | NUR ---
DR HUTTON AT BEDSIDE, DECISION MADE TO BRONCH PATIENT, CONSENTS PRINTED AND SIGNED, BY DAUGHTER LORI
--- NOTE | 2018-04-27 12:27 | NUR ---
Nutrition follow-up: Pt with trach to vent Glucerna 1.0 renetta infusing @ 50 ml/hr via PEG tube; goal rate is 60 ml/hr labs reviewed Glucose running > 250 mg/dl Wt: 165# Pt scheduled for bronch today. RDN following.
--- NOTE | 2018-04-27 12:30 | NUR ---
INITIATED PRBC'S, VSS, INFUSING AT 125 CC/HR
--- NOTE | 2018-04-27 13:05 | NUR ---
BRONCOSCOPY COMPLETED BY DR HUTTON WITH ASSIST FROM DR BERMAN, 6 MG VERSED GIVEN DURING PROCEDURE, UAFIB POST PROCEDURE 130'S
--- NOTE | 2018-04-27 13:50 | NUR ---
DR JAFFE HERE FOR EVAL, NEW ORDER GIVEN FOR UCAF, 80 MG BETAPACE NOW AND INCREASED DAILY DOSE TO 120MG BID
--- NOTE | 2018-04-27 15:30 | NUR ---
PRBC COMPLETED, LINE FLUSHED WITH 100 CC NS
--- NOTE | 2018-04-27 16:44 | NUR ---
H AND H REDRAWN FROM PICC LINE AND SENT TO LAB
[2018-04-27 16:55] LABS: HEMATOCRIT 26.2 % (36.0-48.0); HEMOGLOBIN 8.2 g/dL (12-16)
--- NOTE | 2018-04-27 17:30 | NUR ---
FSBS 341, PC TO DR IZQUIERDO, CHANGED TO TO INTERMEDIATE SCALE, SPOKE WITH DAUGHTER RE: CHANGE
--- NOTE | 2018-04-27 19:38 | NUR ---
REPORT RECEIVED, SHIFT ASSESSMENT COMPLETED PER FLOW SHEET. ON VENT VIA TRACH. CALM AND COOPERATIVE. PPP. LT UPPER ARM PICC LINE PATENT, DRESSING C/D/I. DELGADO CATHETER TO GRAVITY SECURED. SCD'S ON. COMPLETE BED BATH GIVEN WITH SOAP AND WATER. COMPLETE BED LINEN CHANGE PROVIDED. [facility]OS[facility] GOWN PROVIDED. DELGADO CARE PROVIDED. TOLERATED ALL WELL. SEE FLOW SHEET FOR COMPLETE ASSESSMENT. WILL CONTINUE TO MONITOR.
--- NOTE | 2018-04-27 20:34 | NUR ---
DAUGHTER AT BEDSIDE. SCHEDULED MEDS ADMINISTERED. PATIENT CALM AND COOPERATIVE. WILL CONTINUE TO MONITOR.
--- NOTE | 2018-04-27 22:00 | NUR ---
RESTING, NO ACUTE DISTRESS NOTED, WILL CONTINUE TO MONITOR.
--- NOTE | 2018-04-27 23:11 | NUR ---
REASSESSMENT COMPLETED PER FLOW SHEET, SEE FOR DETAILS. ORAL CARE PROVIDED. REPOSITIONED IN BED. WILL CONTINUE TO MONITOR. CALL LIGHT WITHIN REACH.
[2018-04-28] VITALS (25 sets, daily range): BP systolic 90–158; BP diastolic 46–91
--- NOTE | 2018-04-28 01:00 | NUR ---
NO ACUTE CHANGES NOTED. CALM AND COOPERATIVE. WILL CONTINUE TO MONITOR.
--- NOTE | 2018-04-28 03:01 | NUR ---
REASSESSMENT COMPLETED PER FLOW SHEET, SEE FOR DETAILS. NO ACUTE DISTRESS NOTED. CALM AND COOPERATIVE. ORAL CARE PROVIDED. REPOSITIONED IN BED. WILL CONTINUE TO MONITOR.
--- NOTE | 2018-04-28 05:00 | NUR ---
ORAL CARE PROVIDED, REPOSITIONED IN BED. CALM AND COOPERATIVE. WILL CONTINUE TO MONITOR.
[2018-04-28 05:48] LABS: BASOPHILS 0.3 % (0-2); EOSINOPHILS 0.8 % (0-7); HEMATOCRIT 25.7 % (36.0-48.0); HEMOGLOBIN 8.1 g/dL (12-16); IMMATURE GRANULOCYTES 0.3 % (0-5); LYMPHOCYTES 19.4 % (15-50); MCH 27.5 pg (26.0-34.0); MCHC 31.5 g/dL (31.0-37.0); MEAN PLATELET VOLUME 10.8 fL (7.4-10.4); MONOCYTES 11.7 % (2-11); NEUTROPHILS 67.5 % (40-80); PLATELET COUNT 219 10x3/uL (130-400); RBC 2.95 10x6/uL (4.00-5.40); RDW 24.4 % (11.5-14.5); WBC 6.4 10x3/uL (4.8-10.8)
[2018-04-28 06:13] LABS: MCV 87.1 fL (80.0-100.0)
[2018-04-28 06:21] LABS: APTT 34.7 SECONDS (22.8-39.4); INR 1.3 (0.85-1.17); PROTIME 15.7 SECONDS (11.6-15.0)
[2018-04-28 06:32] LABS: ALBUMIN 1.9 g/dL (3.4-5.0); ALKALINE PHOSPHATASE 129 U/L (46-116); ALT (SGPT) 12 U/L (10-68); BILIRUBIN - TOTAL 0.45 mg/dL (0.2-1.3); CALC OSMOLALITY 294 mosm/kg (275-300); CALCIUM 7.9 mg/dL (8.5-10.1); CARBON DIOXIDE 24.5 mmol/L (21.0-32.0); CHLORIDE - SERUM 104 mmol/L (98-107); CREATININE - SERUM 0.7 mg/dL (0.6-1.3); PHOSPHOROUS 2.2 mg/dL (2.5-4.9); POTASSIUM - SERUM 4.4 mmol/L (3.5-5.1); PROTEIN - SERUM 6.1 g/dL (6.4-8.2); SODIUM 140 mmol/L (136-145); UREA NITROGEN 21 mg/dL (7-18); eGFR NON AFRICAN AMERICAN 89 mL/min (90-120)
[2018-04-28 06:34] LABS: GLUCOSE 338 mg/dL (74-106); MAGNESIUM - SERUM 1.5 mg/dL (1.8-2.4)
--- NOTE | 2018-04-28 07:00 | NUR ---
REC'D REPORT AND RESUMED CARE, SLEEPING AROUSABLE TO VERBAL STIMULI, TRACH TO VENT AND SECURED, AC MODE, FIO2 30%, SAT 98%, OTHER VSS, DENIES PAIN, LEFT UPPER ARM PICC WITH FENTANYL AT 200 MCG/HR, NS AT 10 CC/HR, LEFT UPPER ABDOMEN WITH PEG AND GLUCERNA INFUSING AT 30 CC/HR, RESIDUAL CHECK 5 CC, DELGADO TO GRAVITY WITH DARK YELLOW DRAINAGE TO BAG, SCD'S B/L, AIR OVERLAY MATTRESS IN USE, ASSESSMENT COMPLETED PER FLOWSHEET.
--- NOTE | 2018-04-28 08:00 | NUR ---
FAMILY AT BEDSIDE, STATUS UPDATED, VOICES NO NEEDS AT THIS TIME
--- NOTE | 2018-04-28 09:00 | NUR ---
MORNING MEDS GIVEN WITHOUT DIFFICULTY, REPOSITIONED TO RIGHT SIDE, WITH PILLOW PROPPED TO BACK AND HEELS FLOATED
--- NOTE | 2018-04-28 11:00 | NUR ---
ASSESSMENT COMPLETED PER FLOWSHEET, CONTINUES ON VENT, WITH 30% FIO2, VSS, REPOSITIONED TO BACK WITH HEELS FLOATED, NO ACUTE CHANGE FROM PREVIOUS
--- NOTE | 2018-04-28 14:05 | NUR ---
CALLED TO ROOM, SWEATING, ASKED TO RECHECK FSBS, 125, WILL CONTINUE TO MONITOR
--- NOTE | 2018-04-28 15:00 | NUR ---
RESTING WITH NO SIGNS OF DISTRESS, VSS, SHOWING PACED ON MONITOR, NO ACUTE CHANGE FROM PREVIOUS
--- NOTE | 2018-04-28 17:30 | NUR ---
CALLED TO BEDSIDE, SWEATING, FAN ON, FSBS 189, WILL CONTINUE TO MONITOR
[2018-04-29] VITALS (23 sets, daily range): BP systolic 86–157; BP diastolic 47–92
[2018-04-29 06:42] LABS: BASOPHILS 0.3 % (0-2); EOSINOPHILS 1.8 % (0-7); HEMATOCRIT 28.4 % (36.0-48.0); HEMOGLOBIN 8.6 g/dL (12-16); IMMATURE GRANULOCYTES 0.5 % (0-5); LYMPHOCYTES 19.2 % (15-50); MCH 27.3 pg (26.0-34.0); MCHC 30.3 g/dL (31.0-37.0); MEAN PLATELET VOLUME 10.7 fL (7.4-10.4); MONOCYTES 12.8 % (2-11); NEUTROPHILS 65.4 % (40-80); RBC 3.15 10x6/uL (4.00-5.40); RDW 24.2 % (11.5-14.5); WBC 6.3 10x3/uL (4.8-10.8)
[2018-04-29 06:55] LABS: ALBUMIN 1.9 g/dL (3.4-5.0); ALKALINE PHOSPHATASE 129 U/L (46-116); BILIRUBIN - TOTAL 0.15 mg/dL (0.2-1.3); CALCIUM 7.9 mg/dL (8.5-10.1); CARBON DIOXIDE 26.8 mmol/L (21.0-32.0); CHLORIDE - SERUM 103 mmol/L (98-107); CREATININE - SERUM 0.8 mg/dL (0.6-1.3); PROTEIN - SERUM 6.3 g/dL (6.4-8.2); SODIUM 139 mmol/L (136-145); UREA NITROGEN 19 mg/dL (7-18); eGFR NON AFRICAN AMERICAN 76 mL/min (90-120)
[2018-04-29 06:56] LABS: ALT (SGPT) 16 U/L (10-68); CALC OSMOLALITY 281 mosm/kg (275-300); GLUCOSE 142 mg/dL (74-106); POTASSIUM - SERUM 3.5 mmol/L (3.5-5.1)
--- NOTE | 2018-04-29 07:00 | NUR ---
OPENS EYES AND SMILES WHEN ENTERING ROOM. NODES HEAD TO YES AND NO QUESTIONS DENIES PAIN. TRACH SITE TO VENT ON CPAP AT 30% 10 PS AND 5 OF PEEP. NO BLEEDING AT TRACH SITE. OLD DARK BLOOD ON DRESSING. HEAD OF BED ELEATED 30 DEGREES. LEFT UPPER ARM PICC LINE WITHOUT REDNESS OR DRAINAGE INFUSING WITH NS AT KVO FOR IVPB AND FENTANYL AT 200 MCG/HOUR. MONITOR PACER RHYTHM. ABD LARGE TIGHT LOOKING NO TENDERNESS ON PALPATATION. PEG SITE DARK RED DRESSING DRY AND INTACT. INFUSING WITH GLUCERNA AT 40 ML HOUR. DELGADO CATH PATENT DRAINING CLEAR BELL URINE NO RESP DISTRESS. HEELS BRIDGED ON PILLOWS FIRST STEP MATTRESS ON BED. SCD ON LOWER LEGS AND WORKING PROPERLY.
[2018-04-29 07:06] LABS: MCV 90.2 fL (80.0-100.0); PLATELET COUNT 276 10x3/uL (130-400)
--- NOTE | 2018-04-29 09:00 | NUR ---
FAMILY HERE UPDATE GIVEN. MEDS GIVEN PER PEG, NO DISTRESS. TOLERATING CPAP WELL. RESP DEEP AND REGULAR.
--- NOTE | 2018-04-29 10:13 | NUR ---
NUTRITION F/U PT WITH TRACH AND PEG. TOLERATING GLUCERNA 1.0 @ 40 CC/HR. INFORMED NURSING OF CURRENT GOAL RATE 60 CC/HR. RD FOLLOWING
--- NOTE | 2018-04-29 10:26 | NUR ---
PHYSICAL THERAPY DOING ROM WITH PATIENT. TOLERATING WELL.
--- NOTE | 2018-04-29 11:00 | NUR ---
DRESSING CHANGE TO LEFT UPPER ARM PICC IN DIRECTOR OF MEDICAL SERVICES. SITE CLEAN CLEAN, BIO PATCH REPLACE. NO REDNESS OR DRAINAGE AT SITE. PATIENT. STERILE DRESSING APPLIED. PATIENT TOLERATED WELL. NEW LINES AND NEEDLESS CONNECTOR APPLIED. NEW TUBING APPLIED
--- NOTE | 2018-04-29 13:00 | NUR ---
DR. IZQUIERDO HERE. NEW TUBE FEEDING BAG APPLIED. DAUGHTER AT BEDSIDE. UPDATE GIVEN. PATIENT AWAKE AND ALERT NO DISTRESS. SUCTION WHITE SPUTUM PER TRACH. NO BLEEDING AT TRACH OR PEG SITE. PATIENT IN PACER RHYTHM. TOLERATING SIMV WELL.
[2018-04-30] VITALS (23 sets, daily range): BP systolic 101–153; BP diastolic 47–100
--- NOTE | 2018-04-30 03:00 | NUR ---
PT AWAKE AND ALERT. SHE HAS SLEPT APPROX 4 HRS THROUGHOUT THE SHIFT. SMILING AND VERY COOPERATIVE. FOLLOWS COMMANDS. RESIDUALS ARE LESS THAN 10 ML. BOWEL SOUNDS ARE VERY ACTIVE.
[2018-04-30 06:24] LABS: BASOPHILS 0.3 % (0-2); EOSINOPHILS 1.9 % (0-7); HEMATOCRIT 28.4 % (36.0-48.0); HEMOGLOBIN 8.7 g/dL (12-16); IMMATURE GRANULOCYTES 0.3 % (0-5); LYMPHOCYTES 18.5 % (15-50); MCH 27.3 pg (26.0-34.0); MCHC 30.6 g/dL (31.0-37.0); MEAN PLATELET VOLUME 10.1 fL (7.4-10.4); MONOCYTES 11.9 % (2-11); NEUTROPHILS 67.1 % (40-80); PLATELET COUNT 245 10x3/uL (130-400); RBC 3.19 10x6/uL (4.00-5.40); RDW 23.1 % (11.5-14.5); WBC 6.2 10x3/uL (4.8-10.8)
[2018-04-30 06:44] LABS: ALBUMIN 1.9 g/dL (3.4-5.0); ALKALINE PHOSPHATASE 149 U/L (46-116); ALT (SGPT) 18 U/L (10-68); BILIRUBIN - TOTAL 0.19 mg/dL (0.2-1.3); CALC OSMOLALITY 280 mosm/kg (275-300); CALCIUM 7.9 mg/dL (8.5-10.1); CARBON DIOXIDE 30.4 mmol/L (21.0-32.0); CHLORIDE - SERUM 101 mmol/L (98-107); CREATININE - SERUM 0.8 mg/dL (0.6-1.3); POTASSIUM - SERUM 4.8 mmol/L (3.5-5.1); PROTEIN - SERUM 6.2 g/dL (6.4-8.2); SODIUM 136 mmol/L (136-145); UREA NITROGEN 19 mg/dL (7-18); eGFR NON AFRICAN AMERICAN 76 mL/min (90-120)
[2018-04-30 06:49] LABS: GLUCOSE 226 mg/dL (74-106)
--- NOTE | 2018-04-30 07:00 | NUR ---
AWAKE AND ALERT SKIN WARM AND DRY. TRACH TO VENT ON SIMY. TOLERATING WELL. BILATERAL LUNG SOUNDS CONGESTED AND EQUAL. GOOD COUGH SUCTION KING SUPTUM FROM TRACH. ABD SOFT BUT LOOKS TIGHT.PASSING GAS. LEFT UPPER ARM PICC LINE INFUSING WITH FENTANYL AT 200 MCG/HR, AND NS KVO. PEG SITE WITHOUT REDNESS OR DRAINAGE INFUSING WITH GLUCERNA AT 60 ML HOUR. NO RESIDUAL. AT GOAL RATE. DELGADO CATH PATENT DRAINING CLEAR YELLOW URINE. WATCHING TV. SMILES. OBEYS COMMANDS. HEAD OF BED ELEVATED 30 DEGREES. SCD ON LOWER LEGS. HEELS BRIDGED WITH PILLOW. MONITOR PACER RHYTHM.
--- NOTE | 2018-04-30 08:00 | NUR ---
BROTHER AT BEDSIDE. UPDATE GIVEN. NO DISTRESS.
--- NOTE | 2018-04-30 09:00 | NUR ---
REPOSITIONED. NO DISTRESS. TOLERATED WELL. BROTHER HERE. GOOD COUGH. SUCTIONED LARGE AMOUNT FROM TRACH. ICE CHIPS GIVEN
--- NOTE | 2018-04-30 10:00 | NUR ---
ON CPAP TRAIL TOLERATING WELL. NO DISTRESS
--- NOTE | 2018-04-30 11:00 | NUR ---
REPOSITIONED NO DISTRESS. TOLERATING CPAP WELL. ALERT WATCHING TV. RESP DEEP AND REGULAR. GOOD COUGH
--- NOTE | 2018-04-30 12:12 | MORECARE ---
CASE MANAGEMENT DISCHARGE SUMMARY PATIENT: SCARLETT MOODY UNIT: [id number] ADM DATE: 04/07/18 AGE: 68 : 52 SEX: F ROOM/BED: D.2316 AUTHOR: XAVI,DOC PHYSICIAN: REFERRING PHYSICIAN: DEB MILLER MD DATE OF SERVICE: 04/30/18 Discharge Plan Patient Name: SCARLETT MOODY Facility: [facility]:[place] : 1950 Planned Disposition: Home Anticipated Discharge Date: Discharge Date: Expected LOS: Initial Reviewer: [email or web address] Initial Review Date: 04/08/2018 Generated: 04/30/18 1:12 pm Comments DCP- Discharge Planning Updated by [email or web address]: Anjali Yi on 04/10/18 2:[address] Patient Name: SCARLETT MOODY Admission Status: ER Accout number: [id number] Admission Date: 04-07-2018 : 1950 Admission Diagnosis:UNSPECIFIED ATRIAL FIBRILLATION Attending: DEB CASILLAS Current LOS: 3 Anticipated DC Date: Planned Disposition: Home Primary Insurance: MEDICARE A & B Discharge Planning Comments: CM met with patient's brother and [id number] (Rosalva and Cecilia Carty) patient is currently on vent and sedated. Family states that patient has been living with her daughter since November. Family uncertain at this time what discharge disposition will be. Family stated that patient was being seen by [facility] but currently uncertain if they are still seeing patient. CM will check with patients daughter Cinthia when she arrives. CM will continue to follow and assist as needed with discharge planning / needs. Gardening Instructor: Anjali Yi DCPIA - Discharge Planning Initial Assessment Updated by [email or web address]: Anjali Yi on 04/10/18 4:29 pm * Is the patient Alert and Oriented? No * How many steps to enter\exit or inside your home? ramp * PCP Luisa Phillips * Pharmacy [facility] * Preadmission Environment Home with Family * ADLs Independent * Other Equipment WALKER, BSC, SHOWER CHAIR, INSULIN PUMP, GLUCOMETER * List name and contact numbers for known caregivers / representatives who currently or will assist patient after discharge: CINTHIA ENGLE DTR, ROSALVA ORNELAS, BROTHER, * Verbal permission to speak to the caregivers and representatives has been obtained from the patient. Yes * Community resources currently utilized Home Health * Please name any agencies selected above. [facility] * Additional services required to return to the preadmission environment? No * Can the patient safely return to the preadmission environment? Yes * Has this patient been hospitalized within the prior 30 days at any hospital? No External Providers External Provider: Didire Alvarez [facility] Next Contact Date: Service Request Date: Service Type: Resolution: Reviewer: Comments: Last DP export: 04/16/18 8:20 a Patient Name: SCARLETT MOODY Page [id number] at 1212 All edits/amendments must be made on the electronic document DICTATION DATE: 04/30/18 1211 LOAN INTERVIEWER: DAVID 04/30/18 1211 RPT#: [id number] DC DATE: STATUS: ADM IN [facility] [address] [place] [address] END OF REPORT
--- NOTE | 2018-04-30 13:00 | NUR ---
FENTANYL DECREASED TO 150 MCG HOUR. COMPLETE BED BATH GIVEN WITH LINEN CHANGE. HAIR WASHED TOLERATED FAIR. PASSING ALOT OF GAS WITH SMEARS OF BM. ANUS AREA VERY RED EXCORIATED. COCCYX AREA RED PURPLE AREA WITH SKIN INTACT BUT EXCORIATED. MEDIPLEX APPLIED PREVENTIVE. NO SKIN BREAKDOWN NOTED. AREA ABOVE TRACH AREA. LOTION APPLIED. PATIENT TOLERATED FAIR.
--- NOTE | 2018-04-30 15:04 | NUR ---
RESTING COMFORTABLY BACK ON SIMV. NO DISTRESS. AWAKES EASILY TO VERBAL STIMULI. FENTANYL DECREASED TO 100 MCG.
--- NOTE | 2018-04-30 16:00 | NUR ---
INVENTORY CONTROL MANAGER NOTIFIED OF LTAC CONSULT.
--- NOTE | 2018-04-30 16:53 | NUR ---
PATIENT TURNING SELF IN BED. REPOSITIONED. TOLERATED WELL. RESTING WELL. TRYING TO TALK.
--- NOTE | 2018-04-30 18:00 | NUR ---
RESTING WELL IN BED. NO DISTRESS. SUCTION KING SPUTUM. ORAL CARE DONE
--- NOTE | 2018-04-30 19:00 | NUR ---
ASSESSMENT COMPLETED PER FLOWSHEETS. PT ON VENT AWAKE, SMILES, FOLLOWS COMMANDS. DENIES ANY DISCOMFORT AT THIS TIME. PACED ON CM TO HR AT 69PBM. LUNG SOUNDS CLEAR TO AUSCULTATION TO ULB WITH DIMINISHED TO LLB, UNLABORED. LEFT UA PICC INTACT,CLEAN AND DRY INFUSING IV FLUIDS VIA PUMP PER ORDER. PEGT-TUBE IN PLACE, 20CC RESIDUAL NOTED. CONT TF WITH GLUCERNA 1.0 AT 60ML/HR VIA PUMP. DELGADO INTACT TO GRAVITY WITH YELLOW DRAINAGE TO BAG. PPP. REPOSITIONED FOR COMFORT. OVERLAY BED IN USE. WILL CONT TO MONITOR.
--- NOTE | 2018-04-30 21:00 | NUR ---
DAUGHTER AT BEDSIDE. UPDATED.
--- NOTE | 2018-04-30 23:00 | NUR ---
REASSESSMENT COMPLETED. NO ACUTE CHANGES NOTED IN PT'S CONDITION. PT ON BEDPAN. LARGE SOFT- FORMED STOOL RESULTED. EMERY CARE PROVIDED. SKIN CARE DONE. REPOSITIONED FOR COMFORT. HEELS OFF BED. HOB UP. SIDE RAILS UP. PILLOWS IN USE FOR SUPPORT. CALL LIGHT IN REACH. CPOC.
[2018-05-01] VITALS (24 sets, daily range): BP systolic 102–156; BP diastolic 52–90
--- NOTE | 2018-05-01 01:00 | NUR ---
PT ON VENT RESTING QUIETLY WITHOUT DISTRESS. VSS. WILL CONT TO MONITOR.
--- NOTE | 2018-05-01 04:05 | NUR ---
I&O COMPLETED TO CHART. CXR DONE AT BEDSIDE WITHOUT DIFFIC.
[2018-05-01 05:42] LABS: BASOPHILS 0.4 % (0-2); EOSINOPHILS 1.9 % (0-7); HEMATOCRIT 26.8 % (36.0-48.0); HEMOGLOBIN 8.2 g/dL (12-16); IMMATURE GRANULOCYTES 0.4 % (0-5); LYMPHOCYTES 20.1 % (15-50); MCH 27.2 pg (26.0-34.0); MCHC 30.6 g/dL (31.0-37.0); MCV 88.7 fL (80.0-100.0); MEAN PLATELET VOLUME 10.5 fL (7.4-10.4); MONOCYTES 12.7 % (2-11); NEUTROPHILS 64.5 % (40-80); PLATELET COUNT 275 10x3/uL (130-400); RBC 3.02 10x6/uL (4.00-5.40); RDW 23.2 % (11.5-14.5); WBC 5.3 10x3/uL (4.8-10.8)
[2018-05-01 05:57] LABS: CALCIUM 7.6 mg/dL (8.5-10.1); CARBON DIOXIDE 31.3 mmol/L (21.0-32.0); CHLORIDE - SERUM 100 mmol/L (98-107); CREATININE - SERUM 0.6 mg/dL (0.6-1.3); SODIUM 135 mmol/L (136-145); eGFR NON AFRICAN AMERICAN > 90 mL/min (90-120)
[2018-05-01 05:58] LABS: CALC OSMOLALITY 269 mosm/kg (275-300); GLUCOSE 80 mg/dL (74-106); POTASSIUM - SERUM 3.7 mmol/L (3.5-5.1); UREA NITROGEN 14 mg/dL (7-18)
--- NOTE | 2018-05-01 09:39 | NUR ---
NUTRITION F/U PT VISIT. FAMILY AT BEDSIDE. PT TOLERATING GLUCERNA 1.0 TUBE FEEDS AT GOAL RATE 60 CC/HR. WILL CONTINUE TO PROVIDE TUBE FEEDS, MONITOR PT PROGRESS. RD FOLLOWING
--- NOTE | 2018-05-01 16:18 | MORECARE ---
CASE MANAGEMENT DISCHARGE SUMMARY PATIENT: SCARLETT MOODY UNIT: [id number] ADM DATE: 04/07/18 AGE: 68 : 52 SEX: F ROOM/BED: D.2316 AUTHOR: XAVI,DOC PHYSICIAN: REFERRING PHYSICIAN: DEB MILLER MD DATE OF SERVICE: 05/01/18 Discharge Plan Patient Name: SCARLETT MOODY Facility: [facility]:[place] : 1950 Planned Disposition: Home Anticipated Discharge Date: Discharge Date: Expected LOS: Initial Reviewer: [email or web address] Initial Review Date: 04/08/2018 Generated: 05/01/18 5:18 pm Comments DCP- Discharge Planning Updated by [email or web address]: Anjali Yi on 05/01/18 3:[address] CM spoke with iwona Ragsdale regarding LTACH eval. Melyssa requested LT[facility] in [place]. CM contacted Radha with [facility] [phone]. CM faxed records and Radha called back requesting copy of secondary insurance card. Melyssa stated she would bring that in. Radha stated that patient looked suitable for LTACH according to records and they could possibly accept patient as early as Friday. CM will continue to follow and assist as needed with discharge planning / needs. DCP- Discharge Planning Updated by [email or web address]: Anjali Yi on 04/10/18 2:[address] Patient Name: SCARLETT MOODY Admission Status: ER Accout number: [id number] Admission Date: 04-07-2018 : 1950 Admission Diagnosis:UNSPECIFIED ATRIAL FIBRILLATION Attending: DEB CASILLAS Current LOS: 3 Anticipated DC Date: Planned Disposition: Home Primary Insurance: MEDICARE A & B Discharge Planning Comments: CM met with patient's brother and [id number]-ljt ([facility] patient is currently on vent and sedated. Family states that patient has been living with her daughter since November. Family uncertain at this time what discharge disposition will be. Family stated that patient was being seen by [facility] but currently uncertain if they are still seeing patient. CM will check with patients iwona Michaels when she arrives. CM will continue to follow and assist as needed with discharge planning / needs. Classified Ad Taker: Anjali Yi DCPIA - Discharge Planning Initial Assessment Updated by [email or web address]: Anjali Yi on 04/10/18 4:29 pm * Is the patient Alert and Oriented? No * How many steps to enter\exit or inside your home? ramp * PCP Luisa Phillips * Pharmacy [facility] * Preadmission Environment Home with Family * ADLs Independent * Other Equipment WALKER, BSC, SHOWER CHAIR, INSULIN PUMP, GLUCOMETER * List name and contact numbers for known caregivers / representatives who currently or will assist patient after discharge: CINTHIA ENGLE DTR, ROSALVA ORNELAS, BROTHER, * Verbal permission to speak to the caregivers and representatives has been obtained from the patient. Yes * Community resources currently utilized Home Health * Please name any agencies selected above. [facility] * Additional services required to return to the preadmission environment? No * Can the patient safely return to the preadmission environment? Yes * Has this patient been hospitalized within the prior 30 days at any hospital? No Last DP export: 04/30/18 11:12 a Patient Name: SCARLETT MOODY Page [id number] at 1618 All edits/amendments must be made on the electronic document DICTATION DATE: 05/01/181616 MARKETING PROJECT COORDINATOR: DAVID 05/01/181616 RPT#: [id number] DC DATE: STATUS: ADM IN [facility] [address] [place] [address] END OF REPORT
--- NOTE | 2018-05-01 19:30 | NUR ---
SHIFT ASSESSMENT COMPLETE, PATIENT REPOSITIONED, NO OTHER NEEDS COMMUNICATED AT THIS TIME
--- NOTE | 2018-05-01 21:00 | NUR ---
PATIENT REPOSITIONED, DAUGHTER AT BEDSIDE, UPDATE GIVEN, QUESTIONS ANSWERED, C/L IN REACH
--- NOTE | 2018-05-01 23:00 | NUR ---
RE-ASSESSMENT COMPLETE PER NURSING FLOWSHEET, PATIENT REPOSITIONED, ORAL CARE PROVIDED, VSS, CONTINUE POC
[2018-05-02] VITALS (24 sets, daily range): BP systolic 106–147; BP diastolic 51–73
--- NOTE | 2018-05-02 01:00 | NUR ---
PATIENT REPOSITIONED, BED SKY FOR BM, DELGADO CARE PROVIDED
[2018-05-02 04:52] LABS: BASOPHILS 0.3 % (0-2); EOSINOPHILS 1.3 % (0-7); HEMATOCRIT 30.1 % (36.0-48.0); HEMOGLOBIN 9.4 g/dL (12-16); IMMATURE GRANULOCYTES 0.3 % (0-5); LYMPHOCYTES 13.1 % (15-50); MCH 27.6 pg (26.0-34.0); MCHC 31.2 g/dL (31.0-37.0); MCV 88.5 fL (80.0-100.0); MEAN PLATELET VOLUME 10.4 fL (7.4-10.4); MONOCYTES 8.6 % (2-11); NEUTROPHILS 76.4 % (40-80); PLATELET COUNT 290 10x3/uL (130-400); RDW 23.1 % (11.5-14.5)
--- NOTE | 2018-05-02 05:00 | NUR ---
PATIENT REPOSITIONED, TUBE FEEDING BAG CHANGED, VSS, WILL CONTINUE TO MONITOR
[2018-05-02 05:07] LABS: WBC 7.8 10x3/uL (4.8-10.8)
[2018-05-02 05:08] LABS: CALC OSMOLALITY 268 mosm/kg (275-300); CALCIUM 7.8 mg/dL (8.5-10.1); CARBON DIOXIDE 30.2 mmol/L (21.0-32.0); CHLORIDE - SERUM 98 mmol/L (98-107); CREATININE - SERUM 0.6 mg/dL (0.6-1.3); GLUCOSE 104 mg/dL (74-106); POTASSIUM - SERUM 3.3 mmol/L (3.5-5.1); SODIUM 135 mmol/L (136-145); UREA NITROGEN 11 mg/dL (7-18); eGFR NON AFRICAN AMERICAN > 90 mL/min (90-120)
--- NOTE | 2018-05-02 07:00 | NUR ---
REC'D AWAKE/ ALERT, VSS
[2018-05-02 08:20] LABS: MAGNESIUM - SERUM 1.4 mg/dL (1.8-2.4); PHOSPHOROUS 3.1 mg/dL (2.5-4.9)
--- NOTE | 2018-05-02 10:00 | NUR ---
REPOSITIONED, VSS, WATCHING TV
--- NOTE | 2018-05-02 12:00 | NUR ---
REASSESED, DR BERMAN AT BEDSIDE, REPOSITIONED, VSS
--- NOTE | 2018-05-02 14:30 | NUR ---
BATH/ LINEN CHANGE, REPOSITIONED, VSS
--- NOTE | 2018-05-02 16:19 | NUR ---
REASSESSED, XANAX FOR ANXIETY AT PT REQUEST
--- NOTE | 2018-05-02 17:27 | NUR ---
RESTING WITH EYES CLOSED/ RESP UNLABORED. TURN DEFFERED AT THIS TIME TO ALLOW REST. DTR @ BEDSIDE.
--- NOTE | 2018-05-02 19:30 | NUR ---
SHIFT ASSESSMENT COMPLETE, PER NURSING FLOWSHEET, PATIENT REPOSITIONED, ORAL CARE PROVIDED, C/L IN REACH
--- NOTE | 2018-05-02 21:00 | NUR ---
PATIENT REPOSITIONED, DAUGHTER AT BEDSIDE, UPDATE GIVEN, QUESTIONS ANSWERED, CONTINUE POC
--- NOTE | 2018-05-02 23:00 | NUR ---
RE-ASSESSMENT COMPLETE, PER NURSING FLOWSHEET, PATIENT REPOSITIONED, ORAL CARE PROVIDED
[2018-05-03] VITALS (24 sets, daily range): BP systolic 102–163; BP diastolic 54–84
--- NOTE | 2018-05-03 01:00 | NUR ---
PARTIALL LINEN CHANGE, BED SKY FOR SOFT, FORMED BM, DELGADO CARE PROVIDED, PATIENT REPOSITIONED, CONTINUE POC
--- NOTE | 2018-05-03 03:00 | NUR ---
RE-ASSESSMENT COMPLETE, PER NURSING FLOWSHEET, PATIENT REPOSITIONED, ORAL CARE PROVIDED, C/L IN REACH
--- NOTE | 2018-05-03 03:00 | NUR ---
RE-ASSESSMENT COMPLETE, PER NURSING FLOWSHEET, PATIENT REPOSITONED, NO OTHER NEEDS COMMUNICATED OR NOTED AT THIS TIME
--- NOTE | 2018-05-03 05:00 | NUR ---
PATIENT REPOSITIONED, ORAL CARE PROVIDED, TUBE FEEDING BAG CHANGED, PER HOSPITAL POLICY, VSS, CONTINUE POC
[2018-05-03 06:37] LABS: BASOPHILS 0.4 % (0-2); EOSINOPHILS 0.6 % (0-7); HEMATOCRIT 27.2 % (36.0-48.0); HEMOGLOBIN 8.4 g/dL (12-16); IMMATURE GRANULOCYTES 0.4 % (0-5); LYMPHOCYTES 10.2 % (15-50); MCH 27.4 pg (26.0-34.0); MCHC 30.9 g/dL (31.0-37.0); MCV 88.6 fL (80.0-100.0); MEAN PLATELET VOLUME 10.2 fL (7.4-10.4); MONOCYTES 9.9 % (2-11); NEUTROPHILS 78.5 % (40-80); PLATELET COUNT 307 10x3/uL (130-400); RBC 3.07 10x6/uL (4.00-5.40); RDW 23.1 % (11.5-14.5)
[2018-05-03 06:39] LABS: WBC 9.9 10x3/uL (4.8-10.8)
[2018-05-03 06:48] LABS: CALC OSMOLALITY 269 mosm/kg (275-300); CALCIUM 7.6 mg/dL (8.5-10.1); CARBON DIOXIDE 29.5 mmol/L (21.0-32.0); CHLORIDE - SERUM 99 mmol/L (98-107); CREATININE - SERUM 0.6 mg/dL (0.6-1.3); GLUCOSE 134 mg/dL (74-106); POTASSIUM - SERUM 3.5 mmol/L (3.5-5.1); SODIUM 134 mmol/L (136-145); UREA NITROGEN 13 mg/dL (7-18); eGFR NON AFRICAN AMERICAN > 90 mL/min (90-120)
--- NOTE | 2018-05-03 07:00 | NUR ---
REC'D RT SIDE, EYES CLOSED/RESP UNLABORED
--- NOTE | 2018-05-03 08:30 | NUR ---
ASSESSED, FENT OFF, INCONT SM SOFT FORMED BROWN STOOL, CLEANED- BUTT PASTE APPLIED, REPOSITIONED
--- NOTE | 2018-05-03 11:30 | NUR ---
REASSESSED, DECLINES REPOSITIONING AT THIS TIME.
--- NOTE | 2018-05-03 12:00 | NUR ---
DR BERMAN AT BEDSIDE- REMOVES PACKING FROM AROUND TRACH. TRACH CARE DONE AND T-SPONGE PLACED.
--- NOTE | 2018-05-03 13:00 | NUR ---
REPOSITIONED, VISITORS IN.
--- NOTE | 2018-05-03 15:00 | NUR ---
SM AMT LOOSE MUCOUSY BROWN STOOL PER BEDPAN
[2018-05-03 16:46] LABS: APPEARANCE CLOUDY (CLEAR); COLOR YELLOW (YELLOW); NITRITE NEGATIVE (NEGATIVE); PROTEIN 1+ mg/dL (NEGATIVE); SPECIFIC GRAVITY 1.005 (1.005-1.020)
[2018-05-03 16:47] LABS: BILIRUBIN NEGATIVE (NEGATIVE); GLUCOSE NEGATIVE (NEGATIVE); KETONE NEGATIVE (NEGATIVE); UROBILINOGEN NORMAL (NORMAL)
[2018-05-03 16:48] LABS: BACTERIA FEW /hpf (NONE SEEN); WHITE CELLS - URINE 0-5 /hpf (0-5); YEAST <1+ /hpf (NONE SEEN)
--- NOTE | 2018-05-03 19:31 | NUR ---
BEDSIDE SHIFT REPORT GIVEN BY DEPARTING RN. PT LAYING IN BED SHOWING NO SS OF DISCOMFORT. VSS. AAOX4. PERRLA. LEFT UPPER ARM PICC LINE NOTED. F/C NOTED. PEG TUBE INFUSING WITHOUT DIFFICULTY. C/O GAS PAIN. AFEBRILE AT THIS TIME. ASSESSMENT COMPLETE. SEE FLOWSHEET FOR DETAILS.
--- NOTE | 2018-05-03 20:39 | NUR ---
HS MEDS GIVEN. TOLERATED WELL. PRN ANXIETY MED GIVEN PER PT REQUEST. REPOSITIONED SELF. DENIES ANY NEEDS AT THIS TIME. VSS. SAFETY MEASURES IN PLACE. CBIR.
--- NOTE | 2018-05-03 23:37 | NUR ---
REASSESSMENT COMPLETE. VSS. NO CHANGES NOTED IN PT CONDITION. ORAL CARE PROVIDED. REPOSITIONED SELF. SAFETY MEASURES IN PLACE. CBIR.
[2018-05-04] VITALS (24 sets, daily range): BP systolic 135–173; BP diastolic 61–104
[2018-05-04 04:53] LABS: BASOPHILS 0.3 % (0-2); EOSINOPHILS 0.7 % (0-7); HEMATOCRIT 29.5 % (36.0-48.0); HEMOGLOBIN 9.3 g/dL (12-16); IMMATURE GRANULOCYTES 0.4 % (0-5); LYMPHOCYTES 11.3 % (15-50); MCH 27.9 pg (26.0-34.0); MCHC 31.5 g/dL (31.0-37.0); MCV 88.6 fL (80.0-100.0); MEAN PLATELET VOLUME 10.3 fL (7.4-10.4); MONOCYTES 11.3 % (2-11); PLATELET COUNT 360 10x3/uL (130-400); RBC 3.33 10x6/uL (4.00-5.40); WBC 10.2 10x3/uL (4.8-10.8)
[2018-05-04 05:06] LABS: CALC OSMOLALITY 276 mosm/kg (275-300); CALCIUM 7.9 mg/dL (8.5-10.1); CARBON DIOXIDE 28.5 mmol/L (21.0-32.0); CHLORIDE - SERUM 99 mmol/L (98-107); CREATININE - SERUM 0.7 mg/dL (0.6-1.3); POTASSIUM - SERUM 4.2 mmol/L (3.5-5.1); SODIUM 135 mmol/L (136-145); UREA NITROGEN 13 mg/dL (7-18); eGFR NON AFRICAN AMERICAN 89 mL/min (90-120)
[2018-05-04 05:08] LABS: GLUCOSE 219 mg/dL (74-106)
--- NOTE | 2018-05-04 06:19 | NUR ---
PT REFUSED ABG. PULMONARY HAS NOT ORDERED. IT IS SIMPLY A VENT POLICY AND PT DID NOT WANT IT.
--- NOTE | 2018-05-04 07:00 | NUR ---
PATIENT AWAKE AND ALERT, FOLLOWING COMMANDS ON VENT SIMV RATE 12, TV 500, FIO2 30%, VSS. RECEIVED BEDSIDE REPORT ON PATIENT AND ASSUMED CARE. HEAD TO TOE ASSESSMENT COMPLETED. BBS - RHONCI TO ALL YOUSSEF. CM - 74 PACED. PATIENT TURNED AND REPOSITIONED IN BED. PICC LINE TO UPPER LEFT ARM, DRESSING C/D/I SALINE LOCKED, EASILY FLUSHED ALL PORTS.
--- NOTE | 2018-05-04 09:00 | NUR ---
PATIENT RESTING QUIETLY, BROTHER SITTING AT BEDSIDE, VSS. MEDS GIVEN PER MAR AND PEG TUBE FLUSHED. PATIENT REPOSITIONED AND TURNED IN BED.
--- NOTE | 2018-05-04 09:22 | NUR ---
PATIENT PLACED ON BED SKY.
--- NOTE | 2018-05-04 09:40 | NUR ---
PATIENT WITH SOFT FORMED BM, LARGE. LINENS CHANGED, CLEANED AND REPOSITIONED IN BED. VSS.
--- NOTE | 2018-05-04 09:50 | NUR ---
RT AT ROOM AND PLACED PATIENT ON CPAP, TOLERATING WELL.
--- NOTE | 2018-05-04 10:19 | NUR ---
NUTRITION F/U PT TOLERATING GLUCERNA 1.0 AT CURRENT GOAL RATE 60 CC/HR. WILL CONTINUE TO PROVIDE GLUCERNA, MONITOR PT PROGRESS. RD FOLLOWING
--- NOTE | 2018-05-04 11:06 | NUR ---
PATIENT REASSESSMENT COMPLETE. VSS. TURNED AND REPOSITIONED IN BED. MEDS PER MAR.
--- NOTE | 2018-05-04 11:45 | NUR ---
RT AT ROOM PATIENT TOLERATING CPAP WELL, PLACED ON TRACH COLLAR S/P SUCTIONING TRACK AT 40% FIO2.
--- NOTE | 2018-05-04 11:50 | NUR ---
placed pt on trach collar at 11:45 40% fio2
--- NOTE | 2018-05-04 12:06 | NUR ---
PATIENT TOLERATING TRACH COLLAR WELL, VSS. GIVEN MEDS PER MAR.
--- NOTE | 2018-05-04 12:54 | NUR ---
PATIENT TURNED AND REPOSITIONED. WATCHING TV WITH NO COMPLAINTS. VSS. TOLERATING TRACH COLLAR WELL.
--- NOTE | 2018-05-04 14:20 | NUR ---
PATIENT TURNED AND REPOSITIONED, VSS. NO COMPLAINTS AT THIS TIME. DAUGHTER UPDATED. BROTHER AT BEDSIDE.
--- NOTE | 2018-05-04 14:57 | NUR ---
PATIENT PLACED BACK ON VENT, SIMV PER RT AT 30% FIO2. VSS. PATIENTS DAUGHTER AND BROTHER AT BEDSIDE. REASSESSMENT COMPLETED. PATIENT TURNED AND REPOSITIONED IN BED.
--- NOTE | 2018-05-04 16:12 | NUR ---
PATIENT TURNED AND REPOSITIONED. GIVEN MEDS PER MAR.
--- NOTE | 2018-05-04 16:51 | NUR ---
PATIENT GIVEN PRN ZOFRAN FOR NAUSEA.
--- NOTE | 2018-05-04 18:18 | NUR ---
PATIENT C/O NAUSEA, PAGED JAKE TORRES WITH DR. RIOJAS OFFICE. HAS BEEN GIVEN PRN ZOFRAN EARLIER WITH SOME RELIEF. TUBE FEEDING CONTINUES TO BE HELD. PATIENT TAKES NEXIUM AND ZANTAC AT HOME FOR RELIEF.
--- NOTE | 2018-05-04 18:36 | NUR ---
SPOKE TO JAKE TORRES REGARDING PATIENTS C/O NAUSEA AND BURNING TO STOMACH, STATES WILL REVIEW MEDS. NO NEW ORDERS RECEIVED AT THIS TIME.
--- NOTE | 2018-05-04 19:14 | NUR ---
BEDSIDE SHIFT REPORT GIVEN BY DEPARTING RN. PT LAYING IN BED WITH FAMILY AT BEDSIDE VISITING. REPOSITIONED. VSS. BM NOTED. LINENS CHANGED. ASSESSMENT COMPLETE. AAOX4. PERRLA. LEFT UPPER ARM PICC LINE SALINE LOCKED. F/C NOTED. VENT SETTINGS CHARTED. DENIES PAIN. C/O SLIGHT NAUSEA. SAFETY MEASURES IN PLACE. CBIR.
--- NOTE | 2018-05-04 20:33 | NUR ---
HS MEDS GIVEN WITHOUT DIFFICULTY. PRN MEDS GIVEN FOR NAUSEA AND FEVER. SEE MAR FOR FULL DETAILS. TOLERATED WELL.
--- NOTE | 2018-05-04 23:37 | NUR ---
REASSESSMENT COMPLETE. NO CHANGES NOTED IN PT CONDITION. REPOSITIONED. BM NOTED. LINENS CHANGED. TOLERATED WELL. SAFETY MEASURES IN PLACE. CBIR.
[2018-05-05] VITALS (12 sets, daily range): BP systolic 136–173; BP diastolic 63–80
--- NOTE | 2018-05-05 01:19 | NUR ---
PT LAYING IN BED ASLEEP SHOWING NO SS OF DISTRESS. REPOSITIONED. SAFETY MEASURES IN PLACE. CBIR.
--- NOTE | 2018-05-05 03:35 | NUR ---
REASSESSMENT COMPLETE. NO CHANGES NOTED. VSS. ASLEEP SHOWING NO SS OF DISTRESS. REPOSITIONED. DENIES ANY NEEDS AT THIS TIME. SAFETY MEASURES IN PLACE. CBIR.
[2018-05-05 05:26] LABS: BASOPHILS 0.1 % (0-2); EOSINOPHILS 0.8 % (0-7); HEMATOCRIT 28.8 % (36.0-48.0); HEMOGLOBIN 9.1 g/dL (12-16); IMMATURE GRANULOCYTES 0.4 % (0-5); MCH 27.5 pg (26.0-34.0); MCHC 31.6 g/dL (31.0-37.0); MEAN PLATELET VOLUME 10.1 fL (7.4-10.4); NEUTROPHILS 73.7 % (40-80); PLATELET COUNT 363 10x3/uL (130-400); RBC 3.31 10x6/uL (4.00-5.40); WBC 8.6 10x3/uL (4.8-10.8)
[2018-05-05 05:47] LABS: CALCIUM 7.8 mg/dL (8.5-10.1); CARBON DIOXIDE 25.1 mmol/L (21.0-32.0); CHLORIDE - SERUM 96 mmol/L (98-107); CREATININE - SERUM 0.7 mg/dL (0.6-1.3); SODIUM 133 mmol/L (136-145); UREA NITROGEN 12 mg/dL (7-18); eGFR NON AFRICAN AMERICAN 89 mL/min (90-120)
[2018-05-05 05:49] LABS: CALC OSMOLALITY 274 mosm/kg (275-300); GLUCOSE 269 mg/dL (74-106); POTASSIUM - SERUM 3.4 mmol/L (3.5-5.1)
--- NOTE | 2018-05-05 07:00 | NUR ---
REPORT RECEIVED. ASSESSMENT COMPLETE PER FLOW SHEET. REFER FOR FINDINGS. WILL CONTNIUE TO MONITOR
--- NOTE | 2018-05-05 07:53 | NUR ---
FAMILY AT BEDSIDE. GIVEN UDPATE.
--- NOTE | 2018-05-05 11:32 | NUR ---
REPORT CALLED TO SCARLETT GRA[facility]ES [facility].
[2018-05-05] MEDS ORDERED: BROVANA15 MCG/2 M INH (12:08)
[2018-05-05] MEDS ORDERED: ATROVENT 0.02%2.5 ML UPD (12:08)
[2018-05-05] MEDS ORDERED: XOPENEX 1.1.25 MG/3 UPD (12:09)
[2018-05-05] MEDS ORDERED: NORVASC5 MG PEG (12:10)
[2018-05-05] MEDS ORDERED: XANAX0.25 MG PO (12:11)
[2018-05-05] MEDS ORDERED: ASPIRIN81 MG PO (12:11)
[2018-05-05] MEDS ORDERED: GABAPENTIN100 MG PO (12:12)
[2018-05-05] MEDS ORDERED: LANTUS INSULIN10 ML SC (12:14)
[2018-05-05] MEDS ORDERED: ZOFRAN INJ IV (12:14)
[2018-05-05] MEDS ORDERED: CARAFATE1 G PO (12:14)
[2018-05-05] MEDS ORDERED: GLUCAGEN1 MG/VIAL SC (12:15)
[2018-05-05] MEDS ORDERED: HUMALOG 30100 UNITS/ SC (12:15)
[2018-05-05] MEDS ORDERED: FLUTICASONE PRO16 GM NASAL (12:17)
[2018-05-05] MEDS ORDERED: PULMICORT0.5 MG/21 UPD (12:17)
--- NOTE | 2018-05-05 13:15 | NUR ---
EMS AT BEDSIDE. PT LEFT VIA STRETCHER VSS
--- NOTE | 2018-05-05 13:51 | MORECARE ---
CASE MANAGEMENT DISCHARGE SUMMARY PATIENT: SCARLETT MOODY UNIT: [id number] ADM DATE: 04/07/18 AGE: 68 : 52 SEX: F ROOM/BED: D.2316 AUTHOR: XAVI,DOC PHYSICIAN: REFERRING PHYSICIAN: DEB MILLER MD DATE OF SERVICE: 05/05/18 Discharge Plan Patient Name: SCARLETT MOODY Facility: [facility]:[place] : 1950 Planned Disposition: Public Relations Coordinator Acute Care Facility Anticipated Discharge Date: Discharge Date: 05/05/2018 Expected LOS: Initial Reviewer: [email or web address] Initial Review Date: 04/08/2018 Generated: 05/05/18 2:51 pm Comments DCP- Discharge Planning Updated by [email or web address]: Anjali Yi on 05/01/18 3:[address] CM spoke with iwona Ragsdale regarding LTACH eval. Melyssa requested LT[facility] in [place]. CM contacted Radha with [facility] [phone]. CM faxed records and Radha called back requesting copy of secondary insurance card. Melyssa stated she would bring that in. Radha stated that patient looked suitable for LTACH according to records and they could possibly accept patient as early as Friday. CM will continue to follow and assist as needed with discharge planning / needs. DCP- Discharge Planning Updated by [email or web address]: Anjali Yi on 04/10/18 2:[address] Patient Name: SCARLETT MOODY Admission Status: ER Accout number: [id number] Admission Date: 04-07-2018 : 1950 Admission Diagnosis:UNSPECIFIED ATRIAL FIBRILLATION Attending: DEB CASILLAS Current LOS: 3 Anticipated DC Date: Planned Disposition: Home Primary Insurance: MEDICARE A & B Discharge Planning Comments: CM met with patient's brother and cfjmwg-h-ujl (Rosalva and Cecilia Carty) patient is currently on vent and sedated. Family states that patient has been living with her daughter since November. Family uncertain at this time what discharge disposition will be. Family stated that patient was being seen by [facility] but currently uncertain if they are still seeing patient. CM will check with patients daughter Cinthia when she arrives. CM will continue to follow and assist as needed with discharge planning / needs. Curriculum Facilitator: Anjali Yi DCPIA - Discharge Planning Initial Assessment Updated by [email or web address]: Anjali Yi on 04/10/18 4:29 pm * Is the patient Alert and Oriented? No * How many steps to enter\exit or inside your home? ramp * PCP Luisa Phillips * Pharmacy [facility] * Preadmission Environment Home with Family * ADLs Independent * Other Equipment WALKER, BSC, SHOWER CHAIR, INSULIN PUMP, GLUCOMETER * List name and contact numbers for known caregivers / representatives who currently or will assist patient after discharge: CINTHIA ENGLE, DTR, ROSALVA JOHNSON, BROTHER, * Verbal permission to speak to the caregivers and representatives has been obtained from the patient. Yes * Community resources currently utilized Home Health * Please name any agencies selected above. [facility] * Additional services required to return to the preadmission environment? No * Can the patient safely return to the preadmission environment? Yes * Has this patient been hospitalized within the prior 30 days at any hospital? No Last DP export: 05/01/18 3:18 p Patient Name: SCARLETT MOODY Page 25711 at 1351 All edits/amendments must be made on the electronic document DICTATION DATE: 05/05/18 1351 STRIPPING SHOVEL OILER: DAVID 05/05/18 1351 RPT#: [id number] DC DATE:05/05/18 STATUS: DIS IN [facility] [address] [place] [address] END OF REPORT
--- NOTE | 2018-05-05 14:09 | MORECARE ---
CASE MANAGEMENT DISCHARGE SUMMARY PATIENT: SCARLETT MOODY UNIT: [id number] ADM DATE: 04/07/18 AGE: 68 : 52 SEX: F ROOM/BED: D.2316 AUTHOR: XAVI,DOC PHYSICIAN: REFERRING PHYSICIAN: DEB MILLER MD DATE OF SERVICE: 05/05/18 Discharge Plan Patient Name: SCARLETT MOODY Facility: [facility]:[place] : 1950 Planned Disposition: Personal Care Home Administrator Acute Care Facility Anticipated Discharge Date: Discharge Date: 05/05/2018 Expected LOS: Initial Reviewer: [email or web address] Initial Review Date: 04/08/2018 Generated: 05/05/18 3:09 pm Comments DCP- Discharge Planning Updated by [email or web address]: Anjali Yi on 05/05/18 1:[address] CM spoke with Radha @ [facility] She stated that patient has been accepted to the facility. CM notified nursing of acceptance. CM faxed updated records. CM notified [facility] of transfer. Nursing called report. Admitting physician to LTACH is Dr. Whiting. IMM explained and served 05/05/18 @ 1030. CM will continue to follow and assist as needed with discharge planning / needs. DCP- Discharge Planning Updated by [email or web address]: Anjali Yi on 05/01/18 3:[address] CM spoke with daughter Melyssa regarding LTACH eval. Melyssa requested [facility] in [place]. CM contacted Radha with [facility] [phone]. CM faxed records and Radha called back requesting copy of secondary insurance card. Melyssa stated she would bring that in. Radha stated that patient looked suitable for LTACH according to records and they could possibly accept patient as early as Friday. CM will continue to follow and assist as needed with discharge planning / needs. DCP- Discharge Planning Updated by [email or web address]: Anjali Yi on 04/10/18 2:[address] Patient Name: SCARLETT MOODY Admission Status: ER Accout number: [id number] Admission Date: 04-07-2018 : 1950 Admission Diagnosis:UNSPECIFIED ATRIAL FIBRILLATION Attending: DEB CASILLAS Current LOS: 3 Anticipated DC Date: Planned Disposition: Home Primary Insurance: MEDICARE A & B Discharge Planning Comments: CM met with patient's brother and [id number] (Rosalva and Cecilia Carty) patient is currently on vent and sedated. Family states that patient has been living with her daughter since November. Family uncertain at this time what discharge disposition will be. Family stated that patient was being seen by [facility] but currently uncertain if they are still seeing patient. CM will check with patients daughter Cinthia when she arrives. CM will continue to follow and assist as needed with discharge planning / needs. Files Supervisor: Anjali Yi DCPIA - Discharge Planning Initial Assessment Updated by [id number]: Anjali Yi on 04/10/18 4:29 pm * Is the patient Alert and Oriented? No * How many steps to enter\exit or inside your home? ramp * PCP Luisa Phillips * Pharmacy [facility] * Preadmission Environment Home with Family * ADLs Independent * Other Equipment WALKER, BSC, SHOWER CHAIR, INSULIN PUMP, GLUCOMETER * List name and contact numbers for known caregivers / representatives who currently or will assist patient after discharge: CINTHIA ENGLE, DTR, ROSALVA ORNELAS, BROTHER, * Verbal permission to speak to the caregivers and representatives has been obtained from the patient. Yes * Community resources currently utilized Home Health * Please name any agencies selected above. [facility] * Additional services required to return to the preadmission environment? No * Can the patient safely return to the preadmission environment? Yes * Has this patient been hospitalized within the prior 30 days at any hospital? No Coverage Notice Reviewer: [id number] - Anjali Yi Notice Issued Date-Time: 05/05/2018 10:30 Notice Type: IM Discharge Notice Notice Delivered To: Family Member Relationship to Patient: Brother Dry Cleaning Checker Name: Delivery Method: HAND - Hand Delivered Salma Days: Prior Verbal Notification: Recipient Understood Notice: Yes Recipient Signature: Yes Med Rec Note Co-signed by Attending: Coverage Notice Comment: Last DP export: 05/05/18 12:51 p Patient Name: SCARLETT MOODY Page [id number] at 1409 All edits/amendments must be made on the electronic document DICTATION DATE: 05/05/181408 TRADE MARK ATTORNEY: DAVID 05/05/181408 RPT#: [id number] DC DATE:05/05/18 STATUS: DIS IN [facility] [address] [place] [address] END OF REPORT
== END 2018-05-05 13:15 | DRG 3 ==
LOC: D.ER 21:11 → D.CVICU 23:57 → D.ICU 23:57 → D.EDHOLD 23:57 → D.CVICU 04-08 00:14 → D.ICU 04-10 15:13
PROVIDERS: Emergency Medicine; Family Medicine; Internal Medicine Cardiovascular Disease; Internal Medicine Interventional Cardiology; Internal Medicine Nephrology; Internal Medicine Pulmonary Disease; ADMIT Family Medicine Adult Medicine; ATTEND Family Medicine Adult Medicine
PROC: 0BH17EZ Insertion of Endotracheal Airway into Trachea, Via Natural or Artificial Opening (ICD-10-PCS; principal; 2018-04-07)
PROC: 5A1945Z Respiratory Ventilation, 24-96 Consecutive Hours (ICD-10-PCS; 2018-04-07)
PROC: 5A1955Z Respiratory Ventilation, Greater than 96 Consecutive Hours (ICD-10-PCS; 2018-04-10)
PROC: 0BH17EZ Insertion of Endotracheal Airway into Trachea, Via Natural or Artificial Opening (ICD-10-PCS; 2018-04-10)
PROC: 0JH606Z Insertion of Pacemaker, Dual Chamber into Chest Subcutaneous Tissue and Fascia, Open Approach (ICD-10-PCS; 2018-04-16)
PROC: 02HK3JZ Insertion of Pacemaker Lead into Right Ventricle, Percutaneous Approach (ICD-10-PCS; 2018-04-16)
PROC: 02H63JZ Insertion of Pacemaker Lead into Right Atrium, Percutaneous Approach (ICD-10-PCS; 2018-04-16)
PROC: 0BH17EZ Insertion of Endotracheal Airway into Trachea, Via Natural or Artificial Opening (ICD-10-PCS; 2018-04-18)
PROC: 5A1955Z Respiratory Ventilation, Greater than 96 Consecutive Hours (ICD-10-PCS; 2018-04-18)
PROC: B240ZZ3 Ultrasonography of Single Coronary Artery, Intravascular (ICD-10-PCS; 2018-04-20)
PROC: B2111ZZ Fluoroscopy of Multiple Coronary Arteries using Low Osmolar Contrast (ICD-10-PCS; 2018-04-20)
PROC: B2151ZZ Fluoroscopy of Left Heart using Low Osmolar Contrast (ICD-10-PCS; 2018-04-20)
PROC: 4A023N7 Measurement of Cardiac Sampling and Pressure, Left Heart, Percutaneous Approach (ICD-10-PCS; 2018-04-20)
PROC: 027135Z Dilation of Coronary Artery, Two Arteries with Two Drug-eluting Intraluminal Devices, Percutaneous Approach (ICD-10-PCS; 2018-04-20 15:56)
PROC: 0B113F4 Bypass Trachea to Cutaneous with Tracheostomy Device, Percutaneous Approach (ICD-10-PCS; 2018-04-23)
PROC: 0DH63UZ Insertion of Feeding Device into Stomach, Percutaneous Approach (ICD-10-PCS; 2018-04-24)
PROC: 0BC18ZZ Extirpation of Matter from Trachea, Via Natural or Artificial Opening Endoscopic (ICD-10-PCS; 2018-04-27)
DX: J96.01 Acute respiratory failure with hypoxia (principal); J18.9 Pneumonia, unspecified organism; E11.10 Type 2 diabetes mellitus with ketoacidosis without coma; I50.33 Acute on chronic diastolic (congestive) heart failure; E87.2 Acidosis; D62 Acute posthemorrhagic anemia; J96.02 Acute respiratory failure with hypercapnia; I48.91 Unspecified atrial fibrillation; I10 Essential (primary) hypertension; E78.5 Hyperlipidemia, unspecified; K21.9 Gastro-esophageal reflux disease without esophagitis; F17.200 Nicotine dependence, unspecified, uncomplicated; J43.9 Emphysema, unspecified; R00.0 Tachycardia, unspecified; I11.0 Hypertensive heart disease with heart failure; D50.9 Iron deficiency anemia, unspecified; E03.9 Hypothyroidism, unspecified; I73.9 Peripheral vascular disease, unspecified; G89.29 Other chronic pain; F41.9 Anxiety disorder, unspecified; J32.0 Chronic maxillary sinusitis; J32.2 Chronic ethmoidal sinusitis; Z79.4 Long term (current) use of insulin

== ENCOUNTER 2018-09-02 18:59 | Emergency (ER) | payer MEDICARE, OTHER ==
[~2018-09-02] VITALS: Ht 157.5 cm; Wt 58.2 kg
[~2018-09-02 18:59] MED LIST changes: +ASPIRIN81 MG PO; +ATROVENT 0.02%2.5 ML UPD; +BROVANA15 MCG/2 M INH; +CARAFATE1 G PO; +FLUTICASONE PRO16 GM NASAL; +GABAPENTIN100 MG PO; +GLUCAGEN1 MG/VIAL SC; +HUMALOG 30100 UNITS/ SC; +LANTUS INSULIN10 ML SC; +NORVASC5 MG PEG; +PULMICORT0.5 MG/21 UPD; +XANAX0.25 MG PO; +XOPENEX 1.1.25 MG/3 UPD; +ZOFRAN INJ IV
[2018-09-02 19:29] VITALS: Ht 157.5 cm; Wt 58.2 kg
[2018-09-02] MEDS ORDERED: NEURONTIN 300300 MG PO (19:32)
[2018-09-02] MEDS ORDERED: ZOLOFT100 MG PO (19:32)
[2018-09-02] MEDS ORDERED: LEVOXYL50 MCG PO (19:32)
[2018-09-02] MEDS ORDERED: FOLIC ACID1 MG PO (19:33)
[2018-09-02] MEDS ORDERED: CARDIZEM60 MG PO (19:33)
[2018-09-02] MEDS ORDERED: VALIUM5 MG PO (19:33)
[2018-09-02] MEDS ORDERED: REGLAN10 MG PO (19:34)
[2018-09-02] MEDS ORDERED: PROTONIX40 MG PO (19:34)
[2018-09-02] MEDS ORDERED: BUTALB-APAP-CA1 EACH PO (19:34)
[2018-09-02] MEDS ORDERED: PRAVACHOL40 MG PO (19:34)
[2018-09-02] MEDS ORDERED: PACERONE200 MG PO (19:34)
[2018-09-02] MEDS ORDERED: ULTRAM50 MG PO (19:35)
[2018-09-02 20:37] LABS: BASOPHILS 0.5 % (0-2); HEMATOCRIT 32.4 % (36.0-48.0); HEMOGLOBIN 10.6 g/dL (12-16); IMMATURE GRANULOCYTES 0.2 % (0-5); LYMPHOCYTES 16.5 % (15-50); MCH 27.6 pg (26.0-34.0); MCHC 32.7 g/dL (31.0-37.0); MCV 84.4 fL (80.0-100.0); MEAN PLATELET VOLUME 9.1 fL (7.4-10.4); MONOCYTES 10.5 % (2-11); NEUTROPHILS 70.3 % (40-80); RBC 3.84 10x6/uL (4.00-5.40); RDW 15.5 % (11.5-14.5); WBC 8.4 10x3/uL (4.8-10.8)
[2018-09-02 20:38] LABS: PLATELET COUNT 287 10x3/uL (130-400)
[2018-09-02 21:08] LABS: ALBUMIN 2.7 g/dL (3.4-5.0); ALKALINE PHOSPHATASE 182 U/L (46-116); ALT (SGPT) 10 U/L (10-68); BILIRUBIN - TOTAL 0.12 mg/dL (0.2-1.3); CALC OSMOLALITY 262 mosm/kg (275-300); CALCIUM 8.3 mg/dL (8.5-10.1); CARBON DIOXIDE 28.7 mmol/L (21.0-32.0); CHLORIDE - SERUM 95 mmol/L (98-107); CREATININE - SERUM 0.7 mg/dL (0.6-1.3); PROTEIN - SERUM 7.5 g/dL (6.4-8.2); SODIUM 130 mmol/L (136-145); UREA NITROGEN 16 mg/dL (7-18); eGFR NON AFRICAN AMERICAN 89 mL/min (90-120)
[2018-09-02 21:10] LABS: GLUCOSE 125 mg/dL (74-106)
[2018-09-02 21:14] LABS: APTT 33.4 SECONDS (22.8-39.4); INR 1.02 (0.85-1.17); PROTIME 12.9 SECONDS (11.6-15.0)
[2018-09-02 21:17] LABS: PRO BNP 655 pg/mL (0-125)
--- NOTE | 2018-09-02 22:03 | NUR ---
DR RAYMOND NOTIFIED AND REVIEWED PT's BEHAVIOR AND ASSESSMENT RESULTS. PT IS A LOW RISK PER DR RAYMOND. DR RAYMOND STATED TO GIVE RESOURCES TO PT AT TIME OF DISCHARGE. NO FURTHER ORDERS AT THIS TIME. RESOURCES REVIEWED WITH PT AND SHE VERBALIZED UNDERSTANDING.
[2018-09-02] MEDS ORDERED: KENALOG 0.1 % 115 GM TOPICAL (22:32)
[2018-09-02 23:29] VITALS: BP 172/71
== END 2018-09-02 23:16 | disposition home or self-care (01) ==
LOC: D.ER 18:59
PROVIDERS: Emergency Medicine
DX: M79.89 Other specified soft tissue disorders (principal); J44.9 Chronic obstructive pulmonary disease, unspecified; I25.10 Atherosclerotic heart disease of native coronary artery without angina pectoris; I50.9 Heart failure, unspecified; E87.1 Hypo-osmolality and hyponatremia; D64.9 Anemia, unspecified

== ENCOUNTER 2018-12-18 15:06 | Inpatient (IN) | payer MEDICARE, OTHER ==
[~2018-12-18] VITALS: Ht 157.5 cm; Wt 61.2 kg
--- NOTE | ~2018-12-18 | HEMODYNAMI ---
PATIENT:SCARLETT MOODY MEDICAL RECORD: [id number] : 54 LOCATION:[facility] D.9 ADMISSION DATE: 12/19/18 Generatedon:12/22/201810:56 Patient name: SCARLETT MOODY Patient #: [id number] SSN: [id number] : 1950 Date of study: 12/22/2018 Page: Of Hemodynamic Procedure Report Patient Data Patient Demographics Procedure consent was obtained First Name: SCARLETT Gender: Female Last Name: HEIDY : 1950 Middle Initial: JERRY Age: 68 year(s) Patient #: [id number] Race: Ethnicity: or SSN: [id number] Additional ID: [id number] Contact details [address]: [address] [place] [address] State: [place] City: [place] Zip code: [address] Past Medical History History of disease Date Diagnosis Comments CAD Allergies Allergen Reaction Date Comments Reported Other allergy 01/27/2018 BACITRACIN ZINC, ADHESIVE, CYCLOBENAZPRINE, HYRDOCODONE BIT ,LIDOCAINE, METHOCARBAMOL, METOPROLOL Other allergy 12/22/2018 VICODIN, NESOPORIN Admission Admission Data Admission Date: 12/19/2018 Admission Time: 15:29 Room #: .2119 Height (in.): 62 BSA: 1.61 (m2) Height (cm.): 157.48 BMI: 24.6 (kg/m2) Weight (lbs.): 134.48 Weight (kg.): 61 Lab Results Lab Result Date: 12/22/2018 Lab Result Time: 0:00 Biochemistry Name Units Result Min Max BUN mg/dl 19 --(----)*- 7 18 Creatinine mg/dl 1 --(--*-)-- 0.6 1.3 CBC Name Units Result Min Max Hematocrit % 35.3 *-(----)-- 42 54 Hemoglobin g/dl 11.4 *-(----)-- 13.5 17.5 Procedure Procedure Types Cath Procedure Diagnostic Procedure [facility] w/Coronaries Procedure Description Procedure Date Procedure Date: 12/22/2018 Procedure Start Time: 10:44 Procedure End Time: 10:54 Procedure Staff Name Function Yovanny Kelley MD Performing Physician Arabella Vee RT Monitor Julienne Ureña RT Monitor Jaycee Carroll RT Scrub Toribio Sánchez RN Nurse Procedure Data Cath Procedure Fluoroscopy Diagnostic fluoroscopy Total fluoroscopy Time: 1.7 time: 1.7 min min Diagnostic fluoroscopy Total fluoroscopy dose: 366 dose: 366 mGy mGy Contrast Material Contrast Material Type Amount (ml) Isovue 300 63 Entry Location Entry Primary Successful Side Size Upsize Upsize Entry Closure Succes sful Closure Location (Fr) 1 (Fr) 2 (Fr) Remarks Device Remarks Femoral Right 5 Fr Exoseal artery Estimated blood loss: 5 ml Diagnostic catheters Device Type Used For End Catheter Placement MULTIPACK Pigtail 5 Fr LV Angiography catheter MULTIPACK JL 4.0 5Fr Left Coronary catheter Angiography MULTIPACK 3DRC 5Fr Right Coronary catheter Angiography Procedure Complications No complications Procedure Medications Medication Administration Route Dosage 0.9% NaCl I.V. 100 ml/hr Oxygen 8 l/min Heparin Flush Bag added to field 2 bags (1000units/500ml NS) Lidocaine 2% added to field 20 Versed I.V. 1 mg Fentanyl I.V. 50 mcg Fentanyl I.V. 25 mcg Hemodynamics Rest BSA: 1.61 (m2) O2 Consumption: Estimated: 154.52 (ml/min) O2 Consumption indexed : Estimated:95.98 (ml/min/m) Heart Rate: 77 (bpm) Snapshots Pre Cath Intra NCS Post Cath Vital Signs Time Heart Resp SPO2 etCO2 NIBP (mmHg) Rhythm Pain Sedation Rate (ipm) (%) (mmHg) Status Level (bpm) 10:38:12 77 28 86 0 168/76(124) NSR 0 (11) 10(A) , No pain 10:42:38 76 12 95 0 159/74(124) NSR 0 (11) 10(A) , No pain 10:46:56 69 18 94 0 139/61(102) NSR 0 (11) 10(A) , No pain 10:51:16 69 16 94 0 134/61(96) NSR 0 (11) 9(A) , No pain Medications Time Medication Route Dose Verified Delivered Reason Notes Effe ctiveness by by 10:35:55 0.9% NaCl I.V. 100 Toribio Toribio Per ml/hr Princess Sánchez physician RN RN 10:36:23 Oxygen trach 8 Toribio Toribio for low 02 collar l/min Princess Sánchez sats RN RN 10:36:33 Heparin Flush added 2 Toribio Toribio used for Bag to bags Lorigan Princess procedure (1000units/500ml field RN RN NS) 10:36:51 Lidocaine 2% added 20ml Toribio Toribio for local to vial Lorigan Lorigan anesthetic field RN RN 10:44:37 Versed I.V. 1 mg Toribio Toribio for Lorigan Lorigan sedation RN RN 10:44:45 Fentanyl I.V. 50 Toribio Toribio for mcg Lorigan Lorigan sedation RN RN 10:47:35 Fentanyl I.V. 25 Toribio Toribio for mcg Lorigan Lorigan sedation RN office rental clerk Log Time Note 10:07:05 Informed consent obtained and on chart 10:09:31 H&P Date Dictated: 12/22/2018 Within 30 days and on chart.. 10:10:11 Lab Result : Creatinine 1 mg/dl 10:10:11 Lab Result : BUN 19 mg/dl 10:10:11 Lab Result : Hematocrit 35.3 % 10:10:11 Lab Result : Hemoglobin 11.4 g/dl 10:11:32 Procedure Status Urgent Heart Cath (IP). 10:11:33 Time tracking: Regular hours (M-F 7:00 - 5:00) 10:11:36 Plan of Care:Hemodynamics will remain stable., Cardiac rhythm will remain stable., Comfort level will be maintained., Respiratory function will remain adequate., Patient/ family verbilizes understanding of procedure., Procedure tolerated without complication., Recovers from procedure without complications.. 10:12:01 Toribio Sánchez RN sent for patient. Start room use. 10:12:13 ACC Patient presents with Stable Angina CCS Anginal Class 4--Inability to carry out any physical activity w/o angina. Angina may occur at rest. 10:13:38 Risk of Mortality: .1 10:13:43 Risk of blood transfusion: 2.5 10:13:45 Risk of HEIKE: 3.9 10:15:55 Patient Weight : 134.48 lbs 10:15:57 Patient Height : 62 inches 10:16:43 Patient allergic to Other allergyVICODIN, NESOPORIN 10:25:23 Patient received from Med II to CCL 1 Alert and oriented. Tansferred to table in Supine position. 10:35:55 0.9% NaCl 100 ml/hr I.V. was administered by Toribio Sánchez RN; Per physician; Verbal order read back and verified. 10:36:23 Oxygen 8 l/min trach collar was administered by Toribio Sánchez RN; for low 02 sats; Verbal order read back and verified. 10:36:33 Heparin Flush Bag (1000units/500ml NS) 2 bags added to field was administered by Toribio Sánchez RN; used for procedure; Verbal order read back and verified. 10:36:51 Lidocaine 2% 20ml vial added to field was administered by Toribio Sánchez RN; for local anesthetic; Verbal order read back and verified. 10:36:58 Vital chart was started 10:37:24 Warm blankets applied, and yariel hugger turned on for patient comfort. 10:37:24 Correct patient and procedure confirmed by team. 10:37:25 ECG and BP/O2 sat monitors applied to patient. 10:37:26 Baseline sample Acquired. 10:37:33 Rhythm: sinus rhythm 10:37:35 Full Disclosure recording started 10:37:35 Pre-procedure instructions explained to patient. 10:37:36 Pre-op teaching completed and patient verbalized understanding. 10:37:38 Family in patients room. 10:37:39 Patient NPO since Midnight. 10:37:41 Is the patient allergic to Iodine/contrast media? No. 10:37:44 Is patient on blood thinner?No 10:37:52 Patient diabetic? Yes. 10:37:54 If diabetic: On Metformin? No 10:38:20 ----Pre-sedation anethsthesia assessment.---- 10:38:46 Previous problem with sedation/anesthesia? No ? 10:39:08 Snore? Yes 10:39:17 Sleep apnea? No 10:39:20 Deviated septum? No 10:39:22 Opens mouth fully? Yes 10:39:24 Sticks out tongue? Yes 10:40:04 Airway obstruction? Yes COPD WITH TRACH 10:40:31 Dentures? Yes IN TIGHT 10:40:40 Pre procedure: right dorsailis pedis pulse 1+ Palpable, but thready & weak; easily obliterated 10:40:47 Patient pain scale 0/10 ?. 10:40:55 IV patent on arrival in left hand with 0.9% NaCl at [facility]. 10:41:22 Lab results completed and on chart. 10:41:33 Stress Test: no; N/A ? 10:41:42 Right groin area was prepped with chlora-prep and draped in sterile fashion 10:41:45 Alarms reviewed by R. N. 10:41:47 Sharps counted by scrub and verified by R.N. 10:41:53 Physician arrived 10:41:55 --------ALL STOP TIME OUT------ 10:41:56 Final Timeout: patient, procedure, and site verified with staff and physician. All members of the team are in agreement. 10:41:58 Right groin site verified by team. 10:42:04 Fire Safety Assessment: A--An alcohol-based skin anteseptic being used preoperatively., C--Open oxygen or nitrous oxide is being used., D--An ESU, laser, or fiber-optic light is being used. 10:42:11 Physical assessment completed. ASA score P 2 - A patient with mild systemic disease as per Yovanny Kelley MD. 10:42:18 3a) 45-59 Moderately reduced kidney function. 10:42:24 Maximum allowable contrast dose (3.7 X eGFR X 0.75)164 ml. 10:42:30 Sedation plan: IV Moderate Sedation Medication:Versed, Fentanyl 10:43:54 Procedure started. 10:44:01 Local anesthetic to right femoral artery with Lidocaine 2% by Yovanny Kelley MD.INITIAL ACCESS ONLY 10:44:37 Versed 1 mg I.V. was administered by Toribio Sánchez RN; for sedation; Verbal order read back and verified. 10:44:45 Fentanyl 50 mcg I.V. was administered by Toribio Sánchez RN; for sedation; Verbal order read back and verified. 10:44:55 Zero performed for pressure channel P1 10:45:21 Use device set Femoral Dx 10:45:22 ACIST Syringe (11531) opened to sterile field. 10:45:23 Bag Decanter (2002S) opened to sterile field. 10:45:24 Medline Cath Pack ([id number]) opened to sterile field. 10:45:26 ACIST Hand Control (93616) opened to sterile field. 10:45:27 ACIST Manifold (51145) opened to sterile field. 10:45:28 DIAGNOSTIC Multipack 5Fr catheter set ([id number]) opened to sterile field. 10:45:28 Tegaderm 4 x 4 (1626W) opened to sterile field. 10:45:30 SHEATH 5FR Lindsay (NDG487) opened to sterile field. 10:45:31 EMERALD Guide Wire (946-813) opened to sterile field. 10:45:49 A 5 Fr sheath was inserted into the Right Femoral artery 10:46:00 A MULTIPACK Pigtail 5 Fr catheter was advanced over the wire and used for LV Angiography. 10:46:14 Injector settings: Ml/sec: 10, Volume: 20, 10:46:42 LV gram done using MUNGUIA 10:46:55 EF : 65 % 10:47:02 Catheter removed. 10:47:09 A MULTIPACK JL 4.0 5Fr catheter was advanced over the wire and used for Left Coronary Angiography. 10:47:35 Fentanyl 25 mcg I.V. was administered by Toribio Sánchez RN; for sedation; Verbal order read back and verified. 10:47:50 LCA angiography performed. 10:48:41 Injector settings: Ml/sec: 3, Volume: 6, 10:48:54 Catheter removed. 10:49:02 A MULTIPACK 3DRC 5Fr catheter was advanced over the wire and used for Right Coronary Angiography. 10:49:49 RCA angiography performed. 10:49:58 Injector settings: Ml/sec: 3, Volume: 6, 10:50:10 EXOSEAL 5Fr (EX500) opened to sterile field. 10:50:27 Sheath removed intact; hemostasis achieved with Exoseal to the Right Femoral artery. 10:50:49 Procedure ended.(Physican Out) 10:51:11 Contrast amount:Isovue 300 63ml. 10:51:15 Maximum allowable dose exceeded? No. 10:51:27 Fluoroscopy time 01.70 minutes. 10:51:35 Fluoroscopy dose: 366 mGy 10:51:35 Flurop Dose total: 366 10:51:45 Dose Area Product 31127 mGy/cm. 10:51:47 Sharps counted by scrub and verified by R.N. 10:52:13 Insertion/operative site no bleeding no hematoma. 10:52:17 Post-op/insertion site Right Femoral artery dressed using a 4 x 4 and Tegaderm. 10:52:22 Post right femoral artery:stable 10:52:25 Post Procedure Pulses reassessed and unchanged 10:52:30 Post-procedure physical assessment completed. ASA score P 2 - A patient with mild systemic disease as per Yovanny Kelley MD. 10:52:34 Post procedure rhythm: unchanged. 10:52:38 Estimated blood loss: 5 ml 10:52:41 Post procedure instruction explained to patient.Patient verbalizes understanding. 10:52:42 Patient needs reinforcement of post procedure teaching. 10:53:19 Procedure and supply charges have been captured, reviewed, submitted and are correct. 10:53:57 Procedure Complication : No complications 10:54:01 Vital chart was stopped 10:54:04 [facility] Findings: mild to moderate CAD (<70%) 10:54:09 Operative report dictated upon procedure completion. 10:54:10 See physician's report for complete and final results. 10:54:12 Report given to Med II. 10:54:16 Patient transfered to Med II with Bed. 10:54:19 Procedure ended. 10:54:19 Full Disclosure recording stopped 10:54:26 End room use (Document Last) Device Usage Item Name Manufacture Quantity Catalog Hospital Part Current Minimal L ot# / Number Charge Number Stock Stock Serial# Code ACIST Acist 1 72400 380370 715787 151987 20 Syringe Medical (47973) Systems Inc Bag Microtek 1 109327 36479 755924 5 Decanter Medical Inc. () Medline Medline 1 [id number] 674012 71832 851163 5 Cath Pack ([id number]) ACIST Hand Acist 1 64037 738590 683268 577791 5 Control Medical (36134) Systems Inc ACIST Acist 1 94681 917351 823800 704593 5 Manifold Medical (05354) Systems Inc DIAGNOSTIC Cardinal 1 [id number] 458792 35466 746095 30 Fringe Corp Health 5Fr catheter set (XJ8486) Tegaderm 4 3M 1 1626W 995872 717652 102332 5 x 4 (1626W) SHEATH 5FR Terumo 1 ESE030 362458 968779 044369 5 Lindsay (VHW192) EMERALD Cardinal 1 668-605 325410 290486 499972 5 Guide Wire [facility] (777-132) MULTIPACK Cardinal 1 859386 5 Pigtail 5 Health Fr catheter MULTIPACK Cardinal 1 [id number] 5 JL 4.0 5Fr [facility] catheter MULTIPACK Cardinal 1 886289 5 3DRC 5Fr Health catheter EXOSEAL 5Fr Cardinal 1 EX500 100113 508772 432938 10 (EX500) Health Signature Audit [place] Stage Time Signature Unsigned Intra-Procedure 12/22/2018 Julienne 10:55:39 AM Adelita RT(R) (CV) Intra-Procedure 12/22/2018 Toribio 10:56:15 AM Princess CROWLEY Intra-Procedure 12/22/2018 Yovanny Kelley 10:56:38 AM [facility] [address] [id number]
[~2018-12-18 15:06] MED LIST changes: +BUTALB-APAP-CA1 EACH PO; +CARDIZEM60 MG PO; +FOLIC ACID1 MG PO; +KENALOG 0.1 % 115 GM TOPICAL; +LEVOXYL50 MCG PO; +PACERONE200 MG PO; +ULTRAM50 MG PO; +VALIUM5 MG PO
[2018-12-18 15:30] LABS: BASOPHILS 0.2 % (0-2); EOSINOPHILS 0.2 % (0-7); HEMATOCRIT 39.1 % (36.0-48.0); HEMOGLOBIN 12.9 g/dL (12-16); IMMATURE GRANULOCYTES 0.2 % (0-5); LYMPHOCYTES 6.6 % (15-50); MCH 29.5 pg (26.0-34.0); MCV 89.5 fL (80.0-100.0); MEAN PLATELET VOLUME 9.4 fL (7.4-10.4); MONOCYTES 4.3 % (2-11); NEUTROPHILS 88.5 % (40-80); PLATELET COUNT 283 10x3/uL (130-400); RBC 4.37 10x6/uL (4.00-5.40); RDW 13.9 % (11.5-14.5); WBC 8.8 10x3/uL (4.8-10.8)
[2018-12-18 15:47] LABS: CALC OSMOLALITY 259 mosm/kg (275-300); CALCIUM 8.9 mg/dL (8.5-10.1); CARBON DIOXIDE 27.3 mmol/L (21.0-32.0); CHLORIDE - SERUM 90 mmol/L (98-107); CREATININE - SERUM 0.9 mg/dL (0.6-1.3); POTASSIUM - SERUM 4.4 mmol/L (3.5-5.1); SODIUM 127 mmol/L (136-145); UREA NITROGEN 12 mg/dL (7-18); eGFR NON AFRICAN AMERICAN 66 mL/min (90-120)
[2018-12-18 15:50] LABS: GLUCOSE 196 mg/dL (74-106)
[2018-12-18 16:01] LABS: ALBUMIN 3.4 g/dL (3.4-5.0); ALKALINE PHOSPHATASE 251 U/L (46-116); ALT (SGPT) 19 U/L (10-68); BILIRUBIN - TOTAL 0.42 mg/dL (0.2-1.3); CKMB 2.2 U/L (0.0-3.6); CREATINE KINASE 90 UL (21-215); PRO BNP 384 pg/mL (0-125); PROTEIN - SERUM 8.9 g/dL (6.4-8.2)
[2018-12-18 16:02] LABS: TROPONIN-I < 0.017 ng/mL (0.000-0.060)
[2018-12-18 17:39] LABS: CREATINE KINASE 103 UL (21-215)
[2018-12-18 17:47] LABS: TROPONIN-I < 0.017 ng/mL (0.000-0.060)
--- NOTE | 2018-12-18 19:04 | NUR ---
REPORT TO KEO SHINE. PT TO BE ADMITTED TO ROOM 211. BEDSIDE REPORT TO KEO BATISTA USING SBAR METHOD. PATIENT STABLE, NO DISTRESS.
[2018-12-18] MEDS ORDERED: NEURONTIN 300300 MG PO (20:00)
[2018-12-18] MEDS ORDERED: ZANAFLEX4 MG PO (20:06)
[2018-12-18] MEDS ORDERED: LANOXIN125 MCG PO (20:07)
[2018-12-18 21:23] LABS: APPEARANCE CLEAR (CLEAR); BILIRUBIN NEGATIVE (NEGATIVE); COLOR YELLOW (YELLOW); GLUCOSE 50 mg/dL (NEGATIVE); KETONE MODERATE mg/dL (NEGATIVE); NITRITE NEGATIVE (NEGATIVE); PROTEIN 1+ mg/dL (NEGATIVE); SPECIFIC GRAVITY 1.015 (1.005-1.020); UROBILINOGEN NORMAL (NORMAL)
[2018-12-18 21:24] LABS: BACTERIA MANY /hpf (NEGATIVE); EPITHELIAL CELLS 0-5 /hpf (0-5); RED CELLS - URINE OCC /hpf (0-5); WHITE CELLS - URINE 0-5 /hpf (NEGATIVE)
--- NOTE | 2018-12-18 22:55 | NUR ---
HAS HAD NAUSEA AND DRY HEAVES. DID HAVE EMESIS OF GREEN COLR. REQUESTED PAIN MEDICATION AND STATED IT HELPED HER PAIN AND NAUSEA.
[2018-12-18 23:26] LABS: CKMB 5.7 U/L (0.0-3.6); CREATINE KINASE 294 UL (21-215); TROPONIN-I < 0.017 ng/mL (0.000-0.060)
[2018-12-19] VITALS (8 sets, daily range): BP systolic 180–210; BP diastolic 69–84; BMI 24.7
--- NOTE | 2018-12-19 00:31 | NUR ---
ARRIVED TO FLOOR ON STRETCHER WITH STAFF AND DAUGHTER. ALERT AND ORIENTED X4. HARD TO UNDERSTAND D/T TRACH. ANSWERS QUESTIONS APPROPRIATLY. C/O WEAKNESS AND UNABLE TO AMBULATE. IV TO RIGHT AC SL.. PACEMAKER TO LEFT CHEST AND TELEMETRY IN PLACE. NAUSEA AND VOMITING AND CALLED BRIAN MITCHELL WITH NEW ORDER FOR PHENEGRAN 25MG IM Q6HP. GIVEN TO HER WITH SOME RELIEF. C/O BACK PAIN AT 10+. DILAUDID GIVEN AND EFFECTIVE. ALSO, STATED IT HELPED HER N/V. REFUSED TO TAKE MEDICATIONS EARLIER D/T N/V. ATTEMPTS MADE X2. O2 IN PLACE WITH TRACH COLLAR. LAYING IN BED WITH EYES CLOSED AT THIS TIME AND DTR AT BEDSIDE.
[2018-12-19 03:13] LABS: BASOPHILS 0.1 % (0-2); EOSINOPHILS 0 % (0-7); HEMOGLOBIN 13.9 g/dL (12-16); IMMATURE GRANULOCYTES 0.4 % (0-5); MCH 29.5 pg (26.0-34.0); MCHC 33.1 g/dL (31.0-37.0); MCV 89.2 fL (80.0-100.0); MEAN PLATELET VOLUME 9.8 fL (7.4-10.4); MONOCYTES 5.8 % (2-11); NEUTROPHILS 85.7 % (40-80); PLATELET COUNT 334 10x3/uL (130-400); RBC 4.71 10x6/uL (4.00-5.40); RDW 14.1 % (11.5-14.5); WBC 10.2 10x3/uL (4.8-10.8)
[2018-12-19 03:44] LABS: ALBUMIN 3.3 g/dL (3.4-5.0); ALKALINE PHOSPHATASE 263 U/L (46-116); BILIRUBIN - TOTAL 0.39 mg/dL (0.2-1.3); CALCIUM 9.1 mg/dL (8.5-10.1); CARBON DIOXIDE 22.4 mmol/L (21.0-32.0); CHLORIDE - SERUM 89 mmol/L (98-107); CKMB 6.6 U/L (0.0-3.6); CREATININE - SERUM 0.8 mg/dL (0.6-1.3); POTASSIUM - SERUM 4.1 mmol/L (3.5-5.1); PROTEIN - SERUM 9.2 g/dL (6.4-8.2); SODIUM 127 mmol/L (136-145); UREA NITROGEN 12 mg/dL (7-18); eGFR NON AFRICAN AMERICAN 76 mL/min (90-120)
[2018-12-19 03:50] LABS: ALT (SGPT) 24 U/L (10-68); CALC OSMOLALITY 263 mosm/kg (275-300); CREATINE KINASE 372 UL (21-215); GLUCOSE 256 mg/dL (74-106); TROPONIN-I < 0.017 ng/mL (0.000-0.060)
--- NOTE | 2018-12-19 08:07 | NUR ---
ALERT AND ORIENTED. RIGHT FA SL. TELEMERTY SHOWS SR 81 LEFT SIDED PACER. BILATERAL MASTECTOMY. TRACK NOTED. DENIES ANY NEEDS, WILL MONITOR
--- NOTE | 2018-12-19 17:24 | NUR ---
PT HAS BEEN UNABLE TO TAKE PO MEDS DUE TO NAUSEA AND VOMITING. NO C/O VOICED AT PRESENT TIME. FAMILY AT BEDSIDE. WILL MONITOR
--- NOTE | 2018-12-19 19:11 | NUR ---
RECIEVED UP IN BED WITH O2 TRAC COLLAR IN PLACE. HOB ELEVATED. IV TO LEFT HAND WITH ZOFRAN AT 4.6CC/HR. NO REDNESS OR SWELLING TO SITE AND DSG INTACT. PACEMAKER TO LEFT CHEST. REMAINS BEDFAST D/T WEAKNESS. TELEMETRY IN PLACE. DENIES ANY NEEDS AT THIS TIME. WILL CONT. POC.
[2018-12-20 05:07] LABS: BASOPHILS 0.1 % (0-2); EOSINOPHILS 0.1 % (0-7); HEMATOCRIT 41.1 % (36.0-48.0); HEMOGLOBIN 13.5 g/dL (12-16); IMMATURE GRANULOCYTES 0.3 % (0-5); LYMPHOCYTES 10.8 % (15-50); MCH 29.3 pg (26.0-34.0); MCHC 32.8 g/dL (31.0-37.0); MCV 89.3 fL (80.0-100.0); MEAN PLATELET VOLUME 9.8 fL (7.4-10.4); MONOCYTES 9.2 % (2-11); NEUTROPHILS 79.5 % (40-80); PLATELET COUNT 376 10x3/uL (130-400); RDW 14.4 % (11.5-14.5); WBC 10.6 10x3/uL (4.8-10.8)
[2018-12-20 05:34] LABS: ALBUMIN 3.2 g/dL (3.4-5.0); BILIRUBIN - TOTAL 0.41 mg/dL (0.2-1.3); CARBON DIOXIDE 22.8 mmol/L (21.0-32.0); MAGNESIUM - SERUM 1.8 mg/dL (1.8-2.4); POTASSIUM - SERUM 3.8 mmol/L (3.5-5.1); PROTEIN - SERUM 8.6 g/dL (6.4-8.2)
--- NOTE | 2018-12-20 08:00 | NUR ---
TRACH CARE DONE
--- NOTE | 2018-12-20 08:24 | NUR ---
AWAKE AND ALERT. TELEMERTY SHOWS SR 69. LEFT SIDED PACER NOTED. PT HAS A TRAC. BILATERAL MASTECTOMY NOTED. LEFT HAND IV WITH ZOFRAN AT 4.6. DENIES ANY NAUSEA AT PRESENT TIME. WILL MONITOR
[2018-12-20 08:45] VITALS: BP 175/71
[2018-12-20 13:09] VITALS: BP 115/58
--- NOTE | 2018-12-20 17:08 | NUR ---
I have reviewed this patient and I concur with the Shift Assessment completed by the Licensed Practical Nurse today this shift.
--- NOTE | 2018-12-20 17:51 | NUR ---
LYING QUIETLY. C/O SORE THROAT FROM COUGHING. TELEMERTY SHOWS SR. NPO FOR CATH TOMORROW. WILL MONITOR.
[2018-12-20 17:57] VITALS: BP 134/58
[2018-12-20 20:20] VITALS: BP 131/61
--- NOTE | 2018-12-20 22:48 | NUR ---
INITIAL ROUNDS COMPLETED AT 1910 HRS. NO DISTRESS NOTED. ASSESSMENT COMPLETED AT 2010 HRS. VSS. SR PER CM HR 69. IV TO L HAND WITH NS AT 50CC/HR AND ZOFRAN DRIP AT 4.7CC/HR. IV PATENT. O2 6L TRACH COLLAR. LUNGS DIMINISHED IN BASES BILAT. PM MEDS GIVEN INCLUDING DILAUDID 0.5MG IV P FOR C/O PAIN AND PHENERGAN 25MG IV TO R GLUTEAL FOR C/O NAUSEA. PT CURRENTLY RESTING WITH EYES CLOSED. RESP EVEN AND REGULAR. SR UP X2, CALL LIGHT WITHIN REACH AND DAUGHTER AT BEDSIDE.
[2018-12-21 00:37] VITALS: BP 117/55
--- NOTE | 2018-12-21 00:40 | NUR ---
PT RESTING WITH EYES CLOSED. RESP EVEN AND REGULAR. SR UP X2, CALL LIGHT WITHIN REACH AND DAUGHTER AT BEDSIDE.
--- NOTE | 2018-12-21 02:42 | NUR ---
PT RESTING WITH EYES CLOSED. RESP EVEN AND REGULAR. DAUGHTER AT BEDSIDE. SR UP X2, CALL LIGHT WITHIN REACH.
--- NOTE | 2018-12-21 03:57 | NUR ---
PT RESTING WITH EYES CLOSED. RESP EVEN AND REGULAR. SR UP X2, CALL LIGHT WITHIN REACH.
[2018-12-21 04:30] VITALS: BP 149/66
[2018-12-21 06:32] LABS: BASOPHILS 0.3 % (0-2); EOSINOPHILS 0.6 % (0-7); HEMATOCRIT 36.4 % (36.0-48.0); HEMOGLOBIN 11.8 g/dL (12-16); IMMATURE GRANULOCYTES 0.4 % (0-5); LYMPHOCYTES 15.3 % (15-50); MCHC 32.4 g/dL (31.0-37.0); MCV 89.4 fL (80.0-100.0); MEAN PLATELET VOLUME 9.6 fL (7.4-10.4); MONOCYTES 10.9 % (2-11); NEUTROPHILS 72.5 % (40-80); PLATELET COUNT 336 10x3/uL (130-400); RBC 4.07 10x6/uL (4.00-5.40); RDW 14.1 % (11.5-14.5); WBC 8.9 10x3/uL (4.8-10.8)
[2018-12-21 06:45] LABS: ANION GAP 12.1 mmol/L (8-16); CALCIUM 8.6 mg/dL (8.5-10.1); CARBON DIOXIDE 26.4 mmol/L (21.0-32.0); MAGNESIUM - SERUM 1.5 mg/dL (1.8-2.4); POTASSIUM - SERUM 3.5 mmol/L (3.5-5.1)
[2018-12-21 10:35] VITALS: BP 152/59
[2018-12-21 12:47] VITALS: BP 163/67
--- NOTE | 2018-12-21 13:20 | NUR ---
I have reviewed this patient and I concur with the Shift Assessment completed by the Licensed Practical Nurse today this shift.
[2018-12-21 14:03] VITALS: Ht 157.5 cm; Wt 61.2 kg
[2018-12-21 16:40] VITALS: BP 141/56
[2018-12-21 20:41] VITALS: BP 125/47
[2018-12-22] VITALS (7 sets, daily range): BP systolic 101–169; BP diastolic 42–67
[2018-12-22 06:23] LABS: BASOPHILS 0.4 % (0-2); EOSINOPHILS 1.2 % (0-7); HEMATOCRIT 35.3 % (36.0-48.0); HEMOGLOBIN 11.4 g/dL (12-16); IMMATURE GRANULOCYTES 0.4 % (0-5); LYMPHOCYTES 19.4 % (15-50); MCH 29.2 pg (26.0-34.0); MCHC 32.3 g/dL (31.0-37.0); MCV 90.5 fL (80.0-100.0); MEAN PLATELET VOLUME 9.3 fL (7.4-10.4); MONOCYTES 11.3 % (2-11); NEUTROPHILS 67.3 % (40-80); PLATELET COUNT 285 10x3/uL (130-400); RDW 14.1 % (11.5-14.5); WBC 8.2 10x3/uL (4.8-10.8)
[2018-12-22 06:38] LABS: ANION GAP 10.8 mmol/L (8-16); CALCIUM 8.2 mg/dL (8.5-10.1); CARBON DIOXIDE 27.9 mmol/L (21.0-32.0); MAGNESIUM - SERUM 1.6 mg/dL (1.8-2.4); POTASSIUM - SERUM 3.7 mmol/L (3.5-5.1)
--- NOTE | 2018-12-22 10:23 | NUR ---
PRE-OPS GIVEN. TO MANAGER CONTRACT BY BED.
--- NOTE | 2018-12-22 11:17 | NUR ---
BACK FROM SAFETY AND SKILL BASED PAY MANAGER. VS WNL. RIGHT GROIN STABLE WITHOUT BLEEDING OR HEMATOMA NOTED. WILL MONITOR.
--- NOTE | 2018-12-22 13:03 | NUR ---
BED REST UP. GROIN STABLE.
--- NOTE | 2018-12-22 19:00 | NUR ---
RECEIVED BEDSIDE REPORT. PATIENT IS ALERT AND ORIENTED RESTING COMFORTABLY IN BED, RESPIRATIONS ARE EVEN AND UNLABORED. NO S/S OF DISTRESS. NO C/O PAIN. CALL LIGHT WITHIN REACH. WILL CPOC.
[2018-12-22 19:08] LABS: SPE - A/G RATIO 0.7 (0.7-1.7); SPE - ALBUMIN 2.7 g/dL (2.9-4.4); SPE - ALPHA-1 GLOBULIN 0.3 g/dL (0.0-0.4); SPE - GAMMA GLOBULIN 1.4 g/dL (0.4-1.8); SPE - M-SPIKE Not Observed g/dL (Not Observed); SPE - TOTAL PROTEIN 6.4 g/dL (6.0-8.5)
[2018-12-23] VITALS: BP 91/43
[2018-12-23 04:00] VITALS: BP 90/43
[2018-12-23 05:43] LABS: BASOPHILS 0.5 % (0-2); EOSINOPHILS 2.2 % (0-7); HEMATOCRIT 32.6 % (36.0-48.0); HEMOGLOBIN 10.2 g/dL (12-16); IMMATURE GRANULOCYTES 0.8 % (0-5); LYMPHOCYTES 29.4 % (15-50); MCH 28.7 pg (26.0-34.0); MCHC 31.3 g/dL (31.0-37.0); MCV 91.6 fL (80.0-100.0); MEAN PLATELET VOLUME 9.4 fL (7.4-10.4); MONOCYTES 11.8 % (2-11); NEUTROPHILS 55.3 % (40-80); PLATELET COUNT 271 10x3/uL (130-400); RBC 3.56 10x6/uL (4.00-5.40); RDW 14.1 % (11.5-14.5); WBC 6.4 10x3/uL (4.8-10.8)
[2018-12-23 05:55] LABS: ANION GAP 9.6 mmol/L (8-16); CALCIUM 7.7 mg/dL (8.5-10.1); CARBON DIOXIDE 26.1 mmol/L (21.0-32.0); CREATININE - SERUM 1.1 mg/dL (0.6-1.3); POTASSIUM - SERUM 3.7 mmol/L (3.5-5.1)
[2018-12-23 08:00] VITALS: BP 138/61
[2018-12-23 11:36] VITALS: BP 85/42
--- NOTE | 2018-12-23 13:57 | MORECARE ---
CASE MANAGEMENT DISCHARGE SUMMARY PATIENT: SCARLETT MOODY UNIT: [id number] ADM DATE: 12/19/18 AGE: 68 : 54 SEX: F ROOM/BED: D.4177 AUTHOR: XAVI,DOC PHYSICIAN: REFERRING PHYSICIAN: GLADYS FAYE DO DATE OF SERVICE: 12/23/18 Discharge Plan Patient Name: SCARLETT MOODY Facility: [facility]:[place] : 1950 Planned Disposition: Inpatient Rehab Anticipated Discharge Date: 12/23/18 Discharge Date: Expected LOS: 4 Initial Reviewer: [id number] Initial Review Date: 12/18/2018 Generated: 12/23/18 2:57 pm DCPIA - Discharge Planning Initial Assessment Updated by [email or web address]: Sonu Larios on 12/23/18 1:56 pm * Is the patient Alert and Oriented? Yes * How many steps to enter\exit or inside your home? NONE * PCP NONE * Pharmacy [facility] * Preadmission Environment Home with Family * ADLs Independent * Equipment Bedside Commode Glucometer Other Shower Chair Trach Care Supplies Walker * Other Equipment INSULIN PUMP TACH CARE SUPPLIES - [employer] * List name and contact numbers for known caregivers / representatives who currently or will assist patient after discharge: CINTHIA ENGLE DTR, ROSALVA DYLANBRETTNICOLE, BROTHER, * Verbal permission to speak to the caregivers and representatives has been obtained from the patient. N/A * Community resources currently utilized None * Please name any agencies selected above. NONE * Additional services required to return to the preadmission environment? Yes * Can the patient safely return to the preadmission environment? Yes * Has this patient been hospitalized within the prior 30 days at any hospital? No Coverage Notice Reviewer: [id number] - Maggy Benitez Notice Issued Date-Time: 12/18/2018 17:10 Notice Type: Medicare Outpatient Observation Notice Notice Delivered To: Family Member Relationship to Patient: Niece Drawer Waxer Name: Cinthia Engle Delivery Method: HAND - Hand Delivered Salma Days: Prior Verbal Notification: Recipient Understood Notice: Recipient Signature: Yes Med Rec Note Co-signed by Attending: Coverage Notice Comment: LUZ delivered to and signed by patient's niece. Original given to patient and original to chart. Reviewer: [id number] - Sonu Larios Notice Issued Date-Time: 12/23/2018 12:35 Notice Type: IM Discharge Notice Notice Delivered To: Patient Relationship to Patient: Drawer Waxer Name: Delivery Method: HAND - Hand Delivered Salma Days: Prior Verbal Notification: Recipient Understood Notice: Yes Recipient Signature: Yes Med Rec Note Co-signed by Attending: Coverage Notice Comment: Patient Name: SCARLETT MOODY Page [id number] at 1357 All edits/amendments must be made on the electronic document DICTATION DATE: 12/23/18 1357 DINING SERVER: DAVID 12/23/18 1357 RPT#: [id number] DC DATE: STATUS: ADM IN [facility] [address] [place] [address] END OF REPORT
--- NOTE | 2018-12-23 14:07 | EC ---
PATIENT:SCARLETT MOODY DATE OF SERVICE: 12/19/18 SEX: F MEDICAL RECORD: [id number] DATE OF : 54 LOCATION:D.M2 D.211 AGE OF PATIENT: 68 ADMISSION DATE: 12/19/18 REFERRING PHYSICIAN: INTERPRETING PHYSICIAN: JOHN KELLEY MD ECHOCARDIOGRAM REPORT ECHO CHARGES 5 ECHO LIMITED Date: 12/19/18 CLINICAL DIAGNOSIS: SOB/CHEST PAIN HX PACER ECHOCARDIOGRAPHIC MEASUREMENTS (adult normal given) AC root (d.<3.7cm) cm LV Septum d (<1.2 cm> cm Valve Excursion cm LV Septum (systole) cm Left Atria (s.<4.0cm> 4.4 cm LVPW d(<1.2cm) cm RV (d.<2.3cm) 3.6 cm LVPW (sytole) cm LV diastole(<5.6CM) 4.0 cm MV E-F(>70mm/sec) cm LV systole 2.6 cm LVOT Diameter 1.6 cm MV exc.(>10mm) cm Est.ejection fraction (50-75%) % DOPPLER: LVIT cm/sec A 113 cm/sec E 123 cm/sec LA cm/sec RVSP 22 mmHg LVOT 99 cm/sec AOP1/2T m/s Asc. Ao 185 cm/sec RVOT cm/sec RA cm/sec PA cm/sec AV Gradient Peak 13.74mmHg AV Mean 6.22 mmHg AV Area 1.2 cm MV Gradient Peak 6.63 mmHg MV Mean 3.12 mmHg MV Area cm COMMENTS: Hris Analyst: Mando DING Track Inspecting Supervisor: 1 Dr. Kelley TAPE# PACS Pericardial Effusion N DATE OF SERVICE: 12/19/2018 FINDINGS: 1. Left ventricular chamber size is within normal limits. Left ventricular systolic function is normal. Overall ejection fraction estimated at 60% to 65%. 2. Left atrium is enlarged at 4.4 cm. Right atrium and right ventricular chamber sizes are as well mildly dilated. 3. Valvular structures have normal structure and motion. 4. Doppler interrogation reveals only trace tricuspid regurgitation, no other valvular insufficiency or stenosis. Pulmonary systolic pressure is normal ECHOCARDIOGRAM REPORT [id number] SCARLETT MOODY estimated at 22 mmHg. 5. No evidence of pericardial effusion or left ventricular thrombus. TRANSINT:[id number] Voice Confirmation ID: [id number] DOCUMENT ID: [id number] JOHN KELLEY MD at 1407 CC: [id number] DICTATION DATE: 12/19/181745 POUNCING MACHINE OPERATOR: 12/19/182106 ADM IN [place] [id number] [place] [id number]
--- NOTE | 2018-12-23 14:07 | NUR ---
Rehab Prescreening Consult recieved and the patient and daughter were visited. She qualifies for the ARU, but is scheduled for surgery at [facility] on 01/01/19. Long discussion with pt, dtr and CM Yuan. They opt to go home with resumption of her HH and private caregivers until after her scheduled surgery. Rehab provided contact information to the pts daughter regarding possible admit to the ARU after surgery. Nevaeh Ceja RN Clinical Liaison, Rehab
--- NOTE | 2018-12-23 14:07 | CN ---
PATIENT NAME:SCARLETT MOODY MEDICAL RECORD: [id number] : 54 LOCATION:D. D.2119 ADMIT DATE: 12/19/18 ACCOUNT: [id number] CONSULTING PHYSICIAN: JOHN JAFFE MD REFERRING PHYSICIAN: GLADYS FAYE DO DATE OF CONSULTATION: 12/19/2018 CARDIOLOGY CONSULTATION DIAGNOSES: 1. Unstable angina. 2. Coronary artery disease. 3. Previous multivessel PTCA and stent. 4. Chronic obstructive pulmonary disease. 5. Hypertension. 6. Paroxysmal atrial fibrillation. 7. Shortness of breath, dyspnea on exertion. HISTORY OF PRESENT ILLNESS: Ms. Moody has a cardiac history of cardiac stents, the last being over a year ago. She has had increasing episodes of shortness of breath, dyspnea on exertion out of proportion to her COPD. She has not had a cough or sputum production. She does have chronic trachea secondary to her COPD and respiratory failure in the past. Her chest pain has been a typical anginal pain with a dull aching heavy sensation, she states like a pressure or weight on her chest. It is just like that of her previous angina. It has been coming on for approximately 2 weeks in an escalating fashion. She has episodes at rest and is now a class 4. PHYSICAL EXAMINATION: CONSTITUTIONAL/GENERAL APPEARANCE: Well nourished, well developed, appears stated age. EYES: Lids and conjunctivae noninjected. No discharge. No pallor. ENT: Lips within normal limit. No cyanosis. No pallor. NECK: Carotid arteries, bilateral normal upstroke. No bruits. No thrills. No jugular venous pressure or distention. CERVICAL LYMPH NODES: Nontender. Nonenlarged. THYROID: Not enlarged. No nodules. CARDIOVASCULAR: Precordial exam, nondisplaced. No heaves or pericardial thrills. Rate and rhythm, regular. Heart sounds, normal S1, normal S2. No S3, no gallop, no rub. Systolic murmur, not heard. Diastolic murmur, not heard. RESPIRATORY: Respiratory effort, unlabored. Normal curvature. No thoracic deformity. No chest wall tenderness. Percussion, resonant. Auscultation, clear. No wheezes, no rales, no rhonchi. ABDOMEN: Soft, nondistended, nontender. No abdominal pain, no vomiting and normal appetite. MUSCULOSKELETAL: No joint tenderness, normal gait, normal tone. SKIN: Warm and dry. OVERALL IMPRESSION: Chest pain compatible with angina. She is significantly hypertensive. She has been intolerant to metoprolol in the past. We will try a different beta-julia such as Bystolic that hopefully will not affect her COPD, but will give her better heart rate and blood pressure control. We will also add long-acting nitrates. We will continue her calcium channel julia that she is on. If she continues to have the unstable anginal chest discomfort, we will consider coronary angiography. CONSULT REPORT [id number] SCARLETT MOODY JERRY TRANSINT:[id number] Voice Confirmation ID: [id number] DOCUMENT ID: [id number] JOHN JAFFE MD at 1407 CC: [id number] DICTATION DATE: 12/19/18923 CONTROL CLERK AUDITING: 12/19/18932 ADM IN [place] [id number] [place] [id number]
--- NOTE | 2018-12-23 14:08 | OP ---
PATIENT NAME: SCARLETT MOODY MEDICAL RECORD: [id number] :54 LOCATION:D.M2 D.2119 ADMISSION DATE:12/19/18 SURGEON: JOHN JAFFE MD DATE OF OPERATION: 12/22/2018 PROCEDURES: 1. Left heart catheterization. 2. Selective coronary angiography. 3. Left ventriculogram. INDICATION: Angina, coronary artery disease, previous PTCA stent, COPD, shortness of breath. PROCEDURE IN DETAIL: After informed consent was obtained and after a detailed description of risks, benefits as well as alternative therapies, the patient elected to proceed with angiogram and heart catheterization. The right femoral area was prepped and draped in normal sterile fashion. Right femoral artery was cannulated via modified Seldinger technique with placement of 5-Slovenian sheath. All catheters exchanged through this sheath. FINDINGS: Left ventriculogram was performed in standard 30-degree MUNGUIA view, reveals good cardiac wall motion throughout all segments. Overall ejection fraction 70%. SELECTIVE CORONARY ANGIOGRAPHY: 1. Left main is with no significant angiographic disease. 2. Left anterior descending has previously placed stents, these are widely patent with no significant restenosis. No disease elsewhere throughout the LAD or its branches. 3. Left circumflex has moderate irregularities, but no flow-limiting stenosis. 4. Right coronary artery has chronic total occlusion in the mid vessel. Distal right coronary artery fills via left to right collaterals. OVERALL IMPRESSION: Wide patency of the previously placed stents, total occlusion of the RCA, which is not new. This is chronic and excellent collateralization, normal LV function. Symptomatology is secondary to chronic obstructive pulmonary disease, not cardiac in nature. TRANSINT:[id number] Voice Confirmation ID: [id number] DOCUMENT ID: [id number] JOHN JAFFE MD at 1408 CC: [id number] DICTATION DATE: 12/22/18 1056 QUALITY MANAGEMENT COORDINATOR: 12/22/18 1155 ADM IN [place] [id number] [place] [address]
[2018-12-23 14:09] LABS: UPE RAND - ALBUMIN 79.6 % (()); UPE RAND - ALPHA 1 GLOBULIN 1.4 % (()); UPE RAND - ALPHA 2 GLOBULIN 4.7 % (()); UPE RAND - BETA GLOBULIN 6.2 % (()); UPE RAND - GAMMA GLOBULIN 8.2 % (())
--- NOTE | 2018-12-23 14:12 | MORECARE ---
CASE MANAGEMENT DISCHARGE SUMMARY PATIENT: SCARLETT MOODY UNIT: [id number] ADM DATE: 12/19/18 AGE: 68 : 54 SEX: F ROOM/BED: D.3099 AUTHOR: XAVI,DOC PHYSICIAN: REFERRING PHYSICIAN: GLADYS FAYE DO DATE OF SERVICE: 12/23/18 Discharge Plan Patient Name: SCARLETT MOODY [facility] [facility] 1950 Planned Disposition: Inpatient Rehab Anticipated Discharge Date: 12/23/18 Discharge Date: Expected LOS: 4 Initial Reviewer: [email or web address] Initial Review Date: 12/18/2018 Generated: 12/23/18 3:12 pm Comments DCP- Discharge Planning Updated by [email or web address]: Sonu Larios on 12/23/18 1:[address] Patient Name: SCARLETT MOODY Encounter No: [id number] : 1950 Primary Insurance: MEDICARE A & B Anticipated DC Date: 12-23-2018 Planned Disposition: Inpatient Rehab External Planned Provider: [facility] DCP follow-up note: CM RECEIVED ORDER FOR INPATIENT REHAB PRESCREENING. CM MET WITH PT IN ROOM TO DISCUSS DISCHARGE PLANNING AND NEEDS. PT REPORTS LIVING AT HOME INDEPENDENTLY WITH HER DAUGHTER. PT HAS Bedside Commode, Glucometer, , INSULIN PUMP, Shower Chair, Trach Care Supplies AND Walker WITH NO MEDICAL EQUIPMENT PROVIDER. PT HAS NO OUTSIDE SERVICES ASSISTING IN THE HOME. CM DISCUSSED AVAILABILITY OF HOME HEALTH, REHAB SERVICES AND MEDICAL EQUIPMENT. CM EXPLAINED NEED OF FURTHER IV ANTIBIOTICS. PT WOULD LIKE REHAB AT [facility]. REPORTS HER DAUGHTER WILL PICK HER UP FOR DISCHARGE HOME. IMPORTANT MESSAGE FROM MEDICARE PROVIDED AND EXPLAINED. CM NOTIFIED NELLY FROM [facility] WHO IS WAITING THERAPY EVALUATION TO COMPLETE SCREENING. CM SPOKE TO RIGO OF INPATIENT REHAB, PT AND FAMILY DO NOT WANT INPATIENT REHAB PT HAS SCHEDULED SURGERY LATER THIS MONTH. THEY WANT TO GO HOME. CM TO MEET WITH PT AND FAMILY SOON POSSIBLE TODAY. Sonu Larios, CASE MANAGEMENT DCPIA - Discharge Planning Initial Assessment Updated by [id number]: Sonu Larios on 12/23/18 1:56 pm * Is the patient Alert and Oriented? Yes * How many steps to enter\exit or inside your home? NONE * PCP NONE * Pharmacy [facility] * Preadmission Environment Home with Family * ADLs Independent * Equipment Bedside Commode Glucometer Other Shower Chair Trach Care Supplies Walker * Other Equipment INSULIN PUMP TACH CARE SUPPLIES - [employer] * List name and contact numbers for known caregivers / representatives who currently or will assist patient after discharge: CINTHIA ONIEL, DTR, ROSALVA ORNELAS, BROTHER, * Verbal permission to speak to the caregivers and representatives has been obtained from the patient. N/A * Community resources currently utilized None * Please name any agencies selected above. NONE * Additional services required to return to the preadmission environment? Yes * Can the patient safely return to the preadmission environment? Yes * Has this patient been hospitalized within the prior 30 days at any hospital? No Coverage Notice Reviewer: [email or web address] Brianna Benitez Notice Issued Date-Time: 12/18/2018 17:10 Notice Type: Medicare Outpatient Observation Notice Notice Delivered To: Family Member Relationship to Patient: Niece Home Care Music Therapist Name: Cinthia Badillo Delivery Method: HAND - Hand Delivered Salma Days: Prior Verbal Notification: Recipient Understood Notice: Recipient Signature: Yes Med Rec Note Co-signed by Attending: Coverage Notice Comment: LUZ delivered to and signed by patient's niece. Original given to patient and original to chart. Reviewer: [email or web address] Brianna Larios Notice Issued Date-Time: 12/23/2018 12:35 Notice Type: IM Discharge Notice Notice Delivered To: Patient Relationship to Patient: Home Care Music Therapist Name: Delivery Method: HAND - Hand Delivered Salma Days: Prior Verbal Notification: Recipient Understood Notice: Yes Recipient Signature: Yes Med Rec Note Co-signed by Attending: Coverage Notice Comment: Last DP export: 12/23/18 12:57 p Patient Name: SCARLETT MOODY Page [id number] at 1412 All edits/amendments must be made on the electronic document DICTATION DATE: 12/23/181411 SKIRT TRIMMER: DAVID 12/23/181411 RPT#: [id number] DC DATE: STATUS: ADM IN [facility] [address] [place] [address] END OF REPORT
--- NOTE | 2018-12-23 14:31 | MORECARE ---
CASE MANAGEMENT DISCHARGE SUMMARY PATIENT: SCARLETT MOODY UNIT: [id number] ADM DATE: 12/19/18 AGE: 68 : 54 SEX: F ROOM/BED: D.8996 AUTHOR: MARIBETH HURLEY PHYSICIAN: REFERRING PHYSICIAN: GLADYS FAYE DO DATE OF SERVICE: 12/23/18 Discharge Plan Patient Name: SCARLETT MOODY [facility] [facility] 1950 Planned Disposition: Inpatient Rehab Anticipated Discharge Date: 12/23/18 Discharge Date: Expected LOS: 4 Initial Reviewer: [email or web address] Initial Review Date: 12/18/2018 Generated: 12/23/18 3:30 pm Comments DCP- Discharge Planning Updated by [email or web address]: Sonu Larios on 12/23/18 1:[address] Patient Name: SCARLETT MOODY Encounter No: [id number] : 1950 Primary Insurance: MEDICARE A & B Anticipated DC Date: 12-23-2018 Planned Disposition: HOME WITH HOME HEALTH External Planned Provider: [facility] DCP follow-up note: CM MET WITH PT AND DAUGHTER, CINTHIA, IN ROOM. PT AND DAUGHTER INFORMED CM THAT THEY DO NOT WANT INPATIENT REHAB AND PREFER HOME WITH HOME HEALTH AND INFUSION IF NECESSARY. THEY HAVE USED [facility] IN THE PAST AND WANT THEM AGAIN. CM DISCUSSED AVAILABILITY OF HOME HEALTH, DISCUSSED AVAILABLE PROVIDERS. THEY HAVE USED [facility] IN THE PAST BUT WOULD LIKE [facility] PT LIKES WORKS THERE. CHOICE SIGNED FOR [facility] AND [facility]. CM NOTIFIED DR. IZQUIERDO. CM TO ARRANGE HOME HEALTH AND HOME INFUSION WHEN ORDERS ARE RECEIVED. Sonu Larios, CASE KULWANT DCP- Discharge Planning Updated by [id number]: Sonu Larios on 12/23/18 1:[address] Patient Name: SCARLETT MOODY Encounter No: [id number] : 1950 Primary Insurance: MEDICARE A & B Anticipated DC Date: 12-23-2018 Planned Disposition: Inpatient Rehab External Planned Provider: [facility] DCP follow-up note: CM RECEIVED ORDER FOR INPATIENT REHAB PRESCREENING. CM MET WITH PT IN ROOM TO DISCUSS DISCHARGE PLANNING AND NEEDS. PT REPORTS LIVING AT HOME INDEPENDENTLY WITH HER DAUGHTER. PT HAS Bedside Commode, Glucometer, , INSULIN PUMP, Shower Chair, Trach Care Supplies AND Walker WITH NO MEDICAL EQUIPMENT PROVIDER. PT HAS NO OUTSIDE SERVICES ASSISTING IN THE HOME. CM DISCUSSED AVAILABILITY OF HOME HEALTH, REHAB SERVICES AND MEDICAL EQUIPMENT. CM EXPLAINED NEED OF FURTHER IV ANTIBIOTICS. PT WOULD LIKE REHAB AT [facility]. REPORTS HER DAUGHTER WILL PICK HER UP FOR DISCHARGE HOME. IMPORTANT MESSAGE FROM MEDICARE PROVIDED AND EXPLAINED. CM NOTIFIED NELLY FROM [facility] WHO IS WAITING THERAPY EVALUATION TO COMPLETE SCREENING. CM SPOKE TO RIGO OF INPATIENT REHAB, PT AND FAMILY DO NOT WANT INPATIENT REHAB PT HAS SCHEDULED SURGERY LATER THIS MONTH. THEY WANT TO GO HOME. CM TO MEET WITH PT AND FAMILY SOON POSSIBLE TODAY. Sonu Larios, CASE MANAGEMENT DCPIA - Discharge Planning Initial Assessment Updated by [id number]: Sonu Larios on 12/23/18 1:56 pm * Is the patient Alert and Oriented? Yes * How many steps to enter\exit or inside your home? NONE * PCP NONE * Pharmacy [facility] * Preadmission Environment Home with Family * ADLs Independent * Equipment Bedside Commode Glucometer Other Shower Chair Trach Care Supplies Walker * Other Equipment INSULIN PUMP TACH CARE SUPPLIES - [employer] * List name and contact numbers for known caregivers / representatives who currently or will assist patient after discharge: CINTHIA ENGLE DTR, ROSALVA ORNELAS, BROTHER, * Verbal permission to speak to the caregivers and representatives has been obtained from the patient. N/A * Community resources currently utilized None * Please name any agencies selected above. NONE * Additional services required to return to the preadmission environment? Yes * Can the patient safely return to the preadmission environment? Yes * Has this patient been hospitalized within the prior 30 days at any hospital? No Coverage Notice Reviewer: [id number] Brianna Benitez Notice Issued Date-Time: 12/18/2018 17:10 Notice Type: Medicare Outpatient Observation Notice Notice Delivered To: Family Member Relationship to Patient: Niece Button Decorating Machine Operator Name: Cinthia Engle Delivery Method: HAND - Hand Delivered Salma Days: Prior Verbal Notification: Recipient Understood Notice: Recipient Signature: Yes Med Rec Note Co-signed by Attending: Coverage Notice Comment: LUZ delivered to and signed by patient's niece. Original given to patient and original to chart. Reviewer: [id number] - Sonu Larios Notice Issued Date-Time: 12/23/2018 12:35 Notice Type: IM Discharge Notice Notice Delivered To: Patient Relationship to Patient: Button Decorating Machine Operator Name: Delivery Method: HAND - Hand Delivered Salma Days: Prior Verbal Notification: Recipient Understood Notice: Yes Recipient Signature: Yes Med Rec Note Co-signed by Attending: Coverage Notice Comment: Last DP export: 12/23/18 1:12 p Patient Name: SCARLETT MOODY Page [id number] at 1431 All edits/amendments must be made on the electronic document DICTATION DATE: 12/23/181429 VOUCHER EXAMINER: DAVID 12/23/18 1430 RPT#: [id number] DC DATE: STATUS: ADM IN [facility] [address] [place] [address] END OF REPORT
--- NOTE | 2018-12-23 14:34 | NUR ---
Nutrition Follow-up: Spoke with pt and daughter. They report PO intake much improved today; ate 100% of lunch. No BM yet. Diet: Cardiac No new wt Last BM: 12/16 per chart Labs noted: Glu 189, Na 131, Ca 7.7 Meds reviewed -Change to cardiac diabetic diet. -Offer Glucerna with meals. -RD following.
--- NOTE | 2018-12-23 14:40 | MORECARE ---
CASE MANAGEMENT DISCHARGE SUMMARY PATIENT: SCARLETT MOODY UNIT: [id number] ADM DATE: 12/19/18 AGE: 68 : 52 SEX: F ROOM/BED: D.1868 AUTHOR: XAVI,DOC PHYSICIAN: REFERRING PHYSICIAN: GLADYS FAYE DO DATE OF SERVICE: 12/23/18 Discharge Plan Patient Name: SCARLETT MOODY [facility] [facility] 1950 Planned Disposition: Home with Home Health Anticipated Discharge Date: 12/23/18 Discharge Date: Expected LOS: 4 Initial Reviewer: [id number] Initial Review Date: 12/18/2018 Generated: 12/23/18 3:40 pm Comments DCP- Discharge Planning Updated by [email or web address]: Sonu Larios on 12/23/18 1:[address] Patient Name: SCARLETT MOODY Encounter No: [id number] : 1950 Primary Insurance: MEDICARE A & B Anticipated DC Date: 12-23-2018 Planned Disposition: HOME WITH HOME HEALTH External Planned Provider: [facility] DCP follow-up note: CM MET WITH PT AND DAUGHTER, CINTHIA, IN ROOM. PT AND DAUGHTER INFORMED CM THAT THEY DO NOT WANT INPATIENT REHAB AND PREFER HOME WITH HOME HEALTH AND INFUSION IF NECESSARY. THEY HAVE USED [facility] IN THE PAST AND WANT THEM AGAIN. CM DISCUSSED AVAILABILITY OF HOME HEALTH, DISCUSSED AVAILABLE PROVIDERS. THEY HAVE USED [facility] IN THE PAST BUT WOULD LIKE [facility] PT LIKES WORKS THERE. CHOICE SIGNED FOR [facility] AND [facility]. CM NOTIFIED DR. IZQUIERDO. CM TO ARRANGE HOME HEALTH AND HOME INFUSION WHEN ORDERS ARE RECEIVED. Sonu Larios, CASE MANAGEMENT DCP- Discharge Planning Updated by [id number]: Sonu Larios on 12/23/18 1:[address] Patient Name: SCARLETT MOODY Encounter No: [id number] : 1950 Primary Insurance: MEDICARE A & B Anticipated DC Date: 12-23-2018 Planned Disposition: Inpatient Rehab External Planned Provider: [facility] DCP follow-up note: CM RECEIVED ORDER FOR INPATIENT REHAB PRESCREENING. CM MET WITH PT IN ROOM TO DISCUSS DISCHARGE PLANNING AND NEEDS. PT REPORTS LIVING AT HOME INDEPENDENTLY WITH HER DAUGHTER. PT HAS Bedside Commode, Glucometer, , INSULIN PUMP, Shower Chair, Trach Care Supplies AND Walker WITH NO MEDICAL EQUIPMENT PROVIDER. PT HAS NO OUTSIDE SERVICES ASSISTING IN THE HOME. CM DISCUSSED AVAILABILITY OF HOME HEALTH, REHAB SERVICES AND MEDICAL EQUIPMENT. CM EXPLAINED NEED OF FURTHER IV ANTIBIOTICS. PT WOULD LIKE REHAB AT [facility]. REPORTS HER DAUGHTER WILL PICK HER UP FOR DISCHARGE HOME. IMPORTANT MESSAGE FROM MEDICARE PROVIDED AND EXPLAINED. CM NOTIFIED NELLY FROM [facility] WHO IS WAITING THERAPY EVALUATION TO COMPLETE SCREENING. CM SPOKE TO RIGO OF INPATIENT REHAB, PT AND FAMILY DO NOT WANT INPATIENT REHAB PT HAS SCHEDULED SURGERY LATER THIS MONTH. THEY WANT TO GO HOME. CM TO MEET WITH PT AND FAMILY SOON POSSIBLE TODAY. Sonu Larios, CASE MANAGEMENT DCPIA - Discharge Planning Initial Assessment Updated by [email or web address]: Sonu Larios on 12/23/18 1:56 pm * Is the patient Alert and Oriented? Yes * How many steps to enter\exit or inside your home? NONE * PCP NONE * Pharmacy [facility] * Preadmission Environment Home with Family * ADLs Independent * Equipment Bedside Commode Glucometer Other Shower Chair Trach Care Supplies Walker * Other Equipment INSULIN PUMP TACH CARE SUPPLIES - [employer] * List name and contact numbers for known caregivers / representatives who currently or will assist patient after discharge: CINTHIA ENGLE, DTR, ROSALVA ORNELAS, BROTHER, * Verbal permission to speak to the caregivers and representatives has been obtained from the patient. N/A * Community resources currently utilized None * Please name any agencies selected above. NONE * Additional services required to return to the preadmission environment? Yes * Can the patient safely return to the preadmission environment? Yes * Has this patient been hospitalized within the prior 30 days at any hospital? No Coverage Notice Reviewer: [id number] Brianna Benitez Notice Issued Date-Time: 12/18/2018 17:10 Notice Type: Medicare Outpatient Observation Notice Notice Delivered To: Family Member Relationship to Patient: Niece Terrazzo Worker Apprentice Name: Cinthia Engle Delivery Method: HAND - Hand Delivered Salma Days: Prior Verbal Notification: Recipient Understood Notice: Recipient Signature: Yes Med Rec Note Co-signed by Attending: Coverage Notice Comment: LUZ delivered to and signed by patient's niece. Original given to patient and original to chart. Reviewer: [id number] Brianna Larios Notice Issued Date-Time: 12/23/2018 12:35 Notice Type: IM Discharge Notice Notice Delivered To: Patient Relationship to Patient: Terrazzo Worker Apprentice Name: Delivery Method: HAND - Hand Delivered Salma Days: Prior Verbal Notification: Recipient Understood Notice: Yes Recipient Signature: Yes Med Rec Note Co-signed by Attending: Coverage Notice Comment: Reviewer: [id number] Larios Notice Issued Date-Time: 12/23/2018 14:15 Notice Type: Patient Choice Letter Notice Delivered To: Patient Relationship to Patient: Terrazzo Worker Apprentice Name: Delivery Method: HAND - Hand Delivered Salma Days: Prior Verbal Notification: Recipient Understood Notice: Yes Recipient Signature: Yes Med Rec Note Co-signed by Attending: Coverage Notice Comment: [facility] Last DP export: 12/23/18 1:31 p Patient Name: SCARLETT MOODY Page [id number] at 1440 All edits/amendments must be made on the electronic document DICTATION DATE: 12/23/18 1440 SPECIALTY PERSON: DAVID 12/23/18 1440 RPT#: [id number] DC DATE: STATUS: ADM IN [facility] [address] [place] [address] END OF REPORT
[2018-12-23 15:53] VITALS: BP 91/44
--- NOTE | 2018-12-23 18:27 | NUR ---
RIGHT GROIN AND WRIST STABLE. DC PLANS GIVEN. UNDERSTANDING VOICED. IV AND TELEMETRY DCD. ESCORTED TO CAR BY W/C.
--- NOTE | 2018-12-23 18:45 | NUR ---
RECEIVED BEDSIDE REPORT. PATIENT IS ALERT AND ORIENTED, RESTING COMFORTABLY IN BED. RESPIRATIONS ARE EVEN AND UNLABRED. NO S/S OF DISTRESS. NO C/O PAIN. CALL LIGHT WITHIN REACH. NEEDS MET. WILL CPOC.
[2018-12-23 20:00] VITALS: BP 117/32
[2018-12-24] VITALS: BP 98/56
[2018-12-24 01:10] VITALS: BP 117/58
[2018-12-24 04:00] VITALS: BP 100/56
[2018-12-24 05:39] LABS: BASOPHILS 0.6 % (0-2); HEMATOCRIT 32.5 % (36.0-48.0); HEMOGLOBIN 10.2 g/dL (12-16); IMMATURE GRANULOCYTES 0.4 % (0-5); MCH 28.8 pg (26.0-34.0); MCHC 31.4 g/dL (31.0-37.0); MCV 91.8 fL (80.0-100.0); MEAN PLATELET VOLUME 9.6 fL (7.4-10.4); MONOCYTES 11.2 % (2-11); NEUTROPHILS 61.8 % (40-80); PLATELET COUNT 299 10x3/uL (130-400); RBC 3.54 10x6/uL (4.00-5.40); RDW 14.3 % (11.5-14.5)
[2018-12-24 05:54] LABS: ANION GAP 12.2 mmol/L (8-16); CALCIUM 7.8 mg/dL (8.5-10.1); MAGNESIUM - SERUM 1.6 mg/dL (1.8-2.4); POTASSIUM - SERUM 4.2 mmol/L (3.5-5.1)
[2018-12-24 05:59] LABS: WBC 8.5 10x3/uL (4.8-10.8)
[2018-12-24 06:03] LABS: CREATININE - SERUM 1.5 mg/dL (0.6-1.3)
[2018-12-24 08:00] VITALS: BP 97/43
--- NOTE | 2018-12-24 10:37 | NUR ---
TELEMETRY SR. RESP UL ON . UP IN CHAIR WITH PT ASSIST. WILL CONT. PLAN OF CARE.
[2018-12-24] MEDS ORDERED: LISINOPRIL10 MG PO (11:52)
[2018-12-24] MEDS ORDERED: PLAVIX75 MG PO (11:52)
[2018-12-24] MEDS ORDERED: BYSTOLIC20 MG PO (11:52)
[2018-12-24 12:00] VITALS: BP 133/64
--- NOTE | 2018-12-24 14:24 | NUR ---
UPON DISCHARGE, PATIENT HAS NOT HAD A FLU SHOT THIS YEAR. PATIENT IS UNABLE TO TALK R/T TRACH. PER HER DAUGHTER, PATIENT IS SUPPOSE TO GET THE "BIG DOSE". SHE SAYS THAT SHE WILL FOLLOW UP WITH DR FAYE FOR THIS.
--- NOTE | 2018-12-24 14:28 | MORECARE ---
CASE MANAGEMENT DISCHARGE SUMMARY PATIENT: SCARLETT MOODY UNIT: [id number] ADM DATE: 12/19/18 AGE: 68 : 52 SEX: F ROOM/BED: D.4834 AUTHOR: XAVI,DOC PHYSICIAN: REFERRING PHYSICIAN: GLADYS FAYE DO DATE OF SERVICE: 12/24/18 Discharge Plan Patient Name: SCARLETT MOODY [facility] [facility] 1950 Planned Disposition: Home with Home Health Anticipated Discharge Date: 12/23/18 Discharge Date: Expected LOS: 4 Initial Reviewer: [email or web address] Initial Review Date: 12/18/2018 Generated: 12/24/18 3:28 pm Comments DCP- Discharge Planning Updated by [email or web address]: Sonu Larios on 12/23/18 1:[address] Patient Name: SCARLETT MOODY Encounter No: [id number] : 1950 Primary Insurance: MEDICARE A & B Anticipated DC Date: 12-23-2018 Planned Disposition: HOME WITH HOME HEALTH External Planned Provider: [facility] DCP follow-up note: CM MET WITH PT AND DAUGHTER, CINTHIA, IN ROOM. PT AND DAUGHTER INFORMED CM THAT THEY DO NOT WANT INPATIENT REHAB AND PREFER HOME WITH HOME HEALTH AND INFUSION IF NECESSARY. THEY HAVE USED [facility] IN THE PAST AND WANT THEM AGAIN. CM DISCUSSED AVAILABILITY OF HOME HEALTH, DISCUSSED AVAILABLE PROVIDERS. THEY HAVE USED [facility] IN THE PAST BUT WOULD LIKE [facility] PT LIKES WORKS THERE. CHOICE SIGNED FOR [facility] AND [facility]. CM NOTIFIED DR. IZQUIERDO. CM TO ARRANGE HOME HEALTH AND HOME INFUSION WHEN ORDERS ARE RECEIVED. Sonu Larios, CASE MANAGEMENT DCP- Discharge Planning Updated by [email or web address]: Sonu Larios on 12/23/18 1:[address] Patient Name: SCARLETT MOODY Encounter No: [id number] : 1950 Primary Insurance: MEDICARE A & B Anticipated DC Date: 12-23-2018 Planned Disposition: Inpatient Rehab External Planned Provider: [facility] DCP follow-up note: CM RECEIVED ORDER FOR INPATIENT REHAB PRESCREENING. CM MET WITH PT IN ROOM TO DISCUSS DISCHARGE PLANNING AND NEEDS. PT REPORTS LIVING AT HOME INDEPENDENTLY WITH HER DAUGHTER. PT HAS Bedside Commode, Glucometer, , INSULIN PUMP, Shower Chair, Trach Care Supplies AND Walker WITH NO MEDICAL EQUIPMENT PROVIDER. PT HAS NO OUTSIDE SERVICES ASSISTING IN THE HOME. CM DISCUSSED AVAILABILITY OF HOME HEALTH, REHAB SERVICES AND MEDICAL EQUIPMENT. CM EXPLAINED NEED OF FURTHER IV ANTIBIOTICS. PT WOULD LIKE REHAB AT [facility]. REPORTS HER DAUGHTER WILL PICK HER UP FOR DISCHARGE HOME. IMPORTANT MESSAGE FROM MEDICARE PROVIDED AND EXPLAINED. CM NOTIFIED NELLY FROM [facility] WHO IS WAITING THERAPY EVALUATION TO COMPLETE SCREENING. CM SPOKE TO RIGO OF INPATIENT REHAB, PT AND FAMILY DO NOT WANT INPATIENT REHAB PT HAS SCHEDULED SURGERY LATER THIS MONTH. THEY WANT TO GO HOME. CM TO MEET WITH PT AND FAMILY SOON POSSIBLE TODAY. Sonu Larios, CASE MANAGEMENT DCPIA - Discharge Planning Initial Assessment Updated by [email or web address]: Sonu Larios on 12/23/18 1:56 pm * Is the patient Alert and Oriented? Yes * How many steps to enter\exit or inside your home? NONE * PCP NONE * Pharmacy [facility] * Preadmission Environment Home with Family * ADLs Independent * Equipment Bedside Commode Glucometer Other Shower Chair Trach Care Supplies Walker * Other Equipment INSULIN PUMP TACH CARE SUPPLIES - [employer] * List name and contact numbers for known caregivers / representatives who currently or will assist patient after discharge: CINTHIA ENGLE DTR, ROSALVA ORNELAS, BROTHER, * Verbal permission to speak to the caregivers and representatives has been obtained from the patient. N/A * Community resources currently utilized None * Please name any agencies selected above. NONE * Additional services required to return to the preadmission environment? Yes * Can the patient safely return to the preadmission environment? Yes * Has this patient been hospitalized within the prior 30 days at any hospital? No External Providers [facility] Provider[facility] Next Contact Date: 12/24/2018 Service Request Date: Service Type: Resolution: Reviewer: Comments: Coverage Notice Reviewer: [id number] - Maggy Benitez Notice Issued Date-Time: 12/18/2018 17:10 Notice Type: Medicare Outpatient Observation Notice Notice Delivered To: Family Member Relationship to Patient: Niece Manager Mass Name: Cinthia Engle Delivery Method: HAND - Hand Delivered Salma Days: Prior Verbal Notification: Recipient Understood Notice: Recipient Signature: Yes Med Rec Note Co-signed by Attending: Coverage Notice Comment: LUZ delivered to and signed by patient's niece. Original given to patient and original to chart. Reviewer: [id number] Brianna Larios Notice Issued Date-Time: 12/23/2018 12:35 Notice Type: IM Discharge Notice Notice Delivered To: Patient Relationship to Patient: Manager Mass Name: Delivery Method: HAND - Hand Delivered Salma Days: Prior Verbal Notification: Recipient Understood Notice: Yes Recipient Signature: Yes Med Rec Note Co-signed by Attending: Coverage Notice Comment: Reviewer: [id number] Larios Notice Issued Date-Time: 12/23/2018 14:15 Notice Type: Patient Choice Letter Notice Delivered To: Patient Relationship to Patient: Manager Mass Name: Delivery Method: HAND - Hand Delivered Salma Days: Prior Verbal Notification: Recipient Understood Notice: Yes Recipient Signature: Yes Med Rec Note Co-signed by Attending: Coverage Notice Comment: [facility] Last DP export: 12/23/18 1:40 p Patient Name: SCARLETT MOODY Page [id number] at 1428 All edits/amendments must be made on the electronic document DICTATION DATE: 12/24/181427 [facility] ATTENDANT: DAVID 12/24/181427 RPT#: [id number] DC DATE: STATUS: ADM IN [facility] [address] [place] [address] END OF REPORT
--- NOTE | 2018-12-24 14:55 | MORECARE ---
CASE MANAGEMENT DISCHARGE SUMMARY PATIENT: SCARLETT MOODY UNIT: [id number] ADM DATE: 12/19/18 AGE: 68 : 54 SEX: F ROOM/BED: D.1372 AUTHOR: XAVI,DOC PHYSICIAN: REFERRING PHYSICIAN: GLADYS FAYE DO DATE OF SERVICE: 12/24/18 Discharge Plan Patient Name: SCARLETT MOODY [facility] [facility] 1950 Planned Disposition: Home with Home Health Anticipated Discharge Date: 12/24/18 Discharge Date: Expected LOS: 5 Initial Reviewer: [email or web address] Initial Review Date: 12/18/2018 Generated: 12/24/18 3:55 pm Comments DCP- Discharge Planning Updated by [email or web address]: Sonu Larios on 12/23/18 1:[address] Patient Name: SCARLETT MOODY Encounter No: [id number] : 1950 Primary Insurance: MEDICARE A & B Anticipated DC Date: 12-23-2018 Planned Disposition: HOME WITH HOME HEALTH External Planned Provider: [facility] DCP follow-up note: CM MET WITH PT AND DAUGHTER, CINTHIA, IN ROOM. PT AND DAUGHTER INFORMED CM THAT THEY DO NOT WANT INPATIENT REHAB AND PREFER HOME WITH HOME HEALTH AND INFUSION IF NECESSARY. THEY HAVE USED [facility] IN THE PAST AND WANT THEM AGAIN. CM DISCUSSED AVAILABILITY OF HOME HEALTH, DISCUSSED AVAILABLE PROVIDERS. THEY HAVE USED [facility] IN THE PAST BUT WOULD LIKE [facility] PT LIKES WORKS THERE. CHOICE SIGNED FOR [facility] AND [facility]. CM NOTIFIED DR. IZQUIERDO. CM TO ARRANGE HOME HEALTH AND HOME INFUSION WHEN ORDERS ARE RECEIVED. Sonu Larios, CASE MANAGEMENT DCP- Discharge Planning Updated by [email or web address]: Sonu Larios on 12/23/18 1:[address] Patient Name: SCARLETT MOODY Encounter No: [id number] : 1950 Primary Insurance: MEDICARE A & B Anticipated DC Date: 12-23-2018 Planned Disposition: Inpatient Rehab External Planned Provider: [facility] DCP follow-up note: CM RECEIVED ORDER FOR INPATIENT REHAB PRESCREENING. CM MET WITH PT IN ROOM TO DISCUSS DISCHARGE PLANNING AND NEEDS. PT REPORTS LIVING AT HOME INDEPENDENTLY WITH HER DAUGHTER. PT HAS Bedside Commode, Glucometer, , INSULIN PUMP, Shower Chair, Trach Care Supplies AND Walker WITH NO MEDICAL EQUIPMENT PROVIDER. PT HAS NO OUTSIDE SERVICES ASSISTING IN THE HOME. CM DISCUSSED AVAILABILITY OF HOME HEALTH, REHAB SERVICES AND MEDICAL EQUIPMENT. CM EXPLAINED NEED OF FURTHER IV ANTIBIOTICS. PT WOULD LIKE REHAB AT [facility]. REPORTS HER DAUGHTER WILL PICK HER UP FOR DISCHARGE HOME. IMPORTANT MESSAGE FROM MEDICARE PROVIDED AND EXPLAINED. CM NOTIFIED NELLY FROM [facility] WHO IS WAITING THERAPY EVALUATION TO COMPLETE SCREENING. CM SPOKE TO RIGO OF INPATIENT REHAB, PT AND FAMILY DO NOT WANT INPATIENT REHAB PT HAS SCHEDULED SURGERY LATER THIS MONTH. THEY WANT TO GO HOME. CM TO MEET WITH PT AND FAMILY SOON POSSIBLE TODAY. Sonu Larios, CASE MANAGEMENT DCPIA - Discharge Planning Initial Assessment Updated by [id number]: Sonu Larios on 12/23/18 1:56 pm * Is the patient Alert and Oriented? Yes * How many steps to enter\exit or inside your home? NONE * PCP NONE * Pharmacy [facility] * Preadmission Environment Home with Family * ADLs Independent * Equipment Bedside Commode Glucometer Other Shower Chair Trach Care Supplies Walker * Other Equipment INSULIN PUMP TACH CARE SUPPLIES - [employer] * List name and contact numbers for known caregivers / representatives who currently or will assist patient after discharge: CINTHIA ENGLE, DTR, ROSALVA ORNELAS, BROTHER, * Verbal permission to speak to the caregivers and representatives has been obtained from the patient. N/A * Community resources currently utilized None * Please name any agencies selected above. NONE * Additional services required to return to the preadmission environment? Yes * Can the patient safely return to the preadmission environment? Yes * Has this patient been hospitalized within the prior 30 days at any hospital? No Coverage Notice Reviewer: [id number] Brianna Benitez Notice Issued Date-Time: 12/18/2018 17:10 Notice Type: Medicare Outpatient Observation Notice Notice Delivered To: Family Member Relationship to Patient: Niece Aircraft Sheet Metal Mechanic Name: Cinthia Engle Delivery Method: HAND - Hand Delivered Salma Days: Prior Verbal Notification: Recipient Understood Notice: Recipient Signature: Yes Med Rec Note Co-signed by Attending: Coverage Notice Comment: LUZ delivered to and signed by patient's niece. Original given to patient and original to chart. Reviewer: [id number] Brianna Larios Notice Issued Date-Time: 12/23/2018 12:35 Notice Type: IM Discharge Notice Notice Delivered To: Patient Relationship to Patient: Aircraft Sheet Metal Mechanic Name: Delivery Method: HAND - Hand Delivered Salma Days: Prior Verbal Notification: Recipient Understood Notice: Yes Recipient Signature: Yes Med Rec Note Co-signed by Attending: Coverage Notice Comment: Reviewer: [id number] Larios Notice Issued Date-Time: 12/23/2018 14:15 Notice Type: Patient Choice Letter Notice Delivered To: Patient Relationship to Patient: Aircraft Sheet Metal Mechanic Name: Delivery Method: HAND - Hand Delivered Salma Days: Prior Verbal Notification: Recipient Understood Notice: Yes Recipient Signature: Yes Med Rec Note Co-signed by Attending: Coverage Notice Comment: [facility], [facility] Last DP export: 12/24/18 1:28 p Patient Name: SCARLETT MOODY Page [id number] at 1455 All edits/amendments must be made on the electronic document DICTATION DATE: 12/24/18 1454 FOUNDATION MAKER: DAVID 12/24/18 1454 RPT#: [id number] DC DATE: STATUS: ADM IN [facility] [address] [place] [address] END OF REPORT
--- NOTE | 2018-12-24 15:09 | NUR ---
IV AND TELEMETRY DCD. DC PLANS GIVEN. UNDERSTANDING VOICED. ESCORTED TO CAR BY W/C.
== END 2018-12-24 15:10 | disposition home health service (06) | DRG 286 ==
LOC: D.ER 15:06 → D.M2 17:13 → OBSVTIME 12-19 15:00 → D.M2 12-19 15:29
PROVIDERS: Family Medicine; Internal Medicine Interventional Cardiology; Internal Medicine Nephrology; ADMIT Family Medicine; ATTEND Family Medicine
PROC: B2151ZZ Fluoroscopy of Left Heart using Low Osmolar Contrast (ICD-10-PCS; 2018-12-22)
PROC: 4A023N7 Measurement of Cardiac Sampling and Pressure, Left Heart, Percutaneous Approach (ICD-10-PCS; 2018-12-22)
PROC: B2111ZZ Fluoroscopy of Multiple Coronary Arteries using Low Osmolar Contrast (ICD-10-PCS; principal; 2018-12-22 11:00)
DX: I25.110 Atherosclerotic heart disease of native coronary artery with unstable angina pectoris (principal); J96.21 Acute and chronic respiratory failure with hypoxia; E87.1 Hypo-osmolality and hyponatremia; N39.0 Urinary tract infection, site not specified; J44.9 Chronic obstructive pulmonary disease, unspecified; I48.0 Paroxysmal atrial fibrillation; E11.9 Type 2 diabetes mellitus without complications; Z93.0 Tracheostomy status; Z86.711 Personal history of pulmonary embolism; Z95.0 Presence of cardiac pacemaker

== ENCOUNTER → 2019-06-07 18:25 | Outpatient (CLI) | payer MEDICARE, OTHER ==
[2018-12-21 14:03] VITALS: BMI 24.7
[~2019-06-07 18:25] MED LIST changes: +BYSTOLIC20 MG PO; +LANOXIN125 MCG PO; +LISINOPRIL10 MG PO; +ZANAFLEX4 MG PO
[2019-06-07 19:21] LABS: BILIRUBIN NEGATIVE (NEGATIVE); GLUCOSE NEGATIVE (NEGATIVE); KETONE NEGATIVE (NEGATIVE); NITRITE NEGATIVE (NEGATIVE); SPECIFIC GRAVITY 1.015 (1.005-1.020); UROBILINOGEN NORMAL (NORMAL)
[2019-06-07 19:22] LABS: BACTERIA MANY /hpf (NEGATIVE); EPITHELIAL CELLS 0-5 /hpf (0-5); RED CELLS - URINE 0-5 /hpf (0-5); WHITE CELLS - URINE >50 /hpf (NEGATIVE)
== END | disposition home or self-care (01) ==
LOC: D.LABREF 18:25
PROVIDERS: ATTEND Emergency Medicine
DX: N39.0 Urinary tract infection, site not specified (principal)

== ENCOUNTER 2019-06-21 12:15 | Inpatient (IN) | payer MEDICARE, OTHER ==
[~2019-06-21] VITALS: Ht 157.5 cm; Wt 55.3 kg
[2019-06-21 13:12] LABS: BASOPHILS 0.2 % (0-2); EOSINOPHILS 0.2 % (0-7); HEMATOCRIT 34.1 % (36.0-48.0); HEMOGLOBIN 10.7 g/dL (12-16); IMMATURE GRANULOCYTES 0.6 % (0-5); LYMPHOCYTES 7.4 % (15-50); MCH 29.3 pg (26.0-34.0); MCHC 31.4 g/dL (31.0-37.0); MCV 93.4 fL (80.0-100.0); MEAN PLATELET VOLUME 11.2 fL (7.4-10.4); MONOCYTES 8.1 % (2-11); NEUTROPHILS 83.5 % (40-80); RBC 3.65 10x6/uL (4.00-5.40); RDW 15.4 % (11.5-14.5); WBC 12.1 10x3/uL (4.8-10.8)
[2019-06-21 13:26] LABS: CALC OSMOLALITY 270 mosm/kg (275-300); CALCIUM 8.1 mg/dL (8.5-10.1); CARBON DIOXIDE 27.8 mmol/L (21.0-32.0); CHLORIDE - SERUM 95 mmol/L (98-107); CREATININE - SERUM 2.1 mg/dL (0.6-1.3); GLUCOSE 150 mg/dL (74-106); POTASSIUM - SERUM 3.6 mmol/L (3.5-5.1); SODIUM 130 mmol/L (136-145); UREA NITROGEN 32 mg/dL (7-18); eGFR NON AFRICAN AMERICAN 25 mL/min (90-120)
[2019-06-21 13:39] LABS: PLATELET COUNT 384 10x3/uL (130-400)
[2019-06-21 13:44] LABS: ALBUMIN 2.4 g/dL (3.4-5.0); ALKALINE PHOSPHATASE 142 U/L (30-120); ALT (SGPT) 30 U/L (10-68); BILIRUBIN - TOTAL 0.48 mg/dL (0.2-1.3); CKMB 1.1 U/L (0.0-3.6); CREATINE KINASE 79 UL (21-215); PRO BNP 1676 pg/mL (0-125); PROTEIN - SERUM 7.4 g/dL (6.4-8.2); TROPONIN-I 0.024 ng/mL (0.000-0.060)
[2019-06-21 13:45] LABS: APTT 32.9 SECONDS (22.8-39.4); INR 1.32 (0.85-1.17); PROTIME 16.3 SECONDS (11.6-15.0)
[2019-06-21 13:56] VITALS: BP 100/53
--- NOTE | 2019-06-21 14:26 | NUR ---
URINE COLLECTED AND SENT TO LAB VIA TUBE SYSTEM.
[2019-06-21 15:00] VITALS: BP 109/40
[2019-06-21 15:10] LABS: BILIRUBIN NEGATIVE (NEGATIVE); GLUCOSE 50 mg/dL (NEGATIVE); KETONE NEGATIVE (NEGATIVE); NITRITE NEGATIVE (NEGATIVE); RED CELLS - URINE 0-5 /hpf (0-5); SPECIFIC GRAVITY 1.015 (1.005-1.020); UROBILINOGEN NORMAL (NORMAL); WHITE CELLS - URINE 25-50 /hpf (NEGATIVE)
[2019-06-21 15:11] LABS: BACTERIA MODERATE /hpf (NEGATIVE); EPITHELIAL CELLS 0-5 /hpf (0-5)
[2019-06-21 15:12] LABS: YEAST <1+ /hpf (NONE SEEN)
[2019-06-21 16:00] VITALS: BP 104/44
[2019-06-21 17:00] VITALS: BP 107/68
[2019-06-21 18:10] VITALS: BP 108/65
[2019-06-21 19:06] LABS: CKMB 1.3 U/L (0.0-3.6); CREATINE KINASE 59 UL (21-215); TROPONIN-I 0.021 ng/mL (0.000-0.060)
[2019-06-21 21:35] VITALS: BMI 22.3
[2019-06-22 06:26] LABS: BASOPHILS 0.1 % (0-2); EOSINOPHILS 0.6 % (0-7); HEMATOCRIT 34.7 % (36.0-48.0); HEMOGLOBIN 10.5 g/dL (12-16); IMMATURE GRANULOCYTES 0.6 % (0-5); LYMPHOCYTES 11.7 % (15-50); MCH 28.8 pg (26.0-34.0); MCHC 30.3 g/dL (31.0-37.0); MCV 95.1 fL (80.0-100.0); MEAN PLATELET VOLUME 10.8 fL (7.4-10.4); MONOCYTES 10.3 % (2-11); NEUTROPHILS 76.7 % (40-80); PLATELET COUNT 341 10x3/uL (130-400); RBC 3.65 10x6/uL (4.00-5.40); RDW 15.4 % (11.5-14.5); WBC 9.1 10x3/uL (4.8-10.8)
[2019-06-22 06:56] LABS: ANION GAP 10.1 mmol/L (8-16); BILIRUBIN - TOTAL 0.33 mg/dL (0.2-1.3); C-REACTIVE PROTEIN 10.4 mg/dL (0.0-0.9); CALCIUM 7.4 mg/dL (8.5-10.1); CREATININE - SERUM 1.6 mg/dL (0.6-1.3); MAGNESIUM - SERUM 1.4 mg/dL (1.8-2.4); PHOSPHOROUS 3.6 mg/dL (2.5-4.9); POTASSIUM - SERUM 3.1 mmol/L (3.5-5.1); PROTEIN - SERUM 6.2 g/dL (6.4-8.2); THYROID STIMULATING HORMONE 16.78 uIU/mL (0.36-3.74)
[2019-06-22 07:06] LABS: DIGOXIN 0.31 ng/mL (0.90-2.00)
[2019-06-22 12:42] VITALS: BP 114/54
[2019-06-22 12:45] VITALS: Ht 157.5 cm; Wt 55.3 kg
[2019-06-22 20:39] VITALS: BP 96/50
--- NOTE | 2019-06-22 22:48 | NUR ---
SHONDA CAMPO PROCESSING TECHNOLOGIST CALLED WITH COVID 19 RESULTS. THEY ARE NEGATIVE. TAKEN OUT OF ISOLATION.
[2019-06-23 06:38] LABS: BASOPHILS 0.3 % (0-2); EOSINOPHILS 0.8 % (0-7); HEMATOCRIT 37.3 % (36.0-48.0); HEMOGLOBIN 10.9 g/dL (12-16); IMMATURE GRANULOCYTES 0.5 % (0-5); LYMPHOCYTES 11.5 % (15-50); MCH 28.5 pg (26.0-34.0); MCHC 29.2 g/dL (31.0-37.0); MEAN PLATELET VOLUME 11.1 fL (7.4-10.4); MONOCYTES 8.7 % (2-11); NEUTROPHILS 78.2 % (40-80); PLATELET COUNT 333 10x3/uL (130-400); RBC 3.82 10x6/uL (4.00-5.40); RDW 15.8 % (11.5-14.5); WBC 7.3 10x3/uL (4.8-10.8)
[2019-06-23 06:43] LABS: MCV 97.6 fL (80.0-100.0)
[2019-06-23 06:47] LABS: ANION GAP 16.6 mmol/L (8-16); CALCIUM 7.9 mg/dL (8.5-10.1); CARBON DIOXIDE 21.6 mmol/L (21.0-32.0); CREATININE - SERUM 1.3 mg/dL (0.6-1.3)
[2019-06-23 06:49] LABS: MAGNESIUM - SERUM 1.9 mg/dL (1.8-2.4); POTASSIUM - SERUM 4.2 mmol/L (3.5-5.1)
[2019-06-23 09:00] VITALS: BP 98/44
[2019-06-23 12:00] VITALS: BP 92/47
--- NOTE | 2019-06-23 15:33 | NUR ---
BUTTOCKS REDNESS AND EXCORIATION NOTED UPON ADMISSION. SINCE THEN PT HAS HAD A F/C PLACED. BLANCHABLE REDNESS IS NOTED BUT NO EXCORIATION OR MOISTURE ASSOCIATED SKIN IMPAIRMENTS. WOUND CARE WILL CONTINUE MONITORING.
[2019-06-23 16:00] VITALS: BP 92/47
[2019-06-23 20:00] VITALS: BP 102/42
[2019-06-24 04:00] VITALS: BP 108/46; BP 116/43
[2019-06-24 06:18] LABS: BASOPHILS 0.5 % (0-2); IMMATURE GRANULOCYTES 0.3 % (0-5); LYMPHOCYTES 16.7 % (15-50); MCH 28.8 pg (26.0-34.0); MCHC 30.3 g/dL (31.0-37.0); MONOCYTES 9.7 % (2-11); NEUTROPHILS 71.8 % (40-80); PLATELET COUNT 314 10x3/uL (130-400); RBC 3.47 10x6/uL (4.00-5.40); RDW 15.3 % (11.5-14.5); WBC 5.9 10x3/uL (4.8-10.8)
[2019-06-24 06:29] LABS: ANION GAP 10.4 mmol/L (8-16); CALCIUM 7.5 mg/dL (8.5-10.1); CARBON DIOXIDE 25.8 mmol/L (21.0-32.0); CREATININE - SERUM 1.3 mg/dL (0.6-1.3); MAGNESIUM - SERUM 1.7 mg/dL (1.8-2.4); POTASSIUM - SERUM 4.2 mmol/L (3.5-5.1)
[2019-06-24 06:38] LABS: MCV 95.1 fL (80.0-100.0)
[2019-06-24 09:23] VITALS: BP 116/52
[2019-06-24 12:00] VITALS: BP 119/68
--- NOTE | 2019-06-24 13:41 | NUR ---
I have reviewed this patient and I concur with the Shift Assessment completed by the Licensed Practical Nurse today this shift.
--- NOTE | 2019-06-24 19:28 | NUR ---
PT ALERT AND AWKE BED LOW AND LOCKED PT CO PAIN PRN WILL BE GIVEN EFFORT MADE TO ASSIST WITH COMFORT
[2019-06-24 20:00] VITALS: BP 115/51
[2019-06-25] VITALS: BP 125/58
[2019-06-25 04:00] VITALS: BP 118/53
[2019-06-25 05:41] LABS: BASOPHILS 0.4 % (0-2); EOSINOPHILS 1.3 % (0-7); HEMATOCRIT 34.1 % (36.0-48.0); HEMOGLOBIN 10.4 g/dL (12-16); IMMATURE GRANULOCYTES 0.4 % (0-5); LYMPHOCYTES 19.7 % (15-50); MCH 28.7 pg (26.0-34.0); MCHC 30.5 g/dL (31.0-37.0); MCV 94.2 fL (80.0-100.0); MEAN PLATELET VOLUME 10.5 fL (7.4-10.4); MONOCYTES 13.1 % (2-11); NEUTROPHILS 65.1 % (40-80); PLATELET COUNT 289 10x3/uL (130-400); RBC 3.62 10x6/uL (4.00-5.40); RDW 15.2 % (11.5-14.5); WBC 5.6 10x3/uL (4.8-10.8)
[2019-06-25 06:23] LABS: ANION GAP 10.4 mmol/L (8-16); CALCIUM 7.7 mg/dL (8.5-10.1); CARBON DIOXIDE 26.6 mmol/L (21.0-32.0); CREATININE - SERUM 1.1 mg/dL (0.6-1.3); MAGNESIUM - SERUM 1.6 mg/dL (1.8-2.4)
--- NOTE | 2019-06-25 07:10 | NUR ---
REPORT RECEIVED FROM STEAM CRANE OPERATOR AND PATIENT CARE ASSUMED. PATIENT LAYING IN BED AWAKE, ALERT AND ORIENTED X 4. PATIENT IS STABLE AND VSS. PATIENT DENIES ANY NEEDS OR PAIN. WILL CONTINUE WITH PLAN OF CARE. SR UPX 2 BED IN LOW POSITION AND CALL LIGHT IN REACH.
[2019-06-25 09:25] VITALS: BP 153/57
--- NOTE | 2019-06-25 11:07 | NUR ---
PATIENT UNCHANGED. ASSESSMENT COMPLETED.
[2019-06-25 12:00] VITALS: BP 132/53
--- NOTE | 2019-06-25 12:48 | NUR ---
Pt has a 1cm x 1cm area of old eschar on her left heel. It is dry and is peeling off. Healthy skin is noted underneath. Right buttock has a 1cm x 1cm stage 2 pressure injury and sacrum has an area of nonblanchable redness. Buttock and sacrum were covered with mepilex dressing for protection and pt was instructed to reposition herself off of her bottom. She voiced understanding. Left heel was covered with a mepilex for protection and floated. Air overlay mattress ordered. Wound care will continue monitoring.
--- NOTE | 2019-06-25 13:19 | NUR ---
Nutrition Follow-up: Ate ~50% of breakfast this AM. Per wound care nurse, pt with stage 2 pressure injury to R buttock. Diet: Regular Wt: 122# (06/21) No BMs recorded Labs noted: Na 133, Ca 7.7, Mg 1.6 Meds noted: Miralax, Humalog, Protonix, electrolyte protocol -Encourage PO intake and honor food preferences within diet restrictions. -Offer nutrition supplements. -Consider Erich BID for wound healing. -Need new wt; noted daily wts ordered.
[2019-06-25 16:30] VITALS: BP 116/55
[2019-06-25 20:00] VITALS: BP 140/62
--- NOTE | 2019-06-25 22:00 | NUR ---
PT ALERT AND ORIENTED. ASSISTED HER TO GET MORE COMFORTABLE IN BED. SHE IS CURRENTLY ON 10L OF O2 THROUGH TRACH COLLAR. SHE HAS NS INFUSING THROUGH HER RIGHT AC IV AT 50ML/HR. SINCE SHE IS UNABLE TO SPEAK, I COMMUNICATE WITH HER BY READING HER LIPS OR SHE WRITES HER NEEDS DOWN ON PAPER. SHE DENIES NEEDS AT THIS TIME. HER BED IS LOW AND CALL LIGHT IS WITHIN REACH.
[2019-06-26 00:01] VITALS: BP 130/61
[2019-06-26 04:00] VITALS: BP 137/90
[2019-06-26 07:02] LABS: ANION GAP 10.4 mmol/L (8-16); CALCIUM 7.6 mg/dL (8.5-10.1); MAGNESIUM - SERUM 1.9 mg/dL (1.8-2.4); POTASSIUM - SERUM 4.4 mmol/L (3.5-5.1)
[2019-06-26 07:07] LABS: HEMATOCRIT 35.4 % (36.0-48.0); HEMOGLOBIN 10.9 g/dL (12-16); MCH 28.9 pg (26.0-34.0); MCHC 30.8 g/dL (31.0-37.0); MCV 93.9 fL (80.0-100.0); MEAN PLATELET VOLUME 10.3 fL (7.4-10.4); NEUTROPHILS 62.9 % (40-80); PLATELET COUNT 251 10x3/uL (130-400); RBC 3.77 10x6/uL (4.00-5.40); RDW 15.2 % (11.5-14.5)
--- NOTE | 2019-06-26 07:40 | NUR ---
PT ALERT AND ORIENTED. NO COMPLAINTS OR CONCERNS, SOME SMALL REQUESTS FOR BREAKFAST. WILL ACCOMIDATE. CL INR EACH, SRX2
[2019-06-26 08:03] VITALS: BP 128/84
[2019-06-26] MEDS ORDERED: OMNICEF300 MG PO (11:07)
[2019-06-26] MEDS ORDERED: AZITHROMYCIN500 MG PO (11:07)
[2019-06-26] MEDS ORDERED: MIRALAX17 GM PO (11:08)
[2019-06-26] MEDS ORDERED: LEVOTHYROXINE75 MCG PO (11:08)
[2019-06-26 11:56] VITALS: BP 117/48
--- NOTE | 2019-06-26 12:41 | NUR ---
CHANGED PATIENT FROM HUMIDIFIED O2 TO HUMIDIFIED AIR
--- NOTE | 2019-06-26 15:03 | MORECARE ---
CASE MANAGEMENT DISCHARGE SUMMARY PATIENT: SCARLETT MOODY UNIT: [id number] ADM DATE: 06/21/19 AGE: 69 : 52 SEX: F ROOM/BED: D.2139 AUTHOR: MARIBETH HURLEY PHYSICIAN: REFERRING PHYSICIAN: PIOTR IZQUIERDO MD DATE OF SERVICE: 06/26/19 Discharge Plan Patient Name: SCARLETT MOODY [facility] [facility] 1950 Planned Disposition: Home Health Service Anticipated Discharge Date: 06/26/19 Discharge Date: Expected LOS: 5 Initial Reviewer: [email or web address] Initial Review Date: 06/21/2019 Generated: 06/26/19 4:02 pm Patient Name: SCARLETT MOODY Page [id number] at 1503 All edits/amendments must be made on the electronic document DICTATION DATE: 06/26/19 1502 ASSOCIATE PROFESSOR OF CRIMINAL JUSTICE: DAVID 06/26/19 1502 RPT#: [id number] DC DATE: STATUS: ADM IN [facility] [address] [place] [address] END OF REPORT
[2019-06-26 15:49] VITALS: BP 117/49
--- NOTE | 2019-06-26 18:16 | NUR ---
I have reviewed this patient and I concur with the Shift Assessment completed by the Licensed Practical Nurse today this shift.
--- NOTE | 2019-06-26 19:04 | MORECARE ---
CASE MANAGEMENT DISCHARGE SUMMARY PATIENT: SCARLETT MOODY UNIT: [id number] ADM DATE: 06/21/19 AGE: 69 : 54 SEX: F ROOM/BED: D.3193 AUTHOR: MARIBETH HURLEY PHYSICIAN: REFERRING PHYSICIAN: PIOTR IZQUIERDO MD DATE OF SERVICE: 06/26/19 Discharge Plan Patient Name: SCARLETT MOODY [facility] [facility] 1950 Planned Disposition: Home Health Service Anticipated Discharge Date: 06/26/19 Discharge Date: Expected LOS: 5 Initial Reviewer: [email or web address] Initial Review Date: 06/21/2019 Generated: 06/26/19 8:03 pm DCPIA - Discharge Planning Initial Assessment Updated by [email or web address]: Cristal Morelos on 06/26/19 6:59 pm * Is the patient Alert and Oriented? Yes * How many steps to enter\exit or inside your home? ONE * PCP AKHIL OSEI NP * Pharmacy [facility] * Preadmission Environment Home with Family * ADLs Independent * Equipment Bedside Commode Nebulizer Rolling Walker Shower Chair * Other Equipment HUMIDIFER AIR TO TRACH WALKER NEBULIZER. SHOWER CHAIR/ BEDSIDE COMMODE * List name and contact numbers for known caregivers / representatives who currently or will assist patient after discharge: -CINTHIA ENGLE [facility] - [phone] * Please name any agencies selected above. [facility] [phone] * Additional services required to return to the preadmission environment? Yes * Can the patient safely return to the preadmission environment? Yes * Has this patient been hospitalized within the prior 30 days at any hospital? No Last DP export: 06/26/19 2:03 pm Patient Name: SCARLETT MOODY Page 17170 at 1904 All edits/amendments must be made on the electronic document DICTATION DATE: 06/26/191902 SENIOR JAVA WEB APPLICATION DEVELOPER: DAVID 06/26/191902 RPT#: [id number] DC DATE: STATUS: ADM IN [facility] [address] [place] [address] END OF REPORT
--- NOTE | 2019-06-26 19:16 | MORECARE ---
CASE MANAGEMENT DISCHARGE SUMMARY PATIENT: SCARLETT MOODY UNIT: [id number] ADM DATE: 06/21/19 AGE: 69 : 54 SEX: F ROOM/BED: D.9483 AUTHOR: XAVI,DOC PHYSICIAN: REFERRING PHYSICIAN: PIOTR IZQUIERDO MD DATE OF SERVICE: 06/26/19 Discharge Plan Patient Name: SCARLETT MOODY Facility: [facility]:[place] : 1950 Planned Disposition: Home Health Service Anticipated Discharge Date: 06/26/19 Discharge Date: Expected LOS: 5 Initial Reviewer: [id number] Initial Review Date: 06/21/2019 Generated: 06/26/19 8:16 pm Comments DCP- Discharge Planning Updated by [id number]: Cristal Morelos on 06/26/19 6:[address] LATE ENTRY- 1228 PATIENT WITH TRACH. CM SPOKE W/ ANANYA, THE PRIMARY NURSE REGARDING DISCHARGE AND TO VERIFY OXYGEN ADMINISTRATION. DOCUMENTATION IS OXYGEN AT 8/L VIA TRACH COLLAR. MUST READ LIPS TO COMMUNICATE. EIGHT LITERS OF OXYGEN IS HIGH FOR HOME ADMINISTRATION. ADVISED I WOULD CHECK W/ DME COMPANY. PATIENT'S DAUGHTER WAS CONTACTED TO COMPLETE DISCHARGE ASSESSMENT. CINTHIA ENGLE STATED SHE WOULD ASSIST WHEN CONTACTED. SHE THOUGHT HER MOTHER WOULD BE GOING TO REHAB SHE IS WEAKER. SHE NORMALLY IS UP AND AMBULATES W/ A WALKER. SHE HAS HUMIDIFED AIR TO HER TRACH NO OXYGEN. THE PATIENT IS ON SERVICE W/ [facility]. JOSE IS HER TRACH SUPPLY PROVIDER. ONE STEP TO ENTER HER HOME. DTR STATES PATIENT HAS BSC, NEBULIZER, SHOWER CHAIR AND WALKER. [facility] FOR MEDICATIONS. AKHIL WOO NP, IS MEDICAL PROVIDER. TC TO [employer] AND SPOKE W/ SENTHIL, THE WORK CHECKER. PATIENT CANNOT BE SET UP WITH OXYGEN DELIVERY SYSTEM ON 8/L VIA TRACH C OLLAR THIS WEEKEND. THE RESPIRTAORY THERAPIST WOULD NEED TO BE INVOLVED. CM DISCUSSED THE ABOVE W/ THE PRIMARY NURSE. SHE WILL SPEAK WITH THE MD. RESPIRATORY THERAPY WAS NOTIFIED BY THE NURSE TO START WEANING PROCESS. RESP TO MONITOR AND DOCUMENT. CM TO FOLLOW. DCPIA - Discharge Planning Initial Assessment Updated by [id number]: Cristal Morelos on 06/26/19 6:59 pm * Is the patient Alert and Oriented? Yes * How many steps to enter\exit or inside your home? ONE * PCP AKHIL OSEI NP * Pharmacy [facility] * Preadmission Environment Home with Family * ADLs Independent * Equipment Bedside Commode Nebulizer Rolling Walker Shower Chair * Other Equipment HUMIDIFER AIR TO TRACH WALKER NEBULIZER. SHOWER CHAIR/ BEDSIDE COMMODE * List name and contact numbers for known caregivers / representatives who currently or will assist patient after discharge: -CINTHIA ONIEL [facility] - [phone] * Please name any agencies selected above. [facility] [phone] * Additional services required to return to the preadmission environment? Yes * Can the patient safely return to the preadmission environment? Yes * Has this patient been hospitalized within the prior 30 days at any hospital? No Last DP export: 06/26/19 6:04 pm Patient Name: SCARLETT MOODY Page [id number] at 1916 All edits/amendments must be made on the electronic document DICTATION DATE: 06/26/191915 AUTOMOBILE MECHANIC APPRENTICE: DAVID 06/26/191915 RPT#: [id number] DC DATE: STATUS: ADM IN [facility] [address] [place] [address] END OF REPORT
[2019-06-26 20:00] VITALS: BP 138/61
[2019-06-27] VITALS: BP 139/55
--- NOTE | 2019-06-27 02:13 | NUR ---
RESTING IN BED WITH EYES CLOSED. HOB ELEVATED. TRCH COLLAR IN PLACE WITH O2@ 8 LITERS PER N/C. RESP. EVEN AND UNLABORED. NO S/S OF DISTRESS OBSERVED.
[2019-06-27 07:03] LABS: HEMATOCRIT 35.4 % (36.0-48.0); LYMPHOCYTES 17.3 % (15-50); MCH 29.3 pg (26.0-34.0); MCHC 31.1 g/dL (31.0-37.0); MCV 94.1 fL (80.0-100.0); MEAN PLATELET VOLUME 10.3 fL (7.4-10.4); PLATELET COUNT 208 10x3/uL (130-400); RBC 3.76 10x6/uL (4.00-5.40); RDW 15.1 % (11.5-14.5); WBC 4.8 10x3/uL (4.8-10.8)
--- NOTE | 2019-06-27 07:29 | NUR ---
PT RESTING COMFORTABLY IN BED, DID NOT WAKE I ENTERED, DID NOT FURTHER DISTURB AT THIST THEO. BREATHS EVEN/REGULAR AND UNLABORED. NO SIGNS OR SYMPTOMS OF ACUTE DISTRESS NOTED AT THIS TIME. CL IN REACH, SRX2.
[2019-06-27 07:41] LABS: ANION GAP 11.3 mmol/L (8-16); CALCIUM 7.7 mg/dL (8.5-10.1); CARBON DIOXIDE 26.8 mmol/L (21.0-32.0); MAGNESIUM - SERUM 1.7 mg/dL (1.8-2.4); POTASSIUM - SERUM 4.1 mmol/L (3.5-5.1)
[2019-06-27 08:06] VITALS: BP 170/65
--- NOTE | 2019-06-27 09:37 | NUR ---
PT ALERT AND ORIENTED, TOOK MEDS WITHOUT COMPLICATIONS. ASSISTED ON AND OFF BEDPAN. PT REFUSED MIRALAX AND DUCOLOX D/T DIAHREAH YESTERDAY. IT IS BETTER TODAY. CL IN REACH, SRX2. NO COMPLAINTS OR CONCERNS AT THIS TIME. CL INR EACH, SRX2.
[2019-06-27 12:08] VITALS: BP 148/62
[2019-06-27 15:43] VITALS: BP 117/52
--- NOTE | 2019-06-27 15:53 | NUR ---
I have reviewed this patient and I concur with the Shift Assessment completed by the Licensed Practical Nurse today this shift.
--- NOTE | 2019-06-27 15:53 | NUR ---
PT IV/ OUT TIP INTACT. REFUSING NEW STICK, HOPING TO D/C TOMORROW FOR REHAB.
--- NOTE | 2019-06-27 19:22 | NUR ---
RECEIVED UP IN BED WITH EYES OPEN. ALERT AND ORIENTED. APHASIC AND ABLE TO COMMUNICATE BY MIMICING WORDS. REPORTED REFUSED IV. CONT TO REFUSE IV. DSG TO COCCYX CDI. TRACH COLLAR IN PLACE WITH HUMIDIFIED AIR AT [address] RESP EVEN AND UNLABORES. F/C INTACT WITH CLEAR YELLOW URINE DRAINING TO BEDSIDE DRAINAGE BAG.
[2019-06-27 20:00] VITALS: BP 124/51
[2019-06-28 00:01] VITALS: BP 145/54
--- NOTE | 2019-06-28 07:11 | NUR ---
PT RESTING COMFROTABLY WHEN WE ENTERED THE ROOM FOR BEDSIDE. DID NOT WAKE WE DISCUSSED, BREATHS EVEN REGULAR AND UNLABORED. NO SIGNS OR SYMPTOMS OF ACUTE DISTRESS NOTED AT THIS TIME. DID NOT FURTHER DISTURB AT THIS TIME. CL IN REACH, SRX2.
--- NOTE | 2019-06-28 08:32 | NUR ---
PT AWAKE AND ORIENTED, TOOK MEDICATIONS WITHOUT COMPLICATIONS. NO COMPLAINT OR CONCERNS, CL IN REACH, SRX2. ALL QUESTIONS ANSWERED TO THE BEST OF MY ABILITY.
[2019-06-28 09:09] VITALS: BP 170/65
--- NOTE | 2019-06-28 09:47 | NUR ---
PT HAD SMALL BM, CLEAN AND DRY, UP TO CHAIR WITH AID FROM PHYSICAL THERAPY. CL IN REACH, SRX2.
--- NOTE | 2019-06-28 10:00 | NUR ---
Rehab Note- Acute Inpatient Rehab prescreen order received 06/25, not notified at that time of referral. The patient is a good inpatient acute rehab candidate, but currently is on 8L/trach- needs to be weaned prior to acute inpatient rehab stay. Will continue to follow at this time. Thank you for this referral! Jenise Saenz RN Clinical Liaison, [facility] Rehab
--- NOTE | 2019-06-28 10:59 | NUR ---
BACK TO BED WITH PT.
[2019-06-28 12:00] VITALS: BP 147/60
--- NOTE | 2019-06-28 13:35 | NUR ---
SPOKE TO NELLY IN REHAB, PT TO BE ACCPETED LATER TODAY THEY WILL CALL WITH A BED NUMBER. CL DALILA, SRX2.
--- NOTE | 2019-06-28 14:58 | NUR ---
PT SIGNED D/C PAPERWORK, DELGADO REMOVED PER STERILE NURSING PROTOCOL. PT STATES SHE IS CONTENENT OF BOWEL AND BLADDER AND WILL INFORM US WHEN SHE NEEDS TO URINATE, WE WILL MONITOR CLOSELY. NO ROOM AT REHAB AT THIS TIME. CL INR EACH, SRX2.
[2019-06-28 16:22] LABS: HEMATOCRIT 35.1 % (36.0-48.0); HEMOGLOBIN 10.7 g/dL (12-16); LYMPHOCYTES 20.5 % (15-50); MCH 28.7 pg (26.0-34.0); MCHC 30.5 g/dL (31.0-37.0); MCV 94.1 fL (80.0-100.0); NEUTROPHILS 71.1 % (40-80); PLATELET COUNT 187 10x3/uL (130-400); RBC 3.73 10x6/uL (4.00-5.40); RDW 14.8 % (11.5-14.5); WBC 5.7 10x3/uL (4.8-10.8)
[2019-06-28 16:39] LABS: ANION GAP 12.1 mmol/L (8-16); CALCIUM 7.6 mg/dL (8.5-10.1); CARBON DIOXIDE 28.8 mmol/L (21.0-32.0)
[2019-06-28 16:43] LABS: POTASSIUM - SERUM 4.9 mmol/L (3.5-5.1)
--- NOTE | 2019-06-28 18:00 | NUR ---
PT ESCORTED OUT VIA WHEELCHIAR TO REHAB.
--- NOTE | 2019-06-29 07:58 | MORECARE ---
CASE MANAGEMENT DISCHARGE SUMMARY PATIENT: SCARLETT MOODY UNIT: [id number] ADM DATE: 06/21/19 AGE: 69 : 54 SEX: F ROOM/BED: D.8682 AUTHOR: XAVI,DOC PHYSICIAN: REFERRING PHYSICIAN: PIOTR IZQUIERDO MD DATE OF SERVICE: 06/29/19 Discharge Plan Patient Name: SCARLETT MOODY Facility: [facility]:[place] : 1950 Planned Disposition: Home Health Service Anticipated Discharge Date: 06/26/19 Discharge Date: 06/28/2019 Expected LOS: 5 Initial Reviewer: [id number] Initial Review Date: 06/21/2019 Generated: 06/29/19 8:57 am DCP- Discharge Planning Updated by [email or web address]: Cristal Morelos on 06/26/19 6:[address] LATE ENTRY- 1228 PATIENT WITH TRACH. CM SPOKE W/ ANANYA, THE PRIMARY NURSE REGARDING DISCHARGE AND TO VERIFY OXYGEN ADMINISTRATION. DOCUMENTATION IS OXYGEN AT 8/L VIA TRACH COLLAR. MUST READ LIPS TO COMMUNICATE. EIGHT LITERS OF OXYGEN IS HIGH FOR HOME ADMINISTRATION. ADVISED I WOULD CHECK W/ DME COMPANY. PATIENT'S DAUGHTER WAS CONTACTED TO COMPLETE DISCHARGE ASSESSMENT. CINTHIA ENGLE STATED SHE WOULD ASSIST WHEN CONTACTED. SHE THOUGHT HER MOTHER WOULD BE GOING TO REHAB SHE IS WEAKER. SHE NORMALLY IS UP AND AMBULATES W/ A WALKER. SHE HAS HUMIDIFED AIR TO HER TRACH NO OXYGEN. THE PATIENT IS ON SERVICE W/ [facility]. JOSE IS HER TRACH SUPPLY PROVIDER. ONE STEP TO ENTER HER HOME. DTR STATES PATIENT HAS BSC, NEBULIZER, SHOWER CHAIR AND WALKER. [facility] FOR MEDICATIONS. AKHIL WOO NP, IS MEDICAL PROVIDER. TC TO [employer] AND SPOKE W/ SENTHIL, THE DIRECTOR OF MARKET ANALYSIS. PATIENT CANNOT BE SET UP WITH OXYGEN DELIVERY SYSTEM ON 8/L VIA TRACH C OLLAR THIS WEEKEND. THE RESPIRTAORY THERAPIST WOULD NEED TO BE INVOLVED. CM DISCUSSED THE ABOVE W/ THE PRIMARY NURSE. SHE WILL SPEAK WITH THE MD. RESPIRATORY THERAPY WAS NOTIFIED BY THE NURSE TO START WEANING PROCESS. RESP TO MONITOR AND DOCUMENT. CM TO FOLLOW. DCPIA - Discharge Planning Initial Assessment Updated by [id number]: Cristal Morelos on 06/26/19 6:59 pm * Is the patient Alert and Oriented? Yes * How many steps to enter\exit or inside your home? ONE * PCP AKHIL OSEI NP * Pharmacy [facility] * Preadmission Environment Home with Family * ADLs Independent * Equipment Bedside Commode Nebulizer Rolling Walker Shower Chair * Other Equipment HUMIDIFER AIR TO TRACH WALKER NEBULIZER. SHOWER CHAIR/ BEDSIDE COMMODE * List name and contact numbers for known caregivers / representatives who currently or will assist patient after discharge: -CINTHIA ENGLE [facility] - [phone] * Please name any agencies selected above. [facility] [phone] * Additional services required to return to the preadmission environment? Yes * Can the patient safely return to the preadmission environment? Yes * Has this patient been hospitalized within the prior 30 days at any hospital? No Coverage Notice Reviewer: [id number] Brianna Dias Notice Issued Date-Time: 06/28/2019 14:00 Notice Type: IM Discharge Notice Notice Delivered To: Patient Relationship to Patient: Data Programmer Name: Delivery Method: HAND - Hand Delivered Salma Days: Prior Verbal Notification: Recipient Understood Notice: Yes Recipient Signature: Yes Med Rec Note Co-signed by Attending: Coverage Notice Comment: DC IMM delivered, explained, signed by the patient, and placed in his chart. Signed form also left with patient. Last DP export: 06/26/19 6:16 pm Patient Name: SCARLETT MOODY Page [id number] at 0758 All edits/amendments must be made on the electronic document DICTATION DATE: 06/29/19 0757 CABIN CREW: DAVID 06/29/19 0757 RPT#: [id number] DC DATE:06/28/19 STATUS: DIS IN [facility] [address] [place] [id number] END OF REPORT
== END 2019-06-28 18:00 | disposition home health service (06) | DRG 193 ==
LOC: D.ER 12:15 → D.M2 18:12
PROVIDERS: Family Medicine; ADMIT Internal Medicine Nephrology; ATTEND Internal Medicine Nephrology
DX: J18.9 Pneumonia, unspecified organism (principal); E43 Unspecified severe protein-calorie malnutrition; N39.0 Urinary tract infection, site not specified; K56.0 Paralytic ileus; N17.9 Acute kidney failure, unspecified; E87.1 Hypo-osmolality and hyponatremia; J44.0 Chronic obstructive pulmonary disease with (acute) lower respiratory infection; I50.32 Chronic diastolic (congestive) heart failure; J98.11 Atelectasis; E87.5 Hyperkalemia; D64.9 Anemia, unspecified; E78.5 Hyperlipidemia, unspecified; E03.9 Hypothyroidism, unspecified; I25.10 Atherosclerotic heart disease of native coronary artery without angina pectoris; K31.84 Gastroparesis; I11.0 Hypertensive heart disease with heart failure; F41.8 Other specified anxiety disorders; Z93.0 Tracheostomy status; Z87.891 Personal history of nicotine dependence

== ENCOUNTER 2019-06-28 18:30 | Inpatient (IN) | payer MEDICARE, OTHER ==
[~2019-06-28] VITALS: Ht 157.5 cm; Wt 54.9 kg
[~2019-06-28 18:30] MED LIST changes: +AZITHROMYCIN500 MG PO; +LEVOTHYROXINE75 MCG PO; +MIRALAX17 GM PO; +OMNICEF300 MG PO
--- NOTE | 2019-06-28 18:45 | NUR ---
BEDSIDE REPORT COMPLETE. PT SITTING UP IN BED. HOB ELEVATED. TRACH COLLAR INTACT. O2 5L VIA TRACH COLLAR. DENIES ANY NEEDS OR PAIN. CALL LIGHT WITHIN REACH. FALL PRECAUTIONS IN PLACE. WILL CONTINUE TO MONITOR
[2019-06-28 22:16] VITALS: BP 153/58; BMI 22.2
--- NOTE | 2019-06-29 01:00 | NUR ---
ASSISTED PT ON BEDPAN. 200ML CLEAR YELLOW URINE. BUTTPASTE APPLIED TO BUTTOCKS. REPOSITIONED ON LEFT SIDE. CALL LIGHT WITHIN REACH
--- NOTE | 2019-06-29 05:05 | NUR ---
SUCTIONED TRACH CLEAR SPUTUM. ASSISTED ON BEDPAIN. 200ML CLEAR YELLOW URINE. CALL LIGHT WITHIN REACH. FALL PRECAUTIONS IN PLACE. CPOC
--- NOTE | 2019-06-29 06:46 | NUR ---
PT LYING IN BED EYES CLOSED RESTING COMFORTABLY. RR EVEN AND UNLABORED. CALL LIGHT WITHIN REACH. FALL PRECAUTIONS IN PLACE. CPOC
[2019-06-29 07:16] LABS: HEMATOCRIT 35.4 % (36.0-48.0); HEMOGLOBIN 10.9 g/dL (12-16); LYMPHOCYTES 20.4 % (15-50); MCH 29.1 pg (26.0-34.0); MCHC 30.8 g/dL (31.0-37.0); MCV 94.4 fL (80.0-100.0); NEUTROPHILS 68.4 % (40-80); PLATELET COUNT 194 10x3/uL (130-400); RBC 3.75 10x6/uL (4.00-5.40); RDW 14.9 % (11.5-14.5); WBC 4.3 10x3/uL (4.8-10.8)
--- NOTE | 2019-06-29 08:00 | NUR ---
PATIENT RESTING IN BED, AWAKE AND ALERT, RESP EVEN AND UNLABORED, O2 RUNNING AT 5LPM VIA TRACH COLLAR, DENIES ANY NEEDS AT THIS TIME, C/L AND FLUIDS IN REACH, V/S AND ASSESSMENT COMPLETE.
[2019-06-29 08:03] VITALS: BP 155/63
--- NOTE | 2019-06-29 10:38 | NUR ---
I have reviewed this patient and I concur with the Shift Assessment completed by the Licensed Practical Nurse today this shift.
--- NOTE | 2019-06-29 12:15 | NUR ---
PATIENT ADMITTED TO REHAB FROM ACUTE FLOOR. AKHIL WOO CLINICAL RN LIAISON IS PATIENT PCP. DME AT HOME IS A NEBULIZER, AIR HUMIDIFIER FOR HER TRACH, BEDSIDE COMMODE, SHOWER CHAIR AND A WALKER. SHE IS A CLIENT OF [address] AND WILL USE [employer] FOR HER DME NEEDS. WILL CONTINUE TO FOLLOW WITH PATIENT.
--- NOTE | 2019-06-29 12:35 | NUR ---
UP IN W/C EATING LUNCH, O2 AND TRACH COLLAR IN PLACE, RESP EVEN AN UNLABORED, DENIES ANY NEEDS AT THIS TIME, C/L AND FLUIDS IN REACH.
[2019-06-29 13:39] VITALS: Ht 157.5 cm; Wt 54.9 kg
--- NOTE | 2019-06-29 16:00 | NUR ---
RESTING IN BED WITH EYES CLOSED, NO S/S OF DISTRES NOTED, RESP EVEN AND UNLABORED, O2 RUNNING 5LPM VIA TRACH COLLAR.
--- NOTE | 2019-06-29 19:51 | NUR ---
AWAKE AND ALERT. RESTING IN BED. O2/5L ON PER TRACH COLLAR. NO DISTRESS NOTED. CALL LIGHT IN REACH.
[2019-06-29 21:18] VITALS: BP 106/52
--- NOTE | 2019-06-30 01:01 | NUR ---
RESTING IN BED WITH O2/5L ON TRACH COLLAR. NO ACUTE DISTRESS NOTED.
--- NOTE | 2019-06-30 04:00 | NUR ---
BLOOD SUGAR 73 AND PATIENT C/O FEELING WEAK. SNACK GIVEN. WILL MONITOR BLOOD SUGAR.
--- NOTE | 2019-06-30 04:54 | NUR ---
BLOOD SUGAR MONITOR NOW SHOWS [id number]. WILL CONTINUE TO [id number].
[2019-06-30 07:39] LABS: BASOPHILS 0.7 % (0-2); HEMATOCRIT 33.1 % (36.0-48.0); IMMATURE GRANULOCYTES 0.2 % (0-5); LYMPHOCYTES 19.9 % (15-50); MCH 28.8 pg (26.0-34.0); MCHC 30.2 g/dL (31.0-37.0); MCV 95.4 fL (80.0-100.0); MEAN PLATELET VOLUME 10.4 fL (7.4-10.4); MONOCYTES 8.4 % (2-11); NEUTROPHILS 67.8 % (40-80); RBC 3.47 10x6/uL (4.00-5.40); RDW 15.5 % (11.5-14.5); WBC 4.4 10x3/uL (4.8-10.8)
[2019-06-30 07:52] LABS: PLATELET COUNT 243 10x3/uL (130-400)
--- NOTE | 2019-06-30 08:00 | NUR ---
I have reviewed this patient and I concur with the Shift Assessment completed by the Licensed Practical Nurse today this shift.
--- NOTE | 2019-06-30 08:00 | NUR ---
PATIENT IS ALERT/ORIENT WITH SOME FORGETFULLNESS. SITING UP IN WHEELCHAIR AT BEDSIDE. CALL LIGHT WITHIN REACH. VOICES NO NEEDS. WILL CONTINUE WITH PLAN OF CARE
--- NOTE | 2019-06-30 08:00 | NUR ---
PATIENT IS ALERT/ORIENT. HAS A TRACH TUBE. SUCTIONED BY THIS NURSE. CALL LIGHT WITHIN REACH. WILL CONTINUE WITH PLAN OF CARE
[2019-06-30 08:24] LABS: ANION GAP 7.5 mmol/L (8-16); CARBON DIOXIDE 30.9 mmol/L (21.0-32.0); CREATININE - SERUM 1.1 mg/dL (0.6-1.3); MAGNESIUM - SERUM 1.5 mg/dL (1.8-2.4); POTASSIUM - SERUM 4.4 mmol/L (3.5-5.1)
[2019-06-30 10:21] VITALS: BP 173/66
--- NOTE | 2019-06-30 10:34 | NUR ---
PATIENT IN REHAB ROOM. WORKING WITH PHYSICAL THERPAIST. DENIES ANY PAIN/DISC AT THIS TIME.
--- NOTE | 2019-06-30 15:57 | NUR ---
CARE TEAM MEETING: PATIENT IS NEW TO UNIT AND WILL BE RA AT NEXT MEETING. WILL CONTINUE TO FOLLOW WITH PATIENT.
--- NOTE | 2019-06-30 18:47 | NUR ---
BEDSIDE REPORT COMPLETE. PT SITTING UP ON SIDE OF BED. ALERT AND ORIENTED X4. DENIES ANY NEEDS OR PAIN. RR EVEN AND UNLABORED. CONTINUES ON 5L VIA TRACH COLLAR. RIGHT ARM +1 EDEMA, ELEVATED ON PILLOWS. CALL LIGHT WITHIN REACH. FALL PRECAUTIONS IN PLACE. CPOC
[2019-06-30 19:59] VITALS: BP 133/53
--- NOTE | 2019-07-01 00:40 | NUR ---
PT LYING IN BED EYES CLOSED RESTING. HOB ELEVATED. RR EVEN AND UNLABORED. CONTINUES ON 5L VIA TRACH COLLAR. CALL LIGHT WITHIN REACH. FALL PRECAUTIONS IN PLACE. WILL CONTINUE TO MONITOR
--- NOTE | 2019-07-01 02:09 | NUR ---
ASSISTED PT TO BSC WITH MIN ASSIST. DENIES ANY OTHER NEEDS OR PAIN. CALL LIGHT WITHIN REACH. BED ALARM ON. CPOC
--- NOTE | 2019-07-01 04:15 | NUR ---
ASSISTED PT TO BSC WITH MIN ASSIST. DENIES ANY OTHER NEEDS OR PAIN. RR EVEN AND UNLABORED. CALL LIGHT WITHIN REACH. FALL PRECAUTIONS IN PLACE. CPOC
[2019-07-01 07:36] VITALS: BP 115/55
--- NOTE | 2019-07-01 07:58 | NUR ---
PT RESTING IN BED WITH EYES OPEN CALL LIGHT IN REACH WILL MONITER
--- NOTE | 2019-07-01 17:53 | NUR ---
PT RESTING IN BED WITH EYES OPEN CALL LIGHT IN REACH WILL MONITER
--- NOTE | 2019-07-01 18:47 | NUR ---
BEDSIDE REPORT COMPLETE. PT LYING IN BED. HOB ELEVATED. ALERT AND ORIENTED X3. CONTINUES ON 5L VIA TRACH COLLAR. DENIES ANY NEEDS OR PAIN. NO SIGNS OF ACUTE DISTRESS NOTED. CALL LIGHT WITHIN REACH. FALL PRECAUTIONS IN PLACE. CPOC
[2019-07-01 21:33] VITALS: BP 147/88
--- NOTE | 2019-07-01 23:44 | NUR ---
PT LYING IN BED EYES CLOSED RESTING COMFORTABLY. HOB ELEVATED. RR EVEN AND UNLABORED. CONTINUES ON 5L VIA TRACH COLLAR. CALL LIGHT WITHIN REACH. FALL PRECAUTIONS IN PLACE. CPOC
[2019-07-02 08:00] VITALS: BP 174/85
--- NOTE | 2019-07-02 08:00 | NUR ---
RESTING QUIETLY IN BED.DENIES NEEDS.TRACH MASK INTACT AT 9L/MIN.ASSESSMENT COMPLETED.WILL CONTINUE WITH CURRENT PLAN OF CARE.CL IN EASY REACH,BED IN LOW POSITION.
[2019-07-02 08:39] LABS: BASOPHILS 1.2 % (0-2); HEMATOCRIT 37.1 % (36.0-48.0); HEMOGLOBIN 11.3 g/dL (12-16); IMMATURE GRANULOCYTES 0.2 % (0-5); LYMPHOCYTES 27.1 % (15-50); MCH 28.8 pg (26.0-34.0); MCHC 30.5 g/dL (31.0-37.0); MCV 94.6 fL (80.0-100.0); MEAN PLATELET VOLUME 10.5 fL (7.4-10.4); MONOCYTES 9.1 % (2-11); NEUTROPHILS 59.4 % (40-80); PLATELET COUNT 264 10x3/uL (130-400); RBC 3.92 10x6/uL (4.00-5.40); RDW 15.2 % (11.5-14.5); WBC 4.9 10x3/uL (4.8-10.8)
--- NOTE | 2019-07-02 09:55 | NUR ---
PT IN THERAPY NO TX GIVEN
--- NOTE | 2019-07-02 10:30 | NUR ---
SUCTIONED TRACH VIA STERILE TECHNIQUE.SMALL AMT.OF CLEAR TO WHITISH MUCOUS RETURNED.
--- NOTE | 2019-07-02 13:30 | NUR ---
SUCTIONED TRACH VIA STERILE TECHNIQUE.SMALL AMT.OF CLEAR TO WHITISH MUCOUS RETURNED.
--- NOTE | 2019-07-02 15:20 | NUR ---
SUCTIONED TRACH VIA STERILE TECHNIQUE WITH SMALL AMT.CLEAR TO WHITISH MUCOUS RETURNED.
[2019-07-02 19:34] VITALS: BP 122/49
--- NOTE | 2019-07-02 19:38 | NUR ---
AWAKE AND ALERT. RESITNG IN BED WITH O2/9L ON PER TRACH COLLAR. NO ACUTE DISTRESS NOTED. STATES SHE STILL HAS A HEADACHE. CALL LIGHT IN REACH.
--- NOTE | 2019-07-03 01:52 | NUR ---
SLEEPING WITH NO DISTRESS NOTED.
--- NOTE | 2019-07-03 04:50 | NUR ---
QUIET HOURS. RESTING IN BED WITH NO DISTRESS NOTED. O2/9L ON PER TRACH COLLAR.
--- NOTE | 2019-07-03 07:25 | NUR ---
RESTING WITH EYES CLOSED, POSITIONED ON BACK. 02 ON PER TRACH COLLAR AT 9 L/M WITH RESP EVEN AND UNLABORED. NO APPARENT NEW PROBLEMS. SIDERAILS UP X 2, CALL LIGHT IN REACH AND BED IN LOW LOCKED POSITION. WILL CONTINUE POC.
[2019-07-03 07:47] VITALS: BP 145/80
--- NOTE | 2019-07-03 11:00 | NUR ---
I have reviewed this patient and I concur with the Shift Assessment completed by the Licensed Practical Nurse today this shift.
[2019-07-03 19:22] VITALS: BP 166/62
--- NOTE | 2019-07-03 19:30 | NUR ---
AWAKE AND ALERT. RESTING IN BED WITH O2/9L ON PER TRACH COLLAR. MEDICATED WITH TYLENOL 650MG PO FOR CONTINUED C/O HEADACHE. TEMPERATURE 98.3 NO ACUTE DISTRESS NOTED.
--- NOTE | 2019-07-04 00:24 | NUR ---
BLOOD SUGAR DROPPED TO 53. AWAKE AND ALERT. FEELING WEAK AND SHAKY. PUDDING GIVEN PO AND SOME REGULAR COLA. WILL CONTINUE TO MONITOR.
--- NOTE | 2019-07-04 00:55 | NUR ---
BLOOD SUGAR NOW 94. RESTING QUIETLY IN BED. WILL CONTINUE TO MONITOR.
--- NOTE | 2019-07-04 01:29 | NUR ---
BLOOD SUGAR NOW 146. RESTING WITH NO ACUTE DISTRESS NOTED.
--- NOTE | 2019-07-04 04:59 | NUR ---
RESTING IN BED WITH O2/9L ON PER TRACH COLLAR. NO ACUTE DISTRESS NOTED.
--- NOTE | 2019-07-04 07:01 | NUR ---
RESTING POSITIONED ON LEFT SIDE WITH EYES CLOSED. RESP EVEN AND UNLABORED WITH 02 ON PER TRACH COLLAR AT 9L/M. NO APPARENT NEW PROBLEMS. SIDERAILS UP X 2, CALL LIGHT IN REACH AND BED IN LOW LOCKED POSITION. WILL CONTINUE POC.
--- NOTE | 2019-07-04 07:51 | NUR ---
I have reviewed this patient and I concur with the Shift Assessment completed by the Licensed Practical Nurse today this shift.
--- NOTE | 2019-07-04 10:30 | NUR ---
UP TO BATHROOM VIA W/C FOR SHOWER. TOLERATED WELL. ASSISTED TO BEDSIDE CHAIR AND RESTING WELL WITH 02 ON PER N/C AT 2 L/M. NO C/O ANY SOB WHILE SHOWERING AND NON OBSERVED FOLLOWING SHOWER. DRESSING TO LEFT ANKLE CHANGED. SOME REDNESS NOTED AROUND INCISION INNER SIDE OF ANKLE WITH SMALL AMT DRAINAGE NOTED ON DRESSING THAT WAS REMOVED.
--- NOTE | 2019-07-04 14:18 | NUR ---
ASSISTED TO SHOWER VIA W/C. PT DID HER BATHING AND HAIR WITH VERY LITTLE ASST. AFTER SHOWER WANTED TO REMAIN UP IN W/C AND IS DOING EXERCISES FOR PT. NO C/O VOICED AND NO REQUESTS.
[2019-07-04 19:47] VITALS: BP 108/41
--- NOTE | 2019-07-04 19:50 | NUR ---
AWAKE AND ALERT. RESTING IN BED WITH O2/9L ON PER TRACH COLLAR. NO ACUTE DISTRESS NOTED, CALL LIGHT IN REACH.
--- NOTE | 2019-07-05 00:22 | NUR ---
SLEEPING WITH NO DISTRESS NOTED.
--- NOTE | 2019-07-05 05:12 | NUR ---
ASSISTED TO BATHROOM AND BACK TO BED. O2/9L ON PER TRACH COLLAR. BLOOD SUGAR 108.
[2019-07-05 07:16] LABS: ANION GAP 12.5 mmol/L (8-16); CALCIUM 8.5 mg/dL (8.5-10.1); CARBON DIOXIDE 28.1 mmol/L (21.0-32.0); CREATININE - SERUM 1.2 mg/dL (0.6-1.3); POTASSIUM - SERUM 4.6 mmol/L (3.5-5.1)
[2019-07-05 07:28] LABS: BASOPHILS 0.8 % (0-2); EOSINOPHILS 3.9 % (0-7); HEMATOCRIT 35.2 % (36.0-48.0); HEMOGLOBIN 10.6 g/dL (12-16); IMMATURE GRANULOCYTES 0.4 % (0-5); LYMPHOCYTES 23.5 % (15-50); MCH 29.2 pg (26.0-34.0); MCHC 30.1 g/dL (31.0-37.0); MEAN PLATELET VOLUME 10.1 fL (7.4-10.4); MONOCYTES 9.4 % (2-11); PLATELET COUNT 234 10x3/uL (130-400); RBC 3.63 10x6/uL (4.00-5.40); RDW 15.3 % (11.5-14.5); WBC 5.3 10x3/uL (4.8-10.8)
[2019-07-05 07:30] VITALS: BP 103/61
--- NOTE | 2019-07-05 07:30 | NUR ---
AWAKE DENIES NEEDS.TRACH COLLAR INTACT ,O2 AT 9L/MIN.VS TAKEN,ASSESSMENT COMPLETED.WILL CONTINUE WITH CURRENT PLAN OF CARE.CL IN EASY REACH,BED IN LOW POSITION.
--- NOTE | 2019-07-05 07:30 | NUR ---
AROUSES EASILY.DENIES NEEDS.VS TAKEN.ASSESSMENT COMPLETED.DRESSING INTACT TO LEFT FOOT CLEAN AND DRY.BRUISING AND LIGHT REDDNESS NOTED AT EDGE OF DRESSING.WARM TO TOUCH BUT COOLER AND LESS REDDNESS THAN FRIDAY.WILL CONTINUE WITH CURRENT PLAN OF CARE.CL IN EASY REACH,BED IN LOW POSITION.
--- NOTE | 2019-07-05 13:38 | NUR ---
Mutrition follow-up: Pt receiving a regular diet with po intake ~86% of last 9 meals Labs reviewed; Glucsoe elevated Pt with trach collar +BM Wt: 121# PO intake is very good at this time; will caution pt re: elevated glucose. RDN following.
[2019-07-05 20:00] VITALS: BP 106/60
--- NOTE | 2019-07-06 00:17 | NUR ---
200) REC'D. CHGE OF SHIFT. RESP AT BEDSIDE SUCTIONED,ORALCARE AND TRACH CARE GIVEN.NO RESP, DIFFICULTY OBSERVED.WILL CONTINUE TO MONITOR FOR ANY CHGES. IN RESP. STATUS AND FOLLOW CURRENT PLAN OF CARE.
[2019-07-06 07:30] VITALS: BP 168/67
--- NOTE | 2019-07-06 07:30 | NUR ---
AWAKE.DENIES NEEDS.TRACH COLLAR INTACT ,O2 9L/MIN .ASSISTED UP TO BATHROOM,STAND BY AST.ONLY.WILL CONTINUE WITH CURRENT PLAN OF CARE.CL IN EASY REACH,BED IN LOW POSITION.
--- NOTE | 2019-07-06 10:30 | NUR ---
FSBS 462.REPEAT FSBS 459.STAT GLUCOSE DRAW ORDERED,LAB NOTIFIED.
--- NOTE | 2019-07-06 12:08 | NUR ---
'S NURSE ELLEN NOTIFIED OF ELEVATED GLUCOSE OF 433 AND 12UNITS HUMALOG GIVEN PER SLIDING SCALE.SHE WILL NOTIFY .
--- NOTE | 2019-07-06 18:50 | NUR ---
BEDSIDE REPORT COMPLETE. PT SITTING UP ON SIDE OF BED. ALERT AND ORIENTED X4. O2 5L VIA TRACH COLLAR. C/O VAGINAL ITCHING. WILL CALL DR. SHEA TO GET NYSTATIN ORDERED. NO OTHER NEEDS VOICED. DENIES ANY PAIN. NO SIGNS OF ACUTE DISTRESS NOTED. CALL LIGHT WITHIN REACH. FALL PRECAUTIONS IN PLACE. CPOC
[2019-07-06 20:46] VITALS: BP 137/71
--- NOTE | 2019-07-06 23:43 | NUR ---
PT LYING IN BED ON RIGHT SIDE EYES CLOSED RESTING QUIETLY. RR EVEN AND UNLABORED. CONTINUES ON 10L VIA TRACH COLLAR. CALL LIGHT WITHIN REACH. FALL PRECAUTIONS IN PLACE. WILL CONTINUE TO MONITOR
--- NOTE | 2019-07-07 03:43 | NUR ---
PT LYING IN BED ON LEFT SIDE EYES CLOSED RESTING COMFORTABLY. RR EVEN AND UNLABORED. CALL LIGHT WITHIN REACH. FALL PRECAUTIONS IN PLACE. WILL CONTINUE TO MONITOR
--- NOTE | 2019-07-07 06:32 | NUR ---
PT LYING IN BED EYES CLOSED RESTING. HOB ELEVATED. CONTINUES ON 35% TRACH COLLAR. CALL LIGHT AND WATER WITHIN REACH. FALL PRECAUTIONS IN PLACE. CPOC
--- NOTE | 2019-07-07 07:10 | NUR ---
A/A/OX4. DENIES ANY NEEDS OR REQUESTS AT PRESENT TIME. SIDERAILS UP X 2, CALL LIGHT IN REACH AND BED IN LOW, LOCKED POSITION. NO APPARENT NEW PROBLEMS.
--- NOTE | 2019-07-07 07:15 | NUR ---
UP OOB TO BATHROOM/WC.
[2019-07-07 07:24] LABS: BASOPHILS 0.8 % (0-2); EOSINOPHILS 4.2 % (0-7); HEMOGLOBIN 10.7 g/dL (12-16); IMMATURE GRANULOCYTES 0.2 % (0-5); LYMPHOCYTES 23.2 % (15-50); MCH 29.2 pg (26.0-34.0); MCHC 30.6 g/dL (31.0-37.0); MCV 95.4 fL (80.0-100.0); MEAN PLATELET VOLUME 10.3 fL (7.4-10.4); MONOCYTES 7.8 % (2-11); NEUTROPHILS 63.8 % (40-80); PLATELET COUNT 265 10x3/uL (130-400); RBC 3.67 10x6/uL (4.00-5.40); RDW 15.3 % (11.5-14.5); WBC 4.7 10x3/uL (4.8-10.8)
[2019-07-07 07:39] LABS: ANION GAP 11.6 mmol/L (8-16); CALCIUM 8.5 mg/dL (8.5-10.1); CARBON DIOXIDE 28.9 mmol/L (21.0-32.0); CREATININE - SERUM 1.3 mg/dL (0.6-1.3); POTASSIUM - SERUM 4.5 mmol/L (3.5-5.1)
--- NOTE | 2019-07-07 08:01 | NUR ---
I have reviewed this patient and I concur with the Shift Assessment completed by the Licensed Practical Nurse today this shift.
--- NOTE | 2019-07-07 09:12 | NUR ---
REQUESTED FIORICET FOR HEADACHE RATED 9/10 AND ONE TAB GIVEN ORDRED.
--- NOTE | 2019-07-07 11:57 | NUR ---
02 DECREASED TO 28% WITH PULSE OX AT THIS TIME 95%. PT DENIES ANY SOB AND NO DISTRESS OBSERVED,
[2019-07-07 11:58] VITALS: BP 115/65
--- NOTE | 2019-07-07 13:22 | NUR ---
PULSE OX READING AT THIS TIME IS 96% AND REMAINS ON 28%. RESTING QUIETLY IN BED. WHEN ASKED IF SHE WANTS A SHOWER, SHE STATES SHE HAD ONE YESTERDAY. NO C/O OR REQUESTS AT PRESENT TIME.
--- NOTE | 2019-07-07 13:48 | NUR ---
CARE TEAM MEETING: PATIENT IS PROGRESSING WELL IN THERAPY AND SHE IS DISCHARGING HOME IN THE AM. WILL CONTINUE TO FOLLOW WITH PATIENT.
--- NOTE | 2019-07-07 19:20 | NUR ---
AWAKE AND ALERT. RESTING IN BED WITH AREOSOL TO TRACH. NO RESPIRATORY DISTRESS NOTED. CALL LIGHT IN REACH.
[2019-07-07 20:36] VITALS: BP 168/66
--- NOTE | 2019-07-07 22:15 | NUR ---
PATIENTS BLOOD SUGAR MONITOR SHOWS BLOOD SUGAR 46. ALERT AND ORIENTED. JUST FEELS WEAK. SKIN WARM AND DRY. ORANGE JUICE AND SUGAR GIVEN AND PUDDING AND CRACKERS. WILL MONITOR.
--- NOTE | 2019-07-07 22:58 | NUR ---
BLOOD SUGAR NOW 182. RESTING IN BED WITH NO DISTRESS NOTED.
--- NOTE | 2019-07-08 01:12 | NUR ---
SLEEPING WITH NO DISTRESS NOTED.
--- NOTE | 2019-07-08 05:11 | NUR ---
QUIET HOURS. NO ACUTE CHANGES IN CONDITION THIS SHIFT. RESTING IN BED WITH NO DISTRESS NOTED.
--- NOTE | 2019-07-08 06:17 | NUR ---
BLOOD SUGAR 439 AND TREATED WITH SLIDING SCALE. MESSAGE LEFT FOR DR SHEA ON ROUNDING SHEET.
--- NOTE | 2019-07-08 07:30 | NUR ---
RESTING POSITIONED ON BACK WITH HUMIDIFIER ON PER TRACH COLLAR. RESP EVEN AND UNLABORED AT THIS TIME. SIDERAILS UP X 2, CALL LIGHT IN REACH AND BED IN LOW LOCKED POSITION.
[2019-07-08 07:33] VITALS: BP 116/75
[2019-07-08] MEDS ORDERED: GLUCOPHAGE500 MG PO (08:39)
--- NOTE | 2019-07-08 08:40 | RHP ---
PATIENT: SCARLETT MOODY MEDICAL RECORD: [id number] ACCOUNT: [id number] LOCATION:[facility] [id number] : 54 ADMISSION DATE: 06/28/19 REHABILITATION HISTORY AND PHYSICAL EXAMINATION POST ADMISSION PHYSICIAN EXAMINATION ADMITTING DIAGNOSES: Debility secondary to pneumonia and urinary tract infection. HISTORY OF PRESENT ILLNESS: The patient is a 69-year-old female patient who presented to the Emergency Room Department after being seen by house calls for shortness of breath, edema, and weakness. She had recently been treated for pneumonia and UTI. She presented with increased dyspnea, cough. She has a trach in place, but is able to verbalize that she has been having increasing dyspnea, shortness of breath and not feeling well. The patient was tested for COVID and reported as negative. She has got a history of hypertension, hyperlipidemia, atrial fib, CHF, pacemaker placement, PE in the past, COPD, hypothyroidism, gastroparesis, anemia, rheumatoid arthritis, chronic back pain, depression, anxiety. Been followed by pulmonary during her acute stay. She was also seen by general surgery. She has received both PT and OT during her stay. The patient needs to be monitored closely for supplemental O2 requirements and having increased secretions via her trach. She is on 30% oxygen via trach collar. She has failed outpatient therapy for pneumonia. She has got pain control. She has got respiratory problems. Monitoring her blood sugar. She has brittle diabetic. Monitoring her I's and O's. She has got a Cruz catheter. She is being treated for UTI and pneumonia with antibiotics. She has got balance deficits, decreased activity tolerance, impaired mobility, decreased range of motion, decreased strength, limited safety awareness. She is at risk for falls, cues for equipment, low endurance. She has got unsteady gait, balance. She fatigues easily, inability to care for herself. These are all barriers to her discharge home. She lives at home with her daughter and was independent with ADLs and mobility prior to this, using a rolling walker. Currently set up for mod assist for ADLs, mod assist for mobility. She and her family would like to return home at her prior level of functioning or better. COMORBIDITIES: Include weakness, oropharyngeal dysphagia, speech disturbance, hyperlipidemia, hypertension, breast cancer in the past, coronary artery disease, electrolyte abnormalities, osteoporosis, rheumatoid arthritis, gastroparesis, normocytic anemia, tracheostomy, atrial fib, chronic back pain, anxiety, depression, protein-calorie malnutrition. She has lost 25% of her body weight over the last year, PEG and COPD. PAST MEDICAL HISTORY: Significant for glasses, she has got history of diabetes, hypertension, OK in the past, CHF, known coronary artery disease, atrial fib, COPD, chronic cough, breast cancer, acid reflux, constipation, gastroparesis, arthritis, osteoporosis. PAST SURGICAL HISTORY: Includes a hysterectomy, she has had shoulder surgery, D&C, carpal tunnel, mastectomy, mandibular repair, cataracts. She has got stents, pelvic sling. She has had wrist surgery, knee surgery and revision. ALLERGIES: NEOSPORIN, ADHESIVE, FLEXERIL, VICODIN, LIDOCAINE, ROBAXIN, BACTRIM, LOPRESSOR AND MACRODANTIN. CURRENT MEDICATIONS: Include digoxin 0.125 mg daily, Floranex daily, Zoloft 100 HISTORY AND PHYSICAL [id number] HEIDYSCARLETT JERRY mg daily, lisinopril 10 mg daily, Zithromax 500 mg daily, Atrovent 0.5 mg b.i.d., Protonix 40 mg b.i.d., Synthroid 75 mcg daily, she is on a low-resistant sliding scale with Humalog, Neurontin 900 mg t.i.d., Pravachol 40 mg at bedtime, MiraLax 17 grams in 8 ounces of water daily b.i.d., Reglan 10 mg b.i.d., Cardizem 60 mg q.i.d., Omnicef 300 mg b.i.d., amiodarone 200 mg b.i.d., Ultram 50 mg every 6 hours p.r.n., Zanaflex 4 mg t.i.d. p.r.n., Valium 5 mg q.i.d. p.r.n., Fioricet as needed for headaches and Pulmicort 0.5 mg b.i.d. HABITS: No alcohol or tobacco use. FAMILY HISTORY: Noncontributory. SOCIAL HISTORY: The patient hopes to return back home with her daughter. REVIEW OF SYSTEMS: GENERAL: Does complain of weakness and fatigue. HEENT: Denies cold, cough, or congestion. CARDIOVASCULAR: Denies any chest pain. LUNGS: Does complain of shortness of breath or any type of activity. PHYSICAL EXAMINATION: VITAL SIGNS: Stable. She is afebrile. GENERAL: A much older than stated age female, in no acute distress upon exam. HEENT: Normocephalic and atraumatic. Mucosa moist. NECK: Supple. No lymphadenopathy. LUNGS: Clear in upper patino, decreased breath sounds in the bases. CARDIOVASCULAR: Irregular rate and rhythm. ABDOMEN: Soft, benign, and nondistended. Positive bowel sounds times 4. EXTREMITIES: No clubbing, cyanosis or edema. NEUROLOGIC: She does have diffuse weakness in her proximal muscles of her quads and also her upper arms. LABORATORY DATA: White count is 4.3, H&H of 10.9 and 35.4 and platelet count was noted to be 194. ASSESSMENT: Diffuse debility secondary to pneumonia and urinary tract infection. The patient has potential to make improvement. We instituted the following multidisciplinary therapies including, but not limited to physical, occupational, respiratory, speech, nutritional services, prosthetics and orthotics. Given her complex medical condition and risks for more complications, rehabilitation services cannot be provided at a low level of care such as halfway facility. PLAN: 1. Admit to [facility] for intensive inpatient therapy to include the following disciplines; A. Physical therapy to improve gait, all transfer skills and bed mobility to a modified independent level. B. Occupational therapy to improve activities of daily living. C. Case management to assist with discharge planning and placement options. D. Nutrition to assist with nutritional needs. E. Rehabilitation nursing to assist in monitoring the patient's underlying medical conditions and to assist with any type or bladder management. 2. The patient's current medication and medical care will be continued. 3. The patient will be placed on standard fall precautions. HISTORY AND PHYSICAL [id number] SCARLETT MOODY 4. The patient's estimated length of stay is approximately 7-10 days. 5. We will discuss the patient's care team staff meeting this week. I will check a vitamin D level and other levels in the morning and see again. TRANSINT:[id number] Voice Confirmation ID: [id number] DOCUMENT ID: [id number] KEYLA notes whether there has been none or any medical/functional change since admission: - No change since pre-admission screen. KEYLA attests patient continues to be appropriate for IRF: - Continues to be appropriate. CHERYL SHEA MD at 0840 CC: [id number] DICTATION DATE: 06/29/19930 PRESSURE TESTER OPERATOR: 06/29/19 1008 ADM IN [place] [id number] [place] [id number]
--- NOTE | 2019-07-08 09:15 | NUR ---
PATIENT DISCHARGING HOME TODAY WITH FAMILY. [address] WILL RESUME THERAPY AT HOME. [facility] WILL FOLLOW WITH PATIENT AT HOME. DR. RUSS 09/07/19 @ 2:00. ALMAZ SIGNED AND IMM SERVED AND EXPLAINED. NO COMPARE DATA REVIEWED PATIENT IS A CLIENT OF [facility]. DISCHARGE INSTRUCTIONS FAXED TO [facility] [address] AND REVIEWED WITH PATIENT PER PRIMARY NURSE.
--- NOTE | 2019-07-08 09:47 | NUR ---
ASSISTED PT UP TO BATHROOM. NOTED TO BE SOB AND PULSE OX DOWN TO 88%. RECOVERED IN 5 MINUTES TO 93%. STATES SHE DOES NOT HAVE 02 AT HOME BUT WOULD LIKE TO BE ABLE TO GET SOME. MEDICAL RESEARCH ASSISTANT NOTIFIED OF PTS WISHES.
--- NOTE | 2019-07-08 10:00 | NUR ---
I have reviewed this patient and I concur with the Shift Assessment completed by the Licensed Practical Nurse today this shift.
--- NOTE | 2019-07-08 10:36 | NUR ---
ORDER FAXED TO [facility] FOR HOME 02.
== END 2019-07-08 13:26 | disposition home health service (06) | DRG 194 ==
LOC: D.REHAB 18:30
PROVIDERS: ADMIT Emergency Medicine; ATTEND Emergency Medicine
DX: J18.9 Pneumonia, unspecified organism (principal); E46 Unspecified protein-calorie malnutrition; N39.0 Urinary tract infection, site not specified; E87.1 Hypo-osmolality and hyponatremia; N17.9 Acute kidney failure, unspecified; I50.30 Unspecified diastolic (congestive) heart failure; Z93.0 Tracheostomy status; R53.81 Other malaise; R53.1 Weakness; R13.12 Dysphagia, oropharyngeal phase; R47.9 Unspecified speech disturbances; E78.5 Hyperlipidemia, unspecified; I25.10 Atherosclerotic heart disease of native coronary artery without angina pectoris; E87.8 Other disorders of electrolyte and fluid balance, not elsewhere classified; M81.0 Age-related osteoporosis without current pathological fracture; M06.9 Rheumatoid arthritis, unspecified; K31.84 Gastroparesis; D64.9 Anemia, unspecified; I48.91 Unspecified atrial fibrillation; F41.8 Other specified anxiety disorders; E03.9 Hypothyroidism, unspecified; K21.9 Gastro-esophageal reflux disease without esophagitis; I11.0 Hypertensive heart disease with heart failure

== ENCOUNTER → 2019-12-06 18:00 | Outpatient (CLI) | payer MEDICARE, OTHER ==
[2019-06-29 13:39] VITALS: BMI 22.1
[~2019-12-06 18:00] MED LIST changes: +GLUCOPHAGE500 MG PO
[2019-12-06 19:36] LABS: BASOPHILS 0.6 % (0-2); EOSINOPHILS 3.1 % (0-7); HEMATOCRIT 34.6 % (36.0-48.0); HEMOGLOBIN 10.7 g/dL (12-16); IMMATURE GRANULOCYTES 0.2 % (0-5); LYMPHOCYTES 18.6 % (15-50); MCHC 30.9 g/dL (31.0-37.0); MCV 90.6 fL (80.0-100.0); MEAN PLATELET VOLUME 10.1 fL (7.4-10.4); MONOCYTES 10.8 % (2-11); NEUTROPHILS 66.7 % (40-80); PLATELET COUNT 306 10x3/uL (130-400); RBC 3.82 10x6/uL (4.00-5.40); RDW 14.8 % (11.5-14.5); WBC 6.5 10x3/uL (4.8-10.8)
[2019-12-06 21:44] LABS: ERYTHROCYTE SEDIMENTATION RATE 5 mm/hr (0-30)
== END | disposition home or self-care (01) ==
LOC: D.LABREF 18:00
PROVIDERS: ATTEND Nurse Practitioner Family
DX: M25.562 Pain in left knee (principal)

== ENCOUNTER → 2020-05-23 13:16 | Outpatient (CLI) | payer MEDICARE, OTHER ==
[2019-06-29 13:39] VITALS: BMI 22.1
--- NOTE | 2020-05-25 14:15 | EC ---
PATIENT:SCARLETT MOODY DATE OF SERVICE: 05/23/20 SEX: F MEDICAL RECORD: [id number] DATE OF : 54 LOCATION:[facility] AGE OF PATIENT: 70 ADMISSION DATE: 05/23/20 REFERRING PHYSICIAN: INTERPRETING PHYSICIAN: CHEVY BRUNER MD ECHOCARDIOGRAM REPORT ECHO CHARGES 4 ECHO COMPLETE Date: 05/23/20 CLINICAL DIAGNOSIS: ASSESS EF/MITRAL REGURG/LVH HX OF CAD/HTN/PACEMAKER ECHOCARDIOGRAPHIC MEASUREMENTS (adult normal given) AC root (d.<3.7cm) 2.8 cm LV Septum d (<1.2 cm> 1.3 cm Valve Excursion 1.2 cm LV Septum (systole) 1.5 cm Left Atria (s.<4.0cm> 3.9 cm LVPW d(<1.2cm) 1.4 cm RV (d.<2.3cm) 3.1 cm LVPW (sytole) 1.6 cm LV diastole(<5.6CM) 5.2 cm MV E-F(>70mm/sec) cm LV systole 4.1 cm LVOT Diameter 1.6 cm MV exc.(>10mm) cm Est.ejection fraction (50-75%) % DOPPLER: LVIT cm/sec A 61.0 cm/sec E 112.0 cm/sec LA cm/sec RVSP 20 mmHg LVOT 99 cm/sec AOP1/2T m/s Asc. Ao 168 cm/sec RVOT 59 cm/sec RA cm/sec PA 134 cm/sec AV Gradient Peak 11.26mmHg AV Mean 5.67 mmHg AV Area 1.2 cm MV Gradient Peak 7.01 mmHg MV Mean 2.53 mmHg MV Area cm COMMENTS: Licensing Specialist: 2 CAYETANO DING Site Planner: 3 Dr. Gaxiola TAPE# PACS Pericardial Effusion N DATE OF SERVICE: Adequate 2D, color-flow imaging, spectral Doppler, and M-Mode FINDINGS: LVH is present. LV internal dimension is normal. Wall motion is normal. EF is greater than or equal to 55%. Aortic valve is tricuspid. No evidence of stenosis by Doppler interrogation. Left atrium is normal. Mitral valve shows no prolapse. Trace MR. Right side is grossly normal. Trace TR. TRANSINT:[id number] Voice Confirmation ID: [id number] DOCUMENT ID: [id number] ECHOCARDIOGRAM REPORT [id number] SCARLETT MOODY,CHEVY Collins MD at 1415 CC: [id number] DICTATION DATE: 05/24/20 1051 CAFETERIA DIRECTOR: 05/24/20 1712 DEP CLI 05/23/20 [place] [id number] [place] [id number]
== END | disposition home or self-care (01) ==
LOC: D.HCCECHO 13:16
PROVIDERS: ATTEND Internal Medicine Interventional Cardiology
DX: I10 Essential (primary) hypertension (principal)